=== PATIENT | female | born 1940 | race Caucasian/White ===

== ENCOUNTER → 2016-08-11 | Outpatient (CLI) | payer MEDICARE ==
--- NOTE | 2016-08-12 11:03 | ECHOF ---
Referral Reason:M34.1 Systemic Sclerosis, R06.9 Dyspnea MEASUREMENTS -------- HEIGHT: 167.6 cm WEIGHT: 71.2 kg BP: 146/71 RVIDd: 3.0 cm (< 3.3) IVSd: 1.2 cm (0.6 - 1.1) LVIDd: 2.9 cm (3.9 - 5.3) LVPWd: 1.1 cm (0.6 - 1.1) IVSs: 1.7 cm LVIDs: 2.1 cm LVPWs: 1.6 cm LA Diam: 3.4 cm (2.7 - 3.8) LAESV Index (A-L): 26.19 ml/m Ao Diam: 2.9 cm (2.0 - 3.7) AV Cusp: 2.0 cm (1.5 - 2.6) LA Diam: 3.2 cm (2.7 - 3.8) MV EXCURSION: 10.759 mm (> 18.000) MV EF SLOPE: 69 mm/s (70 - 150) EPSS: 0.4 cm MV E Maynor: 0.88 m/s MV DecT: 192 ms MV A Maynor: 0.91 m/s MV E/A Ratio: 0.96 AR PHT: 1031 ms RAP: 5.00 mmHg RVSP: 36.12 mmHg FINDINGS -------- Sinus rhythm. This was a technically good study. The left ventricular size is normal. There is borderline concentric left ventricular hypertrophy. Overall left ventricular systolic function is normal with, an EF between 55 - 60 %. The right ventricle is normal in size. Normal LA size by volume 22+/-6 ml/m2. The right atrium is normal in size. Aortic valve is trileaflet and is mildly thickened. Mild mitral annular calcification present. Moderate mitral regurgitation is present. Mild tricuspid regurgitation present. There is mild pulmonary hypertension. The right ventricular systolic pressure, as measured by Doppler, is 36.12mmHg. There is no pulmonic regurgitation present. The aortic root size is normal. Normal inferior vena cava with normal inspiratory collapse consistent with estimated right atrial pressure of 5 mmHg. There is no pericardial effusion. CONCLUSIONS -------- 1. Sinus rhythm. 2. There is mild pulmonary hypertension. 3. There is no pulmonic regurgitation present. 4. The aortic root size is normal. 5. Normal inferior vena cava with normal inspiratory collapse consistent with estimated right atrial pressure of 5 mmHg. 6. There is no pericardial effusion. 7. This was a technically good study. 8. There is borderline concentric left ventricular hypertrophy. 9. Overall left ventricular systolic function is normal with, an EF between 55 - 60 %. 10. Normal LA size by volume 22+/-6 ml/m2. 11. Aortic valve is trileaflet and is mildly thickened. 12. Mild mitral annular calcification present. 13. Moderate mitral regurgitation is present. 14. Mild tricuspid regurgitation present. CLEANER ASSISTANT: Antonette Graham RDCS
== END ==
LOC: RADECHMAIN 14:54
PROVIDERS: ATTEND Internal Medicine Rheumatology
DX: I27.2 Other secondary pulmonary hypertension (principal); I08.1 Rheumatic disorders of both mitral and tricuspid valves
CPT/HCPCS: 93306

== ENCOUNTER → 2017-08-24 | Outpatient (CLI) | payer MEDICARE ==
--- NOTE | 2017-08-26 09:04 | MM ---
Reason for exam: screening (asymptomatic). Last mammogram was performed 1 year and 5 months ago. History: Patient is postmenopausal. Family history of breast cancer in father at age 60. Benign right mammotome panel of the right breast, September 21, 2005. Excisional biopsy of the left breast. Physical Findings: A clinical breast exam by your physician is recommended on an annual basis and results should be correlated with mammographic findings. MG 3D Screening Mammo W/Cad Bilateral CC and MLO view(s) were taken. Prior study comparison: April 07, 2016, bilateral MG 3d screening mammo w/cad. August 25, 2011, bilateral digital screening mammo w/CAD. There are scattered fibroglandular densities. Finding: There are stable punctate, grouped/clustered calcifications in the 6 o'clock lower quadrant, middle position of the right breast. Previous mammotome biopsy in the right breast. No significant changes in finding since April 07, 2016 and August 25, 2011. ASSESSMENT: Benign, BI-RAD 2 RECOMMENDATION: Routine screening mammogram of both breasts in 1 year.
== END | disposition home or self-care (01) ==
LOC: RADMAMWWP 14:02
PROVIDERS: ATTEND Family Medicine
DX: Z12.31 Encounter for screening mammogram for malignant neoplasm of breast (principal)
CPT/HCPCS: 77063; 77067

== ENCOUNTER 2018-05-22 09:35 | Emergency (ER) | payer MEDICARE ==
[2018-05-22] MEDS ORDERED: SODIUM CHLORIDE 0.9% 1,000 ML IV STA (10:00)
[2018-05-22 10:11] LABS: Glucose,Whole Blood 110 mg/dL (75-99)
[2018-05-22 10:30] LABS: Basophils # (A) 0.1 k/uL (0-0.2); Basophils % (A) 1 %; Eosinophils # (A) 0.2 k/uL (0-0.7); Eosinophils % (A) 2 %; HCT 44.7 % (34.0-46.0); HGB 14.6 gm/dL (11.4-16.0); Lymphocytes # (A) 1.7 k/uL (1.0-4.8); Lymphocytes % (A) 16 %; MCH 28.6 pg (25.0-35.0); MCHC 32.7 g/dL (31.0-37.0); MCV 87.5 fL (80.0-100.0); Mean Platelet Volume 6.5; Monocytes # (A) 0.5 k/uL (0-1.0); Monocytes % (A) 4 %; Neutrophils # (A) 8.5 k/uL (1.3-7.7); Neutrophils % (A) 77 %; Platelet Count 314 k/uL (150-450); RDW 13.8 % (11.5-15.5)
--- NOTE | 2018-05-22 10:32 | XR ---
EXAMINATION TYPE: XR chest 2V DATE OF EXAM: 05/22/2018 COMPARISON: NONE HISTORY: Shortness of breath TECHNIQUE: Frontal and lateral views of the chest are obtained. FINDINGS: Scattered senescent parenchymal changes noted. Hyperinflation compatible with COPD. No evidence for infiltrate. No evidence for atelectasis. Heart size is stable. Mediastinal structures are stable and grossly unremarkable. No evidence for hilar prominence. Degenerative changes dorsal spine. IMPRESSION: 1. No evidence for acute pulmonary disease.
[2018-05-22 10:40] LABS: Albumin 4.3 g/dL (3.5-5.0); Calcium 9.7 mg/dL (8.4-10.2); Magnesium 1.8 mg/dL (1.6-2.3); Potassium 4.6 mmol/L (3.5-5.1); Total Bilirubin 0.6 mg/dL (0.2-1.3); Total Protein 7.4 g/dL (6.3-8.2)
[2018-05-22] MEDS ORDERED: LIDOCAINE 5% PATCH TOPICAL STA (10:45)
[2018-05-22 10:47] LABS: Prothrombin Time 10.5 sec (9.0-12.0)
[2018-05-22] MEDS ORDERED: ONDANSETRON 4 MG/2 ML VIAL IVP STA (10:47)
[2018-05-22] MEDS ORDERED: ACETAMINOPHEN IV (For NPO) 1,000 MG in EMPTY BAG 1 BAG IVPB ONE (10:47)
[2018-05-22 10:48] LABS: Creatine Kinase 71 U/L (30-135)
--- NOTE | 2018-05-22 10:48 | ED ---
General Adult HPI - General Chief complaint: Syncope Stated complaint: Syncope, Fall Source: patient Mode of arrival: wheelchair Limitations: no limitations - Related Data Home Medications Medication Instructions Recorded Confirmed Cholecalciferol [Vitamin D3] 5,000 unit PO DAILY 05/22/18 05/22/18 Omeprazole 40 mg PO DAILY 05/22/18 05/22/18 Triamterene-Hctz 37.5-25Mg 1 cap PO DAILY 05/22/18 05/22/18 [Dyazide 37.5-25 Capsule] Venlafaxine HCl [Effexor] 75 mg PO DAILY 05/22/18 05/22/18 Vits A,C,E/Lutein/Minerals 1 tab PO DAILY 05/22/18 05/22/18 [Ocuvite with Lutein Tablet] busPIRone HCL 15 mg PO DAILY 05/22/18 05/22/18 Allergies Allergy/AdvReac Type Severity Reaction Status Date / Time Sulfa (Sulfonamide Allergy Unknown Verified 05/22/18 10:04 Antibiotics) Childhood Review of Systems ROS Statement: Those systems with pertinent positive or pertinent negative responses have been documented in the HPI. ROS Other: All systems not noted in ROS Statement are negative. Past Medical History Past Medical History: Fibromyalgia, Pulmonary Embolus (PE), Rheumatoid Arthritis (RA) Additional Past Medical History / Comment(s): macular degeneration, lupus, Raynauds History of Any Multi-Drug Resistant Organisms: ESBL Date of last positivie culture/infection: 08/17/2014 MDRO Source:: Urine-E.Coli ESBL Past Surgical History: Bladder Surgery, Hysterectomy Past Psychological History: Depression Smoking Status: Never smoker Past Alcohol Use History: Occasional Past Drug Use History: None Reported General Exam Limitations: no limitations Course Vital Signs 05/22/18 05/22/18 09:48 14:00 Temperature 97.7 F Pulse Rate 69 84 Respiratory 16 18 Rate Blood Pressure 128/72 162/84 O2 Sat by Pulse 97 98 Oximetry Medical Decision Making - Medical Decision Making Dictation was produced using [employer] dictation software. please excuse any grammatical, word or spelling errors. Chief Complaint: 77-year-old female presents with episode of syncope. History of Present Illness: 77-year-old female she woke up from bed to go use the restroom. She states she started to feel lightheaded and felt like recurrence, no arise. She remembers she woke up on the ground. She crawled into bed told her . They brought her to the emergency department. Patient states that prior to standing up she was massaging the area around her left neck for some tightness in her trapezius. Patient denies any history of syncope. Patient does take antihypertensive medications. She states that she didn't start any new medications recently. Patient does not complain of any tongue biting. She was not observed to be confused after the incident. Fall was unwitnessed. Patient does complain of a mild headache. The ROS documented in this emergency department record has been reviewed and confirmed by me. Those systems with pertinent positive or negative responses have been documented in the HPI. All other systems are other negative and/or noncontributory. PHYSICAL EXAM: General Impression: Alert and oriented x3, not in acute distress HEENT: Normocephalic atraumatic, extra-ocular movements intact, pupils equal and reactive to light bilaterally, mucous membranes moist. Cardiovascular: Heart regular rate and rhythm, S1&S2 audible, no murmurs, rubs or gallops, no systolic ejection murmur Chest: Lungs clear to auscultation bilaterally, no rhonchi, no wheeze, no rales Abdomen: Bowel sounds present, abdomen soft, non-tender, non-distended, no organomegaly Musculoskeletal: Pulses present and equal in all extremities, no peripheral edema, mild tenderness to the area over the anterior talofibular ligament, mild tenderness to palpation over the right flank area Motor: Power 5/5 bilaterally, no focal deficits noted Neurological: CN II-XII grossly intact, no focal motor or sensory deficits noted Skin: Intact with no visualized rashes Psych: Normal affect and mood ED course: 77-year-old female presents to emergency department after episode of syncope. Signs upon arrival are within acceptable limits. Patient still feels slightly weak. EKG is unremarkable. Distress consistent with vasovagal syncope given the patient was massaging her neck. Return evaluation obtained. Mild leukocytosis of 11.0 likely secondary to stress. Coag panel unremarkable. Metabolic panel is negative. Kernig enzymes negative. Urinalysis negative. Chest x-ray, rib x-ray, head CT is unremarkable. Patient did have a mildly displaced fibular fracture. This appears to be however be. Given that there is possibility of instability ankles placed in a splint. Patient is monitored on monitoring analyst without any acute events. Patient be discharged. Still to follow-up with her primary care physician for outpatient workup of syncope. Patient also told to follow up with orthopedic surgery for outpatient management of ankle fracture. EKG Interpretation: A 12 lead EKG was obtained. It was interpreted by myself and attending physician. There is a P wave before every QRS complex. Rate is 69. Rhythm is normal sinus rhythm, AZ interval 150, care is 80, QTc 47. QT is not prolonged. No ST segment depression or elevation. Overall, this EKG is unremarkable - Lab Data Result diagrams: 05/22/18 10:10 05/22/18 10:10 Lab Results 05/22/18 05/22/18 05/22/18 Range/Units 10:10 10:10 10:10 WBC 11.0 H (3.8-10.6) k/uL RBC 5.10 (3.80-5.40) m/uL Hgb 14.6 (11.4-16.0) gm/dL Hct 44.7 (34.0-46.0) % MCV 87.5 (80.0-100.0) fL MCH 28.6 (25.0-35.0) pg MCHC 32.7 (31.0-37.0) g/dL RDW 13.8 (11.5-15.5) % Plt Count 314 (150-450) k/uL Neutrophils % 77 % Lymphocytes % 16 % Monocytes % 4 % Eosinophils % 2 % Basophils % 1 % Neutrophils # 8.5 H (1.3-7.7) k/uL Lymphocytes # 1.7 (1.0-4.8) k/uL Monocytes # 0.5 (0-1.0) k/uL Eosinophils # 0.2 (0-0.7) k/uL Basophils # 0.1 (0-0.2) k/uL PT (9.0-12.0) sec INR (<1.2) APTT (22.0-30.0) sec Sodium (137-145) mmol/L Potassium (3.5-5.1) mmol/L Chloride (98-107) mmol/L Carbon Dioxide (22-30) mmol/L Anion Gap mmol/L BUN (7-17) mg/dL Creatinine (0.52-1.04) mg/dL Est GFR (CKD-EPI)AfAm (>60 ml/min/1.73 sqM) Est GFR (CKD-EPI)NonAf (>60 ml/min/1.73 sqM) Glucose (74-99) mg/dL POC Glucose (mg/dL) 110 H (75-99) mg/dL POC Glu Radiagraph Operator ID Matthew Dunbar Calcium (8.4-10.2) mg/dL Magnesium (1.6-2.3) mg/dL Total Bilirubin (0.2-1.3) mg/dL AST (14-36) U/L ALT (9-52) U/L Alkaline Phosphatase (38-126) U/L Total Creatine Kinase 71 (30-135) U/L CK-MB (CK-2) 1.2 (0.0-2.4) ng/mL CK-MB (CK-2) Rel Index 1.7 Troponin I <0.012 (0.000-0.034) ng/mL Total Protein (6.3-8.2) g/dL Albumin (3.5-5.0) g/dL Urine Color Urine Appearance (Clear) Urine pH (5.0-8.0) Ur Specific [place] (1.001-1.035) Urine Protein (Negative) Urine Glucose (UA) (Negative) Urine Ketones (Negative) Urine Blood (Negative) Urine Nitrite (Negative) Urine Bilirubin (Negative) Urine Urobilinogen (<2.0) mg/dL Ur Leukocyte Esterase (Negative) 05/22/18 05/22/18 05/22/18 Range/Units 10:10 10:10 13:55 WBC (3.8-10.6) k/uL RBC (3.80-5.40) m/uL Hgb (11.4-16.0) gm/dL Hct (34.0-46.0) % MCV (80.0-100.0) fL MCH (25.0-35.0) pg MCHC (31.0-37.0) g/dL RDW (11.5-15.5) % Plt Count (150-450) k/uL Neutrophils % % Lymphocytes % % Monocytes % % Eosinophils % % Basophils % % Neutrophils # (1.3-7.7) k/uL Lymphocytes # (1.0-4.8) k/uL Monocytes # (0-1.0) k/uL Eosinophils # (0-0.7) k/uL Basophils # (0-0.2) k/uL PT 10.5 (9.0-12.0) sec INR 1.0 (<1.2) APTT 23.0 (22.0-30.0) sec Sodium 138 (137-145) mmol/L Potassium 4.6 (3.5-5.1) mmol/L Chloride 97 L (98-107) mmol/L Carbon Dioxide 30 (22-30) mmol/L Anion Gap 11 mmol/L BUN 23 H (7-17) mg/dL Creatinine 0.84 (0.52-1.04) mg/dL Est GFR (CKD-EPI)AfAm 79 (>60 ml/min/1.73 sqM) Est GFR (CKD-EPI)NonAf 68 (>60 ml/min/1.73 sqM) Glucose 110 H (74-99) mg/dL POC Glucose (mg/dL) (75-99) mg/dL POC Glu Radiagraph Operator ID Calcium 9.7 (8.4-10.2) mg/dL Magnesium 1.8 (1.6-2.3) mg/dL Total Bilirubin 0.6 (0.2-1.3) mg/dL AST 26 (14-36) U/L ALT 21 (9-52) U/L Alkaline Phosphatase 63 (38-126) U/L Total Creatine Kinase (30-135) U/L CK-MB (CK-2) (0.0-2.4) ng/mL CK-MB (CK-2) Rel Index Troponin I (0.000-0.034) ng/mL Total Protein 7.4 (6.3-8.2) g/dL Albumin 4.3 (3.5-5.0) g/dL Urine Color Light Yellow Urine Appearance Clear (Clear) Urine pH 5.0 (5.0-8.0) Ur Specific [place] 1.007 (1.001-1.035) Urine Protein Negative (Negative) Urine Glucose (UA) Negative (Negative) Urine Ketones Negative (Negative) Urine Blood Negative (Negative) Urine Nitrite Negative (Negative) Urine Bilirubin Negative (Negative) Urine Urobilinogen <2.0 (<2.0) mg/dL Ur Leukocyte Esterase Negative (Negative) Disposition Clinical Impression: Fracture, Syncope Disposition: HOME SELF-CARE Condition: Good Instructions: Syncope (ED), Ankle Fracture (ED) Is patient prescribed a controlled substance at d/c from ED?: No Referrals: Doron Peralta MD [Primary Care Provider] - 1-2 days Hudson Kelly MD [Medical Doctor] - 1-2 days Time of Disposition: 14:34
[2018-05-22 11:01] LABS: Creatine Kinase MB 1.2 ng/mL (0.0-2.4); Troponin I <0.012 ng/mL (0.000-0.034)
--- NOTE | 2018-05-22 12:28 | CT ---
EXAMINATION TYPE: CT brain wo con DATE OF EXAM: 05/22/2018 COMPARISON: None HISTORY: Syncope CT DLP: 1082.[address] of the brain was performed. The ventricles, basal cisterns and sulci overlying the cerebral convexities demonstrate mild enlargem ent. There is no evidence for intracranial hemorrhage or sulcal effacement. There is decreased attenuation about the periventricular white matter and deep white matter of both c erebral hemispheres, compatible with chronic small vessel ischemia. Differential diagnosis does inclu de demyelination. No mass effects are seen.No midline shift. Osseous calvarium is intact. If symptoms persist consider MRI. IMPRESSION: 1. Age related atrophic and chronic small vessel ischemic change without acute intracranial process s een at this time.
--- NOTE | 2018-05-22 12:36 | XR ---
EXAMINATION TYPE: XR ankle complete LT DATE OF EXAM: 05/22/2018 COMPARISON: NONE HISTORY: Pain TECHNIQUE: 3 views of the left ankle are submitted for evaluation. FINDINGS: There is mildly displaced the distal fibular fracture oblique orientation just cranial to t he level of the ankle mortise. Ankle mortise is intact. Soft tissues are within normal limits. IMPRESSION: 1. Mildly displaced distal fibular fracture.
--- NOTE | 2018-05-22 12:39 | XR ---
EXAMINATION TYPE: XR ribs RT DATE OF EXAM: 05/22/2018 CLINICAL HISTORY: Pain, Fall Four views of the ribs fail demonstrate evidence for displaced rib fracture or secondary sign of rib fracture. Visualized lungs are clear. No evidence for pneumothorax. IMPRESSION: 1. No displaced rib fractures seen. ICD 10 NO FRACTURE, INITIAL EVALUATION
[2018-05-22 14:13] LABS: Appearance,Urine Clear (Clear); Bilirubin,Urine Negative (Negative); Blood,Urine Negative (Negative); Color,Urine Light Yellow; Glucose,Urine (UA) Negative (Negative); Ketones,Urine Negative (Negative); Leukocyte Esterase,Urine Negative (Negative); Nitrite,Urine Negative (Negative); Protein,Urine Negative (Negative); Specific Gravity,Urine 1.007 (1.001-1.035); Urobilinogen,Urine <2.0 mg/dL (<2.0)
[2018-05-22 14:43] VITALS: BP 141/71; PULSE 75; RESP 16; TEMP 98.6
== END 2018-05-22 15:15 | disposition home or self-care (01) ==
LOC: EC 09:35
DX: S82.832A Other fracture of upper and lower end of left fibula, initial encounter for closed fracture (principal); R55 Syncope and collapse; D72.829 Elevated white blood cell count, unspecified; F32.9 Major depressive disorder, single episode, unspecified; Z79.899 Other long term (current) drug therapy; Z88.2 Allergy status to sulfonamides; W19.XXXA Unspecified fall, initial encounter; Y92.002 Bathroom of unspecified non-institutional (private) residence as the place of occurrence of the external cause
CPT/HCPCS: 36415; 93005; 80053; 82550; 82553; 83735; 84484; 85025; 85610; 85730; 81003; 71100; 73610; 71046; 70450; 99285; 29515; 96374; 96375; 96361; J2405; J0131

== ENCOUNTER → 2019-01-26 | Outpatient (CLI) | payer MEDICARE ==
--- NOTE | 2019-01-27 13:45 | MM ---
Reason for exam: screening (asymptomatic). Last mammogram was performed 1 year and 5 months ago. History: Patient is postmenopausal. Family history of breast cancer in father at age 60. Benign right mammotome panel of the right breast, September 21, 2005. Excisional biopsy of the left breast. Physical Findings: A clinical breast exam by your physician is recommended on an annual basis and results should be correlated with mammographic findings. MG 3D Screening Mammo W/Cad Bilateral CC and MLO view(s) were taken. XCCL view(s) were taken of the right breast. Prior study comparison: August 24, 2017, bilateral MG 3d screening mammo w/cad. April 07, 2016, bilateral MG 3d screening mammo w/cad. The breast tissue is heterogeneously dense. This may lower the sensitivity of mammography. No suspicious abnormality. Right biopsy marker noted. No significant changes when compared with prior studies. ASSESSMENT: Benign, BI-RAD 2 RECOMMENDATION: Routine screening mammogram of both breasts in 1 year.
== END ==
LOC: RADMAMWWP 11:09
PROVIDERS: ATTEND Family Medicine
DX: Z12.31 Encounter for screening mammogram for malignant neoplasm of breast (principal)
CPT/HCPCS: 77063; 77067

== ENCOUNTER 2021-04-12 19:20 | Observation (INO) | payer OTHER, MEDICARE ==
[2021-04-12] MEDS ORDERED: SODIUM CHLORIDE 0.9% 500 ML 500 ML IV STA (19:40)
[2021-04-12] MEDS ORDERED: KETOROLAC 30 MG/ML 1 ML VIAL IVP STA (19:41)
[2021-04-12] MEDS ORDERED: ORPHENADRINE 30 MG/ML 2 ML VIAL IVP STA (19:41)
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
--- NOTE | 2021-04-12 20:28 | XR ---
EXAMINATION TYPE: XR pelvis AP view DATE OF EXAM: 04/12/2021 COMPARISON: NONE HISTORY: Pain. Trauma. TECHNIQUE: Single view FINDINGS: Pelvic ring is intact. Proximal femurs and hip joints are intact. Sacroiliac joints appear normal. IMPRESSION: Normal exam. No fracture.
--- NOTE | 2021-04-12 20:30 | XR ---
EXAMINATION TYPE: XR chest 1V portable DATE OF EXAM: 04/12/2021 COMPARISON: 05/22/2018 HISTORY: Single view TECHNIQUE: FINDINGS: There is no heart failure nor confluent pneumonic infiltrate. Costophrenic angles are clear. Thoracic spine is intact. There is no pleural effusion. IMPRESSION: No active cardiopulmonary disease.
--- NOTE | 2021-04-12 21:22 | CT ---
EXAMINATION TYPE: CT brain eduardoine wo con DATE OF EXAM: 04/12/2021 COMPARISON: CT brain 05/22/2018 HISTORY: fall CT DLP: 1469.7 mGycm Automated exposure control for dose reduction was used. Exam performed without contrast. There is mild cerebral atrophy. There is no mass effect nor midline shift. There is no sign of intrac ranial hemorrhage. Calvarium is intact. Cervical vertebra have fairly normal alignment. There is some mild straightening at C3-4. Posterior e lements are intact. Facet joints are intact. There is no compression fracture. Prevertebral soft tiss ues are intact. IMPRESSION: Mild atrophy. No acute intracranial abnormality. No change compared to old exam. Mild cervical spondylotic changes. No fracture.
[2021-04-12 22:07] LABS: Appearance,Urine Cloudy (Clear); Bacteria,Urine Many /hpf; Bilirubin,Urine Negative (Negative); Blood,Urine Negative (Negative); Color,Urine Yellow; Glucose,Urine (UA) Negative (Negative); Ketones,Urine Negative (Negative); Leukocyte Esterase,Urine Large (Negative); Mucus,Urine Rare /hpf; Nitrite,Urine Negative (Negative); Protein,Urine Trace (Negative); RBC,Urine 5 /hpf (0-5); Specific Gravity,Urine 1.016 (1.001-1.035); Squamous Epithelial Cell,Urine 3 /hpf (0-4); Urobilinogen,Urine <2.0 mg/dL (<2.0); WBC,Urine 114 /hpf (0-5)
[2021-04-12 22:16] LABS: Basophils # (A) 0.1 k/uL (0-0.2); Basophils % (A) 1 %; Eosinophils # (A) 0.1 k/uL (0-0.7); Eosinophils % (A) 1 %; HCT 44.4 % (34.0-46.0); HGB 14.3 gm/dL (11.4-16.0); Lymphocytes # (A) 1.9 k/uL (1.0-4.8); Lymphocytes % (A) 12 %; MCH 28.6 pg (25.0-35.0); MCHC 32.2 g/dL (31.0-37.0); MCV 88.9 fL (80.0-100.0); Monocytes # (A) 0.6 k/uL (0-1.0); Monocytes % (A) 4 %; Neutrophils # (A) 13.2 k/uL (1.3-7.7); Neutrophils % (A) 82 %; Platelet Count 313 k/uL (150-450); RDW 13.3 % (11.5-15.5)
[2021-04-12] MEDS ORDERED: cefTRIAXone IN SWFI 1,000 MG/10 ML SYRINGE IVP STA (22:16)
[2021-04-12 22:20] LABS: Partial Thromboplastin Time 23.6 sec (22.0-30.0); Prothrombin Time 10.9 sec (9.0-12.0)
[2021-04-12 22:23] LABS: Albumin 4.3 g/dL (3.5-5.0); Calcium 9.7 mg/dL (8.4-10.2); Potassium 4.5 mmol/L (3.5-5.1); Total Bilirubin 0.5 mg/dL (0.2-1.3); Total Protein 7.3 g/dL (6.3-8.2)
--- NOTE | 2021-04-12 23:43 | CT ---
EXAMINATION TYPE: CT ChestAbdPelvis w con DATE OF EXAM: 04/12/2021 COMPARISON: None HISTORY: pain CT DLP: 858.6 mGycm Automated exposure control for dose reduction was used. CONTRAST: Performed with IV Contrast, patient injected with 80 mL of Isovue 300. Images obtained from the thoracic inlet to the floor the pelvis with IV contrast. There is some mild interstitial infiltrates in the mid and lower lung stone. There is subsegmental a telectasis at the lung bases. Heart size is normal. There is no mediastinal adenopathy. There are no hilar masses. There is coronary artery calcification. Thoracic aorta is intact. There is no aneurysm or dissection. Liver and spleen appear intact. The bile ducts are not dilated. Stomach is intact. There is no pancre atic mass. There are small calcifications along the wall of the gallbladder. There is no adrenal mass. Kidneys show satisfactory contrast opacification. There is no hydronephrosi s. Ureters are not dilated. There is large bilateral extrarenal pelvis. There is normal excretion on the delayed images. There is no retroperitoneal adenopathy. Bladder distends smoothly. There is no in guinal hernia. There are sigmoid diverticula. There is no diverticulitis. There is no mesenteric edema. There is no ascites or free air. There is no bowel obstruction. The thoracic and lumbar spine appear intact. There is no compression fracture. The bony pelvis is intact. The hip joints are intact. IMPRESSION: There is coarse interstitial density at the lung bases consistent with scarring and subsegmental atel ectasis. No evidence of traumatic injury in the abdomen and pelvis.
[2021-04-13] MEDS ORDERED: NALOXONE 0.4 MG/ML 1 ML VIAL IV PRN (00:01)
[2021-04-13] MEDS ORDERED: ACETAMINOPHEN TAB 325 MG TAB PO PRN (00:01)
[2021-04-13] MEDS ORDERED: FAMOTIDINE 20 MG TAB PO PRN (00:04)
[2021-04-13] MEDS ORDERED: SODIUM CHLORIDE 0.9% 1,000 ML IV SCH (00:15)
[2021-04-13] MEDS: traZODone HCL 100 MG TAB PO SCH (01:52)
[2021-04-13 06:32] VITALS: BP 124/68; PULSE 61
[2021-04-13] MEDS ORDERED: PANTOPRAZOLE 40 MG TABLET PO SCH (07:30)
[2021-04-13] MEDS ORDERED: TRIAMTERENE-HCTZ 37.5-25MG 1 EACH CAP PO SCH (09:00)
[2021-04-13] MEDS ORDERED: NIFEdipine 10 MG CAP PO SCH (09:00)
[2021-04-13] MEDS ORDERED: ASPIRIN 81 MG PO SCH (09:00)
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
[2021-04-13 11:25] VITALS: RESP 18; TEMP 98.4
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
[2021-04-13] MEDS ORDERED: OXYBUTYNIN 10 MG TAB.ER.24 PO SCH (21:00)
[2021-04-13] MEDS ORDERED: NON FORMULARY DRUG (Acetaminophen [Tylenol 8 Hour] 650 MG Tablet) PO SCH (21:00)
== END 2021-04-13 13:12 | disposition home or self-care (01) ==
LOC: EC 19:20 → 3SCARD 04-13 00:15
PROVIDERS: ADMIT Internal Medicine; ATTEND Internal Medicine
DX: S26.91XA Contusion of heart, unspecified with or without hemopericardium, initial encounter (principal); I10 Essential (primary) hypertension; M79.7 Fibromyalgia; M06.9 Rheumatoid arthritis, unspecified; J98.11 Atelectasis; S20.219A Contusion of unspecified front wall of thorax, initial encounter; R77.8 Other specified abnormalities of plasma proteins; V89.2XXA Person injured in unspecified motor-vehicle accident, traffic, initial encounter; Y92.410 Unspecified street and highway as the place of occurrence of the external cause; M34.1 CR(E)ST syndrome; H35.30 Unspecified macular degeneration; I73.00 Raynaud's syndrome without gangrene; F32.A Depression, unspecified; M47.812 Spondylosis without myelopathy or radiculopathy, cervical region; Z98.41 Cataract extraction status, right eye; Z20.822 Contact with and (suspected) exposure to COVID-19; Z86.711 Personal history of pulmonary embolism; Z87.440 Personal history of urinary (tract) infections; Z79.82 Long term (current) use of aspirin; Z79.899 Other long term (current) drug therapy; Z88.2 Allergy status to sulfonamides; Z90.710 Acquired absence of both cervix and uterus; Z16.24 Resistance to multiple antibiotics; Z82.49 Family history of ischemic heart disease and other diseases of the circulatory system
CPT/HCPCS: 96361 ×2; 96374; 96375; 99285; 36415; 93005; 86900; 86901; 80053; 84484 ×2; 85025; 85610; 85730; 86850; 81001; 87635; 72170; 71045; 72125; 70450; 71260; 74177; G0378; J2360; J0696; J1885; Q9967

== ENCOUNTER → 2021-08-01 | Outpatient (CLI) | payer MEDICARE ==
--- NOTE | 2021-08-01 13:50 | FL ---
EXAMINATION TYPE: FL barium swallow w video DATE OF EXAM: 08/01/2021 COMPARISON: NONE HISTORY: R 13.10. FINDINGS: Patient was evaluated in real-time fluoroscopy in the lateral projection while ingesting barium mixe d with liquids and solids. No aspiration or laryngeal penetration. See dictated report from speech pathology. 1.43 minutes fluoroscopy time, no images obtained
== END | disposition home or self-care (01) ==
LOC: RADFLMAIN 11:18
PROVIDERS: ATTEND Family Medicine
DX: R13.10 Dysphagia, unspecified (principal); I63.9 Cerebral infarction, unspecified
CPT/HCPCS: 74230

== ENCOUNTER 2021-08-07 08:44 | Inpatient (IN) | payer MEDICARE ==
--- NOTE | 2021-08-07 09:17 | ED ---
SOB HPI - General Chief Complaint: Shortness of Breath Stated Complaint: SOB Source: patient Mode of arrival: ambulatory Limitations: no limitations - History of Present Illness Initial Comments: 81-year old female with past history of pulmonary embolism on Xarelto presents to emergency room with reported shortness of breath. Patient has had recent hospitalization due to stroke. States that she was then discharged to rehab for 2 weeks and recently just came home last week. She has been more sedentary and has some swelling in her lower extremities which is new for her. Denies previous history of congestive heart failure. No history of pulmonary illness to include COPD or asthma. Patient awoke in the middle of the night and thought maybe it was her anxiety. She checked her pulse ox is morning and it was noted to be 80s. She does not oxygen at home. Denies any associated chest pain. Shortness of breath is worse when she lays flat. She has not missed any doses of her Xarelto. No calf pain. Denies any abdominal pain. Does not take any diuretics. No other alleviating, precipitating factors - Related Data Home Medications Medication Instructions Recorded Confirmed Omeprazole 40 mg PO DAILY 05/22/18 08/07/21 Aspirin [Adult Low Dose Aspirin EC] 81 mg PO DAILY 06/09/19 08/07/21 Oxybutynin ER [Ditropan Xl] 10 mg PO WESA 04/12/21 08/07/21 Vortioxetine Hydrobromide 10 mg PO DAILY 04/12/21 08/07/21 [Trintellix] traZODone HCL 100 mg PO HS 04/12/21 08/07/21 ALPRAZolam [Xanax] 0.5 mg PO BID 08/07/21 08/07/21 Atorvastatin [Lipitor] 40 mg PO HS 08/07/21 08/07/21 Rivaroxaban [Xarelto] 2.5 mg PO BID 08/07/21 08/07/21 amLODIPine [Norvasc] 5 mg PO BID 08/07/21 08/07/21 Allergies Allergy/AdvReac Type Severity Reaction Status Date / Time Sulfa (Sulfonamide Allergy Unknown Verified 08/07/21 09:56 Antibiotics) Childhood Review of Systems ROS Statement: Those systems with pertinent positive or pertinent negative responses have been documented in the HPI. ROS Other: All systems not noted in ROS Statement are negative. Past Medical History Past Medical History: CVA/TIA, Fibromyalgia, Hypertension, Pulmonary Embolus (PE), Rheumatoid Arthritis (RA) Additional Past Medical History / Comment(s): macular degeneration, lupus, Rayn auds History of Any Multi-Drug Resistant Organisms: ESBL Date of last positivie culture/infection: 08/17/2014 MDRO Source:: Urine-E.Coli ESBL Past Surgical History: Bladder Surgery, Hysterectomy Additional Past Surgical History / Comment(s): RIGHT CATARACT REMOVAL Past Anesthesia/Blood Transfusion Reactions: Postoperative Nausea & Vomiting (PONV) Past Psychological History: Depression Smoking Status: Never smoker Past Alcohol Use History: Occasional Past Drug Use History: Marijuana - Past Family History Sister(s) Additional Family Medical History / Comment(s): "HEART PROBLEMS" General Exam Limitations: no limitations Course Vital Signs 08/07/21 08/07/21 08/07/21 08:50 09:20 11:00 Temperature 98.5 F Pulse Rate 92 81 80 Respiratory 20 18 18 Rate Blood Pressure 141/72 166/83 O2 Sat by Pulse 91 L 100 95 Oximetry 08/07/21 08/07/21 12:25 13:39 Temperature Pulse Rate 76 77 Respiratory 18 18 Rate Blood Pressure 157/73 137/67 O2 Sat by Pulse 93 L 96 Oximetry Medical Decision Making - Medical Decision Making Upon arrival patient was placed into room 2. She is placed on 2 L of oxygen for saturations of 94%. IV is established laboratory studies are conducted. 12- lead EKG was performed. Lab studies are reviewed and d-dimer is elevated at 0.88. BNP 699. Because of the patient's history of PE she is sent over for a CT of her chest. This demonstrates small left greater than right pleural effusions with mild/moderate alveolar and interstitial edema. Patient is given 60 mg of Lasix. Recommended admission for echo and continue diuresis for which the patient did agree to. Spoke with Dr. Zhou who agreed to admit the patient. - Lab Data Result diagrams: 08/07/21 09:37 08/07/21 09:37 Lab Results 08/07/21 08/07/21 08/07/21 Range/Units 09:37 09:37 09:37 WBC 8.9 (3.8-10.6) k/uL RBC 4.45 (3.80-5.40) m/uL Hgb 12.5 (11.4-16.0) gm/dL Hct 38.5 (34.0-46.0) % MCV 86.7 (80.0-100.0) fL MCH 28.1 (25.0-35.0) pg MCHC 32.4 (31.0-37.0) g/dL RDW 14.7 (11.5-15.5) % Plt Count 352 (150-450) k/uL MPV 7.1 Neutrophils % 78 % Lymphocytes % 13 % Monocytes % 5 % Eosinophils % 2 % Basophils % 0 % Neutrophils # 6.9 (1.3-7.7) k/uL Lymphocytes # 1.2 (1.0-4.8) k/uL Monocytes # 0.4 (0-1.0) k/uL Eosinophils # 0.2 (0-0.7) k/uL Basophils # 0.0 (0-0.2) k/uL PT 11.4 (9.0-12.0) sec INR 1.1 (<1.2) APTT 26.1 (22.0-30.0) sec D-Dimer 0.88 H (<0.60) mg/L FEU Sodium 139 (137-145) mmol/L Potassium 3.7 (3.5-5.1) mmol/L Chloride 108 H (98-107) mmol/L Carbon Dioxide 23 (22-30) mmol/L Anion Gap 8 mmol/L BUN 12 (7-17) mg/dL Creatinine 0.74 (0.52-1.04) mg/dL Est GFR (CKD-EPI)AfAm 90 (>60 ml/min/1.73 sqM) Est GFR (CKD-EPI)NonAf 78 (>60 ml/min/1.73 sqM) Glucose 105 H (74-99) mg/dL Plasma Lactic Acid Sunil (0.7-2.0) mmol/L Calcium 8.8 (8.4-10.2) mg/dL Magnesium 1.2 L (1.6-2.3) mg/dL Total Bilirubin 1.6 H (0.2-1.3) mg/dL AST 25 (14-36) U/L ALT 11 (4-34) U/L Alkaline Phosphatase 68 (38-126) U/L Troponin I (0.000-0.034) ng/mL NT-Pro-B Natriuret Pep pg/mL Total Protein 7.2 (6.3-8.2) g/dL Albumin 3.9 (3.5-5.0) g/dL 08/07/21 08/07/21 08/07/21 Range/Units 09:37 09:37 09:37 WBC (3.8-10.6) k/uL RBC (3.80-5.40) m/uL Hgb (11.4-16.0) gm/dL Hct (34.0-46.0) % MCV (80.0-100.0) fL MCH (25.0-35.0) pg MCHC (31.0-37.0) g/dL RDW (11.5-15.5) % Plt Count (150-450) k/uL MPV Neutrophils % % Lymphocytes % % Monocytes % % Eosinophils % % Basophils % % Neutrophils # (1.3-7.7) k/uL Lymphocytes # (1.0-4.8) k/uL Monocytes # (0-1.0) k/uL Eosinophils # (0-0.7) k/uL Basophils # (0-0.2) k/uL PT (9.0-12.0) sec INR (<1.2) APTT (22.0-30.0) sec D-Dimer (<0.60) mg/L FEU Sodium (137-145) mmol/L Potassium (3.5-5.1) mmol/L Chloride (98-107) mmol/L Carbon Dioxide (22-30) mmol/L Anion Gap mmol/L BUN (7-17) mg/dL Creatinine (0.52-1.04) mg/dL Est GFR (CKD-EPI)AfAm (>60 ml/min/1.73 sqM) Est GFR (CKD-EPI)NonAf (>60 ml/min/1.73 sqM) Glucose (74-99) mg/dL Plasma Lactic Acid Sunil 1.5 (0.7-2.0) mmol/L Calcium (8.4-10.2) mg/dL Magnesium (1.6-2.3) mg/dL Total Bilirubin (0.2-1.3) mg/dL AST (14-36) U/L ALT (4-34) U/L Alkaline Phosphatase (38-126) U/L Troponin I 0.030 (0.000-0.034) ng/mL NT-Pro-B Natriuret Pep 699 pg/mL Total Protein (6.3-8.2) g/dL Albumin (3.5-5.0) g/dL - EKG Data EKG Comments: EKG completed at 9:10 AM demonstrates a sinus rhythm with a rate of 75. VT interval 174. QRS 81. QTC of 413. No acute ST segment elevations or depressions. Disposition Clinical Impression: Hypoxia, Pleural effusion, Hypomagnesemia Disposition: ADMITTED IP TO THIS [facility] Condition: Stable Is patient prescribed a controlled substance at d/c from ED?: No Decision to Admit Reason: Admit from EC Decision Date: 08/07/21 Decision Time: 11:48
[2021-08-07 09:51] LABS: Basophils % (A) 0 %; Eosinophils # (A) 0.2 k/uL (0-0.7); Eosinophils % (A) 2 %; HCT 38.5 % (34.0-46.0); HGB 12.5 gm/dL (11.4-16.0); Lymphocytes # (A) 1.2 k/uL (1.0-4.8); Lymphocytes % (A) 13 %; MCH 28.1 pg (25.0-35.0); MCHC 32.4 g/dL (31.0-37.0); MCV 86.7 fL (80.0-100.0); Mean Platelet Volume 7.1; Monocytes # (A) 0.4 k/uL (0-1.0); Monocytes % (A) 5 %; Neutrophils # (A) 6.9 k/uL (1.3-7.7); Neutrophils % (A) 78 %; Platelet Count 352 k/uL (150-450); RBC 4.45 m/uL (3.80-5.40); RDW 14.7 % (11.5-15.5); WBC 8.9 k/uL (3.8-10.6)
[2021-08-07 10:07] LABS: Albumin 3.9 g/dL (3.5-5.0); Calcium 8.8 mg/dL (8.4-10.2); Total Bilirubin 1.6 mg/dL (0.2-1.3); Total Protein 7.2 g/dL (6.3-8.2)
--- NOTE | 2021-08-07 10:07 | XR ---
EXAMINATION TYPE: XR chest 2V DATE OF EXAM: 08/07/2021 COMPARISON: 04/12/2021 HISTORY: Shortness of breath TECHNIQUE: Frontal and lateral views of the chest are obtained. FINDINGS: Scattered senescent parenchymal changes noted. Hyperinflation compatible with COPD. Cardiomegaly with pulmonary venous congestion scattered infiltrates may be on the basis of congestive failure. Infiltrates of other etiology difficult to exclude. Correlate clinically and progress studi es are advised. Mediastinal structures are stable and grossly unremarkable. No evidence for hilar prominence. Degenerative changes dorsal spine. IMPRESSION: 1. Cardiomegaly with pulmonary venous congestion scattered infiltrates may be on the basis of congest janet failure. Infiltrates of other etiology difficult to exclude. Correlate clinically and progress st udies are advised.
[2021-08-07 10:11] LABS: Magnesium 1.2 mg/dL (1.6-2.3); Potassium 3.7 mmol/L (3.5-5.1)
[2021-08-07 10:22] LABS: INR 1.1 (<1.2); Partial Thromboplastin Time 26.1 sec (22.0-30.0); Prothrombin Time 11.4 sec (9.0-12.0)
--- NOTE | 2021-08-07 11:20 | CT ---
EXAMINATION TYPE: CT chest angio for PE DATE OF EXAM: 08/07/2021 COMPARISON: Prior chest CT April 12, 2021 HISTORY: SOB, elevated D-dimer CT DLP: 220.9 mGycm. Automated Exposure Control for Dose Reduction was Utilized. CONTRAST: CTA scan of the thorax is performed with IV Contrast, patient injected with 57 mL of Isovue 370, pulm onary embolism protocol. MIP Images are created on CT scanner and reviewed. FINDINGS: LUNGS: Small-sized left greater than right pleural effusions on current study. Multifocal areas of gr oundglass opacities with areas of intralobular septal thickening bilaterally. No pneumothorax seen bi laterally. MEDIASTINUM: There is satisfactory enhancement of the pulmonary artery and its branches, there is no CT evidence for pulmonary embolism. Satisfactory enhancement of the aorta without dissection. Promine nt bilateral hilar lymph nodes on current study. Borderline enlarged subcarinal lymph node redemonstr ated axial image 60. Heart size mildly enlarged. Pericardial effusion is seen. There is poor vessel o rigin from the aortic arch which is normal variant. Greater than 1 cm lower pole left thyroid nodule redemonstrated and warrants follow-up if this is not known finding. OTHER: Multilevel spurring in the spine. Underlying scoliotic curvature in the lumbar spine seen on l ocalizer. IMPRESSION: 1. No CT evidence for acute pulmonary embolism. 2. Small left greater right pleural effusions with mild to moderate alveolar and interstitial edema. Correlate for fluid overload state and/or CHF exacerbation.
[2021-08-07] MEDS: MAGNESIUM SULFATE-D5W PMX 1 GM in DEXTROSE/WATER 1 100ML.BAG IVPB SCH ×4 (11:42→15:21)
[2021-08-07] MEDS ORDERED: NALOXONE 0.4 MG/ML 1 ML VIAL IV PRN ×2 (11:48→14:03)
[2021-08-07] MEDS ORDERED: FUROSEMIDE 10 MG/ML 10 ML VIAL IV STA (12:09)
--- NOTE | 2021-08-07 15:07 | P.HPIM ---
History of Present Illness H&P Date: 08/07/21 Chief Complaint: Shortness of breath Trisha is a 81-year-old female with a past medical history of pulmonary embolism on Xarelto, CVA with residual right upper extremity weakness, GERD, urinary incontinence, depression and anxiety, hypertension. She was recently discharged from rehab. She reports generalized weakness associated with progressive shortness of breath for 2 weeks. She reports that her dyspnea is worse when she lies flat. This is associated with bilateral lower extremity swelling which is new for her. She denies any significant cardiac history in the past including history of congestive heart failure. She denies fever, chills, chest pain, cough, palpitations. She denies headaches, blurry vision, abdominal pain. She reports that she woke up from sleep last night due to breathing difficulty. Denies missing any doses of Xarelto. In the ED, her workup revealed slightly elevated d-dimer and elevated BNP. Computed tomography scan of the chest with contrast was negative for PE but did show bilateral pleural effusions with interstitial edema. Chest x-ray showed pulmonary vascular congestion. Patient received 60 mg of IV Lasix while in the ED. Most recent set of vitals are stable and initially she was placed on 2 L also oxygen but at the time of my evaluation she was on room air and saturating at 95%. Labs significant for hypomagnesemia and elevated bilirubin. Troponin negative. Subsequently, patient will be admitted to inpatient telemetry for further evaluation and treatment of acute decompensated CHF. Review of Systems Constitutional: Patient reports no fever, no chills, no weight changes, no change in appetite Eyes: Patient reports no double vision, no visual changes ENT: Patient reports no rhinorrhea, no post nasal drip, no sore throat Cardiovascular: Positive for orthopnea and PND. Positive for lower reduction swelling. Patient reports no chest, no edema, no palpitations, no syncope, Respiratory: Dyspnea on exertion, orthopnea, paroxysmal nocturnal dyspnea. Gastrointestinal: Patient reports no nausea, no vomiting, no constipation, no diarrhea Genitourinary: Patient reports no dysuria, no urinary frequency, no hematuria. Musculoskeletal: Patient reports no unusual joint pain, no joint swelling or weakness. Patient reports no muscular pain. Psychiatric: Patient reports no changes in mood, no sleeping problems. Patient reports no changes in memory. Endocrine: Patient reports no thirst, no polyuria, no cold intolerance, no heat intolerance. Neurological: Patient reports no unusual paresthesias, no seizures, no paresis, no paralysis, no facila droop, no headache. Heme/Lymphatic: Patient reports no easy bruising, no bleeding tendency, no lymphadenopathy. Allergic/ Immunologic: Patient reports no recent allergic reactions or immunologic history. Skin: Patient reports no rashes or unusual lesions. Past Medical History Past Medical History: CVA/TIA, Fibromyalgia, Hypertension, Pulmonary Embolus (PE), Rheumatoid Arthritis (RA) Additional Past Medical History / Comment(s): macular degeneration, lupus, Raynauds History of Any Multi-Drug Resistant Organisms: ESBL Date of last positivie culture/infection: 08/17/2014 MDRO Source:: Urine-E.Coli ESBL Past Surgical History: Bladder Surgery, Hysterectomy Additional Past Surgical History / Comment(s): RIGHT CATARACT REMOVAL Past Anesthesia/Blood Transfusion Reactions: Postoperative Nausea & Vomiting (PONV) Past Psychological History: Depression Smoking Status: Never smoker Past Alcohol Use History: Occasional Past Drug Use History: Marijuana - Past Family History Sister(s) Additional Family Medical History / Comment(s): "HEART PROBLEMS" Medications and Allergies Home Medications Medication Instructions Recorded Confirmed Type Omeprazole 40 mg PO DAILY 05/22/18 08/07/21 History Aspirin [Adult Low Dose Aspirin EC] 81 mg PO DAILY 06/09/19 08/07/21 History Oxybutynin ER [Ditropan Xl] 10 mg PO WESA 04/12/21 08/07/21 History Vortioxetine Hydrobromide 10 mg PO DAILY 04/12/21 08/07/21 History [Trintellix] traZODone HCL 100 mg PO HS 04/12/21 08/07/21 History ALPRAZolam [Xanax] 0.5 mg PO BID 08/07/21 08/07/21 History Atorvastatin [Lipitor] 40 mg PO HS 08/07/21 08/07/21 History Rivaroxaban [Xarelto] 2.5 mg PO BID 08/07/21 08/07/21 History amLODIPine [Norvasc] 5 mg PO BID 08/07/21 08/07/21 History Allergies Allergy/AdvReac Type Severity Reaction Status Date / Time Sulfa (Sulfonamide Allergy Unknown Verified 08/07/21 09:56 Antibiotics) Childhood Physical Exam Vitals: Vital Signs Temp Pulse Resp BP Pulse Ox 08/07/21 13:39 77 18 137/67 96 08/07/21 12:25 76 18 157/73 93 L 08/07/21 11:00 80 18 166/83 95 08/07/21 09:20 81 18 100 08/07/21 08:50 98.5 F 92 20 141/72 91 L Intake and Output 08/06/21 08/07/21 08/07/21 22:59 06:59 14:59 Other: Weight 67.585 kg Constitutional: No acute distress, conversant, pleasant Eyes: Anicteric sclerae, moist conjunctiva, no lid-lag PERRLA ENMT: NC/AT Oropharynx clear, no erythema, exudates Neck: Supple, FROM, no masses, or JVD No carotid bruits No thyromegaly Lungs: Bibasilar diminished with occasional crackles Clear to percussion Normal respiratory effort, no accessory muscle use Cardiovascular: Heart regular in rate and rhythm, No murmurs, gallops, or rubs 2+ peripheral edema Abdominal: Soft Nontender, no guarding, rebound or rigidity Abdomen moving with respiration Normoactive bowel sounds No hepatomegaly, No splenomegaly No palpable mass No abdominal wall hernia noted Skin: Normal temperature, tone, texture, turgor No induration No subcutaneous nodules No rash, lesions No ulcers Extremities: No digital cyanosis No clubbing Pedal pulses intact and symmetrical Radial pulses intact and symmetrical Normal gait and station No calf tenderness Psychiatric: Alert and oriented to person, place and time Appropriate affect Intact judgement Neuro: Muscles Strength 5/5 in all 4 extremities Sensation to light touch grossly present throughout Cranial nerves II-XII grossly intact No focal sensory deficits Results CBC & Chem 7: 08/07/21 09:37 08/07/21 09:37 Labs: Abnormal Lab Results - Last 24 Hours (Table) 08/07/21 08/07/21 Range/Units 09:37 09:37 D-Dimer 0.88 H (<0.60) mg/L FEU Chloride 108 H (98-107) mmol/L Glucose 105 H (74-99) mg/dL Magnesium 1.2 L (1.6-2.3) mg/dL Total Bilirubin 1.6 H (0.2-1.3) mg/dL Thrombosis Risk Factor Assmnt - DVT/VTE Prophylaxis DVT/VTE Prophylaxis: Pharmacologic Prophylaxis ordered (Patient is on Xarelto for history of PE) Assessment and Plan Assessment: #1 acute hypoxic respiratory failure - Supplemental oxygen if needed - Likely secondary to acute decompensated CHF exacerbation #2 acute decompensated CHF exacerbation - Unknown ejection fraction - Lasix 40 mg IV twice a day - Strict intake output charting, daily weights - Monitor BMP - Cardiology consult - Echocardiogram - Further recommendations based on echocardiogram results and patients clinical status #3 bilateral pleural effusion - Likely secondary to decompensated CHF - IV diuresis as above - Repeat chest x-ray in the a.m. - Infectious etiologies less likely #4 hypomagnesemia - Replace with IV magnesium - Repeat magnesium level in the morning #5 fibromyalgia, depression and anxiety - Continue patient's home medications #6 history of CVA - Continue aspirin and atorvastatin VTE prophylaxis - patient is on home medication of xarelto CODE STATUS - full code Time with Patient: Greater than 30
[2021-08-07] MEDS ORDERED: ACETAMINOPHEN TAB 500 MG TAB PO PRN (15:28)
[2021-08-07] MEDS: traZODone HCL 100 MG TAB PO SCH (21:14)
[2021-08-07] MEDS: ALPRAZolam 0.5 MG TAB PO SCH (21:14)
[2021-08-07] MEDS: amLODIPine 5 MG TAB PO SCH (21:14)
[2021-08-07] MEDS: FUROSEMIDE 10 MG/ML 4 ML VIAL IV SCH (21:14)
[2021-08-07] MEDS: ATORVASTATIN 40 MG TAB PO SCH (21:14)
[2021-08-07] MEDS: RIVAROXABAN 2.5 MG TABLET PO SCH (21:59)
[2021-08-08] MEDS: PANTOPRAZOLE 40 MG TABLET PO SCH (06:34)
--- NOTE | 2021-08-08 07:00 | XR ---
EXAMINATION TYPE: XR chest 2V DATE OF EXAM: 08/08/2021 COMPARISON: Chest x-ray and CT chest from yesterday HISTORY: CHF TECHNIQUE: Frontal and lateral views of the chest are obtained. FINDINGS: Mild cardiomegaly with tiny bilateral pleural effusions and mild to moderate interstitial a nd alveolar prominence consistent with edema are all redemonstrated. No pneumothorax seen bilaterally . Multilevel spurring in the spine redemonstrated. IMPRESSION: Findings consistent with CHF exacerbation remain present as detailed above. No significa nt change from most recent x-ray.
[2021-08-08 08:31] LABS: Basophils # (A) 0.1 k/uL (0-0.2); Basophils % (A) 1 %; Eosinophils # (A) 0.4 k/uL (0-0.7); Eosinophils % (A) 5 %; HCT 36.3 % (34.0-46.0); HGB 11.8 gm/dL (11.4-16.0); Lymphocytes # (A) 1.9 k/uL (1.0-4.8); Lymphocytes % (A) 24 %; MCH 28.8 pg (25.0-35.0); MCHC 32.4 g/dL (31.0-37.0); MCV 89.1 fL (80.0-100.0); Mean Platelet Volume 7.2; Monocytes # (A) 0.5 k/uL (0-1.0); Monocytes % (A) 7 %; Neutrophils # (A) 4.9 k/uL (1.3-7.7); Neutrophils % (A) 62 %; Platelet Count 344 k/uL (150-450); RBC 4.08 m/uL (3.80-5.40); RDW 14.2 % (11.5-15.5); WBC 7.9 k/uL (3.8-10.6)
[2021-08-08 08:34] LABS: Calcium 8.7 mg/dL (8.4-10.2); Magnesium 1.7 mg/dL (1.6-2.3); Potassium 3.5 mmol/L (3.5-5.1)
--- NOTE | 2021-08-08 08:45 | ECHOF ---
Referral Reason:new onset heart failure MEASUREMENTS -------- HEIGHT: 165.1 cm WEIGHT: 67.6 kg BP: RVIDd: 3.0 cm (< 3.3) IVSd: 1.2 cm (0.6 - 1.1) LVIDd: 3.8 cm (3.9 - 5.3) LVPWd: 1.3 cm (0.6 - 1.1) IVSs: 1.3 cm LVIDs: 2.3 cm LVPWs: 1.4 cm LA Diam: 4.0 cm (2.7 - 3.8) Ao Diam: 3.0 cm (2.0 - 3.7) AV Cusp: 2.1 cm (1.5 - 2.6) LA Diam: 4.2 cm (2.7 - 3.8) MV E Maynor: 0.83 m/s MV DecT: 192 ms MV A Maynor: 0.79 m/s MV E/A Ratio: 1.05 RAP: 5.00 mmHg RVSP: 35.09 mmHg FINDINGS -------- Sinus rhythm. This was a technically adequate study. LV size, wall thickness and systolic function are normal, with an EF greater than 55%. The left bibiana tricular size is normal. The right ventricle is normal in size. The left atrium is mildly dilated. The right atrial size is normal. There is mild aortic valve sclerosis. There is no evidence of aortic regurgitation. Mild mitral regurgitation is present. Mild tricuspid regurgitation present. Right ventricular systolic pressure is normal at < 35 mmHg. There is no pulmonic regurgitation present. There is no pericardial effusion. CONCLUSIONS -------- 1. LV size, wall thickness and systolic function are normal, with an EF greater than 55%. 2. The left ventricular size is normal. 3. The right ventricle is normal in size. 4. The left atrium is mildly dilated. 5. The right atrial size is normal. 6. There is mild aortic valve sclerosis. 7. Mild mitral regurgitation is present. 8. Mild tricuspid regurgitation present. 9. There is no pericardial effusion. [employer]: Stacey Kat, [facility]
[2021-08-08] MEDS: ALPRAZolam 0.5 MG TAB PO SCH ×2 (09:28→20:38)
[2021-08-08] MEDS: RIVAROXABAN 2.5 MG TABLET PO SCH ×2 (09:28→20:37)
[2021-08-08] MEDS: ASPIRIN 81 MG PO SCH (09:28)
[2021-08-08] MEDS: amLODIPine 5 MG TAB PO SCH ×2 (09:28→20:37)
[2021-08-08] MEDS: FUROSEMIDE 10 MG/ML 4 ML VIAL IV SCH ×2 (09:28→20:38)
[2021-08-08] MEDS: VORTIOXETINE HYDROBROMIDE 10 MG TABLET PO SCH (09:29)
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
--- NOTE | 2021-08-08 10:20 | P.PN ---
Subjective 81-year-old female with past medical history of ischemic CVA, hypertension, pulmonary embolism, rheumatoid arthritis, fibromyalgia who presented with shortness of breath and lower extremity edema most likely secondary to CHF exacerbation. Patient seen and examined at bedside this morning. She reports symptomatic improvement this morning. She states that her lower extremity swelling has gone down. No fever or chills. No chest pain or palpitations. After initiation of IV diuresis, she has about 2 L of urine output in the last 24 hours. Ec hocardiogram report reveals preserved ejection fraction with normal LV size. Cardiology consultation has been taken with recommendations to continue IV diuresis for now. Objective - Vital Signs Vital signs: Vital Signs Temp 97.4 F L 08/08/21 08:00 Pulse 63 08/08/21 08:00 Resp 16 08/08/21 08:00 BP 120/63 08/08/21 08:00 Pulse Ox 94 L 08/08/21 08:00 Intake & Output 08/07/21 08/08/21 08/08/21 18:59 06:59 18:59 Intake Total 440 120 118 Output Total 1275 650 500 Balance -835 -530 -382 Weight 66.6 kg Intake: Intake, IV Titration 200 Amount Magnesium Sulfate-D5w Pmx 200 1 gm In Dextrose/Water 1 100ml.bag @ 100 mls/hr IVPB Q1H [facility] Rx#: [id number] Oral 240 120 118 Output: Urine 1275 650 500 Other: Voiding Method Bedside Commode # Voids 1 - Exam Constitutional: No acute distress, on room air HEENT: Pupils equally reactive to light, atraumatic, normocephalic. Lungs: Clear to auscultation bilaterally, no wheezing, no crackles Cardiovascular: RRR, S1-S2 normal, no murmur, no peripheral edema Abdominal: Soft, nontender, no guarding, rebound or rigidity Extremities: No cyanosis or clubbing Neuro: No focal neurological signs alert - Labs CBC & Chem 7: 08/08/21 07:32 08/08/21 07:32 Labs: Abnormal Lab Results - Last 24 Hours (Table) 08/07/21 08/08/21 Range/Units 09:37 07:32 D-Dimer 0.88 H (<0.60) mg/L FEU Glucose 100 H (74-99) mg/dL Assessment and Plan Assessment: #Acute decompensated diastolic CHF exacerbation -Echocardiogram shows preserved ejection fraction. Cardiology consultation taken. - Lasix 40 mg IV twice a day to be continued. Plan to switch to oral Lasix tomorrow - Strict intake output charting, daily weights - Monitor BMP. Creatinine and potassium levels reviewed from this morning labs. #Bilateral pleural effusion - Likely secondary to decompensated CHF - IV diuresis as above - Repeat chest x-ray in the a.m. - Infectious etiologies less likely #Hypomagnesemia - Replace with IV magnesium - Repeat magnesium level in the morning #fibromyalgia, depression and anxiety, rheumatoid arthritis - Continue patient's home medications #History of CVA - Continue aspirin and atorvastatin #Hypertension - Continue home medication of amlodipine #History of pulmonary embolism - On Xarelto VTE prophylaxis - patient is on home medication of xarelto CODE STATUS - full code Disposition - PTOT evaluation, possible discharge in next 24 hours Time with Patient: Greater than 30
--- NOTE | 2021-08-08 15:51 | CT ---
EXAMINATION TYPE: CT brain wo con DATE OF EXAM: 08/08/2021 COMPARISON: 04/12/2018 HISTORY: Ataxia. CT DLP: 1111.4 mGycm Automated exposure control for dose reduction was used. FINDINGS: Calcification in the basal ganglia is stable. Mild to moderate generalized degenerative change of the greater frontal lobe component. Low-attenuation the white matter are nonspecific but most typical re mote white matter ischemia. No acute hemorrhage, mass effect, or midline shift. Small hypodensity within the left basal ganglia c ompatible with remote infarct. Craniocervical junction maintained. Sella turcica has a normal appearance. Intracranial atherosclerot ic changes are noted. Orbits are symmetric. Calvarium intact. Sinuses are clear. IMPRESSION: DEGENERATIVE AND NONSPECIFIC WHITE MATTER CHANGES MOST TYPICAL REMOTE ISCHEMIA. IF THERE IS CONCERN F OR ACUTE ISCHEMIA CORRELATE WITH MRI CLINICALLY WARRANTED.
[2021-08-08] MEDS: ATORVASTATIN 40 MG TAB PO SCH (20:37)
[2021-08-08] MEDS: traZODone HCL 100 MG TAB PO SCH (20:38)
[2021-08-09] MEDS: PANTOPRAZOLE 40 MG TABLET PO SCH (06:07)
[2021-08-09 08:55] LABS: Calcium 8.9 mg/dL (8.4-10.2); Potassium 3.8 mmol/L (3.5-5.1)
[2021-08-09] MEDS: FUROSEMIDE 10 MG/ML 4 ML VIAL IV SCH ×2 (09:22→19:16)
[2021-08-09] MEDS: ASPIRIN 81 MG PO SCH (09:22)
[2021-08-09] MEDS: ALPRAZolam 0.5 MG TAB PO SCH ×2 (09:22→20:02)
[2021-08-09] MEDS: amLODIPine 5 MG TAB PO SCH ×2 (09:22→20:02)
[2021-08-09] MEDS: RIVAROXABAN 2.5 MG TABLET PO SCH ×2 (09:23→20:02)
[2021-08-09] MEDS: VORTIOXETINE HYDROBROMIDE 10 MG TABLET PO SCH (09:23)
[2021-08-09] MEDS: OXYBUTYNIN 10 MG TAB.ER.24 PO SCH (09:23)
[2021-08-09] MEDS: MAGNESIUM SULFATE-D5W PMX 1 GM in DEXTROSE/WATER 1 100ML.BAG IVPB SCH ×2 (11:02→12:07)
--- NOTE | 2021-08-09 12:10 | P.CNNES ---
History of Present Illness Consult date: 08/09/21 Requesting physician: Haseeb Nolan Reason for Consult: worsening ataxia, tremor History of Present Illness: This is a 81-year-old woman with medical history of stroke with reported residual right upper extremity weakness, pulmonary embolism on Xarelto, hypertension, rheumatoid arthritis, depression, anxiety who presented to the emergency department on 08/07/2021 for generalized weakness and progressive shortness of breath for the last 2 weeks. Neurology is consulted for worsening of ataxia and tremor. It is assumed that the patient's worsening tremor and ataxia started about 2 days ago and has been getting worse to the nurses examination. Patient is also on home dose of aspirin 81 mg, Lipitor 40 mg daily at bedtime, Xarelto 2.5 mg 1 tablet twice a day. Some of the workup in the hospital consisted of: Initial blood pressure is 141/72, heart rate of 92, respiratory 20, temperature of 98.5 Fahrenheit oral pulse ox of 91% room air. CBC with differential is unremarkable Chemistry panel is magnesium is 1.2 and then the repeat is 1.7 otherwise the rest of the chemistry panel is unremarkable. Calcium is 8.8. Hemoglobin A1c is 5.4 I ordered vitamin B12 and the level was 279 and the normal supposed to be be tween 200 944. Serum folate is 9.[address] of the head is reported as degenerative and nonspecific white matter changes most typical remote ischemia. If there is any concern for acute ischemia correlate with MRI as clinically warranted. I personally reviewed the CT of the head and there is no acute or subacute ischemia and there is no interpretable hemorrhage. The echo was reported as left ventricular size is normal. Left atrium is mildly dilated. Ejection fraction greater than 55%. Review of Systems Review of system: The 12 point system was reviewed and apparent positive and negative per HPI. Past Medical History Past Medical History: CVA/TIA, Fibromyalgia, Hypertension, Pulmonary Embolus (PE), Rheumatoid Arthritis (RA) Additional Past Medical History / Comment(s): macular degeneration, lupus, Raynauds History of Any Multi-Drug Resistant Organisms: ESBL Date of last positivie culture/infection: 08/17/2014 MDRO Source:: Urine-E.Coli ESBL Past Surgical History: Bladder Surgery, Hysterectomy Additional Past Surgical History / Comment(s): RIGHT CATARACT REMOVAL Past Anesthesia/Blood Transfusion Reactions: Postoperative Nausea & Vomiting (PONV) Past Psychological History: Depression Smoking Status: Never smoker Past Alcohol Use History: Occasional Past Drug Use History: Marijuana - Past Family History Sister(s) Additional Family Medical History / Comment(s): "HEART PROBLEMS" Medications and Allergies Home Medications Medication Instructions Recorded Confirmed Type Omeprazole 40 mg PO DAILY 05/22/18 08/07/21 History Aspirin [Adult Low Dose Aspirin EC] 81 mg PO DAILY 06/09/19 08/07/21 History Oxybutynin ER [Ditropan Xl] 10 mg PO WESA 04/12/21 08/07/21 History Vortioxetine Hydrobromide 10 mg PO DAILY 04/12/21 08/07/21 History [Trintellix] traZODone HCL 100 mg PO HS 04/12/21 08/07/21 History ALPRAZolam [Xanax] 0.5 mg PO BID 08/07/21 08/07/21 History Atorvastatin [Lipitor] 40 mg PO HS 08/07/21 08/07/21 History Rivaroxaban [Xarelto] 2.5 mg PO BID 08/07/21 08/07/21 History amLODIPine [Norvasc] 5 mg PO BID 08/07/21 08/07/21 History Allergies Allergy/AdvReac Type Severity Reaction Status Date / Time Sulfa (Sulfonamide Allergy Unknown Verified 08/07/21 09:56 Antibiotics) Childhood Physical Examination - Vital Signs Vital Signs: Vital Signs Temp Pulse Resp BP Pulse Ox 08/09/21 11:07 74 16 101/54 96 08/09/21 08:00 98.3 F 77 17 117/68 95 08/09/21 03:22 59 L 16 112/55 94 L 08/09/21 01:29 63 08/08/21 23:05 63 18 107/52 94 L 08/08/21 20:32 98.6 F 74 18 127/62 90 L 08/08/21 20:00 74 08/08/21 16:00 97.6 F 69 17 118/64 98 08/08/21 12:00 98 F 63 16 117/57 95 Intake and Output 08/08/21 08/09/21 08/09/21 22:59 06:59 14:59 Intake Total 240 Output Total 375 Balance 240 -375 Intake: Oral 240 Output: Urine 375 Other: Voiding Method Bedside Commode Bedside Commode # Voids 1 1 # Bowel Movements 0 Weight 64 kg GENERAL: The patient is lying in bed and is not in acute distress but is very anxious. CHEST: The heart rate is regular rate rhythm. No murmurs to auscultation. LUNG: Clear to auscultation bilaterally no wheezing noted throughout. Not labored breathing. ABDOMEN/GI: Bowel sounds present in all 4 quadrants. No tenderness to palpation throughout. NEUROLOGICAL: Higher mental function: The patient is awake, alert, oriented to self, place and time. Patient is following commands. No aphasia and no neglect. Cranial nerves: The pupils are round, equal and reactive to light and accommodation. Visual stone are full to confrontation throughout. Extraocular movement is intact no nystagmus is noted. Facial sensation is normal to touch throughout. The facial strength is normal throughout. Hearing is mildly decreased bilaterally to hand rub. Tongue is midline and moved [id number] without any difficulty. No dysarthria is noted. Shoulder shrug is normal bilaterally. Motor: Gait is patient is very unsteady walking and needed assistance. She is also having difficulty walking on walker. She is no swaying to right and left since unsteady. The strength is 5 over 5 throughout. Normal tone and bulk. When gets anxious she very tremoulous throughout. Cerebellum: Rarely to occasionally she past point with finger to nose and is unsteady. Otherwise most time normal finger to nose. Sensation: Sensation is normal to touch throughout. Reflexes (right/left): 3+ throughout.. Plantars are mute bilaterally. Results - Laboratory Findings CBC and BMP: 08/08/21 07:32 08/09/21 08:15 Abnormal Lab Findings: Abnormal Labs 08/07/21 08/07/21 08/08/21 09:37 09:37 07:32 D-Dimer 0.88 H Chloride 108 H Carbon Dioxide BUN Glucose 105 H 100 H Magnesium 1.2 L Total Bilirubin 1.6 H 08/09/21 08:15 D-Dimer Chloride Carbon Dioxide 34 H BUN 19 H Glucose 127 H Magnesium Total Bilirubin Assessment and Plan Assessment: Unsteady gait and tremolous: Unsure exact etiology. On examination she is hyper-reflexic throughout but no weakness. Rule out cervical lesion or intracranial process Very low normal B12 (279. Normal level is normal supposed to be between 200- 944). History of reported stroke and it's reported that she has residual right upper extremity weakness but on my examination she did not have any focal weakness Pulmonary embolism on Xarelto Rheumatoid arthritis Anxiety Depression Plan: Very low normal B12 (279. Normal level is normal supposed to be between 200- 944). I started the patient on the vitamin B12 1000 intramuscular for 3 days and after that by mouth daily. Ordered MRI of the brain and cervical spine and it's pending Patient is on her home medication of Xarelto 2.5 mg a tablet twice a day, aspirin 81 mg and Lipitor 40 mg daily at bedtime at. PT and OT are consulted Every 4 hours neuro checks Continue cardiac monitoring Cardiology is consulted Waist the patient fall precaution. We'll defer the rest of the medical management to the primary team The plan is discussed with the patient and her nurse as well as the primary team. Thank you for the consultation. Octavio Nixon M.D. Neuro-Hospitalist Time with Patient: Greater than 30
--- NOTE | 2021-08-09 13:59 | MR ---
EXAMINATION TYPE: MR brain/cspine wo DATE OF EXAM: 08/09/2021 COMPARISON: CT brain from yesterday. CT cervical spine April 12, 2021 HISTORY: Unsteady gait and hyperreflexia. TECHNIQUE: Multiplanar, multisequence imaging of the brain and brainstem and cervical spine are perfo rmed without IV contrast. FINDINGS: Diffusion weighted images demonstrate no evidence of a recent infarct or other diffusion abnormality. There is mild ventricular and sulcal prominence greatest over the bilateral frontal lobes. There are multifocal areas of T2 hyperintensity scattered throughout the white matter bilaterally greatest at t he periventricular levels with greater than 50 scattered lesions seen. Midline structures demonstrate normal morphology. The craniocervical junction appears within normal limits. Normal vascular flow voids are present. The visualized sinuses are clear and the globes are i ntact. IMPRESSION: Mild diffuse cerebral atrophy and moderate to advanced nonspecific white matter changes m ost likely on basis of product of chronic small vessel ischemic change in patient of this age. MRI CERVICAL SPINE: FINDINGS: Sagittal images of the cervical spine show the craniocervical junction to appear within nor mal limits. The cervical and upper thoracic spinal cord is normal in caliber and signal. Slight grad e 1 anterolisthesis C3 on C4 and grade 1 retrolisthesis C4 on C5 and C5 on C6 redemonstrated. Vertebr al body heights are maintained mild to moderate disc space narrowing C3-C4 and C4-C5 levels. Moderate multilevel anterior spurring in the mid to lower cervical spine. There is heterogeneous Modic type I I endplate change at C6-C7 level. Axial images show C2-C3 level to appear within normal limits. Axial images at C3-C4 level show left paracentral spur disc complex along with left-sided uncovertebr al facet arthropathy effacing the lateral thecal sac and causing moderate to severe left-sided neural foraminal narrowing. Axial images at C4-C5 level show left paracentral/foraminal spur disc complex effacing anterolateral thecal sac and causing moderate to severe left-sided neural foraminal narrowing. Axial images at C5-C6 level shows spondylolisthesis with broad based posterior disc protrusion effaci ng anterior thecal sac and causing moderate bilateral neural foraminal narrowing with marginal spurri ng. Axial images at C6-C7 level showed broad based posterior disc protrusion effacing anterior thecal sac with [id number] right-sided neural foraminal narrowing. Left-sided neural foramina is patent. Axial images at C7-T1 level appear within normal limits. There is greater than 1 cm left thyroid nodule axial image 4 identified. Follow-up nonemergent thyroi d ultrasound is advised if this is not known finding. IMPRESSION: Multilevel spondylolisthesis and degenerative changes in the cervical spine as detailed a nemo.
[2021-08-09] MEDS: CYANOCOBALAMIN 1,000 MCG/ML 1 ML VIAL IM SCH (14:01)
--- NOTE | 2021-08-09 17:47 | P.PN ---
Subjective Progress Note Date: 08/09/21 (delayed charting seen at 1045) Principal diagnosis: shortness of breath Patient is a 81-year-old female with history of prior pulmonary embolism on Xarelto, CVA in May 2021 with residual right upper extremity weakness, GERD, urinary incontinence, depression, and hypertension who presented to the hospital complaints of shortness of breath over the last 2 weeks. In the ER she underwent an extensive evaluation which demonstrated an elevated d-dimer elevat ed BNP. CT of the chest was negative for pulmonary embolism but demonstrated bilateral pleural effusions with interstitial edema. Chest x-ray was consistent with pulmonary vascular congestion. She was started on Lasix and admitted for further monitoring. Echocardiogram demonstrated an ejection fraction of 55% On 08/08 she was noted to have some difficulty with ambulation and seemed to have difficulty with balance. Neurology was consulted recommended MRI of the brain. Patient seen and examined at bedside with family present. She complains of continued right-sided weakness with difficulty ambulation. She denies any shortness of breath. She denies any chest pain. She is very anxious about needing a repeat MRI today. General: non toxic, no distress, appears at stated age Derm: warm, dry Head: atraumatic, normocephalic, symmetric Eyes: EOMI, no lid lag, anicteric sclera Mouth: no lip lesion, mucus membranes moist Cardiovascular: S1S2 reg, no murmur, positive posterior tibial pulse bilateral, Lungs: CTA bilateral, no rhonchi, no rales , no accessory muscle use Abdominal: soft, nontender to palpation, no guarding, no appreciable organomegaly Ext: no gross muscle atrophy, trace edema, no contractures Neuro: CN II-XI grossly intact, muscle strength 5 out of 5 on the left and 4 out of 5 on the right in the lower extremities, muscle strength 5 out of 5 in bilateral upper extremities, Psych: Alert, oriented, appropriate affect Assessment/plan: Acute decompensated diastolic congestive heart failure with ejection fraction 55% Bilateral pleural effusion secondary to above -Continue with Lasix -Cardiology respirations appreciated: Outpatient follow up with Dr. Oconnell on August 22 -Daily weights History of CVA now with recurrent right lower extremity weakness -Aspirin, atorvastatin -Follow up MRI Fibromyalgia -Continue with home medications. Hypertension -Continue with amlodipine History of pulmonary embolism -On Xarelto Thyroid nodule - outpatient thyrid US Resolved: Hypomagnesemia DVT prophylaxis: Xarelto Discussed with: Patient, family Anticipated discharge: in AM Anticipated discharge place: home with home health A total of 35 minutes was spent on the care of this complex patient more than 50% of the time was spent in counseling and care coordination. Objective - Vital Signs Vital signs: Vital Signs Temp 98.3 F 08/09/21 08:00 Pulse 77 08/09/21 15:04 Resp 17 08/09/21 15:04 BP 123/59 08/09/21 15:04 Pulse Ox 98 08/09/21 15:04 Intake & Output 08/08/21 08/09/21 08/09/21 18:59 06:59 18:59 Intake Total 838 Output Total 675 375 Balance 163 -375 Weight 64 kg Intake: Oral 838 Output: Urine 675 375 Other: Voiding Method Bedside Commode # Voids 1 1 # Bowel Movements 0 - Labs CBC & Chem 7: 08/08/21 07:32 08/09/21 08:15 Labs: Abnormal Lab Results - Last 24 Hours (Table) 08/09/21 Range/Units 08:15 Carbon Dioxide 34 H (22-30) mmol/L BUN 19 H (7-17) mg/dL Glucose 127 H (74-99) mg/dL
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
[2021-08-09] MEDS: ATORVASTATIN 40 MG TAB PO SCH (20:03)
[2021-08-09] MEDS: traZODone HCL 100 MG TAB PO SCH (20:03)
[2021-08-10 06:23] LABS: Potassium 3.5 mmol/L (3.5-5.1)
[2021-08-10] MEDS: PANTOPRAZOLE 40 MG TABLET PO SCH (06:27)
[2021-08-10] MEDS ORDERED: FUROSEMIDE 40 MG TAB PO SCH (09:00)
[2021-08-10] MEDS: amLODIPine 5 MG TAB PO SCH ×2 (09:40→21:30)
[2021-08-10] MEDS: ALPRAZolam 0.5 MG TAB PO SCH ×2 (09:41→21:30)
[2021-08-10] MEDS: FUROSEMIDE 10 MG/ML 4 ML VIAL IV SCH ×2 (09:41→21:31)
[2021-08-10] MEDS: ASPIRIN 81 MG PO SCH (09:41)
[2021-08-10] MEDS: RIVAROXABAN 2.5 MG TABLET PO SCH ×2 (09:41→21:30)
[2021-08-10] MEDS: VORTIOXETINE HYDROBROMIDE 10 MG TABLET PO SCH (09:41)
[2021-08-10] MEDS: CYANOCOBALAMIN 1,000 MCG/ML 1 ML VIAL IM SCH (09:42)
--- NOTE | 2021-08-10 12:20 | P.CNOR ---
History of Present Illness - [facility] Consult date: 08/10/21 Consult reason: other (Abnormal cervical spine MRI findings) History of present illness: Patient is a 81-year-old female who is admitted to [facility] currently, she is being worked up by multiple medical specialties with regards to shortness of breath, unstable gait, and other medical comorbidities. Patient was evaluated by neurology, after the exam and MRI findings were reviewed of his cervical spine orthopedic team was consulted. Patient was evaluated today at bedside, she is resting in her hospital chair, she has family present. Dr. Lu was also available to examine the patie nt today. She states that she's had generalized pain in her neck and low back for many years, nothing that is acute or severe. There was noted in the chart and patient also mentioned she had a stroke in early May of this year which has left her with some residual right sided weakness. Patient has been home for the last week or so, she was in rehab for her stroke and had been progressing fairly well. Patient denies any acute numbness or tingling involving the bilateral upper or lower extremities. She mentions that she has some vague numbness and tingling in the right upper extremity, she states that this is been there since her stroke. Patient denies changes to her bowel or bladder function. She states that she does feel pretty unsteady on her feet, and this is been going on since her stroke. She normally utilizes a walker for ambulation. She denies any previous surgery of the cervical, thoracic or lumbar spine. She has no other orthopedic complaints at this time. Review of Systems Constitutional: Reports as per HPI Past Medical History Past Medical History: CVA/TIA, Fibromyalgia, Hypertension, Pulmonary Embolus (PE), Rheumatoid Arthritis (RA) Additional Past Medical History / Comment(s): macular degeneration, lupus, Raynauds History of Any Multi-Drug Resistant Organisms: ESBL Year Discovered:: 08/17/2014 MDRO Source:: Urine-E.Coli ESBL Past Surgical History: Bladder Surgery, Hysterectomy Additional Past Surgical History / Comment(s): RIGHT CATARACT REMOVAL Past Anesthesia/Blood Transfusion Reactions: Postoperative Nausea & Vomiting (PONV) Past Psychological History: Depression Smoking Status: Never smoker Past Alcohol Use History: Occasional Past Drug Use History: Marijuana - Past Family History Sister(s) Additional Family Medical History / Comment(s): "HEART PROBLEMS" Medications and Allergies Home Medications Medication Instructions Recorded Confirmed Type Omeprazole 40 mg PO DAILY 05/22/18 08/07/21 History Aspirin [Adult Low Dose Aspirin EC] 81 mg PO DAILY 06/09/19 08/07/21 History Oxybutynin ER [Ditropan Xl] 10 mg PO WESA 04/12/21 08/07/21 History Vortioxetine Hydrobromide 10 mg PO DAILY 04/12/21 08/07/21 History [Trintellix] traZODone HCL 100 mg PO HS 04/12/21 08/07/21 History ALPRAZolam [Xanax] 0.5 mg PO BID 08/07/21 08/07/21 History Atorvastatin [Lipitor] 40 mg PO HS 08/07/21 08/07/21 History Rivaroxaban [Xarelto] 2.5 mg PO BID 08/07/21 08/07/21 History amLODIPine [Norvasc] 5 mg PO BID 08/07/21 08/07/21 History Allergies Allergy/AdvReac Type Severity Reaction Status Date / Time Sulfa (Sulfonamide Allergy Unknown Verified 08/07/21 09:56 Antibiotics) Childhood Physical Examination Gen: AOx3, NAD VSS stable at this time Palpation: No acute tenderness appreciated with palpation to the midline and paraspinal region of the cervical, thoracic or lumbar spine ROM: Range of motion in all major muscle groups the bilateral upper and lower extremities. She lacks full motion in the right upper extremity mainly with forward elevation and shoulder abduction Sensory Exam: Senory exam to light touch is intact C5-T1, patient notes vague numbness in the right hand and forearm Senosry exam to light touch is intact L2-S1 Motor: 45 strength is appreciated in the bilateral upper extremities with forward elevation, shoulder abduction, elbow extension, elbow flexion, wrist extension, wrist flexion. 45 drinks is appreciated in the bilateral lower extremity is with hip flexion, knee extension, knee flexion, plantar flexion, dorsiflexion, EHL, FHL Strength deficits are likely due to her current medical state and history of stroke and deconditioning Reflexes: Negative clonus bilaterally Negative Rachelle's bilaterally Results - Labs Labs: Abnormal Lab Results - Last 24 Hours (Table) 08/10/21 Range/Units 05:13 Carbon Dioxide 33 H (22-30) mmol/L BUN 20 H (7-17) mg/dL Glucose 100 H (74-99) mg/dL H & H 08/07/21 08/08/21 Range/Units 09:37 07:32 Hgb 12.5 11.8 (11.4-16.0) gm/dL Hct 38.5 36.3 (34.0-46.0) % Coagulation 08/07/21 Range/Units 09:37 INR 1.1 (<1.2) Result Diagrams: 08/08/21 07:32 08/10/21 05:13 - Diagnostic results Cervical MRI with contrast: report reviewed, image reviewed Assessment and Plan Assessment: Multilevel cervical spondylosis Multilevel cervical foraminal stenosis History of recent CVA Right-sided residual weakness Other medical comorbidities Plan: Dr. Lu was available today to discuss with the patient and family current medical issue with possible treatment options. No orthopedic surgical intervention is recommended at this time We feel that most of the patient's symptoms are residual from her recent stroke. Patient's findings on the MRI of the cervical spine are chronic in nature, she is not demonstrating any severe myelopathic signs at this time. We are recommending follow-up in the outpatient setting over the next few weeks to further discuss and monitor symptoms. Would consider use of an oral anti-inflammatory or possible low-dose steroid to help with symptoms Other medical issue recommendations Please contact our orthopedic group with any further questions regarding this patient Time with Patient: Less than 30
--- NOTE | 2021-08-10 15:09 | P.PN ---
Subjective Progress Note Date: 08/10/21 The patient seen at bedside and she stated that she's doing better today compared to yesterday. Objective - Vital Signs Vital signs: Vital Signs Temp 97.6 F 08/10/21 08:00 Pulse 65 08/10/21 08:00 Resp 18 08/10/21 08:00 BP 125/62 08/10/21 08:00 Pulse Ox 96 08/10/21 03:22 Intake & Output 08/09/21 08/10/21 08/10/21 18:59 06:59 18:59 Intake Total 240 180 Output Total 375 600 400 Balance -375 -360 -220 Weight 66 kg Intake: Oral 240 180 Output: Urine 375 600 400 Other: Voiding Method Bedside Commode Bedside Commode # Voids 2 - Exam GENERAL: The patient is lying in bed and is not in acute distress. NEUROLOGICAL: Higher mental function: The patient is awake, alert, oriented to self, place and time. Patient is following commands. No aphasia and no neglect. Cranial nerves: The pupils are round, equal and reactive to light and accommodation. Visual stone are full to confrontation throughout. Extraocular movement is intact no nystagmus is noted. Facial sensation is normal to touch throughout. The facial strength is normal throughout. Tongue is midline and moved [id number] without any difficulty. No dysarthria is noted. Shoulder shrug is normal bilaterally. Motor: Gait is deferred. The strength is right lower extremity is 4+. Otherwise 5 over 5 throughout. Normal tone and bulk. Cerebellum:Rare tremelous over the right finger to nose. Otherwise most time normal finger to nose. Sensation: Sensation is normal to touch throughout. Reflexes (right/left): 3+ throughout.. Plantars are mute bilaterally. WORK-UP: Calcium is 8.8. Hemoglobin A1c is 5.4 vitamin B12 and the level was 279 and the normal supposed to be between 200 944. Serum folate is 9.[address] of the head is reported as degenerative and nonspecific white matter changes most typical remote ischemia. If there is any concern for acute ischemia correlate with MRI as clinically warranted. I personally reviewed the CT of the head and there is no acute or subacute ischemia and there is no interpretable hemorrhage. MRI of the brain is reported as mild diffuse cerebral atrophy and moderate to advanced nonspecific white matter changes most likely on the basis product chronic small vessel ischemic changes and patient of this age. On MRI of the brain I felt the patient had multiple lesion and was not convincing for small vessel disease but seems to be a presentation of multiple sclerosis possibly MRI of the cervical spine is reported as moderate the level spondylolysis and degenerative changes in the cervical spine. I felt there is moderate in severity over C3 to C6. 2D echo was reported as left ventricular size is normal. Left atrium is mildly dilated. Ejection fraction greater than 55%. - Labs CBC & Chem 7: 08/08/21 07:32 08/10/21 05:13 Labs: Abnormal Lab Results - Last 24 Hours (Table) 08/10/21 Range/Units 05:13 Carbon Dioxide 33 H (22-30) mmol/L BUN 20 H (7-17) mg/dL Glucose 100 H (74-99) mg/dL Assessment and Plan Assessment: * Unsteady gait and tremulous---improving. On examination she is hyper- reflexic. On MRI of the brain I felt the patient had multiple lesion and was not convincing for small vessel disease but seems to be a presentation of multiple sclerosis possibly. She has moderate cervical spondylosis over C3-C6 on MRI. * Cervical spondylosis that is moderate in severity over C3-C6. * Very low normal B12 (279. Normal level is normal supposed to be between 200- 944). * History of reported stroke and it's reported that she has residual right upper extremity weakness but on my examination had lower extremity weakness * Pulmonary embolism on Xarelto * Rheumatoid arthritis * Anxiety * Depression Plan: I ordered MRI of the thoracic spine with and without On MRI of the brain I felt the patient had multiple lesion and was not convincing for small vessel disease but seems to be a presentation of multiple sclerosis possibly. Very low normal B12 (279. Normal level is normal supposed to be between 200- 944). Continue vitamin B12 1000 intramuscular for 3 days in total then after that by mouth daily. Patient is on her home medication of Xarelto 2.5 mg a tablet twice a day, aspirin 81 mg and Lipitor 40 mg daily at bedtime at. PT and OT are consulted Consulted Orthopedic team and they recommended steroid and no intervention as inpatient. Every 4 hours neuro checks Continue cardiac monitoring Cardiology is consulted Waist the patient fall precaution. We'll defer the rest of the medical management to the primary team. Recommend the patient follow up with a neurologist as an outpatient within 2 weeks. The plan is discussed with the patient and Orthopedic team. I attempted to contact the patient's daughter via phone but no response. Dr. Ribera will start neurology service tomorrow AM. Octavio Nixon M.D. Neuro-Hospitalist Time with Patient: Less than 30
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
--- NOTE | 2021-08-10 18:08 | P.PN ---
Subjective Progress Note Date: 08/10/21 (delayed charting seen at 0930) Principal diagnosis: shortness of breath Patient is a 81-year-old female with history of prior pulmonary embolism on Xarelto, CVA in May 2021 with residual right upper extremity weakness, GERD, urinary incontinence, depression, and hypertension who presented to the hospital complaints of shortness of breath over the last 2 weeks. In the ER she underwent an extensive evaluation which demonstrated an elevated d-dimer elevat ed BNP. CT of the chest was negative for pulmonary embolism but demonstrated bilateral pleural effusions with interstitial edema. Chest x-ray was consistent with pulmonary vascular congestion. She was started on Lasix and admitted for further monitoring. Echocardiogram demonstrated an ejection fraction of 55%. On 08/08 she was noted to have some difficulty with ambulation and seemed to have difficulty with balance. Neurology was consulted recommended MRI of the brain and cervical spine which did not demonstarte new stroke but did show degenerative changes in the cervical spine. She was seen by Dr. Lu who recommended conservative management. Patient seen and examined at bedside. No chest pain, still with SOB and unable to walk from the room door to the bathroom without significant dyspnea. No chest pain. Still with weakness. She has no other complaints at this time. Her d eliud is concerned about weakness. All questions answered. General: non toxic, no distress, appears at stated age Derm: warm, dry Head: atraumatic, normocephalic, symmetric Eyes: EOMI, no lid lag, anicteric sclera Mouth: no lip lesion, mucus membranes moist Cardiovascular: S1S2 reg, no murmur, positive posterior tibial pulse bilateral, Lungs: CTA bilateral, no rhonchi, no rales , no accessory muscle use Abdominal: soft, nontender to palpation, no guarding, no appreciable organomegaly Ext: no gross muscle atrophy, trace edema, no contractures Neuro: CN II-XI grossly intact, muscle strength grossly intact. Psych: Alert, oriented, appropriate affect Assessment/plan: Acute decompensated diastolic congestive heart failure with ejection fraction 5 5% Bilateral pleural effusion secondary to above -Continue with Lasix -Cardiology respirations appreciated: Stress test in AM, Outpatient follow up with Dr. Oconnell on August 22 -Daily weights History of CVA now with recurrent right lower extremity weakness Degenerative disc disease cervical spine -Aspirin, atorvastatin -Steroids - physical therapy as outpatient - outpatient follow-up with Dr. Lu Fibromyalgia -Continue with home medications. Hypertension -Continue with amlodipine History of pulmonary embolism -On Xarelto Thyroid nodule - outpatient thyroid US Resolved: Hypomagnesemia DVT prophylaxis: Xarelto Discussed with: Patient, family Anticipated discharge: in AM Anticipated discharge place: home with home health A total of 35 minutes was spent on the care of this complex patient more than 50% of the time was spent in counseling and care coordination. Active Medications Acetaminophen (Acetaminophen Tab 500 Mg Tab) 500 mg PO Q6HR PRN PRN Reason: Fever and/ or Pain Alprazolam (Alprazolam 0.5 Mg Tab) 0.5 mg PO BID [facility] Last Admin: 08/10/21 09:41 Dose: 0.5 mg Documented by: Aminophylline (Aminophylline 500 Mg/20 Ml Vial) 100 mg IV ONCE PRN PRN Reason: Patient Response Stop: 08/11/21 23:00 Amlodipine Besylate (Amlodipine 5 Mg Tab) 5 mg PO BID [facility] Last Admin: 08/10/21 09:40 Dose: 5 mg Documented by: Aspirin (Aspirin 81 Mg) 81 mg PO DAILY [facility] Last Admin: 08/10/21 09:41 Dose: 81 mg Documented by: Atorvastatin Calcium (Atorvastatin 40 Mg Tab) 40 mg PO HS [facility] Last Admin: 08/09/21 20:03 Dose: 40 mg Documented by: Caffeine Citrate (Caffeine Citrate 60 Mg/3 Ml Vial) 60 mg IV ONCE PRN PRN Reason: Patient Response Stop: 08/11/21 23:00 Cyanocobalamin (Cyanocobalamin 1,000 Mcg/Ml 1 Ml Vial) 1,000 mcg IM DAILY [facility] Stop: 08/12/21 22:00 Last Admin: 08/10/21 09:42 Dose: 1,000 mcg Documented by: Cyanocobalamin (Cyanocobalamin 500 Mcg Tab) 1,000 mcg PO DAILY [facility] Furosemide (Furosemide 10 Mg/Ml 4 Ml Vial) 40 mg IV Q12HR [facility] Last Admin: 08/10/21 09:41 Dose: 40 mg Documented by: Naloxone HCl (Naloxone 0.4 Mg/Ml 1 Ml Vial) 0.2 mg IV Q2M PRN PRN Reason: Opioid Reversal Naloxone HCl (Naloxone 0.4 Mg/Ml 1 Ml Vial) 0.2 mg IV Q2M PRN PRN Reason: Opioid Reversal Oxybutynin Chloride (Oxybutynin 10 Mg Tab.Er.24) 10 mg PO WESA [facility] Last Admin: 08/09/21 09:23 Dose: 10 mg Documented by: Pantoprazole Sodium (Pantoprazole 40 Mg Tablet) 40 mg PO DAILY@0730 [facility] Last Admin: 08/10/21 06:27 Dose: 40 mg Documented by: Regadenoson (Regadenoson 0.4 Mg/5 Ml Syringe) 0.4 mg IV ONCE PRN PRN Reason: Per Protocol Stop: 08/10/21 20:20 Rivaroxaban (Rivaroxaban 2.5 Mg Tablet) 2.5 mg PO BID [facility]; Protocol Last Admin: 08/10/21 09:41 Dose: 2.5 mg Documented by: Trazodone HCl (Trazodone Hcl 100 Mg Tab) 100 mg PO HS [facility] Last Admin: 08/09/21 20:03 Dose: 100 mg Documented by: Vortioxetine (Vortioxetine Hydrobromide 10 Mg Tablet) 10 mg PO DAILY [facility] Last Admin: 08/10/21 09:41 Dose: 10 mg Documented by: Objective - Vital Signs Vital signs: Vital Signs Temp 98.1 F 08/10/21 12:00 Pulse 66 08/10/21 16:00 Resp 17 08/10/21 16:00 BP 135/76 08/10/21 16:00 Pulse Ox 99 08/10/21 16:00 Intake & Output 08/09/21 08/10/21 08/10/21 18:59 06:59 18:59 Intake Total 240 180 Output Total 375 600 400 Balance -375 -360 -220 Weight 66 kg Intake: Oral 240 180 Output: Urine 375 600 400 Other: Voiding Method Bedside Commode Bedside Commode # Voids 2 - Labs CBC & Chem 7: 08/08/21 07:32 08/10/21 05:13 Labs: Abnormal Lab Results - Last 24 Hours (Table) 08/10/21 Range/Units 05:13 Carbon Dioxide 33 H (22-30) mmol/L BUN 20 H (7-17) mg/dL Glucose 100 H (74-99) mg/dL
[2021-08-10] MEDS: IPRATROPIUM-ALBUTEROL 3 ML NEB INHALATION SCH (20:42)
[2021-08-10] MEDS: methylPREDNISolone 4 MG TAB TAPER PO SCH (21:30)
[2021-08-10] MEDS: ATORVASTATIN 40 MG TAB PO SCH (21:30)
[2021-08-10] MEDS: traZODone HCL 100 MG TAB PO SCH (21:30)
[2021-08-11] MEDS ORDERED: AMINOPHYLLINE 500 MG/20 ML VIAL IV PRN (05:00)
[2021-08-11] MEDS ORDERED: CAFFEINE CITRATE 60 MG/3 ML VIAL IV PRN (05:00)
[2021-08-11] MEDS: PANTOPRAZOLE 40 MG TABLET PO SCH ×2 (06:30→06:34)
[2021-08-11] MEDS ORDERED: REGADENOSON 0.4 MG/5 ML SYRINGE IV PRN (07:00)
[2021-08-11] MEDS: IPRATROPIUM-ALBUTEROL 3 ML NEB INHALATION SCH ×4 (07:40→20:31)
[2021-08-11 07:52] LABS: HCT 38.7 % (34.0-46.0); HGB 12.6 gm/dL (11.4-16.0); MCH 28.7 pg (25.0-35.0); MCHC 32.5 g/dL (31.0-37.0); MCV 88.1 fL (80.0-100.0); Mean Platelet Volume 7.5; Platelet Count 399 k/uL (150-450); RBC 4.39 m/uL (3.80-5.40); RDW 13.9 % (11.5-15.5); WBC 4.7 k/uL (3.8-10.6)
[2021-08-11 08:02] LABS: Calcium 9.4 mg/dL (8.4-10.2); Potassium 4.3 mmol/L (3.5-5.1)
[2021-08-11] MEDS ORDERED: REGADENOSON 0.4 MG/5 ML SYRINGE IV ONE (10:35)
[2021-08-11] MEDS: ALPRAZolam 0.5 MG TAB PO SCH ×2 (12:20→21:36)
[2021-08-11] MEDS: CYANOCOBALAMIN 1,000 MCG/ML 1 ML VIAL IM SCH (12:21)
[2021-08-11] MEDS: amLODIPine 5 MG TAB PO SCH ×2 (12:21→21:36)
[2021-08-11] MEDS: ASPIRIN 81 MG PO SCH (12:21)
[2021-08-11] MEDS: methylPREDNISolone 4 MG TAB TAPER PO SCH (12:21)
--- NOTE | 2021-08-11 12:21 | NM ---
EXAMINATION TYPE: NM stress lexiscan cardiolite DATE OF EXAM: 08/11/2021 COMPARISON: NONE HISTORY: 81-year-old female shortness of breath, dyspnea on exertion TECHNIQUE: After the intravenous administration of 10.2 mCi Tc 99m Sestamibi - Cardiolite resting SP ECT images acquired 45 minutes post injection. The patient received 0.4mg Lexiscan, 25.0 mCi Tc 99m Sestamibi - Stress images obtained [address] injection FINDINGS: Review of stress and rest SPECT images demonstrates large area of reversibility along the apical to b zafar inferior and inferolateral wall with some extension to the inferoseptal wall towards the mid to basal heart. No distinct perfusion abnormality. Gated analysis shows normal wall motion with an kristy mated left ventricular ejection fraction of 89 %. This may be artifactually elevated due to excessive activity from the cardiac ash bleeding into the intraventricular space. TID is calculated at 0.71, within normal limits. IMPRESSION: Based on SPECT images and polar maps, unable to exclude a large area of inferior wall inducible ische benja. We suspect that gated analysis and estimated LVEF may not be entirely accurate (calculated as 89 % on this exam). Further evaluation recommended given the SPECT findings.
[2021-08-11] MEDS: RIVAROXABAN 2.5 MG TABLET PO SCH (12:22)
[2021-08-11] MEDS: VORTIOXETINE HYDROBROMIDE 10 MG TABLET PO SCH (12:22)
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
[2021-08-11] MEDS: FUROSEMIDE 10 MG/ML 4 ML VIAL IV SCH (12:48)
[2021-08-11] MEDS ORDERED: NITROGLYCERIN SL TABS 0.4 MG TAB SUBLINGUAL PRN (14:11)
[2021-08-11] MEDS ORDERED: ALPRAZolam 0.5 MG TAB PO PRN (14:11)
[2021-08-11] MEDS ORDERED: ALPRAZolam 0.25 MG TAB PO PRN (14:11)
--- NOTE | 2021-08-11 16:19 | P.PN ---
Subjective Progress Note Date: 08/11/21 (delayed charting seen at 1030) Principal diagnosis: shortness of breath Patient is a 81-year-old female with history of prior pulmonary embolism on Xarelto, CVA in May 2021 with residual right upper extremity weakness, GERD, urinary incontinence, depression, and hypertension who presented to the hospital complaints of shortness of breath over the last 2 weeks. In the ER she underwent an extensive evaluation which demonstrated an elevated d-dimer elevat ed BNP. CT of the chest was negative for pulmonary embolism but demonstrated bilateral pleural effusions with interstitial edema. Chest x-ray was consistent with pulmonary vascular congestion. She was started on Lasix and admitted for further monitoring. Echocardiogram demonstrated an ejection fraction of 55%. On 08/08 she was noted to have some difficulty with ambulation and seemed to have difficulty with balance. Neurology was consulted recommended MRI of the brain and cervical spine which did not demonstarte new stroke but did show degenerative changes in the cervical spine. She was seen by Dr. Lu who recommended conservative management. Patient seen and examined at bedside. She is anxious about the stress test and that she now needs to see a lung doctor. She has never been a smoker but does report second hand smoke exposure. No nausea or vomiting. No chest pain General: non toxic, no distress, appears at stated age Derm: warm, dry Head: atraumatic, normocephalic, symmetric Eyes: EOMI, no lid lag, anicteric sclera Mouth: no lip lesion, mucus membranes moist Cardiovascular: S1S2 reg, no murmur, positive posterior tibial pulse bilateral, Lungs: CTA bilateral, no rhonchi, no rales , no accessory muscle use Abdominal: soft, nontender to palpation, no guarding, no appreciable organomegaly Ext: no gross muscle atrophy, no edema, no contractures Neuro: CN II-XI grossly intact, muscle strength grossly intact. Psych: Alert, oriented, appropriate affect Assessment/plan: Acute decompensated diastolic congestive heart failure with ejection fraction 55% Bilateral pleural effusion secondary to above + stress test, possible anginal equivalent dyspnea -Continue with Lasix -Cardiology respirations appreciated: + lexiscan and plan is for cath with Dr. Oconnell in the AM -Daily weights History of CVA now with recurrent right lower extremity weakness Degenerative disc disease cervical spine -Aspirin, atorvastatin -Steroids - physical therapy as outpatient - outpatient follow-up with Dr. Lu - await thorasic spine MRI Fibromyalgia -Continue with home medications. Hypertension -Continue with amlodipine History of pulmonary embolism -On Xarelto Thyroid nodule - outpatient thyroid US Resolved: Hypomagnesemia DVT prophylaxis: Xarelto (on hold for cath Discussed with: Patient, family Anticipated discharge: in AM Anticipated discharge place: home with home health A total of 35 minutes was spent on the care of this complex patient more than 50% of the time was spent in counseling and care coordination. Active Medications Acetaminophen (Acetaminophen Tab 500 Mg Tab) 500 mg PO Q6HR PRN PRN Reason: Fever and/ or Pain Last Admin: 08/11/21 12:37 Dose: 500 mg Documented by: Albuterol/Ipratropium (Ipratropium-Albuterol 3 Ml Neb) 3 ml INHALATION RT-QID [facility] Last Admin: 08/11/21 15:40 Dose: 3 ml Documented by: Alprazolam (Alprazolam 0.5 Mg Tab) 0.5 mg PO BID [facility] Last Admin: 08/11/21 12:20 Dose: 0.5 mg Documented by: Alprazolam (Alprazolam 0.25 Mg Tab) 0.25 mg PO Q6HR PRN PRN Reason: Mild Anxiety Alprazolam (Alprazolam 0.5 Mg Tab) 0.5 mg PO Q6HR PRN PRN Reason: Moderate Anxiety Aminophylline (Aminophylline 500 Mg/20 Ml Vial) 100 mg IV ONCE PRN PRN Reason: Patient Response Stop: 08/11/21 23:00 Amlodipine Besylate (Amlodipine 5 Mg Tab) 5 mg PO BID [facility] Last Admin: 08/11/21 12:21 Dose: 5 mg Documented by: Aspirin (Aspirin 81 Mg) 81 mg PO DAILY [facility] Last Admin: 08/11/21 12:21 Dose: 81 mg Documented by: Aspirin (Aspirin 325 Mg Tab) 325 mg PO ONCE ONE Stop: 08/12/21 05:01 Atorvastatin Calcium (Atorvastatin 40 Mg Tab) 40 mg PO HS [facility] Last Admin: 08/10/21 21:30 Dose: 40 mg Documented by: Atorvastatin Calcium (Atorvastatin 80 Mg Tab) 80 mg PO ONCE ONE Stop: 08/12/21 05:01 Caffeine Citrate (Caffeine Citrate 60 Mg/3 Ml Vial) 60 mg IV ONCE PRN PRN Reason: Patient Response Stop: 08/11/21 23:00 Cyanocobalamin (Cyanocobalamin 1,000 Mcg/Ml 1 Ml Vial) 1,000 mcg IM DAILY [facility] Stop: 08/12/21 22:00 Last Admin: 08/11/21 12:21 Dose: 1,000 mcg Documented by: Cyanocobalamin (Cyanocobalamin 500 Mcg Tab) 1,000 mcg PO DAILY [facility] Furosemide (Furosemide 40 Mg Tab) 40 mg PO BID@0900,1600 [facility] Heparin Sodium (Porcine) 10, (000 unit/ Sodium Chloride) 1,001 mls @ 999 mls/hr IRRIGATION ONCE PRN PRN Reason: INTRA-OP Stop: 08/12/21 23:00 Heparin Sodium (Porcine) 2,500 (unit/ Sodium Chloride) 250.5 mls @ 250 mls/hr IRRIGATION ONCE PRN PRN Reason: INTRA-OP Stop: 08/12/21 23:00 Sodium Chloride 1,000 ml/ IV (Solution) 1,000 mls @ 60.3 mls/hr IV .[id number] [facility] Methylprednisolone (Methylprednisolone 4 Mg Tab Taper) 24 mg PO DAILY [facility]; Taper Stop: 08/16/21 19:59 Last Admin: 08/11/21 12:21 Dose: 24 mg Documented by: Naloxone HCl (Naloxone 0.4 Mg/Ml 1 Ml Vial) 0.2 mg IV Q2M PRN PRN Reason: Opioid Reversal Nitroglycerin (Nitroglycerin Sl Tabs 0.4 Mg Tab) 0.4 mg SUBLINGUAL Q5M PRN PRN Reason: Chest Pain Oxybutynin Chloride (Oxybutynin 10 Mg Tab.Er.24) 10 mg PO [facility] Last Admin: 08/09/21 09:23 Dose: 10 mg Documented by: Pantoprazole Sodium (Pantoprazole 40 Mg Tablet) 40 mg PO DAILY@0730 [facility] Last Admin: 08/11/21 06:34 Dose: Not Given Documented by: Regadenoson (Regadenoson 0.4 Mg/5 Ml Syringe) 0.4 mg IV ONCE PRN PRN Reason: Per Protocol Stop: 08/11/21 23:00 Trazodone HCl (Trazodone Hcl 100 Mg Tab) 100 mg PO [facility] Last Admin: 08/10/21 21:30 Dose: 100 mg Documented by: Vortioxetine (Vortioxetine Hydrobromide 10 Mg Tablet) 10 mg PO DAILY [facility] Last Admin: 08/11/21 12:22 Dose: 10 mg Documented by: Objective - Vital Signs Vital signs: Vital Signs Temp 97.7 F 08/11/21 08:00 Pulse 67 08/11/21 15:40 Resp 16 08/11/21 12:00 BP 127/60 08/11/21 12:00 Pulse Ox 97 08/11/21 12:00 Intake & Output 08/10/21 08/11/21 08/11/21 18:59 06:59 18:59 Intake Total 180 540 240 Output Total 400 950 Balance -220 -410 240 Weight 60.3 kg 60.3 kg Intake: Oral 180 540 240 Output: Urine 400 950 Other: Voiding Method Bedside Commode Bedside Commode # Voids 1 - Labs CBC & Chem 7: 08/11/21 06:43 08/11/21 06:43 Labs: Abnormal Lab Results - Last 24 Hours (Table) 08/11/21 Range/Units 06:43 Chloride 96 L (98-107) mmol/L Carbon Dioxide 32 H (22-30) mmol/L BUN 25 H (7-17) mg/dL Glucose 147 H (74-99) mg/dL
[2021-08-11] MEDS: FUROSEMIDE 40 MG TAB PO SCH (17:05)
--- NOTE | 2021-08-11 17:18 | P.STRESS ---
- Stress Test Note Stress Test Results/Findings: Exam Performed: NM stress lexiscan cardiolite Exam Date: 08/11/21 Reason for Exam: ACUTE HYPOXIC RESPITORY FAILURE Height: 5 ft 5 in Weight: 60.3 kg Protocol: LEXISCAN CARDIOLITE Stage: N/A Duration of Exercise: N/A Resting Heart Rate: 90 Resting Blood Pressure: 141/73 Maximum Achieved Heart Rate: 102 Maximum Achieved Blood Pressure: 143/66 85% PMHR: 120 100% PMHR: 141 METS: N/A Technologist Comment: Stress Test Results/Findings: Patient received Lexiscan infusion Baseline 12-lead EKG was normal Baseline heart rate 90 beats minute Baseline blood pressure 141/73 mmHg No change in ECG no evidence for ischemia Nuclear portion will be reported separately
--- NOTE | 2021-08-11 17:22 | P.STRESS ---
- Stress Test Note Stress Test Results/Findings: Exam Performed: NM stress lexiscan cardiolite Exam Date: 08/11/21 Reason for Exam: ACUTE HYPOXIC RESPITORY FAILURE Height: 5 ft 5 in Weight: 60.3 kg Protocol: LEXISCAN CARDIOLITE Stage: N/A Duration of Exercise: N/A Resting Heart Rate: 90 Resting Blood Pressure: 141/73 Maximum Achieved Heart Rate: 102 Maximum Achieved Blood Pressure: 143/66 85% PMHR: 120 100% PMHR: 141 METS: N/A Technologist Comment: Stress Test Results/Findings: Lexiscan Cardiolite stress test Baseline heart rate 65 beats a minute, Baseline blood pressure 137 78 mmHg Baseline EKG showed sinus rhythm with normal ST segments Patient received Lexiscan infusion per protocol No change in heart rate and blood pressure Nuclear portion will be reported separately
--- NOTE | 2021-08-11 17:26 | P.CNPUL ---
History of Present Illness Consult date: 08/11/21 Requesting physician: Charleen Devi Reason for consult: dyspnea Chief complaint: Shortness of breath History of present illness: This is a 81-year-old female with history of pulmonary embolism, maintained on Xarelto, history of CVA and right-sided weakness, depression, hypertension, patient was recently discharged from rehab facility because of her CVA. She was admitted to the hospital on 08/07 with 2 weeks history of weakness, shortness of breath when she lies flat, and she was also complaining of significant swelling in her lower extremities. Patient is known to have history of diastolic congestive heart failure, her BNP level was elevated on admission, d-dimer was also slightly elevated. CT angiogram of the chest showed no evidence of pulmonary embolism it did show evidence of pleural effusions and interstitial edema. Chest x-ray was also consistent with interstitial edema. Patient was admitted, treated with diuretics, and according to the patient she has made a significant improvement. Less shortness of breath, she has no chest pain, no fever, no chills, no hemoptysis, and she is actually on room air, saturating in the high 90s. Pulmonary consultation was initiated to further evaluate her shortness of breath on presentation although the patient is feeling much better now compared to how she felt on her initial admission. Last chest x-ray was 08/08, and it was consistent with CHF. Clinically however the patient is much better now compared to how she felt few days ago Review of Systems Constitutional: Generalized weakness Eyes: Negative ENT: Negative Cardiovascular: As noted in HPI, Respiratory: As noted in HPI Gastrointestinal: Negative Genitourinary: Negative. Musculoskeletal: Negative Psychiatric: Negative. Endocrine: Negative Neurological: Chronic residual right-sided weakness from previous CVA. Heme/Lymphatic: Negative Allergic/ Immunologic: Negative Skin: Negative Past Medical History Past Medical History: CVA/TIA, Fibromyalgia, Hypertension, Pulmonary Embolus (PE), Rheumatoid Arthritis (RA) Additional Past Medical History / Comment(s): macular degeneration, lupus, Raynauds History of Any Multi-Drug Resistant Organisms: ESBL Date of last positivie culture/infection: 08/17/2014 MDRO Source:: Urine-E.Coli ESBL Past Surgical History: Bladder Surgery, Hysterectomy Additional Past Surgical History / Comment(s): RIGHT CATARACT REMOVAL Past Anesthesia/Blood Transfusion Reactions: Postoperative Nausea & Vomiting (PONV) Past Psychological History: Depression Smoking Status: Never smoker Past Alcohol Use History: Occasional Past Drug Use History: Marijuana - Past Family History Sister(s) Additional Family Medical History / Comment(s): "HEART PROBLEMS" Medications and Allergies Home Medications Medication Instructions Recorded Confirmed Type Omeprazole 40 mg PO DAILY 05/22/18 08/07/21 History Aspirin [Adult Low Dose Aspirin EC] 81 mg PO DAILY 06/09/19 08/07/21 History Oxybutynin ER [Ditropan Xl] 10 mg PO WESA 04/12/21 08/07/21 History Vortioxetine Hydrobromide 10 mg PO DAILY 04/12/21 08/07/21 History [Trintellix] traZODone HCL 100 mg PO HS 04/12/21 08/07/21 History ALPRAZolam [Xanax] 0.5 mg PO BID 08/07/21 08/07/21 History Atorvastatin [Lipitor] 40 mg PO HS 08/07/21 08/07/21 History Rivaroxaban [Xarelto] 2.5 mg PO BID 08/07/21 08/07/21 History amLODIPine [Norvasc] 5 mg PO BID 08/07/21 08/07/21 History Allergies Allergy/AdvReac Type Severity Reaction Status Date / Time Sulfa (Sulfonamide Allergy Unknown Verified 08/07/21 09:56 Antibiotics) Childhood Physical Exam Vitals: Vital Signs Temp Pulse Pulse Resp BP Pulse Ox 08/11/21 15:40 67 08/11/21 12:00 78 16 127/60 97 08/11/21 11:53 69 08/11/21 08:00 97.7 F 78 16 117/57 100 08/11/21 07:50 66 08/11/21 07:42 68 100 08/11/21 03:30 97.9 F 60 18 104/58 97 08/10/21 23:29 98.0 F 69 20 116/65 99 08/10/21 20:54 68 08/10/21 20:42 64 08/10/21 20:25 97.6 F 64 18 123/66 98 Intake and Output 08/11/21 08/11/21 08/11/21 06:59 14:59 22:59 Intake Total 240 Output Total 600 200 Balance -600 40 Intake: Oral 240 Output: Urine 600 200 Other: Voiding Method Bedside Commode Weight 60.3 kg 60.3 kg Physical Exam: Revealed 81-year-old female in no distress on room air Head: Atraumatic normocephalic HEENT:[Neck is supple.] [No neck masses.] [No thyromegaly.] [No JVD.] Chest: [Clear throughout, no crackles, no rhonchi, no wheezes.] Cardiac Exam: [Normal S1 and S2, no S3 gallop, no murmur.] Abdomen: [Soft, nontender, no megaly, no rebound, no guarding, normal bowel sounds.] Extremities: [No clubbing, no edema, no cyanosis.] Neurological Exam: [No focal neurologic deficit.] Alert oriented 3 gait was not assessed, but according to the neurologist she has unsteady gait. And she has hyperreflexia Psychiatric: Normal mood affect and normal mental status examination. Skin: No rashes Musculoskeletal: No deformities and no limitation in range of motion Results - Laboratory Findings CBC and BMP: 08/11/21 06:43 08/11/21 06:43 PT/INR, D-dimer PT 11.4 sec (9.0-12.0) 08/07/21 09:37 INR 1.1 (<1.2) 08/07/21 09:37 D-Dimer 0.88 mg/L FEU (<0.60) H 08/07/21 09:37 Abnormal lab findings: Abnormal Labs 08/07/21 08/07/21 08/08/21 09:37 09:37 07:32 D-Dimer 0.88 H Chloride 108 H Carbon Dioxide BUN Glucose 105 H 100 H Magnesium 1.2 L Total Bilirubin 1.6 H 08/09/21 08/10/21 08/11/21 08:15 05:13 06:43 D-Dimer Chloride 96 L Carbon Dioxide 34 H 33 H 32 H BUN 19 H 20 H 25 H Glucose 127 H 100 H 147 H Magnesium Total Bilirubin - Diagnostic Findings Chest x-ray: image reviewed (As noted in HPI.) Assessment and Plan Assessment: Impression: Acute diastolic congestive heart failure Shortness of breath secondary to above improving clinically History of CVA with right-sided weakness History of fibromyalgia Benign essential hypertension History of pulmonary embolism maintained on Xarelto Possible MS, abnormal MRI, being addressed by neurology on the case. Recommendation: Continue present treatment plan as per cardiology Continue Xarelto, CT angiogram negative for recurrent pulmonary embolism Agree with discharge planning in the next 24 hours, cleared from my perspective. Will follow as needed. Time with Patient: Greater than 30
[2021-08-11] MEDS: traZODone HCL 100 MG TAB PO SCH (21:36)
[2021-08-11] MEDS: ATORVASTATIN 40 MG TAB PO SCH (21:36)
--- NOTE | 2021-08-11 22:05 | MR ---
EXAMINATION TYPE: MR thoracic spine wo/w con DATE OF EXAM: 08/11/2021 7:03 PM COMPARISON: CT chest 08/07/2021. CLINICAL INDICATION:Female, 81 years old with history of unsteady gait. Multiple sclerosis; TECHNIQUE: Multiplanar multisequence imaging of the thoracic spine. 6 cc of intravenous Gadavist was given. FINDINGS: The thoracic vertebral bodies have preserved heights and alignment. Thoracic spinal cord appears unre markable without evidence of postcontrast enhancement to suggest active multiple sclerosis. Mild hete rogenous bone marrow throughout the spine. Multilevel disc degeneration changes seen throughout the s pine with osteophyte formation. Facet joint arthropathy mildly narrows the posterior thecal sac at T5-T6. L1-L2 disc bulging without significant spinal canal narrowing. IMPRESSION: 1. Spinal cord signal is maintained, no findings to suggest active multiple sclerosis within the thor acic spine. 2. Heterogenous bone marrow signal which could represent red marrow reconversion. 3. No significant spinal canal stenosis.
[2021-08-11] MEDS: SODIUM CHLORIDE 0.9% 1,000 ML in EMPTY BAG 1 BAG IV SCH (23:07)
[2021-08-12] MEDS ORDERED: CALCIUM CARBONATE LIQUID 500 MG/5 ML CUP PO ONE (01:35)
[2021-08-12] MEDS ORDERED: ATORVASTATIN 80 MG TAB PO ONE (05:00)
[2021-08-12] MEDS ORDERED: ASPIRIN 325 MG TAB PO ONE (05:00)
[2021-08-12] MEDS: ASPIRIN 81 MG PO SCH (06:07)
[2021-08-12 06:08] LABS: Glucose,Whole Blood 97 mg/dL (75-99)
[2021-08-12] MEDS: PANTOPRAZOLE 40 MG TABLET PO SCH (06:08)
[2021-08-12] MEDS: ALPRAZolam 0.5 MG TAB PO SCH ×2 (06:08→20:37)
[2021-08-12] MEDS: methylPREDNISolone 4 MG TAB TAPER PO SCH (06:09)
[2021-08-12] MEDS: VORTIOXETINE HYDROBROMIDE 10 MG TABLET PO SCH (06:09)
[2021-08-12] MEDS: amLODIPine 5 MG TAB PO SCH ×2 (06:09→20:37)
[2021-08-12] MEDS: CYANOCOBALAMIN 1,000 MCG/ML 1 ML VIAL IM SCH (06:09)
[2021-08-12] MEDS ORDERED: HEPARIN SODIUM,PORCINE 2,500 UNIT in SODIUM CHLORIDE 0.9% 250 ML IRRIGATION PRN (07:00)
[2021-08-12] MEDS ORDERED: HEPARIN SODIUM,PORCINE 10,000 UNIT in SODIUM CHLORIDE 0.9% 1,000 ML IRRIGATION PRN (07:00)
--- NOTE | 2021-08-12 09:03 | P.PN ---
Subjective Progress Note Date: 08/11/21 Patient initially seen by Dr. Octavio Nixon. Please refer to his note for details. Patient is a 81-year-old female. Patient has tremulousness and hyperreflexia. Telemetry monitoring showing sinus rhythm in the 90s. No other arrhythmia. Objective - Vital Signs Vital signs: Vital Signs Temp 97.7 F 08/11/21 08:00 Pulse 67 08/11/21 15:40 Resp 16 08/11/21 12:00 BP 127/60 08/11/21 12:00 Pulse Ox 97 08/11/21 12:00 Intake & Output 08/10/21 08/11/21 08/11/21 18:59 06:59 18:59 Intake Total 180 540 240 Output Total 400 950 200 Balance -220 -410 40 Weight 60.3 kg 60.3 kg Intake: Oral 180 540 240 Output: Urine 400 950 200 Other: Voiding Method Bedside Commode Bedside Commode # Voids 1 - Exam Patient is an elderly female, in no acute distress. Patient is alert awake oriented to time place and person. Speech and language functions are normal. Attention, concentration and fund of knowledge is adequate. On cranial examination, pupils are round and reacting to light, visual stone are full on confrontation, extraocular muscles are intact with no nystagmus. Face is symmetric, tongue protrudes to the midline. Palatal elevation and sensation normal, hearing and shoulder shrug normal, facial sensation normal. Shoulder shrug normal. On muscle strength testing, there is no pronator drift. 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 Deep tendon reflexes are symmetric, 1+ to 2 at the biceps, 2+ at the brachioradialis, 3+ in the knees, 1+ ankles and plantars are downgoing. No clonus. Sensory to touch is equal with no neglect. Cerebellar function showed no ataxia for [id number] testing. Tone and bulk of muscles normal. Gait not checked. On general examination, Abdomen is soft nontender. Chest is clear. Peripheral pulses are present. No edema. - Labs CBC & Chem 7: 08/11/21 06:43 08/11/21 06:43 Labs: Abnormal Lab Results - Last 24 Hours (Table) 08/11/21 Range/Units 06:43 Chloride 96 L (98-107) mmol/L Carbon Dioxide 32 H (22-30) mmol/L BUN 25 H (7-17) mg/dL Glucose 147 H (74-99) mg/dL Assessment and Plan Assessment: * Unsteady gait and tremulous--- probably due to reasons below, improving. * Cervical spondylosis that is moderate in severity over C3-C6. No significant spinal stenosis. * Vitamin B12 deficiency with B12 level of 279. Normal level is normal supposed to be between 200-944). * History of reported stroke and it's reported that she has residual right upper extremity weakness but on my examination had lower extremity weakness * Pulmonary embolism on Xarelto * Rheumatoid arthritis * Anxiety * Depression Plan: Await MRI of the thoracic spine with and without MRI of the brain is reported as mild diffuse cerebral atrophy and moderate to advanced nonspecific white matter changes most likely on the basis product chronic small vessel ischemic changes and patient of this age. I personally reviewed MRI agree with the findings. MRI of the cervical spine is reported as moderate cervical spondylolysis and degenerative changes in the cervical spine. No significant spinal stenosis noted on my review. There is multilevel neural foraminal narrowing due to bulging disks. 2D echo was reported as left ventricular size is normal. Left atrium is mildly dilated. Ejection fraction greater than 55%. Very borderline B12 level (279). Normal level is normal supposed to be between 200-944). Continue vitamin B12 1000 intramuscular for 3 days in total then after that by mouth daily. Folate is 9.10. We will also start folate acid 1 mg daily. Patient is on her home medication of Xarelto 2.5 mg a tablet twice a day, aspirin 81 mg and Lipitor 40 mg daily at bedtime at. PT and OT to assess gait and balance. Orthopedic team recommended steroid and no intervention as inpatient. We'll defer the rest of the medical management to the primary team. Recommend the patient follow up with a neurologist as an outpatient within 2-3 weeks. Addendum: MRI of the thoracic spine revealed normal cord signal with no evidence of multiple sclerosis. Heterogeneous bone marrow signal which could represent red marrow conversion. No significant spinal canal stenosis. I personally reviewed MRI of the thoracic spine and agree with the findings. Neurologically clear for discharge.
[2021-08-12] MEDS: IPRATROPIUM-ALBUTEROL 3 ML NEB INHALATION SCH ×4 (09:14→19:25)
[2021-08-12 09:20] LABS: Partial Thromboplastin Time 24.9 sec (22.0-30.0); Prothrombin Time 10.9 sec (9.0-12.0)
[2021-08-12 09:22] LABS: Calcium 9.3 mg/dL (8.4-10.2)
[2021-08-12 09:27] LABS: Potassium 3.7 mmol/L (3.5-5.1)
[2021-08-12] MEDS: FOLIC ACID 1 MG TAB PO SCH (09:56)
[2021-08-12] MEDS: FUROSEMIDE 40 MG TAB PO SCH ×2 (09:56→18:08)
[2021-08-12 10:21] LABS: Basophils % (A) 0 %; Eosinophils % (A) 0 %; HCT 36.9 % (34.0-46.0); HGB 12.2 gm/dL (11.4-16.0); Lymphocytes # (A) 1.2 k/uL (1.0-4.8); Lymphocytes % (A) 16 %; MCH 28.2 pg (25.0-35.0); MCHC 32.9 g/dL (31.0-37.0); MCV 85.8 fL (80.0-100.0); Mean Platelet Volume 8.1; Monocytes # (A) 0.4 k/uL (0-1.0); Monocytes % (A) 5 %; Neutrophils # (A) 5.7 k/uL (1.3-7.7); Neutrophils % (A) 78 %; Platelet Count 367 k/uL (150-450); RBC 4.31 m/uL (3.80-5.40); RDW 13.9 % (11.5-15.5); WBC 7.4 k/uL (3.8-10.6)
[2021-08-12] MEDS ORDERED: LIDOCAINE 1% INJ 10MG/ML (20 ML MDV) ONE (13:46)
[2021-08-12] MEDS ORDERED: IV FLUID CONTINUATION 1,000 ML IV ONE (13:51)
[2021-08-12] MEDS ORDERED: MIDAZOLAM 2 MG/2 ML VIAL IV ONE (13:51)
[2021-08-12] MEDS ORDERED: LIDOCAINE 1% INJ 10MG/ML (20 ML MDV) SQ ONE (13:52)
[2021-08-12] MEDS ORDERED: HEPARIN SODIUM 1,000 UN/ML (10ML VL) ONE (13:59)
[2021-08-12] MEDS ORDERED: IOPAMIDOL-370 125ML BTL INJ ONE (14:06)
[2021-08-12] MEDS ORDERED: RX INFO: IV CONTRAST WAS GIVEN 1 EACH MISC MISCELLANE PRN (14:10)
[2021-08-12] MEDS ORDERED: SODIUM CHLORIDE 0.9% 1,000 ML IV SCH (14:15)
--- NOTE | 2021-08-12 16:01 | P.PN ---
Subjective Progress Note Date: 08/12/21 Patient is a 81-year-old female with history of prior pulmonary embolism on Xarelto, CVA in May 2021 with residual right upper extremity weakness, GERD, urinary incontinence, depression, and hypertension who presented to the hospital complaints of shortness of breath over the last 2 weeks. In the ER she underwent an extensive evaluation which demonstrated an elevated d-dimer eleva malorie BNP. CT of the chest was negative for pulmonary embolism but demonstrated bilateral pleural effusions with interstitial edema. Chest x-ray was consistent with pulmonary vascular congestion. She was started on Lasix and admitted for further monitoring. Echocardiogram demonstrated an ejection fraction of 55%. On 08/08 she was noted to have some difficulty with ambulation and seemed to have difficulty with balance. Neurology was consulted recommended MRI of the brain and cervical spine which did not demonstarte new stroke but did show degenerative changes in the cervical spine. She was seen by Dr. Lu who recommended conservative management. This morning patient states that her shortness of breath has improved about 95% since admission. Patient says that she is scheduled for heart catheter. She is overall looking forward to going home and is feeling much better. Objective - Vital Signs Vital signs: Vital Signs Temp 98.2 F 08/12/21 12:00 Pulse 70 08/12/21 12:35 Resp 20 08/12/21 12:00 BP 106/55 08/12/21 12:00 Pulse Ox 97 08/12/21 12:00 Intake & Output 08/11/21 08/12/21 08/12/21 18:59 06:59 18:59 Intake Total 240 510 110 Output Total 200 600 Balance 40 -90 110 Weight 60.3 kg 61.9 kg Intake: IV 110 Invasive Line 2 10 Intake, IV Titration 360 Amount Sodium Chloride 0.9% 1, 360 000 ml In Empty Bag 1 bag @ 1 ML/KG/HR 60.3 mls/hr IV .[id number] [facility] Rx#: [id number] Oral 240 150 Output: Urine 200 600 Other: Voiding Method Bedside Commode Bedside Commode Bedside Commode - Exam General examination - Alert and Oriented 3 in NAD, appears chronically debilitated Heart - + S1S2 no murmurs Lungs - Clear to auscultation Abdomen soft NT ND +ve BS Extremities - No edema 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 Oconnell today -Daily weights -Improving. This morning patient on 2 L nasal cannula and satting well. History of CVA now with recurrent right lower extremity weakness Degenerative disc disease cervical spine -Aspirin, atorvastatin -Steroids - physical therapy as outpatient - outpatient follow-up with Dr. Lu - Thoracic spine MRI stable -Neurology signed off Fibromyalgia -Continue with home medications. Hypertension -Continue with amlodipine History of pulmonary embolism -On Xarelto Thyroid nodule - outpatient thyroid US Resolved: Hypomagnesemia DVT prophylaxis: Xarelto (on hold for cath Discussed with: Patient, family Anticipated discharge: in AM Anticipated discharge place: home with home health
[2021-08-12] MEDS: SODIUM CHLORIDE 0.9% 1,000 ML in EMPTY BAG 1 BAG IV SCH (18:03)
--- NOTE | 2021-08-12 20:34 | P.PCN ---
Date of Procedure: 08/12/21 Operative Findings: Cardiac catheterization Performing physician: Andrew Oconnell MD. Procedure performed: 1. Selective right and left coronary angiogram 2. Left heart catheterization 3. Selective right common femoral angiogram Indication This is a 81-year-old female patient who presented to the hospital with shortness of breath. She underwent myocardial perfusion imaging and that showed reversibility. In the light of that a heart catheterization was advised Approach: Right common femoral artery Complication: None Level of sedation: Moderate with sedation time of 20 minutes Procedure description: After obtaining an informed consent the patient was brought to the cardiac clinical lab scientist The right common femoral artery was cannulated using micropuncture technique and a micropuncture wire passed easily then I placed a 6 Czech sheath. The Selective right and left coronary angiogram performed using JR4 and JL4 catheters. Left heart catheterization was performed using pigtail catheter. By the end selective right common femoral angiogram was performed with injection through the sheath. The procedure was completed without complication Selective coronary angiograms: 1. The RCA is a large caliber vessel and a dominant vessel. It is calcified with mild disease in the midportion. Distally bifurcates into PDA and PLV branches. 2. The left main is angiographically normal. Bifurcates into LCx and LAD 3. The LCx is a large caliber vessel. Proximally is angiographically normal and gives rises into a large OM1 which has severe lesion in the ostium. Distally gives rises into second OM which has mild disease only and the circumflex continue after hector in the AV groove with no high-grade 3. The LAD is a large caliber vessel and calcified vessel with only mild to moderate disease in Midportion. Proximally gives rises into a large diagonal branch which appeared to be angiographically normal Hemodynamic: The LVEDP was 12 mmHg without significant gradient across the aortic valve Conclusion: 1. Calcified right and left coronary systems 2. Severe disease involving the ostial OM1. Intermediate disease involving OM2 3. Intermediate disease involving the mid LAD 4. Normal left-sided filling pressure Plan: 1. Consider anti-ischemic medication and medical treatment at this point, in the light of the above anatomy of the lesion in the LCX 2. Consider PCI of the LCx if the patient continues to be symptomatic in spite of medical treatment
[2021-08-12] MEDS: traZODone HCL 100 MG TAB PO SCH (20:37)
[2021-08-12] MEDS: ATORVASTATIN 40 MG TAB PO SCH (20:37)
[2021-08-13] MEDS: PANTOPRAZOLE 40 MG TABLET PO SCH (06:28)
[2021-08-13] MEDS: IPRATROPIUM-ALBUTEROL 3 ML NEB INHALATION SCH ×3 (07:47→15:55)
[2021-08-13 08:26] LABS: Basophils % (A) 0 %; Eosinophils % (A) 0 %; HCT 35.5 % (34.0-46.0); HGB 11.2 gm/dL (11.4-16.0); Lymphocytes # (A) 2.8 k/uL (1.0-4.8); Lymphocytes % (A) 39 %; MCH 28.6 pg (25.0-35.0); MCHC 31.7 g/dL (31.0-37.0); MCV 90.2 fL (80.0-100.0); Mean Platelet Volume 7.3; Monocytes # (A) 0.5 k/uL (0-1.0); Monocytes % (A) 7 %; Neutrophils # (A) 3.9 k/uL (1.3-7.7); Neutrophils % (A) 53 %; Platelet Count 331 k/uL (150-450); RBC 3.93 m/uL (3.80-5.40); RDW 13.8 % (11.5-15.5); WBC 7.3 k/uL (3.8-10.6)
[2021-08-13] MEDS ORDERED: CYANOCOBALAMIN 500 MCG TAB PO SCH (09:00)
[2021-08-13 09:13] LABS: Calcium 8.8 mg/dL (8.4-10.2); Potassium 3.1 mmol/L (3.5-5.1)
[2021-08-13] MEDS: SODIUM CHLORIDE 0.9% 1,000 ML in EMPTY BAG 1 BAG IV SCH (09:33)
[2021-08-13] MEDS: FOLIC ACID 1 MG TAB PO SCH (09:35)
[2021-08-13] MEDS: ASPIRIN 81 MG PO SCH (09:35)
[2021-08-13] MEDS: POTASSIUM CHLORIDE ER 20 MEQ TAB.ER PO SCH ×2 (09:35→11:02)
[2021-08-13] MEDS: ALPRAZolam 0.5 MG TAB PO SCH (09:35)
[2021-08-13] MEDS: VORTIOXETINE HYDROBROMIDE 10 MG TABLET PO SCH (09:36)
[2021-08-13] MEDS: FUROSEMIDE 40 MG TAB PO SCH (09:36)
[2021-08-13] MEDS: amLODIPine 5 MG TAB PO SCH (09:36)
[2021-08-13] MEDS: OXYBUTYNIN 10 MG TAB.ER.24 PO SCH (09:36)
[2021-08-13] MEDS: methylPREDNISolone 4 MG TAB TAPER PO SCH (09:36)
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
--- NOTE | 2021-08-13 12:51 | P.DS ---
Providers Date of admission: 08/07/21 12:08 Expected date of discharge: 08/13/21 Attending physician: Charleen Devi DO Consults: 08/07/21 12:07 Consult Physician Urgent Consulting Provider: Riya Foy Consult Reason/Comments: new onset heart failure Do you want consulting provider notified?: Yes 08/08/21 16:23 Consult Physician Urgent Consulting Provider: Octavio Nixon Consult Reason/Comments: worsening ataxia, tremors Do you want consulting provider notified?: Already Contacted 08/09/21 15:50 Consult Physician Urgent Consulting Provider: Gwyn Lu Consult Reason/Comments: cervical spondylosis/myelopathy On exam hyperref and unsteady gait Do you want consulting provider notified?: Yes 08/11/21 11:34 Consult Physician Routine Consulting Provider: Alexandru Toscano Consult Reason/Comments: SOB Do you want consulting provider notified?: Yes Primary care physician: Doron Peralta MD Hospital Course: Discharge Diagnosis: Acute decompensated diastolic and just of heart failure with ejection fraction 55% Coronary artery disease History of CVA Degenerative disc disease cervical spine Hospital Course: Patient is a 81-year-old female with history of prior pulmonary embolism on Xarelto, CVA in May 2021 with residual right upper extremity weakness, GERD, urinary incontinence, depression, and hypertension who presented to the hospital complaints of shortness of breath over the last 2 weeks. In the ER she underwent an extensive evaluation which demonstrated an elevated d-dimer elevated BNP. CT of the chest was negative for pulmonary embolism but demonstrated bilateral pleural effusions with interstitial edema. Chest x-ray was consistent with pulmonary vascular congestion. She was started on Lasix and admitted for further monitoring. Echocardiogram demonstrated an ejection fraction of 55%. Patient also had a Lexiscan stress test that was abnormal. She then had a left and right heart catheterization done that showed significant coronary disease in the left circumflex coronary artery. Cardiology recommended medical management for now. Patient's shortness of breath improved significantly with diuresing. At the time of discharge cardiology especially to oral diuretics. She is cleared for discharge by cardiology. Patient instructed to follow cardiology outpatient. She'll be discharged on Lasix 40 mg daily with 10 mEq potassium supplement. Patient also had some difficulty with ambulation and balance. Neurology was consult in. Patient had thoracic spine MRI that shows stable findings. Patient was started on steroids. She was instructed to follow-up with orthopedic surgery for her degenerative disc disease. Patient will be discharged on a Medrol Dosepak. Patient deemed stable for discharge. She will be discharge with home with home health. Patient seen and examined at bedside.[] Vital signs reviewed and stable. General: [non toxic], [no distress], [appears at stated age] appears chronically debilitated Derm: [warm], [dry] Head: [atraumatic], [normocephalic], [symmetric] Eyes: [EOMI], [no lid lag], [anicteric sclera] Mouth: [no lip lesion], [mucus membranes moist] Cardiovascular: [S1S2 reg], [no murmur], [positive posterior tibial pulse bilateral], Lungs: [CTA bilateral], [no rhonchi, no rales] , [no accessory muscle use] Abdominal: [soft], [ nontender to palpation], [no guarding], [no appreciable organomegaly] Ext: [no gross muscle atrophy], [trace bilateral pitting edema], [no contractures] Neuro: [ CN II-XI grossly intact], [no focal neuro deficits] Psych: [Alert], [oriented], [appropriate affect] A total of [33] minutes of time were spent preparing this complex discharge summary . Patient Condition at Discharge: Stable Plan - Discharge Summary Discharge Rx Participant: Yes New Discharge Prescriptions: New Folic Acid 1 mg PO DAILY #30 tab methylPREDNISolone [Medrol] 4 mg PO DAILY #6 tablet Furosemide [Lasix] 40 mg PO DAILY #30 tab Cyanocobalamin [Vitamin B-12] 1,000 mcg PO DAILY #30 tab Potassium Chloride ER [K-Dur 10] 10 meq PO DAILY #30 tab Continue Omeprazole 40 mg PO DAILY Aspirin [Adult Low Dose Aspirin EC] 81 mg PO DAILY Oxybutynin ER [Ditropan Xl] 10 mg PO WESA traZODone HCL 100 mg PO HS Vortioxetine Hydrobromide [Trintellix] 10 mg PO DAILY Atorvastatin [Lipitor] 40 mg PO HS ALPRAZolam [Xanax] 0.5 mg PO BID Rivaroxaban [Xarelto] 2.5 mg PO BID amLODIPine [Norvasc] 5 mg PO BID Discharge Medication List Omeprazole 40 mg PO DAILY 12/30/18 [History] Aspirin [Adult Low Dose Aspirin EC] 81 mg PO DAILY 06/09/19 [History] Oxybutynin ER [Ditropan Xl] 10 mg PO WESA 04/12/21 [History] Vortioxetine Hydrobromide [Trintellix] 10 mg PO DAILY 04/12/21 [History] traZODone HCL 100 mg PO HS 04/12/21 [History] ALPRAZolam [Xanax] 0.5 mg PO BID 08/07/21 [History] Atorvastatin [Lipitor] 40 mg PO HS 08/07/21 [History] Rivaroxaban [Xarelto] 2.5 mg PO BID 08/07/21 [History] amLODIPine [Norvasc] 5 mg PO BID 08/07/21 [History] Cyanocobalamin [Vitamin B-12] 1,000 mcg PO DAILY #30 tab 08/13/21 [Rx] Folic Acid 1 mg PO DAILY #30 tab 08/13/21 [Rx] Furosemide [Lasix] 40 mg PO DAILY #30 tab 08/13/21 [Rx] Potassium Chloride ER [K-Dur 10] 10 meq PO DAILY #30 tab 08/13/21 [Rx] methylPREDNISolone [Medrol] 4 mg PO DAILY #6 tablet 08/13/21 [Rx] Follow up Appointment(s)/Referral(s): Andrew Oconnell MD [STAFF PHYSICIAN] - 08/22/21 [facility], [NON-STAFF] - Doron Peralta MD [Primary Care Provider] - 1-2 days Gwyn Lu DO [Doctor of Osteopathic Medicine] - 3 Weeks Discharge Disposition: HOME WITH HOME HEALTH SERVICES
[2021-08-13 15:02] VITALS: BP 104/52; RESP 18; TEMP 97.2
[2021-08-13 16:06] VITALS: PULSE 79
[2021-08-14] MEDS ORDERED: FUROSEMIDE 40 MG TAB PO SCH (09:00)
== END 2021-08-13 17:52 | disposition home health service (06) | DRG 286 ==
LOC: EC 08:44 → 3SCARD 12:08
PROVIDERS: ADMIT Internal Medicine; ATTEND Internal Medicine
PROC: B2111ZZ Fluoroscopy of Multiple Coronary Arteries using Low Osmolar Contrast (ICD-10-PCS; 2021-08-12)
PROC: B41F1ZZ Fluoroscopy of Right Lower Extremity Arteries using Low Osmolar Contrast (ICD-10-PCS; 2021-08-12)
PROC: 4A023N7 Measurement of Cardiac Sampling and Pressure, Left Heart, Percutaneous Approach (ICD-10-PCS; principal; 2021-08-12 13:30)
DX: I11.0 Hypertensive heart disease with heart failure (principal); I50.33 Acute on chronic diastolic (congestive) heart failure; J96.01 Acute respiratory failure with hypoxia; I69.351 Hemiplegia and hemiparesis following cerebral infarction affecting right dominant side; M47.12 Other spondylosis with myelopathy, cervical region; E04.1 Nontoxic single thyroid nodule; E53.8 Deficiency of other specified B group vitamins; E83.42 Hypomagnesemia; F41.9 Anxiety disorder, unspecified; I25.10 Atherosclerotic heart disease of native coronary artery without angina pectoris; I73.00 Raynaud's syndrome without gangrene; K21.9 Gastro-esophageal reflux disease without esophagitis; M06.9 Rheumatoid arthritis, unspecified; M35.00 Sjogren syndrome, unspecified; M48.02 Spinal stenosis, cervical region; M50.30 Other cervical disc degeneration, unspecified cervical region; M79.7 Fibromyalgia; Z77.22 Contact with and (suspected) exposure to environmental tobacco smoke (acute) (chronic); Z79.01 Long term (current) use of anticoagulants; Z79.82 Long term (current) use of aspirin; Z79.899 Other long term (current) drug therapy; Z86.711 Personal history of pulmonary embolism; Z90.710 Acquired absence of both cervix and uterus; Z98.41 Cataract extraction status, right eye; F32.A Depression, unspecified
CPT/HCPCS: 36415; 70450; 70551; 71046; 71275; 72141; 72157; 78452; 80048; 80053; 82607; 82746; 83036; 83605; 83735; 83880; 84443; 84484; 85025; 85027; 85379; 85610; 85730; 93005; 93017; 93306; 93458; 94640; 94760; 96365; 96366; 96375; 99285

== ENCOUNTER 2021-09-26 07:30 | Day surgery (SDC) | payer MEDICARE ==
[2021-09-25 11:14] VITALS: BMI 22.4
[~2021-09-26 07:30] MED LIST: ALPRAZolam 0.25 MG TAB PO PRN; ALPRAZolam 0.5 MG TAB PO PRN; ASPIRIN 325 MG TAB PO STA; ATORVASTATIN 80 MG TAB PO STA; HEPARIN SODIUM,PORCINE 10,000 UNIT in SODIUM CHLORIDE 0.9% 1,000 ML IRRIGATION PRN; HEPARIN SODIUM,PORCINE 2,500 UNIT in SODIUM CHLORIDE 0.9% 250 ML IRRIGATION PRN; NITROGLYCERIN SL TABS 0.4 MG TAB SUBLINGUAL PRN
[2021-09-26] MEDS: SODIUM CHLORIDE 0.9% 1,000 ML in EMPTY BAG 1 BAG IV SCH (07:50)
[2021-09-26 08:04] LABS: Basophils # (A) 0.1 k/uL (0-0.2); Basophils % (A) 1 %; Eosinophils # (A) 0.3 k/uL (0-0.7); Eosinophils % (A) 4 %; HCT 39.7 % (34.0-46.0); HGB 12.7 gm/dL (11.4-16.0); Lymphocytes # (A) 2.2 k/uL (1.0-4.8); Lymphocytes % (A) 32 %; MCH 27.7 pg (25.0-35.0); MCV 86.5 fL (80.0-100.0); Mean Platelet Volume 6.9; Monocytes # (A) 0.5 k/uL (0-1.0); Monocytes % (A) 7 %; Neutrophils # (A) 3.8 k/uL (1.3-7.7); Neutrophils % (A) 55 %; Platelet Count 286 k/uL (150-450); RBC 4.59 m/uL (3.80-5.40); RDW 13.8 % (11.5-15.5)
[2021-09-26 08:22] LABS: Calcium 8.9 mg/dL (8.4-10.2); Potassium 3.3 mmol/L (3.5-5.1)
[2021-09-26] MEDS ORDERED: VERAPAMIL 2.5 MG/ML 2 ML AMP ONE (08:51)
[2021-09-26] MEDS ORDERED: fentaNYL (PF) 50 MCG/ML 2 ML AMP ONE (09:04)
[2021-09-26] MEDS ORDERED: HEPARIN SODIUM 1,000 UN/ML (10ML VL) ONE (09:07)
[2021-09-26] MEDS ORDERED: LIDOCAINE 1% PF 10 MG/ML (5 ML AMP) SQ ONE (09:24)
[2021-09-26] MEDS ORDERED: MIDAZOLAM 2 MG/2 ML VIAL IV ONE (09:27)
[2021-09-26] MEDS ORDERED: fentaNYL (PF) 50 MCG/ML 2 ML AMP IV ONE (09:27)
[2021-09-26] MEDS ORDERED: HEPARIN SODIUM 1,000 UN/ML (10ML VL) IV ONE (09:28)
[2021-09-26] MEDS ORDERED: CLOPIDOGREL 75 MG TAB PO ONE (09:48)
[2021-09-26] MEDS ORDERED: IOPAMIDOL-370 125ML BTL INJ ONE (09:48)
[2021-09-26] MEDS ORDERED: CLOPIDOGREL 75 MG TAB ONE (09:50)
[2021-09-26] MEDS ORDERED: NITROGLYCERIN SL TABS 0.4 MG TAB SUBLINGUAL PRN (09:57)
[2021-09-26] MEDS ORDERED: RX INFO: IV CONTRAST WAS GIVEN 1 EACH MISC MISCELLANE PRN (09:57)
[2021-09-26] MEDS ORDERED: MAG HYDROX/AL HYDROX/SIMETH 30 ML CUP PO PRN (09:57)
[2021-09-26] MEDS ORDERED: ZOLPIDEM 5 MG TAB PO PRN (09:57)
[2021-09-26] MEDS ORDERED: ATROPINE SULFATE 0.1 MG/ML 10ML SYRINGE IV PRN (09:57)
[2021-09-26] MEDS ORDERED: SODIUM CHLORIDE 0.9% 1,000 ML in EMPTY BAG 1 BAG IV SCH (10:00)
--- NOTE | 2021-09-26 10:04 | P.PCN ---
Date of Procedure: 09/26/21 Operative Findings: PERCUTANEOUS CORONARY INTERVENTION Performing physician Andrew Oconnell M.D. Procedure Performed: 1. Successful stenting of the ostial OM1 of the LCx using 2.75 x 12 mm Xience drug-eluting stent with an excellent angiographic results with adjunctive use of balloon angioplasty in the left circumflex in a kissing technique Indication: Symptomatic coronary artery disease in spite of maximize medical treatment. The patient is known to have critical disease involving OM1 of the left circumflex. Approach: Right common femoral artery Complications: None Level of Sedation: Moderate with a sedation length of 25 minutes Procedure Discussion: After obtaining informed consent the patient was brought to the cardiac lab coordinator. The right common femoral artery was cannulated using micropuncture technique, the micropuncture wire passed easily then I placed a 7-Australian sheath at the right common femoral artery. Using an EBU 7-Australian guiding catheter I did engage the left main and the guide was subselective in the left circumflex with a good pressure waveform. Subsequently I did wire the OM1 using a whisper wire and I wire the left circumflex using a run-through wire. Subsequently I did balloon angioplasty of OM1 using 2.5 x 12 mm balloon which was inflated under 14 lynne for 20 seconds. After that I advanced to OM1 2.75 x 12 mm stent and I advanced the left circumflex 3.0 x 12 mm balloon I did deploy the stent with a kissing technique with the balloon. The following angiogram showed excellent angiographic results and the procedure was completed without any complications Postprocedure Management: 1. Dual antiplatelet therapy for at least 6 month and preferably a year 2. Risk factors modification 3. Follow-up with the patient
[2021-09-26] MEDS: amLODIPine 5 MG TAB PO SCH (20:15)
[2021-09-26] MEDS: ALPRAZolam 0.5 MG TAB PO SCH (20:15)
[2021-09-26] MEDS ORDERED: ATORVASTATIN 40 MG TAB PO SCH (21:00)
[2021-09-26] MEDS ORDERED: traZODone HCL 100 MG TAB PO SCH (21:00)
[2021-09-27] MEDS: SODIUM CHLORIDE 0.9% 1,000 ML in EMPTY BAG 1 BAG IV SCH (01:14)
[2021-09-27] MEDS ORDERED: PANTOPRAZOLE 40 MG TABLET PO SCH (07:30)
--- NOTE | 2021-09-27 08:18 | P.DS ---
Providers Attending physician: Andrew Oconnell Consults: 09/26/21 09:57 Consult Physician Routine Consulting Provider: [facility] Consult Reason/Comments: Post Interventional patient Do you want consulting provider notified?: Already Contacted Primary care physician: Doron Peralta MD Hospital Course: The patient is a pleasant 81-year-old female patient who underwent [place] the successful stenting of OM with a great angiographic results and without any complication. The patient was seen this morning. She is asymptomatic and as a matter of fact she is feeling better. From a cardiovascular standpoint of view, the patient can be discharged home on dual antiplatelet therapy and I'll follow-up with the patient in a week in the office Plan - Discharge Summary Discharge Rx Participant: No New Discharge Prescriptions: New Clopidogrel [Plavix] 75 mg PO DAILY #90 tab Continue Omeprazole 40 mg PO DAILY Aspirin [Adult Low Dose Aspirin EC] 81 mg PO DAILY Oxybutynin ER [Ditropan Xl] 10 mg PO WESA traZODone HCL 100 mg PO HS Vortioxetine Hydrobromide [Trintellix] 10 mg PO DAILY Atorvastatin [Lipitor] 40 mg PO HS Folic Acid 1 mg PO DAILY #30 tab ALPRAZolam [Xanax] 0.5 mg PO BID Rivaroxaban [Xarelto] 2.5 mg PO BID amLODIPine [Norvasc] 5 mg PO BID Furosemide [Lasix] 40 mg PO DAILY #30 tab Cyanocobalamin [Vitamin B-12] 1,000 mcg PO DAILY #30 tab Potassium Chloride ER [K-Dur 10] 10 meq PO DAILY #30 tab Metoprolol Succinate (ER) [Toprol XL] 25 mg PO DAILY Isosorbide Mononitrate ER [Imdur] 30 mg PO DAILY Discharge Medication List Omeprazole 40 mg PO DAILY 05/22/18 [History] Aspirin [Adult Low Dose Aspirin EC] 81 mg PO DAILY 06/09/19 [History] Oxybutynin ER [Ditropan Xl] 10 mg PO WESA 04/12/21 [History] Vortioxetine Hydrobromide [Trintellix] 10 mg PO DAILY 04/12/21 [History] traZODone HCL 100 mg PO HS 04/12/21 [History] ALPRAZolam [Xanax] 0.5 mg PO BID 08/07/21 [History] Atorvastatin [Lipitor] 40 mg PO HS 08/07/21 [History] Rivaroxaban [Xarelto] 2.5 mg PO BID 08/07/21 [History] amLODIPine [Norvasc] 5 mg PO BID 08/07/21 [History] Cyanocobalamin [Vitamin B-12] 1,000 mcg PO DAILY #30 tab 08/13/21 [Rx] Folic Acid 1 mg PO DAILY #30 tab 08/13/21 [Rx] Furosemide [Lasix] 40 mg PO DAILY #30 tab 08/13/21 [Rx] Potassium Chloride ER [K-Dur 10] 10 meq PO DAILY #30 tab 08/13/21 [Rx] Isosorbide Mononitrate ER [Imdur] 30 mg PO DAILY 09/26/21 [History] Metoprolol Succinate (ER) [Toprol XL] 25 mg PO DAILY 09/26/21 [History] Clopidogrel [Plavix] 75 mg PO DAILY #90 tab 09/27/21 [Rx] Follow up Appointment(s)/Referral(s): Anderw Oconnell MD [STAFF PHYSICIAN] - 10/03/21 1:30 pm
[2021-09-27] MEDS ORDERED: FUROSEMIDE 40 MG TAB PO SCH (09:00)
[2021-09-27] MEDS ORDERED: POTASSIUM CHLORIDE ER 10 MEQ TAB.ER.PRT PO SCH (09:00)
[2021-09-27] MEDS ORDERED: ISOSORBIDE MONONITRATE ER 30 MG TAB.ER.24H PO SCH (09:00)
[2021-09-27] MEDS ORDERED: OXYBUTYNIN 10 MG TAB.ER.24 PO SCH (09:00)
[2021-09-27] MEDS ORDERED: ASPIRIN 81 MG PO SCH (09:00)
[2021-09-27] MEDS ORDERED: FOLIC ACID 1 MG TAB PO SCH (09:00)
[2021-09-27] MEDS ORDERED: CYANOCOBALAMIN 500 MCG TAB PO SCH (09:00)
[2021-09-27] MEDS ORDERED: VORTIOXETINE HYDROBROMIDE 10 MG TABLET PO SCH (09:00)
[2021-09-27] MEDS ORDERED: CLOPIDOGREL 75 MG TAB PO SCH (09:00)
[2021-09-27] MEDS ORDERED: METOPROLOL SUCCINATE (ER) 25 MG TAB.ER.24H PO SCH (09:00)
[2021-09-27 09:06] VITALS: BP 107/52; PULSE 59; RESP 18; TEMP 98.4
[2021-09-27] MEDS: amLODIPine 5 MG TAB PO SCH (09:07)
[2021-09-27] MEDS: ALPRAZolam 0.5 MG TAB PO SCH (09:08)
== END 2021-09-27 11:07 | disposition home or self-care (01) ==
LOC: CATHCVL 07:30 → 3SCARD 09:48 → CATHCVL 09-27 11:07
PROVIDERS: ATTEND Internal Medicine Interventional Cardiology
DX: I25.10 Atherosclerotic heart disease of native coronary artery without angina pectoris (principal); I70.8 Atherosclerosis of other arteries; Z79.01 Long term (current) use of anticoagulants; Z79.02 Long term (current) use of antithrombotics/antiplatelets; Z79.82 Long term (current) use of aspirin; Z79.899 Other long term (current) drug therapy; Z95.5 Presence of coronary angioplasty implant and graft; Z20.822 Contact with and (suspected) exposure to COVID-19
CPT/HCPCS: 37226; 94760; 80048; 85025; 87635; C9600; C1769 ×4; C1887; C1725 ×2; C1894; C1874; J2250; J2001; J3010; J1644; Q9967

== ENCOUNTER → 2021-12-11 | Outpatient (CLI) | payer MEDICARE ==
--- NOTE | 2021-12-11 20:11 | CT ---
EXAMINATION TYPE: CT angio head neck CT DLP: 1325.2 mGycm, Automated exposure control for dose reduction was used. DATE OF EXAM: 12/11/2021 4:39 PM COMPARISON: CT brain 08/08/2021. CLINICAL INDICATION:Female, 81 years old with history of I63.9 cerebral infarction, I65.23 occlusion/ stenos, hx of stroke x few months ago and difficulty walking since stroke. Left subclavian included p er order TECHNIQUE: Axially acquired helical CT angiogram of the head and neck was obtained with contrast. Axi al images are supplemented with 3D reconstructions which [facility] NASCET criteria used. Contrast used:65 mL of Isovue 370 with IV Contrast, Oral contrast used: None. FINDINGS: CTA HEAD: No evidence of acute intracranial hemorrhage, mass effect, or midline shift. The ventricles, sulci, a nd cisterns are unremarkable. The visualized portions of the internal carotid arteries, middle cerebral arteries, anterior cerebral arteries, and posterior cerebral arteries are patent. origin of the left posterior cerebral ar jennyfer. The basilar artery is patent patent. The right lens is absent. The left vertebral artery V4 segment a ppears diminutive and may possibly occluded on series 18 image 7 extending towards the confluence wit h the right vertebral artery. This extends approximately 2.1 cm. CTA NECK: Right Carotid System: The common carotid artery and external carotid artery are patent. The carotid bifurcation demonstrate s no evidence of hemodynamically significant stenosis. The remaining portions of the internal carotid artery demonstrate normal size without significant narrowing. Left Carotid System: The common carotid artery and external carotid artery are patent. The carotid bifurcation demonstrate s no evidence of hemodynamically significant stenosis. The remaining portions of the internal carotid artery demonstrate normal size without significant narrowing. The right vertebral artery is patent, there is some streak artifact within the neck and the left vert ebral artery is not definitively visualized in the V2 portion extending to the V3 portion where it ma y be diminutive or occluded. The origins of the great vessels are patent. No evidence of hemodynamically significant stenosis. The left subclavian artery is patent. Multilevel disc degeneration changes are seen throughout the spine. There is heterogenous appearing t hyroid with left thyroid nodule measuring up to 2.0 cm. IMPRESSION: 1. There is a diminutive appearance and/or occlusion of the distal left vertebral artery just before the origin of the basilar artery extending approximately 2.1 cm. Additionally there is some artifact within the neck with a diminutive appearance and possible occlusion of the left vertebral artery ext ending from the V2 to V3 segments. 2. Left thyroid nodule, initially further evaluated with dedicated thyroid ultrasound. 3. The left subclavian artery is patent.
== END | disposition home or self-care (01) ==
LOC: RADCTMAIN 13:10
PROVIDERS: ATTEND Psychiatry & Neurology Neurology
DX: E04.1 Nontoxic single thyroid nodule (principal)
CPT/HCPCS: 82565; 84520; 70496; 70498; 36415; Q9967

== ENCOUNTER → 2022-01-20 | Outpatient (CLI) | payer MEDICARE ==
--- NOTE | 2022-01-21 07:17 | US ---
EXAMINATION TYPE: US thyroid st tissue head/neck DATE OF EXAM: 01/20/2022 COMPARISON: NONE CLINICAL HISTORY: E04.1 SINGLE THYROID NODULE. Thyroid nodule, Dysphagia GLAND SIZE: Right Lobe: 3.8 x 1.4 x 1.1 cm Overall Parenchyma: homogenous Left Lobe: 4.5 x 2.0 x 1.9 cm Overall Parenchyma: heterogeneous Isthmus Thickness: 0.2 cm NODULES RIGHT: # of nodules measured on right: 1 1. 0.3 X 0.3 x 0.4 cm, mid , , anechoic nodule, which is wider than tall, with smooth margins, with out echogenic foci. LEFT: # of nodules measured on left: 1 1. 3.1 X 2.1 x 2.1 cm, lower mid, mixed cystic and solid, nodule, which is wider than tall, with il l-defined margins, without echogenic foci. ISTHMUS: # of nodules measured in the isthmus: 0 Bilateral neck scanned, no evidence of lymphadenopathy. IMPRESSION: TR 2 lesion lower pole left thyroid lobe is considered not suspicious. Continued follow-up advised.
== END | disposition home or self-care (01) ==
LOC: RADUSWWP 16:06
PROVIDERS: ATTEND Family Medicine
DX: E04.2 Nontoxic multinodular goiter (principal)
CPT/HCPCS: 76536

== ENCOUNTER 2022-05-20 10:06 | Day surgery (SDC) | payer MEDICARE ==
[~2022-05-20 10:06] MED LIST changes: +SODIUM CHLORIDE 0.9% 1,000 ML in EMPTY BAG 1 BAG IV ONE
[2022-05-20 10:40] VITALS: TEMP 98.1
[2022-05-20] MEDS ORDERED: HEPARIN SODIUM 1,000 UN/ML (10ML VL) ONE (12:08)
[2022-05-20] MEDS ORDERED: MIDAZOLAM 2 MG/2 ML VIAL IV ONE ×2 (12:17)
[2022-05-20] MEDS ORDERED: LIDOCAINE 1% INJ 10MG/ML (30 ML VIAL-PF) SQ ONE ×2 (12:17)
[2022-05-20] MEDS ORDERED: HEPARIN SODIUM 1,000 UN/ML (10ML VL) IV ONE (12:34)
[2022-05-20] MEDS ORDERED: IOPAMIDOL-370 125ML BTL INJ ONE ×2 (12:45)
[2022-05-20] MEDS ORDERED: RX INFO: IV CONTRAST WAS GIVEN 1 EACH MISC MISCELLANE PRN (12:50)
--- NOTE | 2022-05-20 12:57 | P.PCN ---
Date of Procedure: 05/20/22 Operative Findings: CARDIAC CATHETERIZATION AND PERCUTANEOUS CORONARY INTERVENTION PERFORMING PHYSICIAN: Andrew Oconnell MD, VI PROCEDURE PERFORMED: 1. Selective right and left coronary angiogram 2. Left heart catheterization 3. iFR of the second obtuse marginal branch 4. Selective right common femoral artery injury INDICATION: This is a 81-year-old female patient was coronary artery disease and prior stenting was seen in the office for chest discomfort and shortness of breath with exertion concerning for angina. COMPLICATION: None APPROACH: Right common femoral artery LEVEL OF SEDATION: Moderate with the sedation time off 35 minutes PROCEDURE DESCRIPTION: After obtaining an informed consent the patient was brought to the cardiac rn labor delivery. The right common femoral artery was cannulated using micropuncture technique, the micropuncture wire passed easily then I placed a 6-Iranian sheath. After that I did selective right and left coronary angiogram. Selective right coronary angiogram was performed using JR4 catheter and selective left coronary angiogram was performed using JL4 catheters. Left heart catheterization was performed using 6-Iranian pigtail catheter. After that I did an FFR of the LCx. The procedure was completed without any complication SELECTIVE CORONARY ANGIOGRAM: The right coronary artery: Large caliber vessel and a dominant vessel. The RCA proximally is calcified was mild disease only. The mid RCA also has mild disease only. The RCA distally has mild disease only and bifurcates into PDA and PLV branches both appear to have mild disease only. Left main: Large caliber vessel. Its angiographically normal. Bifurcates into the LCx and LAD The left circumflex: Large caliber vessel nondominant vessel. The LCx proximally is angiographically normal. It starts into an appointment branch which appeared to be stented and the stent is patent. Distal to the stent there is a lesion appeared to be in the range of 50%. The left circumflex gives rises into 1.2 which has intermediate lesion. FFR was performed and came in to be nonischemic. The circumflex continue after that in the AV groove The left anterior descending artery: The LAD is a large caliber vessel. The proximal LAD has mild disease only. The mid LAD has moderate lesion appears to be unchanged compared to before. The LAD distally appears to be angiographically normal. LAD gives rises into a diagonal branch which appeared to have mild disease only. HEMODYNAMICS: The LVEDP was about 10 mmHg was no significant gradient across aortic valve FFR OF THE LCx: Anticoagulation was initiated using heparin with continuous ACT monitoring. Subsequently and after zeroing the Doppler wire and equalizing between the Doppler wire and the guiding catheter which was JL4 guiding catheter was short. I did an iFR of OM 2. That came in to be nonischemic. The procedure was completed without any complication CONCLUSION: Patent stent in OM1. Intermediate lesion involving OM1 distal to the stented segment. Intermediate disease involving OM 2. iFR was performed and came in to be nonischemic Normal left-sided filling pressure POSTPROCEDURE MANAGEMENT: #1 dual antiplatelet therapy #2 aggressive cholesterol control #3 follow-up with the patient
[2022-05-20] MEDS ORDERED: SODIUM CHLORIDE 0.9% 1,000 ML IV SCH (13:00)
[2022-05-20 15:58] VITALS: RESP 16
[2022-05-20 16:01] VITALS: PULSE 56
[2022-05-20 16:09] VITALS: BP 117/55
== END 2022-05-20 17:25 | disposition home or self-care (01) ==
LOC: CATHCVL 10:06
PROVIDERS: ATTEND Internal Medicine Interventional Cardiology
DX: I25.10 Atherosclerotic heart disease of native coronary artery without angina pectoris (principal); Z95.5 Presence of coronary angioplasty implant and graft; I11.0 Hypertensive heart disease with heart failure; I50.32 Chronic diastolic (congestive) heart failure; E78.5 Hyperlipidemia, unspecified; Z86.73 Personal history of transient ischemic attack (TIA), and cerebral infarction without residual deficits; I73.9 Peripheral vascular disease, unspecified; I08.3 Combined rheumatic disorders of mitral, aortic and tricuspid valves; Z88.5 Allergy status to narcotic agent; Z79.01 Long term (current) use of anticoagulants; Z79.02 Long term (current) use of antithrombotics/antiplatelets; Z79.82 Long term (current) use of aspirin; Z79.83 Long term (current) use of bisphosphonates; Z79.899 Other long term (current) drug therapy
CPT/HCPCS: 93458; 93571; C1760; C1887; C1894; C1769 ×3; J2250; J2001; J1644; Q9967

== ENCOUNTER 2022-11-27 13:56 | Inpatient (IN) | payer MEDICARE ==
[2022-11-27] MEDS ORDERED: ASPIRIN 81 MG PO STA (14:07)
[2022-11-27] MEDS ORDERED: NITROGLYCERIN SL TABS 0.4 MG TAB SUBLINGUAL STA (14:07)
[2022-11-27 14:36] LABS: Basophils % (A) 0 %; Eosinophils # (A) 0.2 k/uL (0-0.7); Eosinophils % (A) 2 %; HGB 11.4 gm/dL (11.4-16.0); Lymphocytes # (A) 1.6 k/uL (1.0-4.8); Lymphocytes % (A) 20 %; MCH 27.9 pg (25.0-35.0); MCHC 32.5 g/dL (31.0-37.0); MCV 85.9 fL (80.0-100.0); Mean Platelet Volume 7.1; Monocytes # (A) 0.5 k/uL (0-1.0); Monocytes % (A) 7 %; Neutrophils # (A) 5.5 k/uL (1.3-7.7); Neutrophils % (A) 69 %; Platelet Count 306 k/uL (150-450); RBC 4.07 m/uL (3.80-5.40); RDW 14.5 % (11.5-15.5); WBC 7.9 k/uL (3.8-10.6)
[2022-11-27 14:46] LABS: INR 1.1 (<1.2); Partial Thromboplastin Time 26.7 sec (22.0-30.0); Prothrombin Time 11.7 sec (9.0-12.0)
[2022-11-27 14:48] LABS: ALT 15 U/L (4-34); AST 23 U/L (14-36); African American GFR (CKD) 83 (>60 ml/min/1.73 sqM); Albumin 3.8 g/dL (3.5-5.0); Alkaline Phosphatase 71 U/L (38-126); Anion Gap 9 mmol/L; Blood Urea Nitrogen 18 mg/dL (7-17); Carbon Dioxide 28 mmol/L (22-30); Chloride 103 mmol/L (98-107); Glucose 110 mg/dL (74-99); Lipase 55 U/L (23-300); Magnesium 1.4 mg/dL (1.6-2.3); Non-African American GFR(CKD) 72 (>60 ml/min/1.73 sqM); Potassium 3.8 mmol/L (3.5-5.1); Sodium 140 mmol/L (137-145); Total Bilirubin 1.1 mg/dL (0.2-1.3); Total Protein 6.6 g/dL (6.3-8.2)
--- NOTE | 2022-11-27 14:51 | ED ---
Chest Pain HPI - General Chief Complaint: Chest Pain Stated Complaint: chest pain, sob Time Seen by Provider: 11/27/22 14:07 Source: patient, family Mode of arrival: ambulatory Limitations: no limitations - History of Present Illness Initial Comments: There is a pleasant 82-year-old female presents the ER today for evaluation of chest pain. Patient reports she's been having shortness of breath since about a week ago she states that shortness of breath started after drinking cold water but she didn't have any palpitations or chest pain at that time. Today she had some chest pain and shortness of breath. Her granddaughter states that they had a home pulse ox which noted oxygen saturations in the 50s upon decision to come to the hospital. She denies recent fevers, chills, cough. She states chest pain beginning this morning but seems to be improving now. 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 - Related Data Home Medications Medication Instructions Recorded Confirmed Omeprazole 40 mg PO DAILY 05/22/18 05/20/22 Aspirin [Adult Low Dose Aspirin EC] 81 mg PO DAILY 06/09/19 05/20/22 Oxybutynin ER [Ditropan XL] 10 mg PO WESA 04/12/21 05/20/22 traZODone HCL 100 mg PO HS 04/12/21 05/20/22 ALPRAZolam [Xanax] 0.25 mg PO DAILY 08/07/21 05/20/22 Atorvastatin [Lipitor] 40 mg PO HS 08/07/21 05/20/22 Rivaroxaban [Xarelto] 2.5 mg PO BID 08/07/21 05/19/22 amLODIPine [Norvasc] 5 mg PO BID 08/07/21 05/20/22 Isosorbide Mononitrate ER [Imdur] 30 mg PO DAILY 09/26/21 05/20/22 Metoprolol Succinate (ER) [Toprol 25 mg PO DAILY 09/26/21 05/20/22 XL] Citalopram Hydrobromide [CeleXA] 10 mg PO DAILY 05/19/22 05/20/22 Previous Rx's Medication Instructions Recorded Folic Acid 1 mg PO DAILY #30 tab 08/13/21 Furosemide [Lasix] 40 mg PO DAILY #30 tab 08/13/21 Clopidogrel [Plavix] 75 mg PO DAILY #90 tab 09/27/21 Allergies Allergy/AdvReac Type Severity Reaction Status Date / Time Sulfa (Sulfonamide Allergy Unknown Verified 05/19/22 09:08 Antibiotics) Childhood Review of Systems ROS Statement: Those systems with pertinent positive or pertinent negative responses have been documented in the HPI. ROS Other: All systems not noted in ROS Statement are negative. EKG Findings - EKG Comments: EKG Findings:: EKG was obtained due to complaint of chest pain and shortness breath EKG was obtained at 1420 and interpreted by me as a rate of 57 rhythm is sinus bradycardia, IN 146 QRS 77 QTC is 464 there are no acute ST elevations or depressions there is some T-wave inversions laterally, lead 2 is flattened and there is no acute ST elevations this EKG is normal with concern for ischemia without acute infarction. Past Medical History Past Medical History: Coronary Artery Disease (CAD), Heart Failure, CVA/TIA, Eye Disorder, Fibromyalgia, Hyperlipidemia, Hypertension, Myocardial Infarction ([place]), Osteoarthritis (OA), Pulmonary Embolus (PE), Rheumatoid Arthritis (RA) Additional Past Medical History / Comment(s): macular degeneration, lupus, Raynauds, had stroke in May 2021-still has some dysphagia, SOB w/exertion, left shoulder pain History of Any Multi-Drug Resistant Organisms: ESBL Date of last positivie culture/infection: 08/17/2014 MDRO Source:: Urine-E.Coli ESBL Past Surgical History: Bladder Surgery, Heart Catheterization, Heart Catheterization With Stent, Hysterectomy Additional Past Surgical History / Comment(s): RIGHT CATARACT REMOVAL Past Anesthesia/Blood Transfusion Reactions: Postoperative Nausea & Vomiting (PONV) Date of Last Stent Placement:: September 2021 Past Psychological History: Depression Smoking Status: Never smoker - Past Family History Sister(s) Additional Family Medical History / Comment(s): "HEART PROBLEMS" General Exam - General Exam Comments Initial Comments: Physical Exam GENERAL: Ill appearing, moderate respiratory distress HENT: Normocephalic, Atraumatic. EYES: PERRL, EOMI PULMONARY: Unlabored respirations. No audible rales rhonchi or wheezing was noted. CARDIOVASCULAR: Bradycardia NO LE edema ABDOMEN: Soft and nontender with normal bowel sounds. SKIN: Skin is pale : Deferred NEUROLOGIC: Patient is alert and oriented x3. Moving all extremities spontaneously MUSCULOSKELETAL: Normal extremities with adequate strength and full range of motion. No lower extremity swelling or edema. No calf tenderness. PSYCHIATRIC: Normal psychiatric evaluation. Limitations: no limitations Course Vital Signs 11/27/22 11/27/22 14:02 15:35 Temperature 98.2 F Pulse Rate 78 59 L Respiratory 16 20 Rate Blood Pressure 129/59 132/67 O2 Sat by Pulse 87 L 95 Oximetry Chest Pain MDM - [facility] The patient was seen and evaluated, history is obtained from the patient and daughter at bedside. This is an elderly female with shortness of breath hypoxia and chest pain. Labs EKG chest x-ray and CT with were obtained. Labs and CT are consistent with CHF exacerbation. Patient will be admitted for acute CHF with consult to cardiology. Patient was agreeable to this. Was pt. sent in by a medical professional or institution (, PA, TARGETING ACQUISITION OFFICER, urgent care, hospital, or penitentiary...) When possible be specific @ -No Did you speak to anyone other than the patient for history (EMS, parent, family, police, friend...)? What history was obtained from this source @ -Family Did you review nursing and triage notes (agree or disagree)? Why? @ -I reviewed and agree with nursing and triage notes Were old charts reviewed (outside hosp., previous admission, EMS record, old EKG, old radiological studies, urgent care reports/EKG's, penitentiary records)? Report findings @ -Previous labs reveal Differential Diagnosis (chest pain, altered mental status, abdominal pain women, abdominal pain men, vaginal bleeding, weakness, fever, dyspnea, syncope, headache, dizziness, GI bleed, back pain, seizure, CVA, palpatations, mental health, musculoskeletal)? @ -Differential Chest Pain: Stable Angina, Unstable Angina, STEMI, NSTEMI Aortic Dissection, Pneumothorax, Musculoskeletal, Esophageal Spasm GERD, Cholecystitis, Pancreatitis, Zoster, this is not meant to be an all-inclusive list. Differential Dyspnea: Coronary syndrome, arrhythmia, tamponade, asthma, COPD, pulmonary embolism, pneumonia, pneumothorax, pulmonary effusion, anaphylaxis, diabetic ketoacidosis, flailed chest, pulmonary contusion, diaphragmatic rupture, anemia, neuromuscular, this is not meant to be an all-inclusive list. EKG interpreted by me (3pts min.). @ -As above X-rays interpreted by me (1pt min.). @ -No pneumothorax or focal consolidation CT interpreted by me (1pt min.). @ -No saddle pulmonary embolus him on my evaluation of the CT U/S interpreted by me (1pt. min.). @ -None done What testing was considered but not performed or refused? (CT, X-rays, U/S, labs)? Why? @ -Echocardiogram can be performed during admission What meds were considered but not given or refused? Why? @ -Narcotics for chest pain however patient denied pain on arrival Did you discuss the management of the patient with other professionals (professionals i.e. , PA, TARGETING ACQUISITION OFFICER, lab, RT, psych nurse, marriage and family social worker, academic coordinator, teacher, strategic debriefing officer, director of casework services)? Give summary @ -No Was smoking cessation discussed for >3mins.? @ -No Was critical care preformed (if so, how long)? @ -No Were there social determinants of health that impacted care today? How? (Homelessness, low income, unemployed, alcoholism, drug addiction, transportation, low edu. Level, literacy, decrease access to med. care, [place] [facility], rehab)? @ -No Was there de-escalation of care discussed even if they declined (Discuss DNR or withdrawal of care, Hospice)? DNR status @ -No What co-morbidities impacted this encounter? (DM, HTN, Smoking, COPD, CAD, Cancer, CVA, ARF, Chemo, Hep., AIDS, mental health diagnosis, sleep apnea, morbid obesity)? @ -CAD Was patient admitted / discharged? Hospital course, mention meds given and route, prescriptions, significant lab abnormalities, going to OR and other pertinent info. @ -Admit Undiagnosed new problem with uncertain prognosis? @ -No Drug Therapy requiring intensive monitoring for toxicity (Heparin, Nitro, I nsulin, Cardizem)? @ -No Were any procedures done? @ -No Diagnosis/symptom? @ -Congestive heart failure Acute, or Chronic, or Acute on Chronic? @ -Acute on chronic Uncomplicated (without systemic symptoms) or Complicated (systemic symptoms)? @ -Complicated Side effects of treatment? @ -No Exacerbation, Progression, or Severe Exacerbation? @ -Exacerbation Poses a threat to life or bodily function? How? (Chest pain, [place], [place], pneumonia, PE, COPD, DKA, ARF, appy, cholecystitis, CVA, Diverticulitis, Homicidal, Suicidal, threat to staff... and all critical care pts) @ -Yes - Wells Criteria Clinical Symptoms of DVT: (0) No No Alternative Diagnosis: (0) No Immobilization of Surgery in Previous 4 Weeks: (0) No Previous DVT/PE: (1.5) Yes Hemoptysis: (0) No Malignancy: (0) No Disposition Clinical Impression: CHF (congestive heart failure), Hypoxia, Hypomagnesemia Disposition: ADMITTED IP TO THIS [facility] Condition: Serious Is patient prescribed a controlled substance at d/c from ED?: No Referrals: Nonstaff,Physician [REFERRING] - 1-2 days
--- NOTE | 2022-11-27 15:35 | XR ---
EXAMINATION TYPE: XR chest 1V portable DATE OF EXAM: 11/27/2022 COMPARISON: 1821 INDICATION: Chest pain short of breath TECHNIQUE: Frontal and lateral views of the chest are obtained. FINDINGS: The heart size is enlarged. The pulmonary vasculature is prominent. Minimal infiltrate is present may be related to volume overload. IMPRESSION: 1. Focal correlation for mild bimalleolar overload. Congestive heart failure can be considered.
--- NOTE | 2022-11-27 15:59 | CT ---
EXAMINATION TYPE: CT chest angio for PE DATE OF EXAM: 11/27/2022 COMPARISON: 08/07/2021 HISTORY: SOB, chest pain CT DLP: 265.8 mGycm, Automated exposure control for dose reduction was used. CONTRAST: Performed injected with 100 mL of Isovue 370. TECHNIQUE: Axial images were obtained at 5 mm thick sections. Reconstructed images are reviewed on [employer] computer in the coronal plane. FINDINGS: The thyroid appears enlarged and somewhat lobular on the left lobe thyroid. Findings are si milar to comparison. No acute pulmonary embolism is evident. Minimal reflux in the proximal inferior vena cava is present. Some increased lung markings in the posterior lateral right lung base appears stable. Scattered blebs and bulla are within the lung bases. There is a stable 0.7 cm nodule anterior lateral right lung bas e. Series 401 image 85. No enlarged mediastinal or hilar adenopathy is evident. Mild right infrahilar lymphadenopathy is like ly present. Some mild left infrahilar adenopathy may be present. The ascending aorta diameter at the level of the main pulmonary artery is 3.3 cm. The main pulmonary artery diameter at the bifurcation is 2.[address] sections are obtained through the upper abdomen. 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 IMPRESSIONS: 1. No acute pulmonary embolism. 2. There may be some mild infrahilar adenopathy. 3. Groundglass opacities in the lung. Finding is nonspecific. Consider pulmonary edema.
[2022-11-27] MEDS: FUROSEMIDE 10 MG/ML 4 ML VIAL IV SCH (16:53)
[2022-11-27] MEDS: MAGNESIUM SULFATE-D5W PMX 1 GM in DEXTROSE/WATER 1 100ML.BAG IVPB SCH ×2 (16:54→18:06)
[2022-11-27] MEDS ORDERED: ALPRAZolam 0.25 MG TAB PO PRN (17:50)
--- NOTE | 2022-11-27 18:02 | P.HPIM ---
History of Present Illness H&P Date: 11/27/22 82-year-old female with PMH of DVT/PE recently stopped Xarelto, CAD, CVA, hypertension, anxiety and depression presents ED for shortness of breath. Patient reports progressively worsening shortness of breath over the past 2 weeks. Her breathing is worse with ambulation. Sleeps with 2 pillows at night. She denies any lower extremity edema. She also reports pressure-like chest pain that also worsens with exertion. She noted her O2 saturation was in the 50s today which prompted her to come to the ED. In the ED, she was noted to be 87% on room air. CBC was unremarkable. Coagulation panel within normal limits. CMP showed BUN of 18, glucose of 110, magnesium of 1.4. Troponin was 0.013. BNP was 3590. CT chest showed no PE, mild infrahilar adenopathy, groundglass opacities concerning for pulmonary edema. EKG showed sinus bradycardia with ventricular rate of 57. Chest x-ray showed pulmonary vascular congestion. Patient is admitted for CHF exacerbation and chest pain rule out acute coronary syndrome. Pertinent positives and negatives as discussed in HPI, a complete review of s ystems was performed and all other systems are negative. General: non toxic, no distress, appears at stated age Derm: warm, dry Head: atraumatic, normocephalic, symmetric Eyes: EOMI, no lid lag, anicteric sclera Mouth: no lip lesion, mucus membranes moist Cardiovascular: Bradycardic, no murmur, positive posterior tibial pulse bilateral, Lungs: Decreased breath sounds bilateral, rales at the bases, no accessory muscle use Abdominal: soft, nontender to palpation, no guarding, no appreciable org anomegaly Ext: no gross muscle atrophy, no edema, no contractures Neuro: CN II-XI grossly intact, no focal neuro deficits Psych: Alert, oriented, appropriate affect Acute hypoxic respiratory failure CHF exacerbation Chest pain, rule out acute coronary syndrome Hypomagnesemia Chronic conditions: DVT/PE recently stopped Xarelto, CAD, CVA, hypertension, anxiety and depression Based on my assessment of this patient, this patient meets a high complexity level of care. Patient has an acute diagnosis of acute hypoxic respiratory failure secondary to CHF exacerbation that poses a threat to life or bodily function. She also has chest pain with history of CVA and CAD with stenting. Trend troponin/EKG to rule out ACS. Telemetry monitoring. Obtain echocardiogram. Cardiology consultation. Start aspirin 81 mg by mouth daily, Lipitor 40 mg by mouth at bedtime and metoprolol 25 mg by mouth daily. Start Lasix 40 g IV every 8 hours. Strict intake and outtake along with daily weights. Replace magnesium. Trend troponin/EKG to rule out acute coronary syndrome. Restart home medication. Patient would like to be no code. Patient names her daughter decision maker if she can't make decisions for herself. I have reviewed the following technical healthcare consultant notes: I have reviewed the results of the following tests: CBC, CMP, coagulation panel, magnesium, troponin, BNP, CT chest. I have ordered the following tests: Echocardiogram. Troponin. BMP. I have discussed the care of this patient with the following independent historian: I have independently interpreted the following test below: Chest x-ray and EKG as above. I have discussed the management of this patient with the following physician: Case was discussed extensively with the ED physician. This patient has a high risk of morbidity due to the following reasons: Patient is on IV Lasix which is nephrotoxic and requires daily monitoring of kidney function. Past Medical History Past Medical History: Coronary Artery Disease (CAD), Heart Failure, CVA/TIA, Eye Disorder, Fibromyalgia, Hyperlipidemia, Hypertension, Myocardial Infarction ([place]), Osteoarthritis (OA), Pulmonary Embolus (PE), Rheumatoid Arthritis (RA) Additional Past Medical History / Comment(s): macular degeneration, lupus, Raynauds, had stroke in May 2021-still has some dysphagia, SOB w/exertion, l eft shoulder pain History of Any Multi-Drug Resistant Organisms: ESBL Date of last positivie culture/infection: 08/17/2014 MDRO Source:: Urine-E.Coli ESBL Past Surgical History: Bladder Surgery, Heart Catheterization, Heart Catheterization With Stent, Hysterectomy Additional Past Surgical History / Comment(s): RIGHT CATARACT REMOVAL Past Anesthesia/Blood Transfusion Reactions: Postoperative Nausea & Vomiting (PONV) Date of Last Stent Placement:: September 2021 Past Psychological History: Depression Smoking Status: Never smoker - Past Family History Sister(s) Additional Family Medical History / Comment(s): "HEART PROBLEMS" Medications and Allergies Home Medications Medication Instructions Recorded Confirmed Type Omeprazole 40 mg PO DAILY 05/22/18 11/27/22 History Aspirin [Adult Low Dose Aspirin EC] 81 mg PO DAILY 06/09/19 11/27/22 History Oxybutynin ER [Ditropan XL] 10 mg PO DAILY 04/12/21 11/27/22 History traZODone HCL 100 mg PO HS 04/12/21 11/27/22 History ALPRAZolam [Xanax] 0.25 mg PO DAILY PRN 08/07/21 11/27/22 History Atorvastatin [Lipitor] 40 mg PO HS 08/07/21 11/27/22 History Rivaroxaban [Xarelto] 2.5 mg PO BID 08/07/21 11/27/22 History amLODIPine [Norvasc] 5 mg PO DAILY 08/07/21 11/27/22 History Folic Acid 1 mg PO DAILY #30 tab 08/13/21 11/27/22 Rx Furosemide [Lasix] 40 mg PO DAILY #30 tab 08/13/21 11/27/22 Rx Isosorbide Mononitrate ER [Imdur] 30 mg PO DAILY 09/26/21 11/27/22 History Metoprolol Succinate (ER) [Toprol 25 mg PO DAILY 09/26/21 11/27/22 History XL] Cholecalciferol [Vitamin D3 (25 25 mcg PO DAILY 11/27/22 11/27/22 History Mcg = 1000 Iu)] Citalopram Hydrobromide [CeleXA] 20 mg PO DAILY 11/27/22 11/27/22 History Fluticasone/Umeclidin/Vilanter 1 puff INHALATION RT-DAILY 11/27/22 11/27/22 Hist ory [Trelegy Ellipta 100-62.5-25] Allergies Allergy/AdvReac Type Severity Reaction Status Date / Time Sulfa (Sulfonamide Allergy Unknown Verified 11/27/22 17:22 Antibiotics) Childhood Physical Exam Vitals: Vital Signs Temp Pulse Resp BP Pulse Ox 11/27/22 15:35 59 L 20 132/67 95 11/27/22 14:02 98.2 F 78 16 129/59 87 L Intake and Output 11/27/22 11/27/22 11/27/22 06:59 14:59 22:59 Other: Weight 63.503 kg Results CBC & Chem 7: 11/27/22 14:10 11/27/22 14:10 Labs: Abnormal Lab Results - Last 24 Hours (Table) 11/27/22 Range/Units 14:10 BUN 18 H (7-17) mg/dL Glucose 110 H (74-99) mg/dL Magnesium 1.4 L (1.6-2.3) mg/dL
[2022-11-27] MEDS: RIVAROXABAN 2.5 MG TABLET PO SCH (20:55)
[2022-11-27] MEDS: traZODone HCL 100 MG TAB PO SCH (20:56)
[2022-11-27] MEDS: ATORVASTATIN 40 MG TAB PO SCH (20:56)
[2022-11-28] MEDS: FUROSEMIDE 10 MG/ML 4 ML VIAL IV SCH ×4 (00:53→23:41)
[2022-11-28 08:28] LABS: African American GFR (CKD) 89 (>60 ml/min/1.73 sqM); Anion Gap 9 mmol/L; Blood Urea Nitrogen 14 mg/dL (7-17); Calcium 8.6 mg/dL (8.4-10.2); Carbon Dioxide 31 mmol/L (22-30); Chloride 101 mmol/L (98-107); Glucose 99 mg/dL (74-99); Non-African American GFR(CKD) 77 (>60 ml/min/1.73 sqM); Potassium 3.5 mmol/L (3.5-5.1); Sodium 141 mmol/L (137-145)
[2022-11-28] MEDS: OXYBUTYNIN 10 MG TAB.ER.24 PO SCH (08:36)
[2022-11-28] MEDS: amLODIPine 5 MG TAB PO SCH (08:36)
[2022-11-28] MEDS: ASPIRIN 81 MG PO SCH (08:36)
[2022-11-28] MEDS: PANTOPRAZOLE 40 MG TABLET PO SCH (08:36)
[2022-11-28] MEDS: ISOSORBIDE MONONITRATE ER 30 MG TAB.ER.24H PO SCH (08:36)
[2022-11-28] MEDS: METOPROLOL SUCCINATE (ER) 25 MG TAB.ER.24H PO SCH (08:36)
[2022-11-28] MEDS: RIVAROXABAN 2.5 MG TABLET PO SCH ×2 (08:37→20:36)
[2022-11-28] MEDS: CITALOPRAM HYDROBROMIDE 20 MG TAB PO SCH (08:41)
--- NOTE | 2022-11-28 09:29 | P.CRDCN ---
History of Present Illness Consult date: 11/28/22 Chief complaint: Shortness of breath History of present illness: The patient is a very pleasant 10-year-old female patient who is known to our ser vice from before with a past medical history significant for coronary artery disease with a prior stenting of the first obtuse marginal branch of the left circumflex as well as hypertension and dyslipidemia and heart failure with preserved ejection fraction as well as mitral regurgitation. She presented to the hospital with a one-week progressive shortness of breath. She was in her usual state of altered about a week ago when she noticed that she has been more short of breath with exertion with no associated discomfort in the chest. No lower extremity edema. No dizziness or lightheadedness and no feeling of heart racing or fluttering and no presyncope or syncope. She stated that she has been compliant with her medications. She is known to have heart failure with a preserved ejection fraction. She has been compliant also was low sodium diet. She underwent a workup in the hospital including a chest x-ray showed evidence of heart failure and also anti-proBNP which came in to be elevated. Troponin came in to be unremarkable. She underwent for some reason computed tomography scan of the chest which did not show any acute abnormalities internal or pulmonary embolism. The patient was started on Lasix IV. Please note that she was hypoxic when she presented to the hospital. On examination today she does have regular rhythm with a systolic murmur at the apical area and diminished breathing sounds bilaterally and mainly in the bases but no lower extremity edema noted. Assessment Heart failure exacerbation likely related to heart failure with preserved ejection fraction. Echo still pending. Previous echo showed normal EF Coronary artery disease as described above with prior stenting of the OM Hypertension Dyslipidemia Mitral regurgitation Plan Follow up on the echocardiogram which was performed earlier Continue the current dose of Lasix IV Continue monitor the kidney function and electrolytes Follow-up with the patient Past Medical History Past Medical History: Coronary Artery Disease (CAD), Heart Failure, CVA/TIA, Eye Disorder, Fibromyalgia, Hyperlipidemia, Hypertension, Myocardial Infarction ([place]), Osteoarthritis (OA), Pulmonary Embolus (PE), Rheumatoid Arthritis (RA) Additional Past Medical History / Comment(s): macular degeneration, lupus, Raynauds, had stroke in May 2021-still has some dysphagia, SOB w/exertion, left shoulder pain History of Any Multi-Drug Resistant Organisms: ESBL Date of last positivie culture/infection: 08/17/2014 MDRO Source:: Urine-E.Coli ESBL Past Surgical History: Bladder Surgery, Heart Catheterization, Heart Catheterization With Stent, Hysterectomy Additional Past Surgical History / Comment(s): RIGHT CATARACT REMOVAL Past Anesthesia/Blood Transfusion Reactions: Postoperative Nausea & Vomiting (PONV) Date of Last Stent Placement:: September 2021 Past Psychological History: Depression Smoking Status: Never smoker - Past Family History Sister(s) Additional Family Medical History / Comment(s): "HEART PROBLEMS" Medications and Allergies Home Medications Medication Instructions Recorded Confirmed Type Omeprazole 40 mg PO DAILY 05/22/18 11/27/22 History Aspirin [Adult Low Dose Aspirin EC] 81 mg PO DAILY 06/09/19 11/27/22 History Oxybutynin ER [Ditropan XL] 10 mg PO DAILY 04/12/21 11/27/22 History traZODone HCL 100 mg PO HS 04/12/21 11/27/22 History ALPRAZolam [Xanax] 0.25 mg PO DAILY PRN 08/07/21 11/27/22 History Atorvastatin [Lipitor] 40 mg PO HS 08/07/21 11/27/22 History Rivaroxaban [Xarelto] 2.5 mg PO BID 08/07/21 11/27/22 History amLODIPine [Norvasc] 5 mg PO DAILY 08/07/21 11/27/22 History Folic Acid 1 mg PO DAILY #30 tab 08/13/21 11/27/22 Rx Furosemide [Lasix] 40 mg PO DAILY #30 tab 08/13/21 11/27/22 Rx Isosorbide Mononitrate ER [Imdur] 30 mg PO DAILY 09/26/21 11/27/22 History Metoprolol Succinate (ER) [Toprol 25 mg PO DAILY 09/26/21 11/27/22 History XL] Cholecalciferol [Vitamin D3 (25 25 mcg PO DAILY 11/27/22 11/27/22 History Mcg = 1000 Iu)] Citalopram Hydrobromide [CeleXA] 20 mg PO DAILY 11/27/22 11/27/22 History Fluticasone/Umeclidin/Vilanter 1 puff INHALATION RT-DAILY 11/27/22 11/27/22 History [Treleheather Ellipta 100-62.5-25] Allergies Allergy/AdvReac Type Severity Reaction Status Date / Time Sulfa (Sulfonamide Allergy Unknown Verified 11/27/22 17:22 Antibiotics) Childhood Physical Exam Vitals: Vital Signs Temp Pulse Pulse Resp BP Pulse Ox 11/28/22 08:54 61 18 124/59 96 11/28/22 08:51 56 L 18 11/28/22 08:00 56 L 18 122/59 94 L 11/28/22 06:00 54 L 16 106/55 93 L 11/28/22 00:00 64 18 133/80 94 L 11/27/22 23:17 58 L 16 130/60 93 L 11/27/22 22:40 54 L 12 139/72 94 L 11/27/22 20:57 51 L 14 128/60 11/27/22 19:46 55 L 18 123/71 96 11/27/22 18:21 55 L 18 117/67 98 11/27/22 15:35 59 L 20 132/67 95 11/27/22 14:02 98.2 F 78 16 129/59 87 L Results 11/27/22 14:10 11/28/22 07:45 Cardiac Enzymes 11/27/22 11/27/22 11/27/22 Range/Units 14:10 14:10 17:02 AST 23 (14-36) U/L Troponin I 0.013 0.016 (0.000-0.034) ng/mL 11/27/22 Range/Units 19:23 AST (14-36) U/L Troponin I <0.012 (0.000-0.034) ng/mL Coagulation 11/27/22 Range/Units 14:10 PT 11.7 (9.0-12.0) sec APTT 26.7 (22.0-30.0) sec CBC 11/27/22 Range/Units 14:10 WBC 7.9 (3.8-10.6) k/uL RBC 4.07 (3.80-5.40) m/uL Hgb 11.4 (11.4-16.0) gm/dL Hct 35.0 (34.0-46.0) % Plt Count 306 (150-450) k/uL Comprehensive Metabolic Panel 11/27/22 11/28/22 Range/Units 14:10 07:45 Sodium 140 141 (137-145) mmol/L Potassium 3.8 3.5 (3.5-5.1) mmol/L Chloride 103 101 (98-107) mmol/L Carbon Dioxide 28 31 H (22-30) mmol/L BUN 18 H 14 (7-17) mg/dL Creatinine 0.78 0.74 (0.52-1.04) mg/dL Glucose 110 H 99 (74-99) mg/dL Calcium 9.0 8.6 (8.4-10.2) mg/dL AST 23 (14-36) U/L ALT 15 (4-34) U/L Alkaline Phosphatase 71 (38-126) U/L Total Protein 6.6 (6.3-8.2) g/dL Albumin 3.8 (3.5-5.0) g/dL Current Medications Generic Name Dose Route Start Last Admin Trade Name Freq PRN Reason Stop Dose Admin Alprazolam 0.25 mg 11/27/22 17:50 Alprazolam 0.25 Mg Tab PO DAILY PRN Anxiety Amlodipine Besylate 5 mg 11/28/22 09:00 11/28/22 08:36 Amlodipine 5 Mg Tab PO 5 mg DAILY FELICIA Administration Aspirin 81 mg 11/28/22 09:00 11/28/22 08:36 Aspirin 81 Mg PO 81 mg DAILY FELICIA Administration Atorvastatin Calcium 40 mg 11/27/22 21:00 11/27/22 20:56 Atorvastatin 40 Mg Tab PO 40 mg HS FELICIA Administration Citalopram Hydrobromide 20 mg 11/28/22 09:00 11/28/22 08:41 Citalopram Hydrobromide 20 Mg Tab PO 20 mg DAILY FELICIA Administration Furosemide 40 mg 11/27/22 17:15 11/28/22 08:37 Furosemide 10 Mg/Ml 4 Ml Vial IV 40 mg Q8HR FELICIA Administration Isosorbide Mononitrate 30 mg 11/28/22 09:00 11/28/22 08:36 Isosorbide Mononitrate Er 30 Mg Tab.Er.24h PO 30 mg DAILY FELICIA Administration Metoprolol Succinate 25 mg 11/28/22 09:00 11/28/22 08:36 Metoprolol Succinate (Er) 25 Mg Tab.Er.24h PO 25 mg DAILY FELICIA Administration Oxybutynin Chloride 10 mg 11/28/22 09:00 11/28/22 08:36 Oxybutynin 10 Mg Tab.Er.24 PO 10 mg DAILY FELICIA Administration Pantoprazole Sodium 40 mg 11/28/22 07:30 11/28/22 08:36 Pantoprazole 40 Mg Tablet PO 40 mg [id number] FELICIA Administration Rivaroxaban 2.5 mg 11/27/22 21:00 11/28/22 08:37 Rivaroxaban 2.5 Mg Tablet PO 2.5 mg BID FELICIA Administration Protocol Trazodone HCl 100 mg 11/27/22 21:00 11/27/22 20:56 Trazodone Hcl 100 Mg Tab PO 100 mg HS FELICIA Administration 11/27/22 14:10 11/28/22 07:45
--- NOTE | 2022-11-28 10:44 | CA ---
Transthoracic Echo Report Name: Trisha Connolly Age: 82 Gender: F : 1940 Exam Date: 11/28/2022 08:05 Exam Location: [facility] [facility] Ht (in): 64 Wt (lb): 140 Ordering Physician: Peg Silva DO Attending/Referring Phys: [id number] Service Assistant Serenity Carroll [facility] Procedure CPT: Indications: Heart failure Cardiac Hx: Technical Quality: Fair Contrast 1: Total Dose (mL): Contrast 2: Total Dose (mL): MEASUREMENTS (Male / Female) Normal Values 2D ECHO LV Diastolic Diameter PLAX 3.9 cm 4.2 - 5.9 / 3.9 - 5.3 cm LV Systolic Diameter PLAX 2.6 cm IVS Diastolic Thickness 0.9 cm 0.6 - 1.0 / 0.6 - 0.9 cm LVPW Diastolic Thickness 0.8 cm 0.6 - 1.0 / 0.6 - 0.9 cm LV Relative Wall Thickness 0.4 LVOT Diameter 2.0 cm Ascending Aorta Diameter 3.3 cm M-MODE Aortic Root Diameter MM 2.8 cm LA Systolic Diameter MM 3.1 cm LA Ao Ratio MM 1.1 AV Cusp Separation MM 2.2 cm DOPPLER AV Peak Velocity 135.7 cm/s AV Peak Gradient 7.4 mmHg AV Mean Velocity 89.4 cm/s AV Mean Gradient 3.6 mmHg AV Velocity Time Integral 29.7 cm LVOT Peak Velocity 90.8 cm/s LVOT Peak Gradient 3.3 mmHg LVOT Velocity Time Integral 20.4 cm LVOT Stroke Volume 65.0 cm??? LVOT Stroke Volume Index 38.7 ml/m??? LVOT Cardiac Index 2290.5 cm???/min???m??? AV Area Cont Eq vti 2.2 cm??? AV Area Cont Eq pk 2.1 cm??? Mitral E Point Velocity 80.4 cm/s Mitral A Point Velocity 70.7 cm/s Mitral E to A Ratio 1.1 MV Deceleration Time 218.6 ms LV E' Lateral Velocity 12.6 cm/s Mitral E to LV E' Lateral Ratio 6.4 LV E' Septal Velocity 4.9 cm/s Mitral E to LV E' Septal Ratio 16.3 TR Peak Velocity 293.8 cm/s TR Peak Gradient 34.5 mmHg Right Atrial Pressure 3.0 mmHg Pulmonary Artery Systolic Pressu 37.5 mmHg Right Ventricular Systolic Press 39.5 mmHg FINDINGS Left Ventricle Normal Left ventricular size, wall thickness, systolic function with no obvious regional wall motion abnormalities. Left ventricular ejection fraction is estimated at 55-60%. Right Ventricle Severe right ventricular dilatation. Borderline right ventricular global systolic function. Mild pulmonary hypertension. Right Atrium Moderate right atrial dilatation. Left Atrium Mild left atrial dilatation. Mitral Valve Mitral valve thickened. Mild to moderate mitral regurgitation. Aortic Valve Aortic valve sclerosis. No aortic regurgitation. Tricuspid Valve Structurally normal tricuspid valve. Mild tricuspid regurgitation. Pulmonic Valve Structurally normal pulmonic valve. Trace pulmonic regurgitation. Pericardium No pericardial effusion. Aorta Normal size aortic root and proximal ascending aorta. CONCLUSIONS Normal LV systolic function [id number] mitral regurgitation Previewed by: Dr. Andrew Oconnell MD (Electronically Signed) Final Date: 28 November 2022 10:43
--- NOTE | 2022-11-28 13:11 | P.PN ---
Subjective Progress Note Date: 11/28/22 82-year-old female with PMH of DVT/PE recently stopped Xarelto, CAD, CVA, hypertension, anxiety and depression presents ED for shortness of breath. Patient reports progressively worsening shortness of breath over the past 2 weeks. Her breathing is worse with ambulation. Sleeps with 2 pillows at night. She denies any lower extremity edema. She also reports pressure-like chest pain that also worsens with exertion. She noted her O2 saturation was in the 50s today which prompted her to come to the ED. In the ED, she was noted to be 87% on room air. CBC was unremarkable. Coagulation panel within normal limits. CMP showed BUN of 18, glucose of 110, magnesium of 1.4. Troponin was 0.013. BNP was 3590. CT chest showed no PE, mild infrahilar adenopathy, groundglass opacities concerning for pulmonary edema. EKG showed sinus bradycardia with ventricular rate of 57. Chest x-ray showed pulmonary vascular congestion. Patient is admitted for CHF exacerbation and chest pain rule out acute coronary syndrome. 11/28 Patient was seen and examined. No acute events overnight. Patient reports no changes in her breathing. Currently on 3L NC. BMP shows bicarb of 31. Troponin is 0.013, 0.016, < 0.012. Echocardiogram shows EF 55-60% with severe RV dilation, mild-mod MR. General: non toxic, no distress, appears at stated age Derm: warm, dry Head: atraumatic, normocephalic, symmetric Eyes: EOMI, no lid lag, anicteric sclera Mouth: no lip lesion, mucus membranes moist Cardiovascular: Bradycardic, no murmur Lungs: Decreased breath sounds bilateral, rales at the bases, no accessory muscle use Ext: no gross muscle atrophy, no edema, no contractures Neuro: no focal neuro deficits Psych: Alert, oriented, appropriate affect Acute hypoxic respiratory failure CHF exacerbation Chest pain, rule out acute coronary syndrome Hypomagnesemia Chronic conditions: DVT/PE recently stopped Xarelto, CAD, CVA, hypertension, anxiety and depression Based on my assessment of this patient, this patient meets a high complexity level of care. Patient has an acute diagnosis of acute hypoxic respiratory failure secondary to CHF exacerbation that poses a threat to life or bodily function. She also has chest pain with history of CVA and CAD with stenting. Troponins trended, ACS ruled out. Telemetry monitoring. Echocardiogram as above. Cardiology on board. Continue aspirin 81 mg by mouth daily, Lipitor 40 mg by mouth at bedtime and metoprolol 25 mg by mouth daily. Continue Lasix 40 g IV every 8 hours. Strict intake and outtake along with daily weights. Restart home medication. Patient would like to be no code. Patient names her daughter decision maker if she can't make decisions for herself. I have reviewed the following document management consultant notes: I have reviewed the results of the following tests: BMP, Troponin, Echo. I have ordered the following tests: BMP ordered for tomorrow morning. I have discussed the care of this patient with the following independent historian: I have independently interpreted the following test below: I have discussed the management of this patient with the following physician: This patient has a high risk of morbidity due to the following reasons: Patient is on IV Lasix which is nephrotoxic and requires daily monitoring of kidney function. Objective - Vital Signs Vital signs: Vital Signs Temp 98.2 F 11/27/22 14:02 Pulse 58 L 11/28/22 12:53 Resp 18 11/28/22 12:53 BP 114/59 11/28/22 12:53 Pulse Ox 97 11/28/22 10:29 FiO2 Intake & Output 11/27/22 11/28/22 11/28/22 18:59 06:59 18:59 Weight 63.503 kg - Labs CBC & Chem 7: 11/27/22 14:10 11/28/22 07:45 Labs: Abnormal Lab Results - Last 24 Hours (Table) 11/27/22 11/28/22 Range/Units 14:10 07:45 Carbon Dioxide 31 H (22-30) mmol/L BUN 18 H (7-17) mg/dL Glucose 110 H (74-99) mg/dL Magnesium 1.4 L (1.6-2.3) mg/dL
[2022-11-28] MEDS: ATORVASTATIN 40 MG TAB PO SCH (20:36)
[2022-11-28] MEDS: traZODone HCL 100 MG TAB PO SCH (20:36)
[2022-11-29] MEDS: PANTOPRAZOLE 40 MG TABLET PO SCH (06:51)
--- NOTE | 2022-11-29 08:31 | P.PN ---
Subjective Progress Note Date: 11/29/22 Principal diagnosis: CHF The patient is a very pleasant 10-year-old female patient who is known to our service from before with a past medical history significant for coronary artery disease with a prior stenting of the first obtuse marginal branch of the left circumflex as well as hypertension and dyslipidemia and heart failure with preserved ejection fraction as well as mitral regurgitation. She presented to the hospital with a one-week progressive shortness of breath. She was in her usual state of altered about a week ago when she noticed that she has been more short of breath with exertion with no associated discomfort in the chest. No lower extremity edema. No dizziness or lightheadedness and no feeling of heart racing or fluttering and no presyncope or syncope. She stated that she has been compliant with her medications. She is known to have heart failure with a preserved ejection fraction. She has been compliant also was low sodium diet. She underwent a workup in the hospital including a chest x-ray showed evidence of heart failure and also anti-proBNP which came in to be elevated. Troponin came in to be unremarkable. She underwent for some reason computed tomography scan of the chest which did not show any acute abnormalities internal or pulm onary embolism. The patient was started on Lasix IV. Please note that she was hypoxic when she presented to the hospital. The patient was seen and evaluated this morning. She continues to be hypoxic on oxygen. She still short of breath as well. No lower extremity edema. No pain in the chest and no dizziness or lightheadedness no presyncope or syncope. I would advise continuing the patient on the current dose of Lasix IV unless we have significant increase in her creatinine. The blood work still not up as of this morning. On examination today she does have regular rhythm with a systolic murmur at the apical area and diminished breathing sounds bilaterally and mainly in the bases but no lower extremity edema noted. Assessment Heart failure exacerbation likely related to heart failure with preserved ejection fraction. Echo still pending. Previous echo showed normal EF Coronary artery disease as described above with prior stenting of the OM Hypertension Dyslipidemia Mitral regurgitation Plan Follow up on the echocardiogram which was performed earlier Continue the current dose of Lasix IV Continue monitor the kidney function and electrolytes Follow-up with the patient Objective - Vital Signs Vital signs: Vital Signs Temp 98.8 F 11/29/22 01:57 Pulse 54 L 07/09/23 01:57 Resp 18 11/28/22 20:00 BP 114/65 11/29/22 01:57 Pulse Ox 99 11/29/22 01:57 FiO2 Intake & Output 11/28/22 11/29/22 11/29/22 18:59 06:59 18:59 Weight 63.503 kg 58.5 kg - Labs CBC & Chem 7: 11/27/22 14:10 11/28/22 07:45
[2022-11-29] MEDS: CITALOPRAM HYDROBROMIDE 20 MG TAB PO SCH (08:35)
[2022-11-29] MEDS: ISOSORBIDE MONONITRATE ER 30 MG TAB.ER.24H PO SCH (08:35)
[2022-11-29] MEDS: amLODIPine 5 MG TAB PO SCH (08:35)
[2022-11-29] MEDS: ASPIRIN 81 MG PO SCH (08:35)
[2022-11-29] MEDS: METOPROLOL SUCCINATE (ER) 25 MG TAB.ER.24H PO SCH (08:35)
[2022-11-29] MEDS: OXYBUTYNIN 10 MG TAB.ER.24 PO SCH (08:35)
[2022-11-29] MEDS: RIVAROXABAN 2.5 MG TABLET PO SCH ×2 (08:35→20:42)
[2022-11-29] MEDS: FUROSEMIDE 10 MG/ML 4 ML VIAL IV SCH (08:40)
[2022-11-29] MEDS ORDERED: IPRATROPIUM-ALBUTEROL 3 ML NEB INHALATION PRN (11:04)
[2022-11-29 11:41] LABS: African American GFR (CKD) 75 (>60 ml/min/1.73 sqM); Anion Gap 10 mmol/L; Blood Urea Nitrogen 23 mg/dL (7-17); Calcium 8.6 mg/dL (8.4-10.2); Carbon Dioxide 27 mmol/L (22-30); Chloride 99 mmol/L (98-107); Glucose 95 mg/dL (74-99); Magnesium 1.8 mg/dL (1.6-2.3); Non-African American GFR(CKD) 65 (>60 ml/min/1.73 sqM); Sodium 136 mmol/L (137-145)
[2022-11-29] MEDS: predniSONE 20 MG TAB PO SCH (11:44)
--- NOTE | 2022-11-29 12:29 | P.PN ---
Subjective Progress Note Date: 11/29/22 82-year-old female with PMH of DVT/PE recently stopped Xarelto, CAD, CVA, hypertension, anxiety and depression presents ED for shortness of breath. Patient reports progressively worsening shortness of breath over the past 2 weeks. Her breathing is worse with ambulation. Sleeps with 2 pillows at night. She denies any lower extremity edema. She also reports pressure-like chest pain that also worsens with exertion. She noted her O2 saturation was in the 50s today which prompted her to come to the ED. In the ED, she was noted to be 87% on room air. CBC was unremarkable. Coagulation panel within normal limits. CMP showed BUN of 18, glucose of 110, magnesium of 1.4. Troponin was 0.013. BNP was 3590. CT chest showed no PE, mild infrahilar adenopathy, groundglass opacities concerning for pulmonary edema. EKG showed sinus bradycardia with ventricular rate of 57. Chest x-ray showed pulmonary vascular congestion. Patient is admitted for CHF exacerbation and chest pain rule out acute coronary syndrome. 11/28 Patient was seen and examined. No acute events overnight. Patient reports no changes in her breathing. Currently on 3L NC. BMP shows bicarb of 31. Troponin is 0.013, 0.016, < 0.012. Echocardiogram shows EF 55-60% with severe RV dilation, mild-mod MR. 11/29 Patient was seen and examined. She reports improvement in her breathing. She is anxiously waiting to go home. We took her oxygen off and her O2 saturation dropped to 85% on RA while in bed. She denies any history of smoking but was exposed to second hand smoke as a child. She was also told she had scarring in her lungs from her diagnosis of pulmonary embolus. She also reports having COVID 19 in December of last year. BMP shows Na 136, BUN 23. Mg 1.8. General: non toxic, no distress, appears at stated age Derm: warm, dry Head: atraumatic, normocephalic, symmetric Eyes: EOMI, no lid lag, anicteric sclera Mouth: no lip lesion, mucus membranes moist Cardiovascular: Bradycardic, no murmur Lungs: Decreased breath sounds bilateral, rales at the bases, no accessory muscle use Ext: no gross muscle atrophy, no edema, no contractures Neuro: no focal neuro deficits Psych: Alert, oriented, appropriate affect Acute hypoxic respiratory failure Chest pain, rule out acute coronary syndrome Hypomagnesemia Chronic conditions: DVT/PE recently stopped Xarelto, CAD, CVA, hypertension, anxiety and depression Based on my assessment of this patient, this patient meets a high complexity level of care. Patient has an acute diagnosis of acute hypoxic respiratory failure that poses a threat to life or bodily function. She also has chest pain with history of CVA and CAD with stenting. Troponins trended, ACS ruled out. Telemetry monitoring. Echocardiogram as above. Cardiology on board. Continue aspirin 81 mg by mouth daily, Lipitor 40 mg by mouth at bedtime and metoprolol 25 mg by mouth daily. Patient does not appear in overt heart failure. Echocardiogram shows preserved EF. Likely pulmonary component. Discontinue Lasix 40 mg IV every 8 hours. Start Prednisone 40 mg PO QD, Symbicort 2 puff BID and DuoNeb as needed for SOB/wheezing. Pulmonology will be consulted. Patient will likely need home O2 on discharge. Continue home medication. Patient would like to be no code. Patient names her daughter decision maker if she can't make decisions for herself. I have reviewed the following mainframe consultant notes: I have reviewed the results of the following tests: BMP, Mg. I have ordered the following tests: I have discussed the care of this patient with the following independent historian: I have independently interpreted the following test below: I have discussed the management of this patient with the following physician: Objective - Vital Signs Vital signs: Vital Signs Temp 98.2 F 11/29/22 06:57 Pulse 55 L 11/29/22 06:57 Resp 18 11/29/22 06:57 BP 120/71 11/29/22 06:57 Pulse Ox 98 11/29/22 06:57 FiO2 Intake & Output 11/28/22 11/29/22 11/29/22 18:59 06:59 18:59 Weight 63.503 kg 58.5 kg - Labs CBC & Chem 7: 11/27/22 14:10 11/29/22 10:16 Labs: Abnormal Lab Results - Last 24 Hours (Table) 11/29/22 Range/Units 10:16 Sodium 136 L (137-145) mmol/L BUN 23 H (7-17) mg/dL
[2022-11-29 19:38] VITALS: RESP 18
[2022-11-29] MEDS: SYMBICORT 160-4.5 MCG INHALER INHALATION SCH (20:00)
[2022-11-29] MEDS: ATORVASTATIN 40 MG TAB PO SCH (20:42)
[2022-11-29] MEDS: traZODone HCL 100 MG TAB PO SCH (20:42)
[2022-11-29] MEDS ORDERED: ACETAMINOPHEN TAB 325 MG TAB PO PRN (20:58)
--- NOTE | 2022-11-30 02:57 | P.CNPUL ---
History of Present Illness Consult date: 11/30/22 Requesting physician: Patrica Doe Reason for consult: hypoxemia Chief complaint: Shortness of breath for the last week History of present illness: I am seeing this patient in new consultation today 11/30/2022 on the general medical floor for a suspected CHF exacerbation. She is an 82-year-old female with past medical history significant for diastolic congestive heart failure, coronary artery disease with prior stenting, CVA, hypertension, hyperlipidemia, pulmonary embolism anticoagulated on Xarelto, and anxiety. Patient does take Trelegy outpatient basis, however, denies any history of COPD or asthma. Denies any smoking or second hand smoking history. 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 Her primary care provider is Dr. Umaña. Patient presented to the emergency room on November 27 for increasing shortness of breath that started approximately 1 week ago. She states that she's had chronic exertional shortness of breath since her last heart attack a little over one year ago. She denies any chest pain, heart palpitations, PND, lower extremity swelling. She does state that she sleeps in bed with 2 pillows because of her shortness of breath. She denies any fever, chills, cough, hemoptysis. Patient is currently sitting up in bed, on 2 L/m nasal cannula, in no acute distress. Chest x-ray on arrival was consistent with mild exacerbation of congestive heart failure. Follow-up chest CTA showed no evidence of pulmonary embolism, some mild infrahilar adenopathy, and groundglass opacities correlating for pulmonary edema. NT proBNP was 3590. Lasix was ordered but not given. Echocardiogram done this admission showed a preserved ejection fraction of 55-60% with mild to moderate mitral regurgitation. CBC on arrival was unremarkable. Most recent BMP shows sodium 136, potassium 4, chloride 99, serum bicarb 27, BUN 23, creatinine 0.85, glucose 95. Troponins were 0.013, 0.016, and less than 0.012 respectively. Patient was started on a combination of bronchodilators, Symbicort inhaler, and oral prednisone taper. Patient is not wheezy or bronchospastic on my clinical examination. There are bibasilar rales. She is hemodynamically stable. Patient will be monitored on the general medical floor. Review of Systems REVIEW OF SYSTEMS: CONSTITUTIONAL: Denies any recent significant weight loss or weight gain. EYES: Denies change in vision. EARS, NOSE, MOUTH, THROAT: Denies headaches, denies sore throat. CARDIOVASCULAR: Denies chest pain, palpitations or syncopal episodes. Admits orthopnea and exertional shortness of breath RESPIRATORY: Denies cough, congestion or hemoptysis. GASTROINTESTINAL: Denies change in appetite, abdominal pain, nausea and vomiting, or diarrhea GENITOURINARY: Denies hematuria, denies infections. MUSKULOSKELETAL: Denies pain, denies swelling. INTEGUMENTARY: Denies rash, denies eczema. NEUROLOGICAL: Denies recent memory loss, no recent seizure activity. PSYCHIATRIC: Denies anxiety, denies depression. HEMATOLOGIC/LYMPHATIC: Denies anemia, denies enlarged lymph node Past Medical History Past Medical History: Coronary Artery Disease (CAD), Heart Failure, CVA/TIA, Eye Disorder, Fibromyalgia, Hyperlipidemia, Hypertension, Myocardial Infarction (LA), Osteoarthritis (OA), Pulmonary Embolus (PE), Rheumatoid Arthritis (RA) Additional Past Medical History / Comment(s): macular degeneration, lupus, Raynauds, had stroke in May 2021-still has some dysphagia, SOB w/exertion, left shoulder pain Last Myocardial Infarction Date:: 08/07/2021 History of Any Multi-Drug Resistant Organisms: ESBL Date of last positivie culture/infection: 08/17/2014 MDRO Source:: Urine-E.Coli ESBL Past Surgical History: Bladder Surgery, Heart Catheterization, Heart Catheterization With Stent, Hysterectomy Additional Past Surgical History / Comment(s): RIGHT CATARACT REMOVAL Past Anesthesia/Blood Transfusion Reactions: Postoperative Nausea & Vomiting (PONV) Date of Last Stent Placement:: September 2021 Past Psychological History: Depression Smoking Status: Never smoker - Past Family History Sister(s) Additional Family Medical History / Comment(s): "HEART PROBLEMS" Medications and Allergies Home Medications Medication Instructions Recorded Confirmed Type Omeprazole 40 mg PO DAILY 05/22/18 11/27/22 History Aspirin [Adult Low Dose Aspirin EC] 81 mg PO DAILY 06/09/19 11/27/22 History Oxybutynin ER [Ditropan XL] 10 mg PO DAILY 04/12/21 11/27/22 History traZODone HCL 100 mg PO HS 04/12/21 11/27/22 History ALPRAZolam [Xanax] 0.25 mg PO DAILY PRN 08/07/21 11/27/22 History Atorvastatin [Lipitor] 40 mg PO HS 08/07/21 11/27/22 History Rivaroxaban [Xarelto] 2.5 mg PO BID 08/07/21 11/27/22 History amLODIPine [Norvasc] 5 mg PO DAILY 08/07/21 11/27/22 History Folic Acid 1 mg PO DAILY #30 tab 08/13/21 11/27/22 Rx Furosemide [Lasix] 40 mg PO DAILY #30 tab 08/13/21 11/27/22 Rx Isosorbide Mononitrate ER [Imdur] 30 mg PO DAILY 09/26/21 11/27/22 History Metoprolol Succinate (ER) [Toprol 25 mg PO DAILY 09/26/21 11/27/22 History XL] Cholecalciferol [Vitamin D3 (25 25 mcg PO DAILY 11/27/22 11/27/22 History Mcg = 1000 Iu)] Citalopram Hydrobromide [CeleXA] 20 mg PO DAILY 11/27/22 11/27/22 History Fluticasone/Umeclidin/Vilanter 1 puff INHALATION RT-DAILY 11/27/22 11/27/22 History [Trelegy Ellipta 100-62.5-25] Allergies Allergy/AdvReac Type Severity Reaction Status Date / Time Sulfa (Sulfonamide Allergy Unknown Verified 11/27/22 17:22 Antibiotics) Childhood Physical Exam Vitals: Vital Signs Temp Pulse Resp BP Pulse Ox 11/30/22 01:02 97.9 F 61 144/71 90 L 11/29/22 19:37 98.9 F 57 L 18 114/67 93 L 11/29/22 13:27 98.2 F 55 L 17 105/62 96 11/29/22 08:55 96 11/29/22 06:57 98.2 F 55 L 18 120/71 98 GENERAL EXAM: Alert, 82-year-old white female appearing stated age , comfortable in no apparent distress. HEAD: Normocephalic and atraumatic EYES: Normal reaction of pupils, equal size. NOSE: Clear with pink turbinates. THROAT: No erythema or exudates. NECK: No masses, no JVD. CHEST: No chest wall deformity. LUNGS: Equal air entry with bibasilar posterior crackles. No wheeze, rhonchi or dullness. On 2 L/m nasal cannula. No conversational dyspnea or accessory muscle use.. CVS: S1 and S2 normal with no audible murmur, regular rhythm. No extra heart sounds ABDOMEN: No hepatosplenomegaly, active bowel sounds, no guarding or rigidity. SPINE: No scoliosis or deformity SKIN: No rashes CENTRAL NERVOUS SYSTEM: No focal deficits, tone is normal in all 4 extremities. EXTREMITIES: There is no peripheral edema, clubbing, or cyanosis. Peripheral pulses are intact. Results - Laboratory Findings CBC and BMP: 11/27/22 14:10 11/29/22 10:16 PT/INR, D-dimer PT 11.7 sec (9.0-12.0) 11/27/22 14:10 INR 1.1 (<1.2) 11/27/22 14:10 Abnormal lab findings: Abnormal Labs 11/27/22 11/28/22 11/29/22 14:10 07:45 10:16 Sodium 136 L Carbon Dioxide 31 H BUN 18 H 23 H Glucose 110 H Magnesium 1.4 L - Diagnostic Findings Chest x-ray: image reviewed CT scan - chest: image reviewed Assessment and Plan Assessment: Acute hypoxemic respiratory failure, secondary to exacerbation of heart failure with preserved ejection fraction. Currently on 2 L/m nasal cannula. Chest x-ray on arrival was consistent with CHF exacerbation. NT proBNP was elevated at 3590. Chronic ongoing dyspnea History of heart failure with preserved ejection fraction. Echocardiogram done this admission showed a preserved ejection fraction of 55-60% with mild to moderate mitral regurgitation Mitral regurgitation Coronary artery disease with prior PCI and stenting History of CVA Hyperlipidemia Benign essential hypertension History of pulmonary embolism, maintained on Xarelto on outpatient basis Anxiety Never smoker Plan: Patient's medications, labs, chest x-ray reviewed Continue supplemental oxygen to maintain oxygen saturation of 92% or greater Restart patient on Lasix 40 mg twice a day Continue Xarelto Patient was started on a combination of bronchodilators, Symbicort inhaler, and oral prednisone taper; no obvious COPD exacerbation on my clinical examination May benefit from full PFT in the office, once ready for discharge We will continue to follow I have personally seen and examined the patient, performed the documentation and the assessment and plan as written. Number of minutes spent on the visit:20 Joint evaluation that was done along with the nurse practitioner, the patient presented with shortness of breath. Her echocardiogram shows a preserved LV function with moderate mitral regurgitation. CT angiogram of the chest was done that showed some groundglass interstitial infiltrates consistent with CHF and there is a mosaic attenuation in the lungs bilaterally. There is some limited bilateral emphysematous changes also. No evidence of any pneumonia. There may be some pleural reaction the lung bases bilaterally. The patient is admitted on showed degenerative done outpatient basis. The patient is currently on diuretics and she is taking Lasix and she has felt better since yesterday. The blood work from today is showing a sodium level of 136, potassium is at 4, CBC is pending, troponins were all negative and the proBNP level was 3590. The patient is currently on oxygen at 2 L. She is on aspirin. She is on anticoagulation on Xarelto. Home medications have been resumed. Time with Patient: Greater than 30
[2022-11-30 07:12] VITALS: BP 114/67; PULSE 54; TEMP 98.9
[2022-11-30] MEDS: SYMBICORT 160-4.5 MCG INHALER INHALATION SCH (08:48)
[2022-11-30] MEDS ORDERED: FUROSEMIDE 10 MG/ML 4 ML VIAL IV SCH (09:00)
[2022-11-30] MEDS: RIVAROXABAN 2.5 MG TABLET PO SCH (09:39)
[2022-11-30] MEDS: predniSONE 20 MG TAB PO SCH (09:39)
[2022-11-30] MEDS: amLODIPine 5 MG TAB PO SCH (09:40)
[2022-11-30] MEDS: ISOSORBIDE MONONITRATE ER 30 MG TAB.ER.24H PO SCH (09:40)
[2022-11-30] MEDS: PANTOPRAZOLE 40 MG TABLET PO SCH (09:40)
[2022-11-30] MEDS: CITALOPRAM HYDROBROMIDE 20 MG TAB PO SCH (09:40)
[2022-11-30] MEDS: OXYBUTYNIN 10 MG TAB.ER.24 PO SCH (09:40)
[2022-11-30] MEDS: ASPIRIN 81 MG PO SCH (09:40)
[2022-11-30] MEDS: METOPROLOL SUCCINATE (ER) 25 MG TAB.ER.24H PO SCH (09:40)
[2022-11-30 13:08] VITALS: BMI 22.1
--- NOTE | 2022-11-30 14:06 | P.DS ---
Providers Date of admission: 11/27/22 16:48 Expected date of discharge: 11/30/22 Attending physician: Jarek Edmond MD Consults: 11/27/22 16:43 Consult Physician Routine Consulting Provider: Andrew Oconnell Consult Reason/Comments: CHF, chest pain Do you want consulting provider notified?: Yes, Notify in am 11/29/22 11:03 Consult Physician Routine Consulting Provider: Alexandru Toscano Consult Reason/Comments: hypoxia Do you want consulting provider notified?: Yes, Notify in am Primary care physician: Bj Wong [facility] Course: 82-year-old female with PMH of DVT/PE recently stopped Xarelto, CAD, CVA, hypertension, anxiety and depression presents ED for shortness of breath. Patient reports progressively worsening shortness of breath over the past 2 weeks. Her breathing is worse with ambulation. Sleeps with 2 pillows at night. She denies any lower extremity edema. She also reports pressure-like chest pain that also worsens with exertion. She noted her O2 saturation was in the 50s today which prompted her to come to the ED. In the ED, she was noted to be 87% on room air. CBC was unremarkable. Coagulation panel within normal limits. CMP showed BUN of 18, glucose of 110, magnesium of 1.4. Troponin was 0.013. BNP was 3590. CT chest showed no PE, mild infrahilar adenopathy, groundglass opacities concerning for pulmonary edema. EKG showed sinus bradycardia with ventricular rate of 57. Chest x-ray showed pulmonary vascular congestion. Patient is admitted for CHF exacerbation and chest pain rule out acute coronary syndrome. 11/28 Patient was seen and examined. No acute events overnight. Patient reports no changes in her breathing. Currently on 3L NC. BMP shows bicarb of 31. Troponin is 0.013, 0.016, < 0.012. Echocardiogram shows EF 55-60% with severe RV dilation, mild-mod MR. 11/29 Patient was seen and examined. She reports improvement in her breathing. She is anxiously waiting to go home. We took her oxygen off and her O2 saturation dropped to 85% on RA while in bed. She denies any history of smoking but was exposed to second hand smoke as a child. She was also told she had scarring in her lungs from her diagnosis of pulmonary embolus. She also reports having COVID 19 in December of last year. BMP shows Na 136, BUN 23. Mg 1.8. 11/30 Patient was seen and examined. She reports improvement in her breathing. Still gets winded when ambulating. She qualifies for home O2. Pulmonology has seen the patient and will follow her in the outpatient setting. She will be discharged home with a nebulizer and DuoNeb PRN for SOB/wheezing as well as a slow Prednisone taper. She is to continue her Trelegy inhaler. Follow up with Pulmonology within 1 week of discharge. Pertinent studies as above. General: non toxic, no distress, appears at stated age Derm: warm, dry Head: atraumatic, normocephalic, symmetric Eyes: EOMI, no lid lag, anicteric sclera Mouth: no lip lesion, mucus membranes moist Cardiovascular: Bradycardic, no murmur Lungs: Decreased breath sounds bilateral, rales at the bases, no accessory muscle use Ext: no gross muscle atrophy, no edema, no contractures Neuro: no focal neuro deficits Psych: Alert, oriented, appropriate affect Discharge Diagnosis: Acute hypoxic respiratory failure Chest pain, rule out acute coronary syndrome Hypomagnesemia Chronic conditions: DVT/PE recently stopped Xarelto, CAD, CVA, hypertension, anxiety and depression This complex discharge took 35 minutes to complete. Patient Condition at Discharge: Stable Plan - Discharge Summary Discharge Rx Participant: No New Discharge Prescriptions: New Furosemide [Lasix] 40 mg PO BID@0900,1600 #60 tab predniSONE See Taper PO DIRECTED #30 tab Albuterol Inhaler [Ventolin Hfa Inhaler] 1 puff INHALATION QID PRN #8 gm PRN Reason: Shortness Of Breath Ipratropium-Albuterol Nebulize [Duoneb 0.5 mg-3 mg/3 ml Soln] 3 ml INHALATION RT-QID PRN #120 each PRN Reason: Shortness Of Breath Or Wheezing Continue Omeprazole 40 mg PO DAILY Aspirin [Adult Low Dose Aspirin EC] 81 mg PO DAILY Oxybutynin ER [Ditropan XL] 10 mg PO DAILY traZODone HCL 100 mg PO HS Atorvastatin [Lipitor] 40 mg PO HS Folic Acid 1 mg PO DAILY #30 tab Citalopram Hydrobromide [CeleXA] 20 mg PO DAILY Fluticasone/Umeclidin/Vilanter [Trelegy Ellipta 100-62.5-25] 1 puff INHALATION RT-DAILY ALPRAZolam [Xanax] 0.25 mg PO DAILY PRN PRN Reason: Anxiety Rivaroxaban [Xarelto] 2.5 mg PO BID amLODIPine [Norvasc] 5 mg PO DAILY Metoprolol Succinate (ER) [Toprol XL] 25 mg PO DAILY Isosorbide Mononitrate ER [Imdur] 30 mg PO DAILY Cholecalciferol [Vitamin D3 (25 Mcg = 1000 Iu)] 25 mcg PO DAILY Discontinued Furosemide [Lasix] 40 mg PO DAILY #30 tab Discharge Medication List Omeprazole 40 mg PO DAILY 05/22/18 [History] Aspirin [Adult Low Dose Aspirin EC] 81 mg PO DAILY 06/09/19 [History] Oxybutynin ER [Ditropan XL] 10 mg PO DAILY 04/12/21 [History] traZODone HCL 100 mg PO HS 04/12/21 [History] ALPRAZolam [Xanax] 0.25 mg PO DAILY PRN 08/07/21 [History] Atorvastatin [Lipitor] 40 mg PO HS 08/07/21 [History] Rivaroxaban [Xarelto] 2.5 mg PO BID 08/07/21 [History] amLODIPine [Norvasc] 5 mg PO DAILY 08/07/21 [History] Folic Acid 1 mg PO DAILY #30 tab 08/13/21 [Rx] Isosorbide Mononitrate ER [Imdur] 30 mg PO DAILY 09/26/21 [History] Metoprolol Succinate (ER) [Toprol XL] 25 mg PO DAILY 09/26/21 [History] Cholecalciferol [Vitamin D3 (25 Mcg = 1000 Iu)] 25 mcg PO DAILY 11/27/22 [History] Citalopram Hydrobromide [CeleXA] 20 mg PO DAILY 11/27/22 [History] Fluticasone/Umeclidin/Vilanter [Trelegy Ellipta 100-62.5-25] 1 puff INHALATION RT-DAILY 11/27/22 [History] Albuterol Inhaler [Ventolin Hfa Inhaler] 1 puff INHALATION QID PRN #8 gm 11/30/22 [Rx] Furosemide [Lasix] 40 mg PO BID@0900,1600 #60 tab 11/30/22 [Rx] Ipratropium-Albuterol Nebulize [Duoneb 0.5 mg-3 mg/3 ml Soln] 3 ml INHALATION RT-QID PRN #120 each 11/30/22 [Rx] predniSONE See Taper PO DIRECTED #30 tab 11/30/22 [Rx] Follow up Appointment(s)/Referral(s): Andrew Oconnell MD [STAFF PHYSICIAN] - 12/09/22 3:00 pm [facility],Equipment [NON-STAFF] - As Needed (Call [facility] once home to arrange delivery of the oxygen concentrator. ) Nonstaff,Physician [REFERRING] - 1-2 days Alexandru oTscano MD [STAFF PHYSICIAN] - 01/01/23 1:45 pm Patient Instructions/Handouts: Hypoxia (GEN) Discharge Disposition: HOME SELF-CARE
[2022-11-30] MEDS ORDERED: FUROSEMIDE 40 MG TAB PO SCH (16:00)
--- NOTE | 2022-11-30 21:57 | PN ---
PROGRESS NOTE SUBJECTIVE: Trisha is an 82-year-old lady who is admitted to hospital with shortness of breath that primarily seems to be related to COPD, but also has a component of CHF exacerbation. She has known CAD and had prior angioplasty of circumflex coronary artery. She is feeling better today, OBJECTIVE: VITAL SIGNS: On exam, heart rate is 54 beats per minute, blood pressure is 114/67, respiratory rate is 18. CHEST: Reveals diffuse wheezing and decreased air entry. HEART: Reveals first and second heart sounds. No gallop. ABDOMEN: Soft. MUSCULOSKELETAL: Exam of extremities did not reveal any edema. Peripheral pulses are felt. LABORATORY DATA: Labs show a potassium of 4, creatinine is 0.8, hemoglobin is 7.4. ASSESSMENT: Shortness of breath secondary to chronic obstructive pulmonary disease and congestive heart failure exacerbations. PLAN: I will switch the Lasix to p.o. and continue rest of her medications. MMODL / IJN: [id number] /
== END 2022-11-30 15:24 | disposition home or self-care (01) | DRG 291 ==
LOC: EC 13:56 → 4SSUR 16:48
PROVIDERS: ADMIT Student in an Organized Health Care Education/Training Program; ATTEND Student in an Organized Health Care Education/Training Program
DX: I11.0 Hypertensive heart disease with heart failure (principal); I50.33 Acute on chronic diastolic (congestive) heart failure; J96.01 Acute respiratory failure with hypoxia; I25.110 Atherosclerotic heart disease of native coronary artery with unstable angina pectoris; I25.2 Old myocardial infarction; F41.9 Anxiety disorder, unspecified; M32.9 Systemic lupus erythematosus, unspecified; F32.A Depression, unspecified; E78.5 Hyperlipidemia, unspecified; E83.42 Hypomagnesemia; Z86.16 Personal history of COVID-19; R13.10 Dysphagia, unspecified; I73.00 Raynaud's syndrome without gangrene; M79.7 Fibromyalgia; Z71.3 Dietary counseling and surveillance; I34.0 Nonrheumatic mitral (valve) insufficiency; J44.9 Chronic obstructive pulmonary disease, unspecified; Z77.22 Contact with and (suspected) exposure to environmental tobacco smoke (acute) (chronic); H35.30 Unspecified macular degeneration; Z66 Do not resuscitate; M06.9 Rheumatoid arthritis, unspecified; Z79.01 Long term (current) use of anticoagulants; Z79.02 Long term (current) use of antithrombotics/antiplatelets; Z79.51 Long term (current) use of inhaled steroids; Z79.82 Long term (current) use of aspirin; Z79.899 Other long term (current) drug therapy; Z86.711 Personal history of pulmonary embolism; Z86.718 Personal history of other venous thrombosis and embolism; Z86.73 Personal history of transient ischemic attack (TIA), and cerebral infarction without residual deficits; Z95.5 Presence of coronary angioplasty implant and graft
CPT/HCPCS: 36415; 71045; 71275; 80048; 80053; 83690; 83735; 83880; 84484; 85025; 85610; 85730; 93005; 93306; 94640; 94760; 96365; 96366; 96375; 96376; 99285

== ENCOUNTER 2022-12-18 11:07 | Observation (INO) | payer MEDICARE ==
[2022-12-18 11:47] LABS: Basophils % (A) 0 %; Eosinophils # (A) 0.2 k/uL (0-0.7); Eosinophils % (A) 3 %; HCT 36.5 % (34.0-46.0); HGB 12.1 gm/dL (11.4-16.0); Lymphocytes # (A) 1.1 k/uL (1.0-4.8); Lymphocytes % (A) 16 %; MCH 28.2 pg (25.0-35.0); MCHC 33.1 g/dL (31.0-37.0); MCV 85.2 fL (80.0-100.0); Mean Platelet Volume 7.3; Monocytes # (A) 0.4 k/uL (0-1.0); Monocytes % (A) 6 %; Neutrophils # (A) 5.3 k/uL (1.3-7.7); Neutrophils % (A) 74 %; Platelet Count 210 k/uL (150-450); RBC 4.29 m/uL (3.80-5.40); RDW 14.5 % (11.5-15.5); WBC 7.2 k/uL (3.8-10.6)
[2022-12-18 11:59] LABS: INR 1.2 (<1.2); Partial Thromboplastin Time 25.5 sec (22.0-30.0); Prothrombin Time 12.6 sec (9.0-12.0)
[2022-12-18 12:06] LABS: ALT 18 U/L (4-34); AST 28 U/L (14-36); African American GFR (CKD) 80 (>60 ml/min/1.73 sqM); Albumin 3.6 g/dL (3.5-5.0); Alkaline Phosphatase 80 U/L (38-126); Anion Gap 9 mmol/L; Blood Urea Nitrogen 17 mg/dL (7-17); Calcium 8.4 mg/dL (8.4-10.2); Carbon Dioxide 30 mmol/L (22-30); Chloride 98 mmol/L (98-107); Glucose 115 mg/dL (74-99); Magnesium 1.1 mg/dL (1.6-2.3); Non-African American GFR(CKD) 69 (>60 ml/min/1.73 sqM); Potassium 3.5 mmol/L (3.5-5.1); Sodium 137 mmol/L (137-145); Total Bilirubin 1.3 mg/dL (0.2-1.3); Total Protein 6.7 g/dL (6.3-8.2)
[2022-12-18 12:14] LABS: NT-Pro-B-Type Natriuretic Pept 920 pg/mL
--- NOTE | 2022-12-18 12:41 | XR ---
EXAMINATION TYPE: XR chest 2V DATE OF EXAM: 12/18/2022 COMPARISON: 11/27/2022 HISTORY: Shortness of breath TECHNIQUE: Frontal and lateral views of the chest are obtained. FINDINGS: Scattered senescent parenchymal changes noted. Hyperinflation compatible with COPD. Persistent interstitial prominence seen bilaterally somewhat improved from prior study. Correlate for residual interstitial pneumonitis or interstitial edema. Heart size is stable. Mediastinal structures are stable and grossly unremarkable. No evidence for hilar prominence. Degenerative changes dorsal spine. IMPRESSION: 1. Persistent interstitial prominence seen bilaterally somewhat improved from prior study. Correlate for residual interstitial pneumonitis or interstitial edema.
[2022-12-18] MEDS ORDERED: FUROSEMIDE 10 MG/ML 4 ML VIAL IV STA (13:07)
--- NOTE | 2022-12-18 13:07 | ED ---
SOB HPI - General Chief Complaint: Shortness of Breath Stated Complaint: Chest Tightness Time Seen by Provider: 12/18/22 11:24 Source: patient, RN notes reviewed Mode of arrival: ambulatory Limitations: no limitations - Related Data Home Medications Medication Instructions Recorded Confirmed Omeprazole 40 mg PO DAILY 05/22/18 11/27/22 Aspirin [Adult Low Dose Aspirin EC] 81 mg PO DAILY 06/09/19 11/27/22 Oxybutynin ER [Ditropan XL] 10 mg PO DAILY 04/12/21 11/27/22 traZODone HCL 100 mg PO HS 04/12/21 11/27/22 ALPRAZolam [Xanax] 0.25 mg PO DAILY PRN 08/07/21 11/27/22 Atorvastatin [Lipitor] 40 mg PO HS 08/07/21 11/27/22 Rivaroxaban [Xarelto] 2.5 mg PO BID 08/07/21 11/27/22 amLODIPine [Norvasc] 5 mg PO DAILY 08/07/21 11/27/22 Isosorbide Mononitrate ER [Imdur] 30 mg PO DAILY 09/26/21 11/27/22 Metoprolol Succinate (ER) [Toprol 25 mg PO DAILY 09/26/21 11/27/22 XL] Cholecalciferol [Vitamin D3 (25 25 mcg PO DAILY 11/27/22 11/27/22 Mcg = 1000 Iu)] Citalopram Hydrobromide [CeleXA] 20 mg PO DAILY 11/27/22 11/27/22 Fluticasone/Umeclidin/Vilanter 1 puff INHALATION RT-DAILY 11/27/22 11/27/22 [Fan Negron 100-62.5-25] Previous Rx's Medication Instructions Recorded Folic Acid 1 mg PO DAILY #30 tab 08/13/21 Albuterol Inhaler [Ventolin Hfa 1 puff INHALATION QID PRN #8 gm 11/30/22 Inhaler] Furosemide [Lasix] 40 mg PO BID@0900,1600 #60 tab 11/30/22 Ipratropium-Albuterol Nebulize 3 ml INHALATION RT-QID PRN #120 11/30/22 [Duoneb 0.5 mg-3 mg/3 ml Soln] each Allergies Allergy/AdvReac Type Severity Reaction Status Date / Time Sulfa (Sulfonamide Allergy Unknown Verified 12/18/22 13:59 Antibiotics) Childhood Review of Systems ROS Statement: Those systems with pertinent positive or pertinent negative responses have been documented in the HPI. ROS Other: All systems not noted in ROS Statement are negative. Past Medical History Past Medical History: Coronary Artery Disease (CAD), Heart Failure, CVA/TIA, Eye Disorder, Fibromyalgia, Hyperlipidemia, Hypertension, Myocardial Infarction ([place]), Osteoarthritis (OA), Pulmonary Embolus (PE), Rheumatoid Arthritis (RA) Additional Past Medical History / Comment(s): macular degeneration, lupus, Raynauds, had stroke in May 2021-still has some dysphagia, SOB w/exertion, left shoulder pain Last Myocardial Infarction Date:: 08/07/2021 History of Any Multi-Drug Resistant Organisms: ESBL Date of last positivie culture/infection: 08/17/2014 MDRO Source:: Urine-E.Coli ESBL Past Surgical History: Bladder Surgery, Heart Catheterization, Heart Catheterization With Stent, Hysterectomy Additional Past Surgical History / Comment(s): RIGHT CATARACT REMOVAL Past Anesthesia/Blood Transfusion Reactions: Postoperative Nausea & Vomiting (PONV) Date of Last Stent Placement:: September 2021 Past Psychological History: Depression Smoking Status: Never smoker Past Alcohol Use History: None Reported Past Drug Use History: None Reported - Past Family History Sister(s) Additional Family Medical History / Comment(s): "HEART PROBLEMS" General Exam Limitations: no limitations Course Vital Signs 12/18/22 12/18/22 12/18/22 11:13 11:52 12:24 Temperature 98 F 98.3 F Pulse Rate 82 72 71 Respiratory 18 18 17 Rate Blood Pressure 126/70 127/67 114/64 O2 Sat by Pulse 97 97 97 Oximetry 12/18/22 13:32 Temperature Pulse Rate 69 Respiratory 6 L Rate Blood Pressure 118/63 O2 Sat by Pulse 95 Oximetry Medical Decision Making - Lab Data Result diagrams: 12/18/22 11:37 12/18/22 11:37 Lab Results 12/18/22 12/18/22 12/18/22 Range/Units 11:37 11:37 11:37 WBC 7.2 (3.8-10.6) k/uL RBC 4.29 (3.80-5.40) m/uL Hgb 12.1 (11.4-16.0) gm/dL Hct 36.5 (34.0-46.0) % MCV 85.2 (80.0-100.0) fL MCH 28.2 (25.0-35.0) pg MCHC 33.1 (31.0-37.0) g/dL RDW 14.5 (11.5-15.5) % Plt Count 210 (150-450) k/uL MPV 7.3 Neutrophils % 74 % Lymphocytes % 16 % Monocytes % 6 % Eosinophils % 3 % Basophils % 0 % Neutrophils # 5.3 (1.3-7.7) k/uL Lymphocytes # 1.1 (1.0-4.8) k/uL Monocytes # 0.4 (0-1.0) k/uL Eosinophils # 0.2 (0-0.7) k/uL Basophils # 0.0 (0-0.2) k/uL PT 12.6 H (9.0-12.0) sec INR 1.2 H (<1.2) APTT 25.5 (22.0-30.0) sec D-Dimer 0.47 (<0.60) mg/L FEU Sodium 137 (137-145) mmol/L Potassium 3.5 (3.5-5.1) mmol/L Chloride 98 (98-107) mmol/L Carbon Dioxide 30 (22-30) mmol/L Anion Gap 9 mmol/L BUN 17 (7-17) mg/dL Creatinine 0.81 (0.52-1.04) mg/dL Est GFR (CKD-EPI)AfAm 80 (>60 ml/min/1.73 sqM) Est GFR (CKD-EPI)NonAf 69 (>60 ml/min/1.73 sqM) Glucose 115 H (74-99) mg/dL Plasma Lactic Acid Sunil (0.7-2.0) mmol/L Calcium 8.4 (8.4-10.2) mg/dL Magnesium 1.1 L (1.6-2.3) mg/dL Total Bilirubin 1.3 (0.2-1.3) mg/dL AST 28 (14-36) U/L ALT 18 (4-34) U/L Alkaline Phosphatase 80 (38-126) U/L Troponin I (0.000-0.034) ng/mL NT-Pro-B Natriuret Pep 920 pg/mL Total Protein 6.7 (6.3-8.2) g/dL Albumin 3.6 (3.5-5.0) g/dL Influenza Type A (PCR) (Not Detectd) Influenza Type B (PCR) (Not Detectd) RSV (PCR) (Not Detectd) SARS-CoV-2 (PCR) (Not Detectd) 12/18/22 12/18/22 12/18/22 Range/Units 11:37 11:37 11:52 WBC (3.8-10.6) k/uL RBC (3.80-5.40) m/uL Hgb (11.4-16.0) gm/dL Hct (34.0-46.0) % MCV (80.0-100.0) fL MCH (25.0-35.0) pg MCHC (31.0-37.0) g/dL RDW (11.5-15.5) % Plt Count (150-450) k/uL MPV Neutrophils % % Lymphocytes % % Monocytes % % Eosinophils % % Basophils % % Neutrophils # (1.3-7.7) k/uL Lymphocytes # (1.0-4.8) k/uL Monocytes # (0-1.0) k/uL Eosinophils # (0-0.7) k/uL Basophils # (0-0.2) k/uL PT (9.0-12.0) sec INR (<1.2) APTT (22.0-30.0) sec D-Dimer (<0.60) mg/L FEU Sodium (137-145) mmol/L Potassium (3.5-5.1) mmol/L Chloride (98-107) mmol/L Carbon Dioxide (22-30) mmol/L Anion Gap mmol/L BUN (7-17) mg/dL Creatinine (0.52-1.04) mg/dL Est GFR (CKD-EPI)AfAm (>60 ml/min/1.73 sqM) Est GFR (CKD-EPI)NonAf (>60 ml/min/1.73 sqM) Glucose (74-99) mg/dL Plasma Lactic Acid Sunil 2.9 H* (0.7-2.0) mmol/L Calcium (8.4-10.2) mg/dL Magnesium (1.6-2.3) mg/dL Total Bilirubin (0.2-1.3) mg/dL AST (14-36) U/L ALT (4-34) U/L Alkaline Phosphatase (38-126) U/L Troponin I <0.012 (0.000-0.034) ng/mL NT-Pro-B Natriuret Pep pg/mL Total Protein (6.3-8.2) g/dL Albumin (3.5-5.0) g/dL Influenza Type A (PCR) Not Detected (Not Detectd) Influenza Type B (PCR) Not Detected (Not Detectd) RSV (PCR) Not Detected (Not Detectd) SARS-CoV-2 (PCR) Not Detected (Not Detectd) Disposition Clinical Impression: Hypomagnesemia, CHF (congestive heart failure) Disposition: ADMITTED IP TO THIS [facility] Condition: Stable Referrals: Bj Umaña DO [Primary Care Provider] - 1-2 days Time of Disposition: 13:42
[2022-12-18] MEDS ORDERED: NALOXONE 0.4 MG/ML 1 ML VIAL IV PRN (13:34)
[2022-12-18] MEDS: MAGNESIUM SULFATE-D5W PMX 1 GM in DEXTROSE/WATER 1 100ML.BAG IVPB SCH ×2 (13:39→15:12)
[2022-12-18] MEDS ORDERED: ALPRAZolam 0.25 MG TAB PO PRN (14:09)
[2022-12-18] MEDS ORDERED: ALBUTEROL NEBULIZED 2.5 MG/3 ML INHALATION PRN (14:09)
[2022-12-18] MEDS: FUROSEMIDE 40 MG TAB PO SCH (15:38)
[2022-12-18] MEDS ORDERED: IPRATROPIUM 0.5 MG/2.5 ML NEBU INHALATION SCH (16:00)
[2022-12-18] MEDS ORDERED: IPRATROPIUM-ALBUTEROL 3 ML NEB INHALATION PRN (16:24)
[2022-12-18] MEDS ORDERED: methylPREDNISolone SOD SUCCI 125 MG/2 ML VIAL IV STA (16:24)
--- NOTE | 2022-12-18 16:24 | P.HPIM ---
History of Present Illness H&P Date: 12/18/22 History of Presenting Illness: Patient is a very pleasant 82-year-old female with a past medical history of chronic hypoxic respiratory failure home oxygen dependent on 2 L at all times, coronary artery disease, chronic diastolic heart failure with previously known EF of 55-60%, CVA, hypertension, hyperlipidemia, fibromyalgia, lupus, Raynaud's, rheumatoid arthritis, and previous pulmonary emboli. 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 Patient states that since discharge she has had progressively worsening shortness of breath. Patient reports she desaturates very quickly at home just simply walking to the restroom. Patient reports her oxygen saturations have been decreased as low as 76% with minimal exertion just by taking a few steps. Patient states it is taking her longer and longer to recover and this has resulted in significant fatigue so she returned to the ER because she is concerned about her breathing. She denies having any associated factors including headache, lightheadedness, dizziness, fevers, chills, diaphoresis, palpitations or chest pain, increase or changes in cough or congestion and denies any increased swelling in her lower extremities or weight gain. She reports she has been taking her Lasix as ordered. She underwent full evaluation in the emergency department. Vital signs upon arrival blood pressure 127/67, heart rate 72, respiratory rate 18, and SpO2 of 97% on 3 L O2 via nasal cannula. EKG completed showing normal sinus rhythm at 75 bpm with T-wave inversion in inferior leads III and aVF. Chest x-ray completed in radiology report reviewed showing persistent interstitial prominence bilaterally which is reported to have been improved from prior study likely residual interstitial pneumonitis or interstitial edema. Labs completed and reviewed. CBC unremarkable. Coagulation profile showing no significant abnormalities. D- dimer normal findings is 0.47. BMP was unremarkable. Magnesium was low at 1.1 liver profile normal findings. Troponin negative at less than 0.012 and proBNP 920 which has significantly improved from BNP on previous admission resulting at 3590. Influenza a, influenza B, RSV, and Covid PCR were negative. Patient given Lasix 40 mg IVP 1 dose in the ER. Discussed patient complains, physical exam findings, laboratory analysis, and imaging results in detail with the ED physician. Patient admitted under our services with consultation to pulmonology and cardiology. Review of systems: Pertinent positives and negatives as discussed in HPI, a complete review of systems was performed and all other systems are negative. Physical exam: Vital signs reviewed and stable. General: Nontoxic, no distress and appears stated age. Derm: Skin warm and dry, normal coloration for ethnicity. Head: Atraumatic, normocephalic and symmetric. Eyes: EOMs intact, no lid lag, and anicteric sclera Mouth: no lip lesions, mucus membranes moist Cardiovascular: regular rate and rhythm with normal S1S2 systolic murmur, positive posterior tibial pulses bilaterally, and cap refill < 2 seconds. Lungs: Respirations even, regular, and unlabored on 2 L O2. Lungs diminished with bibasilar crackles, no wheezes. No accessory muscle usage. Abdominal: soft, nontender to palpation, no guarding, no appreciable organomegaly Ext: ROM intact. No gross muscle atrophy, scant bilateral lower extremity edema, no contractures Neuro: Speech clear, face symmetrical and CN II-XII grossly intact with no noted focal neuro deficits Psych: Alert and oriented to person, place, time, and situation. Appropriate and pleasant affect. Assessment and Plan of Care: Exertional shortness of breath Acute on chronic respiratory failure with hypoxia, home oxygen dependent. Likely multi-factorial secondary to physical deconditioning, chronic diastolic heart failure, and emphysema Chronic diastolic heart failure with previously known EF of 55-60% Concerns of emphysematous changes on previous CTA Hypertension Hyperlipidemia Fibromyalgia Lupus Gladys is Rheumatoid arthritis History of pulmonary emboli -Vital signs upon arrival blood pressure 127/67, heart rate 72, respiratory rate 18, and SpO2 of 97% on 3 L O2 via nasal cannula. -EKG completed showing normal sinus rhythm at 75 bpm with T-wave inversion in inferior leads III and aVF upon personal review and interpretation -Chest x-ray completed in radiology report reviewed showing persistent interstitial prominence bilaterally which is reported to have been improved from prior study likely residual interstitial pneumonitis or interstitial edema. -Labs completed and reviewed. CBC unremarkable. Coagulation profile showing no significant abnormalities. D-dimer normal findings is 0.47. BMP was unremarkable. Magnesium was low at 1.1 liver profile normal findings. Troponin negative at less than 0.012 and proBNP 920 which has significantly improved from BNP on previous admission resulting at 3590. -Influenza a, influenza B, RSV, and Covid PCR were negative. -Discussed patient complains, physical exam findings, laboratory analysis, and imaging results in detail with the ED physician. -Patient admitted under our services to observation unit with telemetry with consultation to pulmonology and cardiology. -Patient reporting worsening hypoxia with minimal exertion despite home oxygen use. Patient reports oxygen saturations decreasing down to 76% with minimal exertion and taking longer periods of time to improve. -Consult placed to to Pulmonology -Oxygenation to be administered and titrated as needed to maintain SPO2 equal to or greater than 92% -Consult also placed to cardiology -Telemetry monitoring. -Monitor Pulse-oximetry -Duonebs scheduled for times daily and as needed for SOB and/or wheezing -Patient received IV Lasix 40 mg IVP 1 dose and to resume oral Lasix 40 mg twice daily starting tomorrow morning. -Steroids: Patient given Solu-Medrol 125 mg IVP 1 dose and will start on prednisone tomorrow morning. The patient is admitted with an anticipated less than 2 midnight stay for eval uation of exertional shortness of breath CODE STATUS: DO NOT RESUSCITATE/DO NOT INTUBATE DVT prophylaxis: Hank Discussed with: Patient, ED physician, and RN Anticipated discharge date: 24-[address]: Home Patient was seen independently by Nurse Practitioner. This document was prepared using [employer] dictation software. Please allow for errors in auditing specialist while rare they do occur. Anthony Maki NP rendered care for this patient independently, reviewed the findings and plan as documented in the note above. I did not physically speak with or examine the patient on this date. Past Medical History Past Medical History: Coronary Artery Disease (CAD), Heart Failure, CVA/TIA, Eye Disorder, Fibromyalgia, Hyperlipidemia, Hypertension, Myocardial Infarction (CT), Osteoarthritis (OA), Pulmonary Embolus (PE), Rheumatoid Arthritis (RA) Additional Past Medical History / Comment(s): macular degeneration, lupus, Raynauds, had stroke in May 2021-still has some dysphagia, SOB w/exertion, left shoulder pain Last Myocardial Infarction Date:: 08/07/2021 History of Any Multi-Drug Resistant Organisms: ESBL Date of last positivie culture/infection: 08/17/2014 MDRO Source:: Urine-E.Coli ESBL Past Surgical History: Bladder Surgery, Heart Catheterization, Heart Catheterization With Stent, Hysterectomy Additional Past Surgical History / Comment(s): RIGHT CATARACT REMOVAL Past Anesthesia/Blood Transfusion Reactions: Postoperative Nausea & Vomiting (PONV) Date of Last Stent Placement:: September 2021 Past Psychological History: Depression Smoking Status: Never smoker Past Alcohol Use History: None Reported Past Drug Use History: None Reported - Past Family History Sister(s) Additional Family Medical History / Comment(s): "HEART PROBLEMS" Medications and Allergies Home Medications Medication Instructions Recorded Confirmed Type Omeprazole 40 mg PO DAILY 05/22/18 12/18/22 History Aspirin [Adult Low Dose Aspirin EC] 81 mg PO DAILY 06/09/19 12/18/22 History Oxybutynin ER [Ditropan XL] 10 mg PO DAILY 04/12/21 12/18/22 History traZODone HCL 100 mg PO HS 04/12/21 12/18/22 History ALPRAZolam [Xanax] 0.25 mg PO DAILY PRN 08/07/21 12/18/22 History Atorvastatin [Lipitor] 40 mg PO HS 08/07/21 12/18/22 History Rivaroxaban [Xarelto] 2.5 mg PO BID 08/07/21 12/18/22 History Folic Acid 1 mg PO DAILY #30 tab 08/13/21 12/18/22 Rx Isosorbide Mononitrate ER [Imdur] 30 mg PO DAILY 09/26/21 12/18/22 History Metoprolol Succinate (ER) [Toprol 25 mg PO DAILY 09/26/21 12/18/22 History XL] Cholecalciferol [Vitamin D3 (25 25 mcg PO DAILY 11/27/22 12/18/22 History Mcg = 1000 Iu)] Citalopram Hydrobromide [CeleXA] 20 mg PO DAILY 11/27/22 12/18/22 History Fluticasone/Umeclidin/Vilanter 1 puff INHALATION RT-DAILY 11/27/22 12/18/22 Hi story [Trelegy Ellipta 100-62.5-25] Albuterol Inhaler [Ventolin Hfa 1 puff INHALATION QID PRN #8 gm 11/30/22 12/18/22 Rx Inhaler] Furosemide [Lasix] 40 mg PO BID@0900,1600 #60 tab 11/30/22 12/18/22 Rx Ipratropium-Albuterol Nebulize 3 ml INHALATION RT-QID PRN #120 11/30/22 12/18/22 Rx [Duoneb 0.5 mg-3 mg/3 ml Soln] each Spironolactone [Aldactone] 25 mg PO DAILY 30 Days #30 tab 12/20/22 Rx lisinopriL [Zestril] 2.5 mg PO DAILY 30 Days #30 tab 12/20/22 Rx predniSONE [Deltasone] 40 mg PO DAILY 3 Days #6 tab 12/20/22 Rx Allergies Allergy/AdvReac Type Severity Reaction Status Date / Time Sulfa (Sulfonamide Allergy Unknown Verified 12/18/22 13:59 Antibiotics) Childhood Physical Exam Vitals: Vital Signs Temp Pulse Resp BP Pulse Ox 12/18/22 13:32 69 16 118/63 95 12/18/22 12:24 98.3 F 71 17 114/64 97 12/18/22 11:52 72 18 127/67 97 12/18/22 11:13 98 F 82 18 126/70 97 Intake and Output 12/17/22 12/18/22 12/18/22 22:59 06:59 14:59 Other: Weight 60.328 kg Results CBC & Chem 7: 12/20/22 06:19 12/20/22 06:19 Labs: Abnormal Lab Results - Last 24 Hours (Table) 12/18/22 12/18/22 12/18/22 Range/Units 11:37 11:37 11:37 PT 12.6 H (9.0-12.0) sec INR 1.2 H (<1.2) Glucose 115 H (74-99) mg/dL Plasma Lactic Acid Sunil 2.9 H* (0.7-2.0) mmol/L Magnesium 1.1 L (1.6-2.3) mg/dL
[2022-12-18] MEDS: ATORVASTATIN 40 MG TAB PO SCH (21:13)
[2022-12-18] MEDS: traZODone HCL 100 MG TAB PO SCH (21:14)
[2022-12-18] MEDS: SYMBICORT 80-4.5 MCG INHALER INHALATION SCH (21:15)
[2022-12-18] MEDS: IPRATROPIUM-ALBUTEROL 3 ML NEB INHALATION SCH (21:15)
[2022-12-18] MEDS: RIVAROXABAN 2.5 MG TABLET PO SCH (21:20)
[2022-12-19] MEDS: PANTOPRAZOLE 40 MG TABLET PO SCH (06:38)
[2022-12-19] MEDS: IPRATROPIUM-ALBUTEROL 3 ML NEB INHALATION SCH ×4 (07:13→19:53)
[2022-12-19] MEDS: SYMBICORT 80-4.5 MCG INHALER INHALATION SCH ×2 (07:13→19:53)
[2022-12-19] MEDS: CITALOPRAM HYDROBROMIDE 20 MG TAB PO SCH (08:39)
[2022-12-19] MEDS: METOPROLOL SUCCINATE (ER) 25 MG TAB.ER.24H PO SCH (08:39)
[2022-12-19] MEDS: OXYBUTYNIN 10 MG TAB.ER.24 PO SCH (08:39)
[2022-12-19] MEDS: ASPIRIN 81 MG PO SCH (08:39)
[2022-12-19] MEDS: ISOSORBIDE MONONITRATE ER 30 MG TAB.ER.24H PO SCH (08:39)
[2022-12-19] MEDS: CHOLECALCIFEROL 25 MCG (1000 IU) TABLET PO SCH (08:39)
[2022-12-19] MEDS: FOLIC ACID 1 MG TAB PO SCH (08:39)
[2022-12-19] MEDS: RIVAROXABAN 2.5 MG TABLET PO SCH ×2 (08:39→19:59)
[2022-12-19] MEDS: FUROSEMIDE 40 MG TAB PO SCH ×2 (08:39→15:58)
[2022-12-19] MEDS: predniSONE 20 MG TAB PO SCH (08:39)
[2022-12-19] MEDS ORDERED: amLODIPine 5 MG TAB PO SCH (09:00)
[2022-12-19 10:00] LABS: HCT 36.2 % (37.2-46.3); HGB 11.2 d/dL (12.0-15.0); MCH 26.8 pg (27.0-32.0); MCHC 30.9 d/dL (32.0-37.0); MCV 86.6 FL (80.0-97.0); NRBC Per 100 WBC 0 X 10*3/uL (0.00-0.01); Platelet Count 244 X 10*3/uL (140-440); RBC 4.18 X 10*6/uL (4.10-5.20); RDW 14.6 % (11.5-14.5); WBC 4.03 X 10*3/uL (4.50-10.00)
[2022-12-19 10:19] LABS: ALT 13 U/L (8-44); AST 22 U/L (13-35); Albumin 3.7 d/dL (3.8-4.9); Albumin/Globulin Ratio 1.61 Ratio (1.60-3.17); Alkaline Phosphatase 67 U/L (41-126); BUN/Creat Ratio 19.67 Ratio (12.00-20.00); Blood Urea Nitrogen 17.7 mg/dL (9.0-27.0); Calcium 8.8 mg/dL (8.7-10.3); Carbon Dioxide 28.1 mmol/L (21.6-31.8); Chloride 97 mmol/L (96-109); Globulin 2.3 d/dL (1.6-3.3); Glucose 165 mg/dL (70-110); Potassium 3.3 mmol/L (3.5-5.5); Sodium 140 mmol/L (135-145); Total Bilirubin 0.6 mg/dL (0.3-1.2)
--- NOTE | 2022-12-19 11:31 | P.CNPUL ---
History of Present Illness Consult date: 12/19/22 Requesting physician: Jarek Edmond Reason for consult: dyspnea, hypoxemia, abnormal CXR/CT Chief complaint: Shortness of breath History of present illness: This is a very pleasant 82-year-old female with a past medical history significant for diastolic congestive heart failure, coronary artery disease with prior stenting, CVA, hypertension, hyperlipidemia, pulmonary embolism anticoagulated on Xarelto, and anxiety. Patient does take Trelegy outpatient basis, however, denies any history of COPD or asthma. Denies any smoking or second hand smoking history. She was just discharged from here on 11/30/2022. At that time she was having chest pain and episodes of shortness of breath. Wo rkup revealed no evidence of pulmonary embolism. There is some groundglass opacities concerning for pulmonary edema. Echocardiogram revealed preserved left ventricular systolic function with ejection fraction 55-60%. There was severe RV dilatation. She was treated for diastolic congestive heart failure with improvement. She was due to be seen in our office in the next week or two and would benefit from pulmonary function testing. In the interim she was initiated on Trelegy, albuterol and home oxygen. She came back to the emergency room yesterday with worsening shortness of breath, cough and congestion. Chest x-ray reveals persistent interstitial prominence seen bilaterally. White count 4.0. Hemoglobin 11.2. Platelets 244. Sodium 140. Potassium 3.3. Bicarb 28. BUN 18. Creatinine 0.9. Glucose 165. Troponin negative 1. Pro BNP 920. Influenza screen negative. RSV screen negative. COVID-19 screen negative. Pro-calcitonin pending. She's been initiated and DuoNeb inhalations, Symbicort, oral diuretics. Anticoagulated with Xarelto. She is seen today in the regular medical floor. She is currently sitting up in a chair at the bedside. Awake and alert in no acute distress. Maintaining O2 saturations in the mid 90s on 3 L/m per nasal cannula. Afebrile. Hemodynamically stable. She is breathing a bit easier today compared to yesterday. Review of Systems REVIEW OF SYSTEMS: CONSTITUTIONAL: Denies any recent significant weight loss or weight gain. EYES: Denies change in vision. EARS, NOSE, MOUTH, THROAT: Denies headaches, denies sore throat. CARDIOVASCULAR: Denies chest pain, palpitations or syncopal episodes. RESPIRATORY: Positive for shortness of breath, no cough, congestion or hemoptysis. GASTROINTESTINAL: Denies change in appetite, denies abdominal pain GENITOURINARY: Denies hematuria, denies infections. MUSKULOSKELETAL: Denies pain, denies swelling. INTEGUMENTARY: Denies rash, denies eczema. NEUROLOGICAL: Denies recent memory loss, no recent seizure activity. PSYCHIATRIC: Denies anxiety, denies depression. HEMATOLOGIC/LYMPHATIC: Denies anemia, denies enlarged lymph nodes. Past Medical History Past Medical History: Coronary Artery Disease (CAD), Heart Failure, CVA/TIA, Eye Disorder, Fibromyalgia, Hyperlipidemia, Hypertension, Myocardial Infarction ([place]), Osteoarthritis (OA), Pulmonary Embolus (PE), Rheumatoid Arthritis (RA) Additional Past Medical History / Comment(s): macular degeneration, lupus, Raynauds, had stroke in May 2021-still has some dysphagia, SOB w/exertion, left shoulder pain Last Myocardial Infarction Date:: 08/07/2021 History of Any Multi-Drug Resistant Organisms: ESBL Date of last positivie culture/infection: 08/17/2014 MDRO Source:: Urine-E.Coli ESBL Past Surgical History: Bladder Surgery, Heart Catheterization, Heart Catheterization With Stent, Hysterectomy Additional Past Surgical History / Comment(s): RIGHT CATARACT REMOVAL Past Anesthesia/Blood Transfusion Reactions: Postoperative Nausea & Vomiting (PONV) Date of Last Stent Placement:: September 2021 Past Psychological History: Depression Smoking Status: Never smoker Past Alcohol Use History: None Reported Past Drug Use History: None Reported - Past Family History Sister(s) Additional Family Medical History / Comment(s): "HEART PROBLEMS" Medications and Allergies Home Medications Medication Instructions Recorded Confirmed Type Omeprazole 40 mg PO DAILY 05/22/18 12/18/22 History Aspirin [Adult Low Dose Aspirin EC] 81 mg PO DAILY 06/09/19 12/18/22 History Oxybutynin ER [Ditropan XL] 10 mg PO DAILY 04/12/21 12/18/22 History traZODone HCL 100 mg PO HS 04/12/21 12/18/22 History ALPRAZolam [Xanax] 0.25 mg PO DAILY PRN 08/07/21 12/18/22 History Atorvastatin [Lipitor] 40 mg PO HS 08/07/21 12/18/22 History Rivaroxaban [Xarelto] 2.5 mg PO BID 08/07/21 12/18/22 History amLODIPine [Norvasc] 5 mg PO DAILY 08/07/21 12/18/22 History Folic Acid 1 mg PO DAILY #30 tab 08/13/21 12/18/22 Rx Isosorbide Mononitrate ER [Imdur] 30 mg PO DAILY 09/26/21 12/18/22 History Metoprolol Succinate (ER) [Toprol 25 mg PO DAILY 09/26/21 12/18/22 History XL] Cholecalciferol [Vitamin D3 (25 25 mcg PO DAILY 11/27/22 12/18/22 History Mcg = 1000 Iu)] Citalopram Hydrobromide [CeleXA] 20 mg PO DAILY 11/27/22 12/18/22 History Fluticasone/Umeclidin/Vilanter 1 puff INHALATION RT-DAILY 11/27/22 12/18/22 History [Trelegy Ellipta 100-62.5-25] Albuterol Inhaler [Ventolin Hfa 1 puff INHALATION QID PRN #8 gm 11/30/22 12/18/22 Rx Inhaler] Furosemide [Lasix] 40 mg PO BID@0900,1600 #60 tab 11/30/22 12/18/22 Rx Ipratropium-Albuterol Nebulize 3 ml INHALATION RT-QID PRN #120 11/30/22 12/18/22 Rx [Duoneb 0.5 mg-3 mg/3 ml Soln] each Allergies Allergy/AdvReac Type Severity Reaction Status Date / Time Sulfa (Sulfonamide Allergy Unknown Verified 12/18/22 13:59 Antibiotics) Childhood Physical Exam Vitals: Vital Signs Temp Pulse Pulse Resp BP BP Pulse Ox 12/19/22 11:11 68 12/19/22 11:00 66 12/19/22 07:28 74 12/19/22 07:13 72 96 12/19/22 07:00 97.7 F 67 16 122/68 98 12/19/22 02:35 98 F 64 12 113/71 96 12/18/22 21:26 83 12/18/22 21:16 80 12/18/22 19:10 97.9 F 73 13 101/62 94 L 07/28/23 16:13 74 12/18/22 16:03 97 12/18/22 16:02 76 12/18/22 15:23 77 18 12/18/22 14:54 97.8 F 77 18 117/54 93 L 12/18/22 14:13 98.0 F 80 19 120/62 95 12/18/22 13:32 69 16 118/63 95 12/18/22 12:24 98.3 F 71 17 114/64 97 12/18/22 11:52 72 18 127/67 97 Intake and Output 12/18/22 12/19/22 12/19/22 22:59 06:59 14:59 Intake Total 120 Balance 120 Intake: Oral 120 Other: Voiding Method Toilet # Voids 1 1 1 GENERAL EXAM: Alert, pleasant 82-year-old female, on 3 L nasal cannula, up in a chair, comfortable in no apparent distress. HEAD: Normocephalic. EYES: Normal reaction of pupils, equal size. NOSE: Clear with pink turbinates. THROAT: No erythema or exudates. NECK: No masses, no JVD. CHEST: No chest wall deformity. LUNGS: Equal air entry with few scattered crackles bilaterally. CVS: S1 and S2 normal with no audible murmur, regular rhythm. ABDOMEN: No hepatosplenomegaly, normal bowel sounds, no guarding or rigidity. SPINE: No scoliosis or deformity SKIN: No rashes CENTRAL NERVOUS SYSTEM: No focal deficits, tone is normal in all 4 extremities. EXTREMITIES: There is no peripheral edema. No clubbing, no cyanosis. Peripheral pulses are intact. Results - Laboratory Findings CBC and BMP: 12/19/22 04:59 12/19/22 04:59 PT/INR, D-dimer PT 12.6 sec (9.0-12.0) H 12/18/22 11:37 INR 1.2 (<1.2) H 12/18/22 11:37 D-Dimer 0.47 mg/L FEU (<0.60) 12/18/22 11:37 Abnormal lab findings: Abnormal Labs 12/18/22 12/18/22 12/18/22 11:37 11:37 11:37 WBC Hgb Hct MCH MCHC RDW PT 12.6 H INR 1.2 H Potassium Anion Gap Glucose 115 H Plasma Lactic Acid Sunil 2.9 H* Magnesium 1.1 L Total Protein Albumin 12/19/22 12/19/22 04:59 04:59 WBC 4.03 L Hgb 11.2 L Hct 36.2 L MCH 26.8 L MCHC 30.9 L RDW 14.6 H PT INR Potassium 3.3 L Anion Gap 14.90 H Glucose 165 H Plasma Lactic Acid Sunil Magnesium Total Protein 6.0 L Albumin 3.7 L - Diagnostic Findings Chest x-ray: image reviewed Assessment and Plan Assessment: Acute on chronic hypoxemic respiratory failure, secondary to an acute exacerbation of diastolic congestive heart failure. Currently on 3 L/m nasal cannula. Chest x-ray on arrival was consistent with interstitial edema. Chronic ongoing dyspnea on home oxygen since recent discharge on 11/30/2022 Recent admission for diastolic heart failure with preserved ejection fraction. Echocardiogram done this admission showed a preserved ejection fraction of 55- 60% with mild to moderate mitral regurgitation Mitral regurgitation Coronary artery disease with prior PCI and stenting History of CVA Hyperlipidemia Benign essential hypertension History of pulmonary embolism, maintained on Xarelto Anxiety Lifelong non-smoker Plan: The patient was seen and evaluated Chest x-ray, labs and medications reviewed Check a pro-calcitonin Continue DuoNeb inhalations, Symbicort Continue oral diuretics Anticoagulated with Xarelto We will continue to follow and make further recommendations based on her clinical I have personally seen and examined the patient, performed the documentation and the assessment and plan as written. Number of minutes spent on the visit: 20.
--- NOTE | 2022-12-19 16:10 | P.CRDCN ---
History of Present Illness Consult date: 12/19/22 History of present illness: The patient is a very pleasant 82-year-old female patient who is known to our service from before with a past medical history significant for coronary artery disease with a prior stenting of the first obtuse marginal branch of the left circumflex as well as hypertension and dyslipidemia and heart failure with preserved ejection fraction as well as mitral regurgitation. Patient present to the hospital with worsening shortness of breath. She got short of breath after walking She presented to the hospital with a one-week progressive shortness of breath with minimal exertion. She gets short of breath after walking 3-4 blocks NYHA class II. This is not associated with chest pain or palpitations. She denies having any orthopnea or paroxysmal nocturnal dyspnea. No lower extremity edema. No dizziness or lightheadedness and no feeling of heart racing or fluttering and no presyncope or syncope. She stated that she has been compliant with her medications. Presented to the hospital 3 weeks ago with very similar presentation when she was discharged on Lasix 40 mg twice daily. She has been compliant with this and reports good urine output. Lab shows creatinine 0.9. Her NT proBNP was elevated at 920. 3 weeks ago her NT proBNP was 3500 On examination today BP 95/55. Heart rate 72 beats a minute Regular rate and rhythm, S1 and S2 audible, systolic murmur audible likely mitral regurgitation No JVD, no lower extremity swelling Good air entry bilateral lung stone, Echo from 12/13 shows normal LVEF, moderate mitral regurgitation Assessment Heart failure exacerbation likely related to heart failure with preserved ejection fraction. Recent echo from 12/13 showed normal EF and mod MR Coronary artery disease as described above with prior stenting of the OM Hypertension Dyslipidemia Mitral regurgitation Plan We will optimize guideline directed therapy for diastolic dysfunction. We will add Aldactone 25 mg, lisinopril 2.5 mg. Continue Lasix 40 mg twice a day Discontinue amlodipine. Next step discontinue Imdur and uptitrate lisinopril Second next step will be to add Farxiga Continue monitor the kidney function and electrolytes No need to repeat echo as patient had a recent echo Past Medical History Past Medical History: Coronary Artery Disease (CAD), Heart Failure, CVA/TIA, Eye Disorder, Fibromyalgia, Hyperlipidemia, Hypertension, Myocardial Infarction ([place]), Osteoarthritis (OA), Pulmonary Embolus (PE), Rheumatoid Arthritis (RA) Additional Past Medical History / Comment(s): macular degeneration, lupus, Raynauds, had stroke in May 2021-still has some dysphagia, SOB w/exertion, left shoulder pain Last Myocardial Infarction Date:: 08/07/2021 History of Any Multi-Drug Resistant Organisms: ESBL Date of last positivie culture/infection: 08/17/2014 MDRO Source:: Urine-E.Coli ESBL Past Surgical History: Bladder Surgery, Heart Catheterization, Heart Catheterization With Stent, Hysterectomy Additional Past Surgical History / Comment(s): RIGHT CATARACT REMOVAL Past Anesthesia/Blood Transfusion Reactions: Postoperative Nausea & Vomiting (PONV) Date of Last Stent Placement:: September 2021 Past Psychological History: Depression Smoking Status: Never smoker Past Alcohol Use History: None Reported Past Drug Use History: None Reported - Past Family History Sister(s) Additional Family Medical History / Comment(s): "HEART PROBLEMS" Medications and Allergies Home Medications Medication Instructions Recorded Confirmed Type Omeprazole 40 mg PO DAILY 05/22/18 12/18/22 History Aspirin [Adult Low Dose Aspirin EC] 81 mg PO DAILY 06/09/19 12/18/22 History Oxybutynin ER [Ditropan XL] 10 mg PO DAILY 04/12/21 12/18/22 History traZODone HCL 100 mg PO HS 04/12/21 12/18/22 History ALPRAZolam [Xanax] 0.25 mg PO DAILY PRN 08/07/21 12/18/22 History Atorvastatin [Lipitor] 40 mg PO HS 08/07/21 12/18/22 History Rivaroxaban [Xarelto] 2.5 mg PO BID 08/07/21 12/18/22 History amLODIPine [Norvasc] 5 mg PO DAILY 08/07/21 12/18/22 History Folic Acid 1 mg PO DAILY #30 tab 08/13/21 12/18/22 Rx Isosorbide Mononitrate ER [Imdur] 30 mg PO DAILY 09/26/21 12/18/22 History Metoprolol Succinate (ER) [Toprol 25 mg PO DAILY 09/26/21 12/18/22 History XL] Cholecalciferol [Vitamin D3 (25 25 mcg PO DAILY 11/27/22 12/18/22 History Mcg = 1000 Iu)] Citalopram Hydrobromide [CeleXA] 20 mg PO DAILY 11/27/22 12/18/22 History Fluticasone/Umeclidin/Vilanter 1 puff INHALATION RT-DAILY 11/27/22 12/18/22 History [Trelegy Ellipta 100-62.5-25] Albuterol Inhaler [Ventolin Hfa 1 puff INHALATION QID PRN #8 gm 11/30/22 12/18/22 Rx Inhaler] Furosemide [Lasix] 40 mg PO BID@0900,1600 #60 tab 11/30/22 12/18/22 Rx Ipratropium-Albuterol Nebulize 3 ml INHALATION RT-QID PRN #120 11/30/22 12/18/22 Rx [Duoneb 0.5 mg-3 mg/3 ml Soln] each Allergies Allergy/AdvReac Type Severity Reaction Status Date / Time Sulfa (Sulfonamide Allergy Unknown Verified 12/18/22 13:59 Antibiotics) Childhood Physical Exam Vitals: Vital Signs Temp Pulse Pulse Resp BP Pulse Ox 12/19/22 15:22 72 12/19/22 15:08 69 12/19/22 14:30 97.9 F 81 18 95/55 98 12/19/22 11:11 68 12/19/22 11:00 66 12/19/22 07:28 74 12/19/22 07:13 72 96 12/19/22 07:00 97.7 F 67 16 122/68 98 12/19/22 02:35 98 F 64 12 113/71 96 12/18/22 21:26 83 12/18/22 21:16 80 12/18/22 19:10 97.9 F 73 13 101/62 94 L 12/18/22 16:13 74 Intake and Output 12/19/22 12/19/22 12/19/22 06:59 14:59 22:59 Intake Total 240 Balance 240 Intake: Oral 240 Other: # Voids 1 1 Results 12/19/22 04:59 12/19/22 04:59 Cardiac Enzymes 12/19/22 Range/Units 04:59 AST 22 (13-35) U/L CBC 12/19/22 Range/Units 04:59 WBC 4.03 L (4.50-10.00) X 10*3/uL RBC 4.18 (4.10-5.20) X 10*6/uL Hgb 11.2 L (12.0-15.0) d/dL Hct 36.2 L (37.2-46.3) % Plt Count 244 (140-440) X 10*3/uL Comprehensive Metabolic Panel 12/19/22 Range/Units 04:59 Sodium 140 (135-145) mmol/L Potassium 3.3 L (3.5-5.5) mmol/L Chloride 97 (96-109) mmol/L Carbon Dioxide 28.1 (21.6-31.8) mmol/L BUN 17.7 (9.0-27.0) mg/dL Creatinine 0.9 (0.6-1.5) mg/dL Glucose 165 H (70-110) mg/dL Calcium 8.8 (8.7-10.3) mg/dL AST 22 (13-35) U/L ALT 13 (8-44) U/L Alkaline Phosphatase 67 (41-126) U/L Total Protein 6.0 L (6.2-8.2) d/dL Albumin 3.7 L (3.8-4.9) d/dL Current Medications Generic Name Dose Route Start Last Admin Trade Name Freq PRN Reason Stop Dose Admin Albuterol Sulfate 2.5 mg 12/18/22 14:09 Albuterol Nebulized 2.5 Mg/3 Ml INHALATION QID PRN Shortness Of Breath Albuterol/Ipratropium 3 ml 12/18/22 20:00 12/19/22 15:08 Ipratropium-Albuterol 3 Ml Neb INHALATION 3 ml RT-QID FELICIA Administration Albuterol/Ipratropium 3 ml 12/18/22 16:24 Ipratropium-Albuterol 3 Ml Neb INHALATION RT-Q2H PRN Shortness Of Breath Or Wheezing Alprazolam 0.25 mg 12/18/22 14:09 Alprazolam 0.25 Mg Tab PO DAILY PRN Anxiety Aspirin 81 mg 12/19/22 09:00 12/19/22 08:39 Aspirin 81 Mg PO 81 mg DAILY FELICIA Administration Atorvastatin Calcium 40 mg 12/18/22 21:00 12/18/22 21:13 Atorvastatin 40 Mg Tab PO 40 mg HS FELICIA Administration Budesonide/Formoterol Fumarate 2 puff 12/18/22 20:00 12/19/22 07:13 Symbicort 80-4.5 Mcg Inhaler INHALATION 2 puff RT-BID FELICIA Administration Cholecalciferol 25 mcg 12/19/22 09:00 12/19/22 08:39 Cholecalciferol 25 Mcg (1000 Iu) Tablet PO 25 mcg DAILY FELICIA Administration Citalopram Hydrobromide 20 mg 12/19/22 09:00 12/19/22 08:39 Citalopram Hydrobromide 20 Mg Tab PO 20 mg DAILY FELICIA Administration Folic Acid 1 mg 12/19/22 09:00 12/19/22 08:39 Folic Acid 1 Mg Tab PO 1 mg DAILY FELICIA Administration Furosemide 40 mg 12/18/22 16:00 12/19/22 15:58 Furosemide 40 Mg Tab PO 40 mg BID@0900,1600 FLEICIA Administration Isosorbide Mononitrate 30 mg 12/19/22 09:00 12/19/22 08:39 Isosorbide Mononitrate Er 30 Mg Tab.Er.24h PO 30 mg DAILY FELICIA Administration Lisinopril 2.5 mg 12/19/22 14:30 12/19/22 15:57 Lisinopril 2.5 Mg Tab PO 2.5 mg DAILY FELICIA Administration Metoprolol Succinate 25 mg 12/19/22 09:00 12/19/22 08:39 Metoprolol Succinate (Er) 25 Mg Tab.Er.24h PO 25 mg DAILY FELICIA Administration Naloxone HCl 0.2 mg 12/18/22 13:34 Naloxone 0.4 Mg/Ml 1 Ml Vial IV Q2M PRN Opioid Reversal Oxybutynin Chloride 10 mg 12/19/22 09:00 12/19/22 08:39 Oxybutynin 10 Mg Tab.Er.24 PO 10 mg DAILY FELICIA Administration Pantoprazole Sodium 40 mg 12/19/22 07:30 12/19/22 06:38 Pantoprazole 40 Mg Tablet PO 40 mg [id number] FELICIA Administration Prednisone 40 mg 12/19/22 09:00 12/19/22 08:39 Prednisone 20 Mg Tab PO 12/24/22 09:01 40 mg DAILY FELICIA Administration Rivaroxaban 2.5 mg 12/18/22 21:00 12/19/22 08:39 Rivaroxaban 2.5 Mg Tablet PO 2.5 mg BID FELICIA Administration Protocol Spironolactone 25 mg 12/19/22 14:30 Spironolactone 25 Mg Tab PO DAILY FELICIA Trazodone HCl 100 mg 12/18/22 21:00 12/18/22 21:14 Trazodone Hcl 100 Mg Tab PO 100 mg HS FELICIA Administration Intake and Output 12/19/22 12/19/22 12/19/22 06:59 14:59 22:59 Intake Total 240 Balance 240 Intake: Oral 240 Other: # Voids 1 1 12/19/22 04:59 12/19/22 04:59
[2022-12-19] MEDS: SPIRONOLACTONE 25 MG TAB PO SCH (17:00)
[2022-12-19] MEDS ORDERED: POTASSIUM CHLORIDE ER 20 MEQ TAB.ER PO STA (17:17)
--- NOTE | 2022-12-19 17:30 | P.PN ---
Subjective Progress Note Date: 12/19/22 History of Presenting Illness: Patient is a very pleasant 82-year-old female with a past medical history of chronic hypoxic respiratory failure home oxygen dependent on 2 L at all times, coronary artery disease, chronic diastolic heart failure with previously known EF of 55-60%, CVA, hypertension, hyperlipidemia, fibromyalgia, lupus, Raynaud's, rheumatoid arthritis, and previous pulmonary emboli. She was recently admitted to the hospital from 11/27/22 through 11/30/22 for acute hypoxic respiratory failure believed to be multifactorial resulting from CHF exacerbation with pulmonary edema along with emphysematous changes and was treated with diuretics and discharged home on continuous oxygen and has appointment to follow-up with railroad carman and change room attendant next week. Patient states that since discharge she has had progressively worsening shortness of breath. Patient reports she desaturates very quickly at home just simply walking to the restroom. Patient reports her oxygen saturations have been decreased as low as 76% with minimal exertion just by taking a few steps. Patient states it is taking her longer and longer to recover and this has resulted in significant fatigue so she returned to the ER because she is concerned about her breathing. She denies having any associated factors including headache, lightheadedness, dizziness, fevers, chills, diaphoresis, palpitations or chest pain, increase or changes in cough or congestion and denies any increased swelling in her lower extremities or weight gain. She reports she has been taking her Lasix as ordered. She underwent full evaluation in the emergency department. Vital signs upon arrival blood pressure 127/67, heart rate 72, respiratory rate 18, and SpO2 of 97% on 3 L O2 via nasal cannula. EKG completed showing normal sinus rhythm at 75 bpm with T-wave inversion in inferior leads III and aVF. Chest x-ray completed in radiology report reviewed showing persistent interstitial prominence bilaterally which is reported to have been improved from prior study likely residual interstitial pneumonitis or interstitial edema. Labs completed and reviewed. CBC unremarkable. Coagulation profile showing no significant abnormalities. D- dimer normal findings is 0.47. BMP was unremarkable. Magnesium was low at 1.1 liver profile normal findings. Troponin negative at less than 0.012 and proBNP 920 which has significantly improved from BNP on previous admission resulting at 3590. Influenza a, influenza B, RSV, and Covid PCR were negative. Patient given Lasix 40 mg IVP 1 dose in the ER. Discussed patient complains, physical exam findings, laboratory analysis, and imaging results in detail with the ED physician. Patient admitted under our services with consultation to pulmonology and cardiology. Patient was monitored overnight. Physical exam: Patient was seen and fully evaluated at bedside this morning. She remains at baseline 2-3 L of oxygen and maintaining SpO2 mid to high 90s at rest. Patient and RN report patient continues to desaturate with ambulation/exertion.patient denies having any shortness of breath at rest at this current time and denies having any headache, lightheadedness, dizziness, chest pain, palpitations, or any other complaints. Vital signs reviewed and stable. General: Nontoxic, no distress and appears stated age. Derm: Skin warm and dry, normal coloration for ethnicity. Head: Atraumatic, normocephalic and symmetric. Eyes: EOMs intact, no lid lag, and anicteric sclera Mouth: no lip lesions, mucus membranes moist Cardiovascular: regular rate and rhythm with normal S1S2 systolic murmur, positive posterior tibial pulses bilaterally, and cap refill < 2 seconds. Lungs: Respirations even, regular, and unlabored on 3 L O2. Lungs with bibasilar crackles otherwise clear with no wheezes or rhonchi. No accessory muscle usage. Abdominal: soft, nontender to palpation, no guarding, no appreciable organomegaly Ext: ROM intact. No gross muscle atrophy, scant bilateral lower extremity edema, no contractures Neuro: Speech clear, face symmetrical and CN II-XII grossly intact with no noted focal neuro deficits Psych: Alert and oriented to person, place, time, and situation. Appropriate and pleasant affect. Assessment and Plan of Care: Exertional shortness of breath Acute on chronic respiratory failure with hypoxia, home oxygen dependent. Likely multi-factorial secondary to physical deconditioning, chronic diastolic heart failure, and concerns of suspected undiagnosed pulmonary fibrosis or emphysema Chronic diastolic heart failure with previously known EF of 55-60% Hypertension Hyperlipidemia Fibromyalgia Lupus Raynaud's disease Rheumatoid arthritis History of pulmonary emboli on anticoagulation with Xarelto Hhistory of CAD with stent. -Pulmonology following and discussed plan of care with change room attendant as well as pulmonary MARINE DIESEL MECHANIC, patient will require PFTs upon discharge. -Oxygenation to be administered and titrated as needed to maintain SPO2 equal to or greater than 92% -Cardiology following and review documentation in chart, he is adding on aldactone in addition to Lasix 40 mg twice a day. -Continue Telemetry monitoring. -Monitor Pulse-oximetry -Continue Duonebs scheduled for times daily and as needed for SOB and/or wheezing. patient to also continue Symbicort 80/4.5 g inhaler 2 puffs twice daily. -Continue oral Lasix 40 mg twice daily along with aspirin 81 mg daily, tila rvastatin 40 mg nightly, isosorbide mononitrate 30 mg daily, lisinopril 2.5 mg daily, metoprolol 25 mg daily, Aldactone 25 mg daily, and Xarelto 2.5 mg BID. -Steroids: Patient given Solu-Medrol 125 mg IVP 1 dose and started on prednisone 40 mg daily x 5 days (day 05/28) CODE STATUS: DO NOT RESUSCITATE/DO NOT INTUBATE DVT prophylaxis: Xarelto Discussed with: Patient, Motor Vehicle Examiner, Pulmonary MARINE DIESEL MECHANIC and RN Anticipated discharge date: 24-[address]: Home Patient was seen independently by Nurse Practitioner. This document was prepared using [employer] dictation software. Please allow for errors in civil design technician while rare they do occur. I reviewed the documentation as provided by the TAHIRA above, who is the original author of this note. I agree with the documented assessment and plan, with the following changes: none Objective - Vital Signs Vital signs: Vital Signs Temp 97.7 F 12/19/22 07:00 Pulse 74 12/19/22 07:28 Resp 16 12/19/22 07:00 BP 122/68 12/19/22 07:00 Pulse Ox 96 12/19/22 07:13 FiO2 Intake & Output 12/18/22 12/19/22 12/19/22 18:59 06:59 18:59 Weight 60.328 kg Other: Voiding Method Toilet # Voids 1 - Labs CBC & Chem 7: 12/19/22 04:59 12/19/22 04:59 Labs: Abnormal Lab Results - Last 24 Hours (Table) 12/18/22 12/18/22 12/18/22 Range/Units 11:37 11:37 11:37 PT 12.6 H (9.0-12.0) sec INR 1.2 H (<1.2) Glucose 115 H (74-99) mg/dL Plasma Lactic Acid Sunil 2.9 H* (0.7-2.0) mmol/L Magnesium 1.1 L (1.6-2.3) mg/dL
[2022-12-19] MEDS: traZODone HCL 100 MG TAB PO SCH (19:59)
[2022-12-19] MEDS: ATORVASTATIN 40 MG TAB PO SCH (19:59)
[2022-12-20] MEDS: PANTOPRAZOLE 40 MG TABLET PO SCH (05:48)
[2022-12-20] MEDS: IPRATROPIUM-ALBUTEROL 3 ML NEB INHALATION SCH ×2 (07:18→11:09)
[2022-12-20] MEDS: SYMBICORT 80-4.5 MCG INHALER INHALATION SCH (07:18)
[2022-12-20 07:54] VITALS: RESP 18
[2022-12-20] MEDS: RIVAROXABAN 2.5 MG TABLET PO SCH (08:48)
[2022-12-20] MEDS: ISOSORBIDE MONONITRATE ER 30 MG TAB.ER.24H PO SCH (08:48)
[2022-12-20] MEDS: FOLIC ACID 1 MG TAB PO SCH (08:49)
[2022-12-20] MEDS: FUROSEMIDE 40 MG TAB PO SCH (08:49)
[2022-12-20] MEDS: CITALOPRAM HYDROBROMIDE 20 MG TAB PO SCH (08:49)
[2022-12-20] MEDS: CHOLECALCIFEROL 25 MCG (1000 IU) TABLET PO SCH (08:49)
[2022-12-20] MEDS: SPIRONOLACTONE 25 MG TAB PO SCH (08:49)
[2022-12-20] MEDS: ASPIRIN 81 MG PO SCH (08:49)
[2022-12-20] MEDS: OXYBUTYNIN 10 MG TAB.ER.24 PO SCH (08:49)
[2022-12-20] MEDS: METOPROLOL SUCCINATE (ER) 25 MG TAB.ER.24H PO SCH (08:49)
[2022-12-20] MEDS: predniSONE 20 MG TAB PO SCH (08:49)
[2022-12-20 09:40] LABS: Magnesium 1.9 mg/dL (1.5-2.4)
[2022-12-20 09:41] LABS: ALT 13 U/L (8-44); AST 22 U/L (13-35); Albumin 3.6 d/dL (3.8-4.9); Albumin/Globulin Ratio 1.57 Ratio (1.60-3.17); Alkaline Phosphatase 64 U/L (41-126); BUN/Creat Ratio 26.11 Ratio (12.00-20.00); Blood Urea Nitrogen 23.5 mg/dL (9.0-27.0); Carbon Dioxide 29.7 mmol/L (21.6-31.8); Chloride 101 mmol/L (96-109); Globulin 2.3 d/dL (1.6-3.3); Glucose 106 mg/dL (70-110); Potassium 4.4 mmol/L (3.5-5.5); Sodium 143 mmol/L (135-145); Total Bilirubin 0.4 mg/dL (0.3-1.2); Total Protein 5.9 d/dL (6.2-8.2)
[2022-12-20 10:04] LABS: HCT 34.2 % (37.2-46.3); HGB 10.8 d/dL (12.0-15.0); MCHC 31.6 d/dL (32.0-37.0); MCV 85.5 FL (80.0-97.0); Mean Platelet Volume 9.7 FL (9.5-12.2); NRBC Per 100 WBC 0 X 10*3/uL (0.00-0.01); Platelet Count 268 X 10*3/uL (140-440); RDW 14.8 % (11.5-14.5); WBC 11.56 X 10*3/uL (4.50-10.00)
--- NOTE | 2022-12-20 10:59 | P.PN ---
Subjective Progress Note Date: 12/20/22 This is a very pleasant 82-year-old female with a past medical history significant for diastolic congestive heart failure, coronary artery disease with prior stenting, CVA, hypertension, hyperlipidemia, pulmonary embolism anticoagulated on Xarelto, and anxiety. Patient does take Trelegy outpatient basis, however, denies any history of COPD or asthma. Denies any smoking or second hand smoking history. She was just discharged from here on 11/30/2022. At that time she was having chest pain and episodes of shortness of breath. Workup revealed no evidence of pulmonary embolism. There is some groundglass opacities concerning for pulmonary edema. Echocardiogram revealed preserved left ventricular systolic function with ejection fraction 55-60%. There was severe RV dilatation. She was treated for diastolic congestive heart failure with improvement. She was due to be seen in our office in the next week or two and would benefit from pulmonary function testing. In the interim she was initiated on Trelegy, albuterol and home oxygen. She came back to the emergency room yesterday with worsening shortness of breath, cough and congestion. Chest x-ray reveals persistent interstitial prominence seen bilaterally. White count 4.0. Hemoglobin 11.2. Platelets 244. Sodium 140. Potassium 3.3. Bicarb 28. BUN 18. Creatinine 0.9. Glucose 165. Troponin negative 1. Pro BNP 920. Influenza screen negative. RSV screen negative. COVID-19 screen negative. Pro-calcitonin pending. She's been initiated and DuoNeb inhalations, Symbicort, oral diuretics. Anticoagulated with Xarelto. She is seen today in the regular medical floor. She is currently sitting up in a chair at the bedside. Awake and alert in no acute distress. Maintaining O2 saturations in the mid 90s on 3 L/m per nasal cannula. Afebrile. Hemodynamically stable. She is breathing a bit easier today compared to yesterday. The patient is seen today 12/20/2022 in follow-up on the regular medical floor. She is resting comfortably in bed. Awake and alert in no acute distress. Maintaining O2 saturations in the 90s on 2 L/m per nasal cannula. He denies any worsening shortness of breath, cough or congestion. No chest pain. White count 11.5. Hemoglobin 10.8. Platelets 260. Sodium 143. Potassium 4.4. Bicarb 30. BUN 23. Creatinine 0.9. Glucose 106. She is continued on DuoNeb inhalations, Symbicort, prednisone taper. Remains on oral diuretics. Anticoagulated with Xarelto. Objective - Vital Signs Vital signs: Vital Signs Temp 97.6 F 12/20/22 07:00 Pulse 68 12/20/22 07:30 Resp 18 12/20/22 07:00 BP 120/71 12/20/22 07:00 Pulse Ox 97 12/20/22 07:19 FiO2 Intake & Output 12/19/22 12/20/22 12/20/22 18:59 06:59 18:59 Intake Total 358 Output Total 2 Balance 358 -2 Weight 60.7 kg Intake: Oral 358 Output: Urine 2 Other: Voiding Method Toilet # Voids 1 1 - Exam GENERAL EXAM: Alert, 82-year-old female, on 3 L nasal cannula, comfortable in no apparent distress. HEAD: Normocephalic. EYES: Normal reaction of pupils, equal size. NOSE: Clear with pink turbinates. THROAT: No erythema or exudates. NECK: No masses, no JVD. CHEST: No chest wall deformity. LUNGS: Equal air entry with few scattered crackles bilaterally. CVS: S1 and S2 normal with no audible murmur, regular rhythm. ABDOMEN: No hepatosplenomegaly, normal bowel sounds, no guarding or rigidity. SPINE: No scoliosis or deformity SKIN: No rashes CENTRAL NERVOUS SYSTEM: No focal deficits, tone is normal in all 4 extremities. EXTREMITIES: There is no peripheral edema. No clubbing, no cyanosis. Peripheral pulses are intact. - Labs CBC & Chem 7: 12/20/22 06:19 12/20/22 06:19 Labs: Abnormal Lab Results - Last 24 Hours (Table) 12/20/22 12/20/22 Range/Units 06:19 06:19 WBC 11.56 H (4.50-10.00) X 10*3/uL RBC 4.00 L (4.10-5.20) X 10*6/uL Hgb 10.8 L (12.0-15.0) d/dL Hct 34.2 L (37.2-46.3) % MCHC 31.6 L (32.0-37.0) d/dL RDW 14.8 H (11.5-14.5) % Anion Gap 12.30 H (4.00-12.00) mmol/L BUN/Creatinine Ratio 26.11 H (12.00-20.00) Ratio Total Protein 5.9 L (6.2-8.2) d/dL Albumin 3.6 L (3.8-4.9) d/dL Albumin/Globulin Ratio 1.57 L (1.60-3.17) Ratio Microbiology - Last 24 Hours (Table) 12/18/22 14:38 Blood Culture - Preliminary Blood Assessment and Plan Assessment: Acute on chronic hypoxemic respiratory failure, secondary to an acute exacerbation of diastolic congestive heart failure. Currently on 3 L/m nasal cannula. Chest x-ray on arrival was consistent with interstitial edema. Pro- calcitonin 0.03 Chronic ongoing dyspnea on home oxygen since recent discharge on 11/30/2022 Recent admission for diastolic heart failure with preserved ejection fraction. Echocardiogram showed a preserved ejection fraction of 55-60% with mild to moderate mitral regurgitation Mitral regurgitation Coronary artery disease with prior PCI and stenting History of CVA Hyperlipidemia Benign essential hypertension History of pulmonary embolism, maintained on Xarelto Anxiety Lifelong non-smoker Plan: The patient was seen and evaluated Labs and medications reviewed Pro-calcitonin negative Cleared for discharge from the pulmonary standpoint Keep her appointment in our office as scheduled next week I have personally seen and examined the patient, performed the documentation and the assessment and plan as written. Number of minutes spent on the visit: 10.
--- NOTE | 2022-12-20 12:23 | P.PN ---
Subjective Progress Note Date: 12/20/22 Subjective: Patient was seen and examined at bedside the same. Patient has shown mild symptomatically improvement. She is status and well with by mouth Lasix. She is tolerating addition of Aldactone and lisinopril. Her creatinine is 0.9 and has been stable with addition of these medications. On examination today BP 100/60. Heart rate 70 beats a minute Regular rate and rhythm, S1 and S2 audible, systolic murmur audible likely mitral regurgitation No JVD, no lower extremity swelling Good air entry bilateral lung stone, Echo from 12/13 shows normal LVEF, moderate mitral regurgitation Assessment Heart failure exacerbation likely related to heart failure with preserved ejection fraction. Recent echo from 12/13 showed normal EF and mod MR Coronary artery disease as described above with prior stenting of the OM Hypertension Dyslipidemia Mitral regurgitation Plan We will optimize guideline directed therapy for diastolic dysfunction. Continue Aldactone 25 mg, lisinopril 2.5 mg. Continue Lasix 40 mg twice a day Discontinue amlodipine. Next step discontinue Imdur and uptitrate lisinopril as her blood pressure tolerates. Second next step will be to add Farxiga Continue monitor the kidney function and electrolytes No need to repeat echo as patient had a recent echo Objective - Vital Signs Vital signs: Vital Signs Temp 97.6 F 12/20/22 07:00 Pulse 70 12/20/22 11:19 Resp 18 12/20/22 07:00 BP 120/71 12/20/22 07:00 Pulse Ox 97 12/20/22 07:19 FiO2 Intake & Output 12/19/22 12/20/22 12/20/22 18:59 06:59 18:59 Intake Total 358 Output Total 2 Balance 358 -2 Weight 60.7 kg Intake: Oral 358 Output: Urine 2 Other: Voiding Method Toilet # Voids 1 1 - Labs CBC & Chem 7: 12/20/22 06:19 12/20/22 06:19 Labs: Abnormal Lab Results - Last 24 Hours (Table) 12/20/22 12/20/22 Range/Units 06:19 06:19 WBC 11.56 H (4.50-10.00) X 10*3/uL RBC 4.00 L (4.10-5.20) X 10*6/uL Hgb 10.8 L (12.0-15.0) d/dL Hct 34.2 L (37.2-46.3) % MCHC 31.6 L (32.0-37.0) d/dL RDW 14.8 H (11.5-14.5) % Anion Gap 12.30 H (4.00-12.00) mmol/L BUN/Creatinine Ratio 26.11 H (12.00-20.00) Ratio Total Protein 5.9 L (6.2-8.2) d/dL Albumin 3.6 L (3.8-4.9) d/dL Albumin/Globulin Ratio 1.57 L (1.60-3.17) Ratio Microbiology - Last 24 Hours (Table) 12/18/22 14:38 Blood Culture - Preliminary Blood
--- NOTE | 2022-12-20 13:58 | P.DS ---
Providers Date of admission: 12/18/22 13:45 Expected date of discharge: 12/20/22 Attending physician: Jarek Edmond MD Consults: 12/18/22 16:25 Consult Physician Routine Consulting Provider: Negra Hudson Consult Reason/Comments: CHF, respratory failure multifactorial d/t CHF and emphysema home O2 depend Do you want consulting provider notified?: Yes 12/18/22 16:26 Consult Physician Routine Consulting Provider: Bereket Nixon Consult Reason/Comments: Resp failure multifactorial d/t CHF, decondiioning & emphysema home O2 dep Do you want consulting provider notified?: Yes Primary care physician: Bj Umaña Hospital Course: Discharge Diagnosis: Acute on chronic respiratory failure with hypoxia, home oxygen dependent. Believed to be multi-factorial secondary to physical deconditioning, chronic diastolic heart failure, and concerns of suspected undiagnosed pulmonary fibrosis or emphysema Chronic diastolic heart failure with previously known EF of 55-60% Hypertension Hyperlipidemia Fibromyalgia Lupus Raynaud's disease Rheumatoid arthritis History of pulmonary emboli on anticoagulation with Xarelto Hhistory of CAD with stent. Hospital Course: Patient is a very pleasant 82-year-old female with a past medical history of chronic hypoxic respiratory failure home oxygen dependent on 2 L at all times, coronary artery disease, chronic diastolic heart failure with previously known EF of 55-60%, CVA, hypertension, hyperlipidemia, fibromyalgia, lupus, Raynaud's, rheumatoid arthritis, and previous pulmonary emboli. She was recently admitted to the hospital from 11/27/22 through 11/30/22 for acute hypoxic respiratory failure believed to be multifactorial resulting from CHF exacerbation with pulmonary edema along with emphysematous changes and was treated with diuretics and discharged home on continuous oxygen and has appointment to follow-up with carrot grader inspector and metal finisher next week. Patient states that since discharge she has had progressively worsening shortness of breath. Patient reports she desaturates very quickly at home just simply walking to the restroom. Patient reports her oxygen saturations have been decreased as low as 76% with minimal ex ertion just by taking a few steps. Patient states it is taking her longer and longer to recover and this has resulted in significant fatigue so she returned to the ER because she is concerned about her breathing. She denies having any associated factors including headache, lightheadedness, dizziness, fevers, chills, diaphoresis, palpitations or chest pain, increase or changes in cough or congestion and denies any increased swelling in her lower extremities or weight gain. She reports she has been taking her Lasix as ordered. She underwent full evaluation in the emergency department. Vital signs upon arrival blood pressure 127/67, heart rate 72, respiratory rate 18, and SpO2 of 97% on 3 L O2 via nasal cannula. EKG completed showing normal sinus rhythm at 75 bpm with T-wave inversion in inferior leads III and aVF. Chest x-ray completed in radiology report reviewed showing persistent interstitial prominence bilaterally which is reported to have been improved from prior study likely residual interstitial pneumonitis or interstitial edema. Labs completed and reviewed. CBC unremarkable. Coagulation profile showing no significant abnormalities. D- dimer normal findings is 0.47. BMP was unremarkable. Magnesium was low at 1.1 liver profile normal findings. Troponin negative at less than 0.012 and proBNP 920 which has significantly improved from BNP on previous admission resulting at 3590. Influenza a, influenza B, RSV, and Covid PCR were negative. Patient given Lasix 40 mg IVP 1 dose in the ER. Discussed patient complains, physical exam findings, laboratory analysis, and imaging results in detail with the ED physician. Patient admitted under our services with consultation to pulmonology and cardiology. She was given a single dose of IV Lasix and IV steroids. Patient then started on 40 mg of prednisone daily and to continue for a duration of 5 days. Patient evaluated by cardiology and pulmonology. Pulmonary recommending patient follow-up outpatient with their office as she will need to undergo pulmonary function testing. Cardiology evaluated and discontinued amlodipine and started patient on lisinopril 2.5 mg daily along with Aldactone 25 mg daily. Patient cleared from cardiology for discharge as well and recommending outpatient follow-up with their office in one week. Patient reports she feels her breathing is better and overall states that she feels ready to go home. Medically, patient is stable at this time, will set up for home care/palliative care. Patient follow-up with PCP, cardiology, and pulmonary. Physical exam: Vital signs reviewed and stable. General: Nontoxic, no distress and appears stated age. Derm: Skin warm and dry, normal coloration for ethnicity. Head: Atraumatic, normocephalic and symmetric. Eyes: EOMs intact, no lid lag, and anicteric sclera Mouth: no lip lesions, mucus membranes moist Cardiovascular: regular rate and rhythm with normal S1S2 systolic murmur, positive posterior tibial pulses bilaterally, and cap refill < 2 seconds. Lungs: Respirations even, regular, and unlabored on 3 L O2. Lungs with bibasilar crackles otherwise clear with no wheezes or rhonchi. No accessory muscle usage. Abdominal: soft, nontender to palpation, no guarding, no appreciable organomegaly Ext: ROM intact. No gross muscle atrophy, scant bilateral lower extremity edema, no contractures Neuro: Speech clear, face symmetrical and CN II-XII grossly intact with no noted focal neuro deficits Psych: Alert and oriented to person, place, time, and situation. Appropriate and pleasant affect. A total of 34 minutes of time were spent preparing this complex discharge summary. Pt was discharged on 12/20/22 at 1:25 PM. Patient was seen independently by Nurse Practitioner. This document was prepared using [employer] dictation software. Please allow for errors in credit cashier while rare they do occur. Anthony Maki NP rendered care for this patient independently, reviewed the findings and plan as documented in the note above. I did not physically speak with or examine the patient on this date. Patient Condition at Discharge: Stable Plan - Discharge Summary Discharge Rx Participant: No New Discharge Prescriptions: New Spironolactone [Aldactone] 25 mg PO DAILY 30 Days #30 tab predniSONE [Deltasone] 40 mg PO DAILY 3 Days #6 tab lisinopriL [Zestril] 2.5 mg PO DAILY 30 Days #30 tab Continue Omeprazole 40 mg PO DAILY Aspirin [Adult Low Dose Aspirin EC] 81 mg PO DAILY Oxybutynin ER [Ditropan XL] 10 mg PO DAILY traZODone HCL 100 mg PO HS Atorvastatin [Lipitor] 40 mg PO HS Folic Acid 1 mg PO DAILY #30 tab Citalopram Hydrobromide [CeleXA] 20 mg PO DAILY Fluticasone/Umeclidin/Vilanter [Trelegy Ellipta 100-62.5-25] 1 puff INHALATION RT-DAILY Furosemide [Lasix] 40 mg PO BID@0900,1600 #60 tab ALPRAZolam [Xanax] 0.25 mg PO DAILY PRN PRN Reason: Anxiety Rivaroxaban [Xarelto] 2.5 mg PO BID Metoprolol Succinate (ER) [Toprol XL] 25 mg PO DAILY Isosorbide Mononitrate ER [Imdur] 30 mg PO DAILY Cholecalciferol [Vitamin D3 (25 Mcg = 1000 Iu)] 25 mcg PO DAILY Albuterol Inhaler [Ventolin Hfa Inhaler] 1 puff INHALATION QID PRN #8 gm PRN Reason: Shortness Of Breath Ipratropium-Albuterol Nebulize [Duoneb 0.5 mg-3 mg/3 ml Soln] 3 ml INHALATION RT-QID PRN #120 each PRN Reason: Shortness Of Breath Or Wheezing Discontinued amLODIPine [Norvasc] 5 mg PO DAILY Discharge Medication List Omeprazole 40 mg PO DAILY 05/22/18 [History] Aspirin [Adult Low Dose Aspirin EC] 81 mg PO DAILY 06/09/19 [History] Oxybutynin ER [Ditropan XL] 10 mg PO DAILY 04/12/21 [History] traZODone HCL 100 mg PO HS 04/12/21 [History] ALPRAZolam [Xanax] 0.25 mg PO DAILY PRN 08/07/21 [History] Atorvastatin [Lipitor] 40 mg PO HS 08/07/21 [History] Rivaroxaban [Xarelto] 2.5 mg PO BID 08/07/21 [History] Folic Acid 1 mg PO DAILY #30 tab 08/13/21 [Rx] Isosorbide Mononitrate ER [Imdur] 30 mg PO DAILY 09/26/21 [History] Metoprolol Succinate (ER) [Toprol XL] 25 mg PO DAILY 09/26/21 [History] Cholecalciferol [Vitamin D3 (25 Mcg = 1000 Iu)] 25 mcg PO DAILY 11/27/22 [History] Citalopram Hydrobromide [CeleXA] 20 mg PO DAILY 11/27/22 [History] Fluticasone/Umeclidin/Vilanter [Trelegy Ellipta 100-62.5-25] 1 puff INHALATION RT-DAILY 11/27/22 [History] Albuterol Inhaler [Ventolin Hfa Inhaler] 1 puff INHALATION QID PRN #8 gm 3 [Rx] Furosemide [Lasix] 40 mg PO BID@0900,1600 #60 tab 11/30/22 [Rx] Ipratropium-Albuterol Nebulize [Duoneb 0.5 mg-3 mg/3 ml Soln] 3 ml INHALATION RT-QID PRN #120 each 11/30/22 [Rx] Spironolactone [Aldactone] 25 mg PO DAILY 30 Days #30 tab 12/20/22 [Rx] lisinopriL [Zestril] 2.5 mg PO DAILY 30 Days #30 tab 12/20/22 [Rx] predniSONE [Deltasone] 40 mg PO DAILY 3 Days #6 tab 12/20/22 [Rx] Follow up Appointment(s)/Referral(s): Jaime Anderson MD [Medical Doctor] - 1 Week [facility], [NON-STAFF] - 1 Week Bj Umaña DO [Primary Care Provider] - 1-2 days Alexandru Toscano MD [STAFF PHYSICIAN] - 1 Week (Follow-up on January 01 as scheduled) Activity/Diet/Wound Care/Special Instructions: Activity: As tolerated. Take breaks as needed. Diet: Heart healthy and carb consistent diet. Avoid salts, or foods with hidden salts such as canned or boxed foods and frozen dinners. Extra salt makes your heart work harder and traps the fluid in your body for longer. Special Instructions: Take all of your medications as directed and remember to keep all of your doctor's appointments and follow-up as needed. Thank you for allowing us to participate in your care, it was truly a pleasure having you for our patient!!! Discharge Disposition: HOME WITH HOME HEALTH SERVICES
[2022-12-20 14:37] VITALS: BP 104/65; PULSE 74; TEMP 98
== END 2022-12-20 15:00 | disposition home health service (06) ==
LOC: EC 11:07 → 6NMEDSUR 13:45
PROVIDERS: ADMIT Student in an Organized Health Care Education/Training Program; ATTEND Student in an Organized Health Care Education/Training Program
DX: J96.01 Acute respiratory failure with hypoxia (principal); Z99.81 Dependence on supplemental oxygen; I11.0 Hypertensive heart disease with heart failure; I50.32 Chronic diastolic (congestive) heart failure; E78.5 Hyperlipidemia, unspecified; M79.7 Fibromyalgia; J43.9 Emphysema, unspecified; Z20.822 Contact with and (suspected) exposure to COVID-19; M32.9 Systemic lupus erythematosus, unspecified; I73.00 Raynaud's syndrome without gangrene; M06.9 Rheumatoid arthritis, unspecified; Z86.711 Personal history of pulmonary embolism; Z95.5 Presence of coronary angioplasty implant and graft; I25.2 Old myocardial infarction; M19.90 Unspecified osteoarthritis, unspecified site; H35.30 Unspecified macular degeneration; I69.391 Dysphagia following cerebral infarction; I69.398 Other sequelae of cerebral infarction; R13.10 Dysphagia, unspecified; Z86.19 Personal history of other infectious and parasitic diseases; Z90.710 Acquired absence of both cervix and uterus; Z98.41 Cataract extraction status, right eye; F32.A Depression, unspecified; Z79.01 Long term (current) use of anticoagulants; Z79.82 Long term (current) use of aspirin; Z79.51 Long term (current) use of inhaled steroids; Z79.899 Other long term (current) drug therapy; Z88.2 Allergy status to sulfonamides
CPT/HCPCS: 96366; 96375; 96365; 99285; 36415; 94640 ×6; 94760 ×3; 93005; 85379; 83880; 80053 ×3; 83605; 83735 ×3; 84484; 85025; 85027 ×2; 85610; 85730; 87040; 84145; 87636; 71046; G0378 ×3; J1940; J2930; J3475; J7512 ×2

== ENCOUNTER 2023-06-23 15:40 | Emergency (ER) | payer MEDICARE ==
--- NOTE | 2023-06-23 16:03 | ED ---
General Adult HPI - General Chief complaint: Syncope Stated complaint: Syncope, Fall-On Thinners/Hit Head Time Seen by Provider: 06/23/23 15:45 Source: patient, family, EMS, RN notes reviewed Mode of arrival: EMS Limitations: no limitations - History of Present Illness Initial comments: Patient is an 82-year-old female presented to ER via EMS with chief complaint of syncope. Patient states she was at the [facility] checkout when she passed out. Patient reports that she did hit her head on the shopping cart. and is on blood thinners. Unknown downtime. Patient also was endorsing right shoulder pain. She does state that she has been having diarrhea the past couple of days. Patient is normally on 3L O2 at home. Patient denies any dizziness, lighthead edness, chest pain, shortness of breath, fevers, chills, night sweats, nausea, vomiting. - Related Data Home Medications Medication Instructions Recorded Confirmed Omeprazole 40 mg PO DAILY 05/22/18 06/23/23 Aspirin [Adult Low Dose Aspirin EC] 81 mg PO DAILY 06/09/19 06/23/23 Oxybutynin ER [Ditropan XL] 10 mg PO DAILY 04/12/21 06/23/23 traZODone HCL 100 mg PO HS 04/12/21 06/23/23 Atorvastatin [Lipitor] 40 mg PO HS 08/07/21 06/23/23 Rivaroxaban [Xarelto] 2.5 mg PO BID 08/07/21 06/23/23 Isosorbide Mononitrate ER [Imdur] 30 mg PO DAILY 09/26/21 06/23/23 Citalopram Hydrobromide [CeleXA] 20 mg PO DAILY 11/27/22 06/23/23 ALPRAZolam [Xanax] 0.25 mg PO AC-BID 06/23/23 06/23/23 Albuterol Inhaler [Ventolin Hfa 1 puff INHALATION RT-QID PRN 06/23/23 06/23/23 Inhaler] Hydrocortisone Cream 1 applic TOPICAL BID 06/23/23 06/23/23 [Hydrocortisone 2.5% Cream] Ketoconazole 2% Cream [Nizoral 2%] 1 applic TOPICAL BID 06/23/23 06/23/23 lisinopriL [Zestril] 20 mg PO DIRECTED 06/23/23 06/23/23 Previous Rx's Medication Instructions Recorded Folic Acid 1 mg PO DAILY #30 tab 08/13/21 Furosemide [Lasix] 40 mg PO BID@0900,1600 #60 tab 11/30/22 Ipratropium-Albuterol Nebulize 3 ml INHALATION RT-QID PRN #120 11/30/22 [Duoneb 0.5 mg-3 mg/3 ml Soln] each Spironolactone [Aldactone] 25 mg PO DAILY 30 Days #30 tab 12/20/22 Allergies Allergy/AdvReac Type Severity Reaction Status Date / Time Sulfa (Sulfonamide Allergy Unknown Verified 06/23/23 20:20 Antibiotics) Childhood Review of Systems ROS Statement: Those systems with pertinent positive or pertinent negative responses have been documented in the HPI. ROS Other: All systems not noted in ROS Statement are negative. Past Medical History Past Medical History: Coronary Artery Disease (CAD), Heart Failure, CVA/TIA, Eye Disorder, Fibromyalgia, Hyperlipidemia, Hypertension, Myocardial Infarction (IA), Osteoarthritis (OA), Pulmonary Embolus (PE), Rheumatoid Arthritis (RA) Additional Past Medical History / Comment(s): macular degeneration, lupus, Raynauds, had stroke in May 2021-still has some dysphagia, SOB w/exertion, left shoulder pain Last Myocardial Infarction Date:: 08/07/2021 History of Any Multi-Drug Resistant Organisms: ESBL Date of last positivie culture/infection: 08/17/2014 MDRO Source:: Urine-E.Coli ESBL Past Surgical History: Bladder Surgery, Heart Catheterization, Heart Catheterization With Stent, Hysterectomy Additional Past Surgical History / Comment(s): RIGHT CATARACT REMOVAL Past Anesthesia/Blood Transfusion Reactions: Postoperative Nausea & Vomiting (PONV) Date of Last Stent Placement:: September 2021 Past Psychological History: Depression Smoking Status: Never smoker Past Alcohol Use History: None Reported Past Drug Use History: None Reported - Past Family History Sister(s) Additional Family Medical History / Comment(s): "HEART PROBLEMS" General Exam Limitations: no limitations General appearance: alert, in no apparent distress Head exam: Present: atraumatic, normocephalic, normal inspection Eye exam: Present: normal appearance, PERRL, EOMI. Absent: scleral icterus, conjunctival injection, periorbital swelling Pupils: Present: normal accommodation ENT exam: Present: normal exam, normal oropharynx, mucous membranes moist Neck exam: Present: normal inspection. Absent: tenderness, meningismus, lymphadenopathy Respiratory exam: Present: normal lung sounds bilaterally. Absent: respiratory distress, wheezes, rales, rhonchi, stridor Cardiovascular Exam: Present: regular rate, normal rhythm, normal heart sounds. Absent: systolic murmur, diastolic murmur, rubs, gallop, clicks GI/Abdominal exam: Present: soft, tenderness (epigastric mild), normal bowel sounds. Absent: distended, guarding, rebound, rigid Neurological exam: Present: alert, oriented X3, CN II-XII intact Psychiatric exam: Present: normal affect, normal mood Skin exam: Present: warm, dry, intact, normal color. Absent: rash Course Vital Signs 06/23/23 06/23/23 06/23/23 15:49 17:43 20:18 Temperature 97.9 F Pulse Rate 62 71 84 Respiratory 18 18 18 Rate Blood Pressure 110/53 116/68 121/66 O2 Sat by Pulse 92 L 97 98 Oximetry Medical Decision Making - Medical Decision Making Was pt. sent in by a medical professional or institution (, PA, COAL SAMPLE TESTER, urgent care, hospital, or shelter...) When possible be specific @ -No Did you speak to anyone other than the patient for history (EMS, parent, family, police, friend...)? What history was obtained from this source @ -No Did you review nursing and triage notes (agree or disagree)? Why? @ -I reviewed and agree with nursing and triage notes Were old charts reviewed (outside hosp., previous admission, EMS record, old EKG, old radiological studies, urgent care reports/EKG's, shelter records)? Report findings @ -No old charts were reviewed Differential Diagnosis (chest pain, altered mental status, abdominal pain women, abdominal pain men, vaginal bleeding, weakness, fever, dyspnea, syncope, headache, dizziness, GI bleed, back pain, seizure, CVA, palpatations, mental h ealth, musculoskeletal)? @ -Differential Syncope: Valvular disease, hypertrophic cardiomyopathy, pulmonary embolism, tamponade, tachycardia, bradycardia, IA, hypovolemia, hemorrhage, dissection, anemia, intracranial hemorrhage, seizure, hypoglycemia, carbon monoxide poisoning, this is not meant to be an all-inclusive list. EKG interpreted by me (3pts min.). @ -As above X-rays interpreted by me (1pt min.). @ -None done CT interpreted by me (1pt min.). @ -None done U/S interpreted by me (1pt. min.). @ -None done What testing was considered but not performed or refused? (CT, X-rays, U/S, la bs)? Why? @ -None What meds were considered but not given or refused? Why? @ -None Did you discuss the management of the patient with other professionals (professionals i.e. DrBen, PA, COAL SAMPLE TESTER, lab, RT, psych nurse, social welfare clerk, optometry teacher, teacher, loan review officer, family preservation caseworker)? Give summary @ -No Was smoking cessation discussed for >3mins.? @ -No Was critical care preformed (if so, how long)? @ -No Were there social determinants of health that impacted care today? How? (Homelessness, low income, unemployed, alcoholism, drug addiction, transportation, low edu. Level, literacy, decrease access to med. care, intermediate, rehab)? @ -No Was there de-escalation of care discussed even if they declined (Discuss DNR or withdrawal of care, Hospice)? DNR status @ -No What co-morbidities impacted this encounter? (DM, HTN, Smoking, COPD, CAD, Cancer, CVA, ARF, Chemo, Hep., AIDS, mental health diagnosis, sleep apnea, morbid obesity)? @ -None Was patient admitted / discharged? Hospital course, mention meds given and route, prescriptions, significant lab abnormalities, going to OR and other pertinent info. @ -Discharge. Patient is an 82-year-old female presented to ER with chief complaint of syncope. Vitals stable. History and physical exam were completed. Patient in no signs of acute distress. No acute neurological findings. Labs obtained in the ER significant for hemoglobin 11.2. BUN 43, creatinine 1.54. Magnesium 1.0. Urinalysis without signs of infection. COVID, RSV, influenza negative. Due to patient hitting her head and being on blood thinners, CT brain/C-spine was performed and was negative for acute process. Right shoulder x-ray interpreted by me showed no acute process. EKG obtained in the ER without signs of acute ischemia or infarct. Patient received IV fluids and Toradol, after CT, for symptom control in the ER. Discussed lab and imaging results with patient. Admission was recommended due to age and unknown syncopal cause. Patient refused admission and stated "I would like to go home". Strict return parameters were discussed. Patient was discharged stable condition with follow- up to PCP. Patient expressed understanding and agreement with care plan. Undiagnosed new problem with uncertain prognosis? @ -No Drug Therapy requiring intensive monitoring for toxicity (Heparin, Nitro, Insulin, Cardizem)? @ -No Were any procedures done? @ -No Diagnosis/symptom? @ -Head injury/syncope Acute, or Chronic, or Acute on Chronic? @ -Acute Uncomplicated (without systemic symptoms) or Complicated (systemic symptoms)? @ -Uncomplicated Side effects of treatment? @ -No Exacerbation, Progression, or Severe Exacerbation? @ -No Poses a threat to life or bodily function? How? (Chest pain, USA, IA, pneumonia, PE, COPD, DKA, ARF, appy, cholecystitis, CVA, Diverticulitis, Homicidal, Suicidal, threat to staff... and all critical care pts) @ -No - Lab Data Result diagrams: 06/23/23 16:24 06/23/23 16:24 Lab Results 06/23/23 06/23/23 06/23/23 Range/Units 16:24 16:24 16:24 WBC 9.1 (3.8-10.6) k/uL RBC 3.73 L (3.80-5.40) m/uL Hgb 11.2 L (11.4-16.0) gm/dL Hct 32.7 L (34.0-46.0) % MCV 87.8 (80.0-100.0) fL MCH 30.1 (25.0-35.0) pg MCHC 34.3 (31.0-37.0) g/dL RDW 13.9 (11.5-15.5) % Plt Count 249 (150-450) k/uL MPV 7.3 PT 12.4 (10.0-12.5) sec INR 1.2 H (<1.2) APTT 23.4 (22.0-30.0) sec Sodium 140 (137-145) mmol/L Potassium 4.4 (3.5-5.1) mmol/L Chloride 110 H (98-107) mmol/L Carbon Dioxide 20 L (22-30) mmol/L Anion Gap 10 mmol/L BUN 43 H (7-17) mg/dL Creatinine 1.54 H (0.52-1.04) mg/dL Est GFR (CKD-EPI)AfAm 36 (>60 ml/min/1.73 sqM) Est GFR (CKD-EPI)NonAf 32 (>60 ml/min/1.73 sqM) Glucose 123 H (74-99) mg/dL Calcium 8.9 (8.4-10.2) mg/dL Phosphorus 4.0 (2.5-4.5) mg/dL Magnesium 1.0 L (1.6-2.3) mg/dL Total Bilirubin 0.6 (0.2-1.3) mg/dL AST 28 (14-36) U/L ALT 18 (4-34) U/L Alkaline Phosphatase 63 (38-126) U/L Troponin I (0.000-0.034) ng/mL Total Protein 6.6 (6.3-8.2) g/dL Albumin 3.9 (3.5-5.0) g/dL Urine Color Urine Appearance (Clear) Urine pH (5.0-8.0) Ur Specific [place] (1.001-1.035) Urine Protein (Negative) Urine Glucose (UA) (Negative) Urine Ketones (Negative) Urine Blood (Negative) Urine Nitrite (Negative) Urine Bilirubin (Negative) Urine Urobilinogen (<2.0) mg/dL Ur Leukocyte Esterase (Negative) Urine WBC (0-5) /hpf Ur Squamous Epith Cells (0-4) /hpf Hyaline Casts (0-2) /lpf Urine Mucus (None) /hpf Influenza Type A (PCR) (Not Detectd) Influenza Type B (PCR) (Not Detectd) RSV (PCR) (Not Detectd) SARS-CoV-2 (PCR) (Not Detectd) 06/23/23 06/23/23 06/23/23 Range/Units 16:24 16:24 18:46 WBC (3.8-10.6) k/uL RBC (3.80-5.40) m/uL Hgb (11.4-16.0) gm/dL Hct (34.0-46.0) % MCV (80.0-100.0) fL MCH (25.0-35.0) pg MCHC (31.0-37.0) g/dL RDW (11.5-15.5) % Plt Count (150-450) k/uL MPV PT (10.0-12.5) sec INR (<1.2) APTT (22.0-30.0) sec Sodium (137-145) mmol/L Potassium (3.5-5.1) mmol/L Chloride (98-107) mmol/L Carbon Dioxide (22-30) mmol/L Anion Gap mmol/L BUN (7-17) mg/dL Creatinine (0.52-1.04) mg/dL Est GFR (CKD-EPI)AfAm (>60 ml/min/1.73 sqM) Est GFR (CKD-EPI)NonAf (>60 ml/min/1.73 sqM) Glucose (74-99) mg/dL Calcium (8.4-10.2) mg/dL Phosphorus (2.5-4.5) mg/dL Magnesium (1.6-2.3) mg/dL Total Bilirubin (0.2-1.3) mg/dL AST (14-36) U/L ALT (4-34) U/L Alkaline Phosphatase (38-126) U/L Troponin I <0.012 (0.000-0.034) ng/mL Total Protein (6.3-8.2) g/dL Albumin (3.5-5.0) g/dL Urine Color Colorless Urine Appearance Clear (Clear) Urine pH 5.0 (5.0-8.0) Ur Specific [place] 1.010 (1.001-1.035) Urine Protein Negative (Negative) Urine Glucose (UA) Negative (Negative) Urine Ketones Negative (Negative) Urine Blood Negative (Negative) Urine Nitrite Negative (Negative) Urine Bilirubin Negative (Negative) Urine Urobilinogen <2.0 (<2.0) mg/dL Ur Leukocyte Esterase Small H (Negative) Urine WBC 5 (0-5) /hpf Ur Squamous Epith Cells 1 (0-4) /hpf Hyaline Casts 23 H (0-2) /lpf Urine Mucus Rare H (None) /hpf Influenza Type A (PCR) Not Detected (Not Detectd) Influenza Type B (PCR) Not Detected (Not Detectd) RSV (PCR) Not Detected (Not Detectd) SARS-CoV-2 (PCR) Not Detected (Not Detectd) - EKG Data -: EKG Interpreted by Me EKG Comments: EKG taken at 17: 02 shows normal sinus rhythm with an occasional PAC. No acute ST segment or T wave abnormalities. Ventricular rate 73, NC interval 170, QRS duration 79, QT/QTc 395/420. - Radiology Data Radiology results: report reviewed, image reviewed Disposition Clinical Impression: Syncope, Head injury Disposition: HOME SELF-CARE Condition: Stable Instructions (If sedation given, give patient instructions): Syncope (DC) Additional Instructions: Please follow-up with PCP in the next 1 to 2 days. Return to ER for any new or worsening symptoms. Is patient prescribed a controlled substance at d/c from ED?: No Referrals: Bj Umaña DO [Primary Care Provider] - 1-2 days Time of Disposition: 19:55
[2023-06-23 16:15] VITALS: RESP 18; TEMP 97.9
--- NOTE | 2023-06-23 16:31 | CT ---
EXAMINATION TYPE: CT brain lon wo con DATE OF EXAM: 06/23/2023 COMPARISON: 08/08/2021 HISTORY: fall CT DLP: 1261.1 mGycm, Automated exposure control for dose reduction was used. CONTRAST: None CT of the brain is performed utilizing 3 mm thick sections through the posterior fossa and 3 mm thick sections through the remaining calvarium. Study is performed within 24 hours of arrival to the hospital. No abnormal hyperdensity is present to suggest an acute intracranial hemorrhage. No mass lesion is evident. No acute infarcts are evident. Minimal periventricular white matter hypodensity may be present adjac ent to the anterior horn right lateral ventricle. Density within the brain otherwise appears normal. Ventricles and sulci are appropriate for the patient age. Paranasal sinuses and mastoid air cells within the [id number] are clear. IMPRESSIONS: 1. Suggestion of minimal periventricular white matter hyperintensity present previously may be chroni c white matter ischemic change. CT cervical spine. COMPARISON: None CT of the cervical spine is performed in the axial plane at 2 mm thick sections. Reconstructed image s in the coronal, and sagittal plane are reviewed on the computer. No acute fractures are evident. There is a mild grade 1 spondylolisthesis of C3 anteriorly on C4. Disc height loss is evident C3-4 C4-5 C5-6 and C6-7. Vertebral body heights are preserved. No spinal canal stenosis is evident. Left foraminal stenosis from uncovertebral hypertrophy and facet hypertrophy is present C3-4. Left fo raminal narrowing is present at C4-5. Bilateral foraminal stenosis present C5-6 IMPRESSION: 1. Degenerative disc changes discussed above 2. No acute osseous abnormality cervical spine
[2023-06-23 16:42] LABS: HCT 32.7 % (34.0-46.0); HGB 11.2 gm/dL (11.4-16.0); MCH 30.1 pg (25.0-35.0); MCHC 34.3 g/dL (31.0-37.0); MCV 87.8 fL (80.0-100.0); Mean Platelet Volume 7.3; Platelet Count 249 k/uL (150-450); RBC 3.73 m/uL (3.80-5.40); RDW 13.9 % (11.5-15.5); WBC 9.1 k/uL (3.8-10.6)
[2023-06-23 16:51] LABS: ALT 18 U/L (4-34); AST 28 U/L (14-36); African American GFR (CKD) 36 (>60 ml/min/1.73 sqM); Albumin 3.9 g/dL (3.5-5.0); Alkaline Phosphatase 63 U/L (38-126); Anion Gap 10 mmol/L; Blood Urea Nitrogen 43 mg/dL (7-17); Calcium 8.9 mg/dL (8.4-10.2); Carbon Dioxide 20 mmol/L (22-30); Chloride 110 mmol/L (98-107); Glucose 123 mg/dL (74-99); Non-African American GFR(CKD) 32 (>60 ml/min/1.73 sqM); Potassium 4.4 mmol/L (3.5-5.1); Sodium 140 mmol/L (137-145); Total Bilirubin 0.6 mg/dL (0.2-1.3); Total Protein 6.6 g/dL (6.3-8.2)
[2023-06-23] MEDS: KETOROLAC 15 MG/ML 1 ML VIAL IVP STA (16:52)
[2023-06-23 16:59] LABS: INR 1.2 (<1.2); Partial Thromboplastin Time 23.4 sec (22.0-30.0); Prothrombin Time 12.4 sec (10.0-12.5)
[2023-06-23] MEDS: SODIUM CHLORIDE 0.9% 1,000 ML IV STA (17:44)
--- NOTE | 2023-06-23 17:54 | XR ---
EXAMINATION TYPE: XR shoulder complete RT DATE OF EXAM: 06/23/2023 5:17 PM CLINICAL INDICATION:Female, 82 years old with history of fall; COMPARISON: None TECHNIQUE: XR shoulder complete RT; examined in AP, internally rotated and scapular Y projections. FINDINGS: No evidence of acute osseous pathology, joint dislocation, or soft tissue swelling. The remaining po rtions of the visualized chest are unremarkable. Mild degeneration changes of the left acromion and distal clavicle. IMPRESSION: No acute osseous pathology.
[2023-06-23 19:52] LABS: Appearance,Urine Clear (Clear); Bilirubin,Urine Negative (Negative); Blood,Urine Negative (Negative); Color,Urine Colorless; Glucose,Urine (UA) Negative (Negative); Hyaline Casts,Urine 23 /lpf (0-2); Ketones,Urine Negative (Negative); Leukocyte Esterase,Urine Small (Negative); Mucus,Urine Rare /hpf; Nitrite,Urine Negative (Negative); Protein,Urine Negative (Negative); Squamous Epithelial Cell,Urine 1 /hpf (0-4); Urobilinogen,Urine <2.0 mg/dL (<2.0); WBC,Urine 5 /hpf (0-5)
[2023-06-23 20:27] VITALS: BP 121/66; PULSE 84
== END 2023-06-23 20:53 | disposition home or self-care (01) ==
LOC: EC 15:40
DX: S09.90XA Unspecified injury of head, initial encounter (principal); I25.10 Atherosclerotic heart disease of native coronary artery without angina pectoris; I11.0 Hypertensive heart disease with heart failure; I50.9 Heart failure, unspecified; I25.2 Old myocardial infarction; E78.5 Hyperlipidemia, unspecified; F32.A Depression, unspecified; Z86.73 Personal history of transient ischemic attack (TIA), and cerebral infarction without residual deficits; Z79.82 Long term (current) use of aspirin; Z79.01 Long term (current) use of anticoagulants; Z79.899 Other long term (current) drug therapy; Z88.2 Allergy status to sulfonamides; Z20.822 Contact with and (suspected) exposure to COVID-19; Z88.1 Allergy status to other antibiotic agents; W22.8XXA Striking against or struck by other objects, initial encounter
CPT/HCPCS: 36415; 93005; 80053; 83735; 84100; 84484; 85027; 85610; 85730; 81001; 87636; 73030; 72125; 70450; 99285; 96374; 96361; J1885

== ENCOUNTER 2023-06-29 10:40 | Emergency (ER) | payer MEDICARE ==
--- NOTE | 2023-06-29 11:15 | ED ---
SOB HPI - General Chief Complaint: Shortness of Breath Stated Complaint: SOB Time Seen by Provider: 06/29/23 11:00 Source: patient, RN notes reviewed Mode of arrival: wheelchair Limitations: no limitations - History of Present Illness Initial Comments: This is an 82-year-old female who presents to the emergency department for coughing and shortness of breath. States that this started about 3 days ago. She wears 3L of oxygen at home. States that she has not had to increase how much oxygen she uses and is still maintaining adequate oxygen saturation at home. The cough is not productive. Denies any fevers or chills. She was unable to lay flat last night, as it made the cough worse. Denies any chest pain. Feels like she may have bronchitis. She does use nebulizer treatments as well, which she used this morning. However, states that she is only using the Duoneb breathing treatments once daily. Currently lives with her granddaughter. MD Complaint: shortness of breath, cough - Related Data Home Medications Medication Instructions Recorded Confirmed Omeprazole 40 mg PO DAILY 05/22/18 06/29/23 Aspirin [Adult Low Dose Aspirin EC] 81 mg PO DAILY 06/09/19 06/29/23 Oxybutynin ER [Ditropan XL] 10 mg PO DAILY 04/12/21 06/29/23 traZODone HCL 100 mg PO HS 04/12/21 06/29/23 Atorvastatin [Lipitor] 40 mg PO HS 08/07/21 06/29/23 Rivaroxaban [Xarelto] 2.5 mg PO BID 08/07/21 06/29/23 Isosorbide Mononitrate ER [Imdur] 30 mg PO DAILY 09/26/21 06/29/23 Citalopram Hydrobromide [CeleXA] 20 mg PO DAILY 11/27/22 06/29/23 ALPRAZolam [Xanax] 0.25 mg PO AC-BID 06/23/23 06/29/23 Albuterol Inhaler [Ventolin Hfa 1 puff INHALATION RT-QID PRN 06/23/23 06/29/23 Inhaler] Hydrocortisone Cream 1 applic TOPICAL BID 06/23/23 06/29/23 [Hydrocortisone 2.5% Cream] Ketoconazole 2% Cream [Nizoral 2%] 1 applic TOPICAL BID 06/23/23 06/29/23 lisinopriL [Zestril] 20 mg PO DAILY 06/23/23 06/29/23 Furosemide [Lasix] 40 mg PO DAILY 06/29/23 06/29/23 Nitrofurantoin Monohyd/M-Cryst 100 mg PO Q12HR 06/29/23 06/29/23 [Macrobid] Previous Rx's Medication Instructions Recorded Folic Acid 1 mg PO DAILY #30 tab 08/13/21 Ipratropium-Albuterol Nebulize 3 ml INHALATION RT-QID PRN #120 11/30/22 [Duoneb 0.5 mg-3 mg/3 ml Soln] each Spironolactone [Aldactone] 25 mg PO DAILY 30 Days #30 tab 12/20/22 Azithromycin [Zithromax] 250 mg PO DIRECTED 5 Days #6 tab 06/29/23 Benzonatate [Tessalon Perle] 200 mg PO TID PRN #30 capsule 06/29/23 Codeine Phosphate/Guaifenesin 5 ml PO Q6H PRN #118 ml 06/29/23 [Virtussin AC 10-100 mg/5 ml Lq] predniSONE 50 mg PO DAILY 5 Days #5 tab 06/29/23 Allergies Allergy/AdvReac Type Severity Reaction Status Date / Time Sulfa (Sulfonamide Allergy Unknown Verified 06/29/23 14:06 Antibiotics) Childhood Review of Systems ROS Statement: Those systems with pertinent positive or pertinent negative responses have been documented in the HPI. ROS Other: All systems not noted in ROS Statement are negative. Past Medical History Past Medical History: Coronary Artery Disease (CAD), Heart Failure, CVA/TIA, Eye Disorder, Fibromyalgia, Hyperlipidemia, Hypertension, Myocardial Infarction ([place]), Osteoarthritis (OA), Pulmonary Embolus (PE), Rheumatoid Arthritis (RA) Additional Past Medical History / Comment(s): macular degeneration, lupus, Raynauds, had stroke in May 2021-still has some dysphagia, SOB w/exertion, left shoulder pain Last Myocardial Infarction Date:: 08/07/2021 History of Any Multi-Drug Resistant Organisms: ESBL Date of last positivie culture/infection: 08/17/2014 MDRO Source:: Urine-E.Coli ESBL Past Surgical History: Bladder Surgery, Heart Catheterization, Heart Catheterization With Stent, Hysterectomy Additional Past Surgical History / Comment(s): RIGHT CATARACT REMOVAL Past Anesthesia/Blood Transfusion Reactions: Postoperative Nausea & Vomiting (PONV) Date of Last Stent Placement:: September 2021 Past Psychological History: Depression Smoking Status: Never smoker Past Alcohol Use History: None Reported Past Drug Use History: None Reported - Past Family History Sister(s) Additional Family Medical History / Comment(s): "HEART PROBLEMS" General Exam Limitations: no limitations General appearance: alert, in no apparent distress Head exam: Present: atraumatic, normocephalic, normal inspection Respiratory exam: Present: decreased breath sounds, prolonged expiratory, other (crackles in all lung bases) Cardiovascular Exam: Present: regular rate, normal rhythm, normal heart sounds. Absent: systolic murmur, diastolic murmur, rubs, gallop, clicks Neurological exam: Present: alert, oriented X3, CN II-XII intact Psychiatric exam: Present: normal affect, normal mood Skin exam: Present: warm, dry, intact, normal color. Absent: rash Course Vital Signs 06/29/23 06/29/23 06/29/23 10:52 11:00 11:41 Temperature 98 F Pulse Rate 89 90 Respiratory 16 26 H Rate Blood Pressure 102/60 O2 Sat by Pulse 99 Oximetry 06/29/23 06/29/23 06/29/23 11:49 12:00 13:09 Temperature Pulse Rate 88 64 92 Respiratory 24 18 Rate Blood Pressure 103/57 110/60 O2 Sat by Pulse 98 Oximetry 06/29/23 06/29/23 06/29/23 14:00 15:00 15:20 Temperature Pulse Rate 90 85 84 Respiratory 17 21 Rate Blood Pressure 110/60 119/64 O2 Sat by Pulse 97 97 Oximetry 06/29/23 06/29/23 15:28 16:00 Temperature 98.1 F Pulse Rate 81 80 Respiratory 20 Rate Blood Pressure 109/59 O2 Sat by Pulse 96 Oximetry Medical Decision Making - Medical Decision Making This is an 82-year-old female who presents to the emergency department for coughing and shortness of breath. Was pt. sent in by a medical professional or institution? @ -No Did you speak to anyone other than the patient for history? @ -No Did you review nursing and triage notes? @ -Yes, and I agree, it is accurate with regards to the patient's symptoms. Were old charts reviewed? @ -No Differential Diagnosis? @ -Differential Dyspnea: Coronary syndrome, arrhythmia, tamponade, asthma, COPD, pulmonary embolism, pneumonia, pneumothorax, pulmonary effusion, anaphylaxis, diabetic ketoacidosis, flailed chest, pulmonary contusion, diaphragmatic rupture, anemia, neuromuscular, this is not meant to be an all-inclusive list. EKG interpreted by me (3pts min.)? @ -EKG interpreted by me demonstrating the following: Sinus rhythm. Ventricular rate 81 beats per minute, MA interval 160 ms, QRS duration 84 ms, QTC 460 ms. X-rays interpreted by me (1pt min.)? @ -Chest x-ray obtained, my interpretation identifies no localized consolidations or infiltrates. CT interpreted by me (1pt min.)? @ -Not obtained U/S interpreted by me (1pt. min.)? @ -Not obtained What testing was considered but not performed? (CT, X-rays, U/S, labs)? Why? @ -None What meds were considered but not given? Why? @ -None Did you discuss the management of the patient with other professionals? @ -No Did you reconcile home meds? @ -No Was smoking cessation discussed for >3mins.? @ -No Was critical care preformed (if so, how long)? @ -No Were there social determinants of health that impacted care today? How? (Homelessness, low income, unemployed, alcoholism, drug addiction, transportation, low edu. Level, literacy, decrease access to med. care, care home, rehab)? @ -No Was there de-escalation of care discussed even if they declined? (Discuss DNR or withdrawal of care, Hospice)? @ -No What co-morbidities impacted this encounter? (DM, HTN, Smoking, COPD, CAD, Cancer, CVA, Hep., AIDS, mental health diagnosis, sleep apnea, morbid obesity)? @ -CAD, CHF, pulmonary fibrosis Was patient admitted / discharged? @ -Discharged. Lab work obtained revealing leukocytosis and no other actionable findings. Troponin and BNP negative. Renal function is improved when compared with prior. Covid, influenza, and RSV testing were negative. Chest x-ray reveals no acute process. Patient is on 3 L of oxygen at baseline and maintained adequate oxygen saturation on 3 L in the emergency department. Patient also reports adequate oxygen saturation at home. She was given a total of 2 DuoNeb breathing treatments in the emergency department with improvement each time. Given her fairly unremarkable workup with stable vital signs, patient was comfortable trying to manage symptoms at home and was also very happy with the idea of going home. Will treat the patient as an acute exacerbation and possible bronchitis. Prescription for azithromycin, prednisone, and antitussives provided with dosing instructions reviewed. She was also educated on using her breathing treatments every 4-6 hours during these flares, as opposed to just once a day. She was however given very strict return parameters and patient expresses understanding and was discharged home in stable condition with her granddaughter. Undiagnosed new problem with uncertain prognosis? @ -None Drug Therapy requiring intensive monitoring for toxicity (Heparin, Nitro, Insulin, Cardizem)? @ -None Were any procedures done? @ -None Diagnosis/symptom? @ -Pulmonary fibrosis Acute, or Chronic, or Acute on Chronic? @ -Chronic Uncomplicated (without systemic symptoms) or Complicated (systemic symptoms)? @ -Uncomplicated Side effects of treatment? @ -None Exacerbation, Progression, or Severe Exacerbation] @ -Exacerbation Poses a threat to life or bodily function? @ -Not at this time, however it is a progressive illness. Return precautions reviewed in depth, the patient is instructed to return to the emergency department with any new, worsening, or concerning symptoms. Patient verbalized understanding. This case was discussed in detail with the attending ED physician, Dr. Reyes. Presentation, findings, and treatment plan discussed in detail as well. - Lab Data Result diagrams: 06/29/23 11:28 06/29/23 11:28 Lab Results 06/29/23 06/29/23 06/29/23 Range/Units 11:28 11:28 11:28 WBC 12.8 H (3.8-10.6) k/uL RBC 4.14 (3.80-5.40) m/uL Hgb 12.0 (11.4-16.0) gm/dL Hct 36.4 (34.0-46.0) % MCV 88.0 (80.0-100.0) fL MCH 29.1 (25.0-35.0) pg MCHC 33.0 (31.0-37.0) g/dL RDW 14.1 (11.5-15.5) % Plt Count 264 (150-450) k/uL MPV 8.0 Neutrophils % 82 % Lymphocytes % 11 % Monocytes % 5 % Eosinophils % 0 % Basophils % 0 % Neutrophils # 10.5 H (1.3-7.7) k/uL Lymphocytes # 1.4 (1.0-4.8) k/uL Monocytes # 0.6 (0-1.0) k/uL Eosinophils # 0.0 (0-0.7) k/uL Basophils # 0.0 (0-0.2) k/uL PT 11.3 (10.0-12.5) sec INR 1.0 (<1.2) APTT 26.1 (22.0-30.0) sec Sodium 140 (137-145) mmol/L Potassium 4.0 (3.5-5.1) mmol/L Chloride 107 (98-107) mmol/L Carbon Dioxide 26 (22-30) mmol/L Anion Gap 7 mmol/L BUN 29 H (7-17) mg/dL Creatinine 1.18 H (0.52-1.04) mg/dL Est GFR (CKD-EPI)AfAm 51 (>60 ml/min/1.73 sqM) Est GFR (CKD-EPI)NonAf 44 (>60 ml/min/1.73 sqM) Glucose 125 H (74-99) mg/dL Plasma Lactic Acid Sunil (0.7-2.0) mmol/L Calcium 8.9 (8.4-10.2) mg/dL Total Bilirubin 0.7 (0.2-1.3) mg/dL AST 21 (14-36) U/L ALT 15 (4-34) U/L Alkaline Phosphatase 69 (38-126) U/L Troponin I (0.000-0.034) ng/mL NT-Pro-B Natriuret Pep 473 pg/mL Total Protein 7.1 (6.3-8.2) g/dL Albumin 4.0 (3.5-5.0) g/dL Influenza Type A (PCR) (Not Detectd) Influenza Type B (PCR) (Not Detectd) RSV (PCR) (Not Detectd) SARS-CoV-2 (PCR) (Not Detectd) 06/29/23 06/29/23 06/29/23 Range/Units 11:28 11:28 11:28 WBC (3.8-10.6) k/uL RBC (3.80-5.40) m/uL Hgb (11.4-16.0) gm/dL Hct (34.0-46.0) % MCV (80.0-100.0) fL MCH (25.0-35.0) pg MCHC (31.0-37.0) g/dL RDW (11.5-15.5) % Plt Count (150-450) k/uL MPV Neutrophils % % Lymphocytes % % Monocytes % % Eosinophils % % Basophils % % Neutrophils # (1.3-7.7) k/uL Lymphocytes # (1.0-4.8) k/uL Monocytes # (0-1.0) k/uL Eosinophils # (0-0.7) k/uL Basophils # (0-0.2) k/uL PT (10.0-12.5) sec INR (<1.2) APTT (22.0-30.0) sec Sodium (137-145) mmol/L Potassium (3.5-5.1) mmol/L Chloride (98-107) mmol/L Carbon Dioxide (22-30) mmol/L Anion Gap mmol/L BUN (7-17) mg/dL Creatinine (0.52-1.04) mg/dL Est GFR (CKD-EPI)AfAm (>60 ml/min/1.73 sqM) Est GFR (CKD-EPI)NonAf (>60 ml/min/1.73 sqM) Glucose (74-99) mg/dL Plasma Lactic Acid Sunil 1.3 (0.7-2.0) mmol/L Calcium (8.4-10.2) mg/dL Total Bilirubin (0.2-1.3) mg/dL AST (14-36) U/L ALT (4-34) U/L Alkaline Phosphatase (38-126) U/L Troponin I <0.012 (0.000-0.034) ng/mL NT-Pro-B Natriuret Pep pg/mL Total Protein (6.3-8.2) g/dL Albumin (3.5-5.0) g/dL Influenza Type A (PCR) Not Detected (Not Detectd) Influenza Type B (PCR) Not Detected (Not Detectd) RSV (PCR) Not Detected (Not Detectd) SARS-CoV-2 (PCR) Not Detected (Not Detectd) - Radiology Data Radiology results: report reviewed, image reviewed Disposition Clinical Impression: Pulmonary fibrosis, Bronchitis Disposition: HOME SELF-CARE Instructions (If sedation given, give patient instructions): Pulmonary Fibrosis (ED), Acute Bronchitis (ED) Additional Instructions: Return to the emergency department with any new, worsening, or concerning symptoms. Take the antibiotic as prescribed for 5 days. Take the prednisone daily for 5 days. The tessalon perles can be taken every 8 hours as needed for coughing. The codeine/guaifenesin cough syrup can be taken every 6-8 hours, however be aware that this one may make you drowsy. Use your DuoNeb breathing treatments every 4-6 hours as needed. Follow up with your primary care provider in 1-2 days. Prescriptions: predniSONE 50 mg PO DAILY 5 Days #5 tab Benzonatate [Tessalon Perle] 200 mg PO TID PRN #30 capsule PRN Reason: Cough Codeine Phosphate/Guaifenesin [Virtussin AC 10-100 mg/5 ml Lq] 5 ml PO Q6H PRN #118 ml PRN Reason: Cough Azithromycin [Zithromax] 250 mg PO DIRECTED 5 Days #6 tab Is patient prescribed a controlled substance at d/c from ED?: Yes When asked, does pt state using other controlled substances?: Yes If prescribed controlled substance>3 days was MAPS reviewed?: Prescribed <3 Days Referrals: Bj Umaña DO [Primary Care Provider] - 1-2 days Time of Disposition: 14:17
[2023-06-29 11:33] LABS: Basophils % (A) 0 %; Eosinophils % (A) 0 %; HCT 36.4 % (34.0-46.0); Lymphocytes # (A) 1.4 k/uL (1.0-4.8); Lymphocytes % (A) 11 %; MCH 29.1 pg (25.0-35.0); Monocytes # (A) 0.6 k/uL (0-1.0); Monocytes % (A) 5 %; Neutrophils # (A) 10.5 k/uL (1.3-7.7); Neutrophils % (A) 82 %; Platelet Count 264 k/uL (150-450); RBC 4.14 m/uL (3.80-5.40); RDW 14.1 % (11.5-15.5); WBC 12.8 k/uL (3.8-10.6)
[2023-06-29] MEDS: IPRATROPIUM-ALBUTEROL 3 ML NEB INHALATION STA ×2 (11:40→15:19)
[2023-06-29 11:51] LABS: Partial Thromboplastin Time 26.1 sec (22.0-30.0); Prothrombin Time 11.3 sec (10.0-12.5)
--- NOTE | 2023-06-29 12:03 | XR ---
EXAMINATION TYPE: XR chest 2V DATE OF EXAM: 06/29/2023 COMPARISON: 12/18/2022 HISTORY: Shortness of breath TECHNIQUE: Frontal and lateral views of the chest are obtained. FINDINGS: Scattered senescent parenchymal changes noted. Hyperinflation compatible with COPD. No evidence for infiltrate. No evidence for atelectasis. Heart size is stable. Mediastinal structures are stable and grossly unremarkable. No evidence for hilar prominence. Degenerative changes dorsal spine. IMPRESSION: 1. No evidence for acute pulmonary disease.
[2023-06-29 12:04] LABS: ALT 15 U/L (4-34); AST 21 U/L (14-36); African American GFR (CKD) 51 (>60 ml/min/1.73 sqM); Alkaline Phosphatase 69 U/L (38-126); Anion Gap 7 mmol/L; Blood Urea Nitrogen 29 mg/dL (7-17); Calcium 8.9 mg/dL (8.4-10.2); Carbon Dioxide 26 mmol/L (22-30); Chloride 107 mmol/L (98-107); Glucose 125 mg/dL (74-99); Non-African American GFR(CKD) 44 (>60 ml/min/1.73 sqM); Sodium 140 mmol/L (137-145); Total Bilirubin 0.7 mg/dL (0.2-1.3); Total Protein 7.1 g/dL (6.3-8.2)
[2023-06-29 12:14] LABS: NT-Pro-B-Type Natriuretic Pept 473 pg/mL
[2023-06-29] MEDS: methylPREDNISolone SOD SUCCI 125 MG/2 ML VIAL IV STA (13:11)
[2023-06-29] MEDS: CEFUROXIME 750 MG in SODIUM CHLORIDE 0.9% 50 ML IVPB STA (13:39)
[2023-06-29 16:55] VITALS: BP 109/59; PULSE 80; RESP 20; TEMP 98.1
== END 2023-06-29 16:47 | disposition home or self-care (01) ==
LOC: EC 10:40
DX: J84.10 Pulmonary fibrosis, unspecified (principal); J40 Bronchitis, not specified as acute or chronic; I25.2 Old myocardial infarction; I25.10 Atherosclerotic heart disease of native coronary artery without angina pectoris; I11.0 Hypertensive heart disease with heart failure; I50.9 Heart failure, unspecified; E78.5 Hyperlipidemia, unspecified; F32.A Depression, unspecified; Z79.899 Other long term (current) drug therapy; Z79.82 Long term (current) use of aspirin; Z88.2 Allergy status to sulfonamides; Z20.822 Contact with and (suspected) exposure to COVID-19; Z86.73 Personal history of transient ischemic attack (TIA), and cerebral infarction without residual deficits; Z79.01 Long term (current) use of anticoagulants
CPT/HCPCS: 99285; 36415; 94640 ×2; 93005; 83880; 80053; 83605; 84484; 85025; 85610; 85730; 87636; 71046; 96374; J2930

== ENCOUNTER 2023-10-29 18:35 | Inpatient (IN) | payer MEDICARE ==
--- NOTE | 2023-10-29 18:56 | ED ---
Recheck HPI - General Source: patient, family, RN notes reviewed Mode of arrival: wheelchair Limitations: no limitations <Aga Garcia - Last Filed: 10/29/23 18:57> <Bereket Cardoso - Last Filed: 10/29/23 20:18> - General Chief Complaint: Recheck/Abnormal Lab/Rx Stated Complaint: Abd labs-sent by PCP Time Seen by Provider: 10/29/23 18:50 - History of Present Illness Initial Comments: Quick Note-this is an 83-year-old female with a history of pulmonary fibrosis who presents to the emergency department with a chief complaint of hypomagnesemia. Patient states that she was informed by her primary care prov ider this morning to report to the emergency department due to a "dangerously low" level of magnesium, level. Currently patient states that she has been feeling weak with some paresthesias to bilateral fingertips. She denies chest pain, chest pressure, dizziness, lightheadedness. (Aga Garcia) - Related Data Home Medications Medication Instructions Recorded Confirmed Omeprazole 40 mg PO DAILY 05/22/18 06/29/23 Aspirin [Adult Low Dose Aspirin EC] 81 mg PO DAILY 06/09/19 06/29/23 Oxybutynin ER [Ditropan XL] 10 mg PO DAILY 04/12/21 06/29/23 traZODone HCL 100 mg PO HS 04/12/21 06/29/23 Atorvastatin [Lipitor] 40 mg PO HS 08/07/21 06/29/23 Rivaroxaban [Xarelto] 2.5 mg PO BID 08/07/21 06/29/23 Isosorbide Mononitrate ER [Imdur] 30 mg PO DAILY 09/26/21 06/29/23 Citalopram Hydrobromide [CeleXA] 20 mg PO DAILY 11/27/22 06/29/23 ALPRAZolam [Xanax] 0.25 mg PO AC-BID 06/23/23 06/29/23 Albuterol Inhaler [Ventolin Hfa 1 puff INHALATION RT-QID PRN 06/23/23 06/29/23 Inhaler] Hydrocortisone Cream 1 applic TOPICAL BID 06/23/23 06/29/23 [Hydrocortisone 2.5% Cream] Ketoconazole 2% Cream [Nizoral 2%] 1 applic TOPICAL BID 06/23/23 06/29/23 lisinopriL [Zestril] 20 mg PO DAILY 06/23/23 06/29/23 Furosemide [Lasix] 40 mg PO DAILY 06/29/23 06/29/23 Nitrofurantoin Monohyd/M-Cryst 100 mg PO Q12HR 06/29/23 06/29/23 [Macrobid] Previous Rx's Medication Instructions Recorded Folic Acid 1 mg PO DAILY #30 tab 08/13/21 Ipratropium-Albuterol Nebulize 3 ml INHALATION RT-QID PRN #120 11/30/22 [Duoneb 0.5 mg-3 mg/3 ml Soln] each Spironolactone [Aldactone] 25 mg PO DAILY 30 Days #30 tab 12/20/22 Azithromycin [Zithromax] 250 mg PO DIRECTED 5 Days #6 tab 06/29/23 Benzonatate [Tessalon Perle] 200 mg PO TID PRN #30 capsule 06/29/23 Codeine Phosphate/Guaifenesin 5 ml PO Q6H PRN #118 ml 06/29/23 [Virtussin AC 10-100 mg/5 ml Lq] predniSONE 50 mg PO DAILY 5 Days #5 tab 06/29/23 Allergies Allergy/AdvReac Type Severity Reaction Status Date / Time Sulfa (Sulfonamide Allergy Unknown Verified 10/29/23 18:54 Antibiotics) Childhood Review of Systems ROS Other: All systems not noted in ROS Statement are negative. <Aga Garcia - Last Filed: 10/29/23 18:57> ROS Other: All systems not noted in ROS Statement are negative. <Bereket Cardoso - Last Filed: 10/29/23 20:18> ROS Statement: Those systems with pertinent positive or pertinent negative responses have been documented in the HPI. Past Medical History Past Medical History: Coronary Artery Disease (CAD), Heart Failure, CVA/TIA, Eye Disorder, Fibromyalgia, Hyperlipidemia, Hypertension, Myocardial Infarction (CO), Osteoarthritis (OA), Pulmonary Embolus (PE), Rheumatoid Arthritis (RA) Additional Past Medical History / Comment(s): macular degeneration, lupus, Raynauds, had stroke in May 2021-still has some dysphagia, SOB w/exertion, left shoulder pain Last Myocardial Infarction Date:: 08/07/2021 History of Any Multi-Drug Resistant Organisms: ESBL Date of last positivie culture/infection: 08/17/2014 MDRO Source:: Urine-E.Coli ESBL Past Surgical History: Bladder Surgery, Heart Catheterization, Heart Catheterization With Stent, Hysterectomy Additional Past Surgical History / Comment(s): RIGHT CATARACT REMOVAL Past Anesthesia/Blood Transfusion Reactions: Postoperative Nausea & Vomiting ( PONV) Date of Last Stent Placement:: September 2021 Past Psychological History: Depression Smoking Status: Never smoker Past Alcohol Use History: None Reported Past Drug Use History: None Reported - Past Family History Sister(s) Additional Family Medical History / Comment(s): "HEART PROBLEMS" <Aga Garcia - Last Filed: 10/29/23 18:57> General Exam Limitations: no limitations <Aga Garcia - Last Filed: 10/29/23 18:57> General appearance: alert, in no apparent distress Head exam: Present: atraumatic, normocephalic Eye exam: Present: normal appearance, PERRL ENT exam: Present: normal exam Neck exam: Present: normal inspection Respiratory exam: Present: decreased breath sounds. Absent: respiratory distress Cardiovascular Exam: Present: regular rate, normal rhythm GI/Abdominal exam: Present: soft. Absent: distended, tenderness Extremities exam: Present: normal inspection, normal capillary refill. Absent: pedal edema, calf tenderness Neurological exam: Present: alert, oriented X3, CN II-XII intact. Absent: motor sensory deficit Skin exam: Present: warm, dry, intact. Absent: cyanosis, diaphoretic <Bereket Cardoso - Last Filed: 10/29/23 20:18> - General Exam Comments Initial Comments: Visual Physical Exam Vital signs reviewed General: Well-appearing, nontoxic, no acute distress. Head: Normocephalic, atraumatic Eyes: PERRLA, EOMI ENT: Airway patent Chest: Nonlabored breathing Skin: No visual rash, normal skin tone Neuro: Alert and oriented 3 Musculoskeletal: No gross abnormalities (LatriciaeleAga valenzuela) Course Vital Signs 10/29/23 10/29/23 18:52 19:31 Temperature 98.8 F Pulse Rate 86 77 Respiratory 24 17 Rate Blood Pressure 124/57 125/69 O2 Sat by Pulse 100 99 Oximetry Medical Decision Making <Aga Garcia - Last Filed: 10/29/23 18:57> - Lab Data Result diagrams: 10/29/23 19:31 10/29/23 19:31 <Bereket Cardoso Jose - Last Filed: 10/29/23 20:18> - Medical Decision Making I completed the quick note portion of this chart signed Aga Garcia PA-C (Aga Garcia) Was pt. sent in by a medical professional or institution ([facility], EVENT MANAGER, urgent care, hospital, or halfway...) When possible be specific @ -No Did you speak to anyone other than the patient for history (EMS, parent, family, police, friend...)? What history was obtained from this source @ -No Did you review nursing and triage notes (agree or disagree)? Why? @ -I reviewed and agree with nursing and triage notes Were old charts reviewed (outside hosp., previous admission, EMS record, old EKG, old radiological studies, urgent care reports/EKG's, halfway records)? Report findings @ -No old charts were reviewed Differential Weakness: Hypoglycemia, shock, sepsis, hypomagnesemia hyponatremia, anemia, infection, CO, ETOH, adverse medicine reaction, overdose, stroke, this is not meant to be an all-inclusive list. EKG interpreted by me (3pts min.). @ -As above X-rays interpreted by me (1pt min.). @ -Sinus rhythm rate of 82, WV interval 166, QRS duration 74, QTc [address] segment elevation CT interpreted by me (1pt min.). @ -None done U/S interpreted by me (1pt. min.). @ -None done What testing was considered but not performed or refused? (CT, X-rays, U/S, labs)? Why? @ -None What meds were considered but not given or refused? Why? @ -None Did you discuss the management of the patient with other professionals (professionals i.e. [facility], EVENT MANAGER, lab, RT, psych nurse, social media marketer, complex human resources manager, teacher, parole hearing officer, case worker)? Give summary @ -EMH Was smoking cessation discussed for >3mins.? @ -No Was critical care preformed (if so, how long)? @ -No Were there social determinants of health that impacted care today? How? (Homelessness, low income, unemployed, alcoholism, drug addiction, transportation, low edu. Level, literacy, decrease access to med. care, prison, rehab)? @ -No Was there de-escalation of care discussed even if they declined (Discuss DNR or withdrawal of care, Hospice)? DNR status @ -No What co-morbidities impacted this encounter? (DM, HTN, Smoking, COPD, CAD, Cancer, CVA, ARF, Chemo, Hep., AIDS, mental health diagnosis, sleep apnea, morbid obesity)? @ -Congestive heart failure on Lasix. Was patient admitted / discharged? Hospital course, mention meds given and route, prescriptions, significant lab abnormalities, going to OR and other pertinent info. @ -Patient's magnesium does come back at 0.5 this is critically low. 4 g of magnesium has been ordered as well as oral supplementation. Patient will be monitored on telemetry with repeat magnesium ordered. Undiagnosed new problem with uncertain prognosis? @ -No Drug Therapy requiring intensive monitoring for toxicity (Heparin, Nitro, Insulin, Cardizem)? @ -No Were any procedures done? @ -No Diagnosis/symptom? @weakness secondary to hypomagnesemia Acute, or Chronic, or Acute on Chronic? @ -acute Uncomplicated (without systemic symptoms) or Complicated (systemic symptoms)? @ -Default Side effects of treatment? @ -No Exacerbation, Progression, or Severe Exacerbation? @ -No Poses a threat to life or bodily function? How? (Chest pain, USA, CO, pneumonia, PE, COPD, DKA, ARF, appy, cholecystitis, CVA, Diverticulitis, Homicidal, Suicidal, threat to staff... and all critical care pts) @ -yes, electrolyte abnormality, arrhythmia (Bereket Cardoso) - Lab Data Lab Results 10/29/23 10/29/23 Range/Units 19:31 19:31 WBC 7.9 (3.8-10.6) k/uL RBC 3.99 (3.80-5.40) m/uL Hgb 11.4 (11.4-16.0) gm/dL Hct 35.7 (34.0-46.0) % MCV 89.5 (80.0-100.0) fL MCH 28.6 (25.0-35.0) pg MCHC 31.9 (31.0-37.0) g/dL RDW 13.5 (11.5-15.5) % Plt Count 243 (150-450) k/uL MPV 7.8 Neutrophils % 56 % Lymphocytes % 30 % Monocytes % 7 % Eosinophils % 4 % Basophils % 1 % Neutrophils # 4.5 (1.3-7.7) k/uL Lymphocytes # 2.4 (1.0-4.8) k/uL Monocytes # 0.5 (0-1.0) k/uL Eosinophils # 0.3 (0-0.7) k/uL Basophils # 0.1 (0-0.2) k/uL Sodium 140 (137-145) mmol/L Potassium 4.9 (3.5-5.1) mmol/L Chloride 109 H (98-107) mmol/L Carbon Dioxide 20 L (22-30) mmol/L Anion Gap 11 mmol/L BUN 78 H (7-17) mg/dL Creatinine 2.04 H (0.52-1.04) mg/dL Est GFR (CKD-EPI)AfAm 26 (>60 ml/min/1.73 sqM) Est GFR (CKD-EPI)NonAf 22 (>60 ml/min/1.73 sqM) Glucose 99 (74-99) mg/dL Calcium 8.3 L (8.4-10.2) mg/dL Phosphorus 5.1 H (2.5-4.5) mg/dL Magnesium 0.5 L* (1.6-2.3) mg/dL Total Bilirubin 0.6 (0.2-1.3) mg/dL AST 24 (14-36) U/L ALT 14 (4-34) U/L Alkaline Phosphatase 67 (38-126) U/L Total Protein 6.7 (6.3-8.2) g/dL Albumin 4.4 (3.5-5.0) g/dL Disposition <Aga Garcia - Last Filed: 10/29/23 18:57> Is patient prescribed a controlled substance at d/c from ED?: No Time of Disposition: 20:18 <Bereket Cardoso - Last Filed: 10/29/23 20:18> Clinical Impression: Hypomagnesemia Disposition: ADMITTED IP TO THIS HOSP Condition: Stable Referrals: Gianni,Rosalio, MD [Primary Care Provider] - 1-2 days
[2023-10-29 19:37] LABS: Basophils # (A) 0.1 k/uL (0-0.2); Basophils % (A) 1 %; Eosinophils # (A) 0.3 k/uL (0-0.7); Eosinophils % (A) 4 %; HCT 35.7 % (34.0-46.0); HGB 11.4 gm/dL (11.4-16.0); Lymphocytes # (A) 2.4 k/uL (1.0-4.8); Lymphocytes % (A) 30 %; MCH 28.6 pg (25.0-35.0); MCHC 31.9 g/dL (31.0-37.0); MCV 89.5 fL (80.0-100.0); Mean Platelet Volume 7.8; Monocytes # (A) 0.5 k/uL (0-1.0); Monocytes % (A) 7 %; Neutrophils # (A) 4.5 k/uL (1.3-7.7); Neutrophils % (A) 56 %; Platelet Count 243 k/uL (150-450); RBC 3.99 m/uL (3.80-5.40); RDW 13.5 % (11.5-15.5); WBC 7.9 k/uL (3.8-10.6)
[2023-10-29 19:59] LABS: ALT 14 U/L (4-34); AST 24 U/L (14-36); African American GFR (CKD) 26 (>60 ml/min/1.73 sqM); Albumin 4.4 g/dL (3.5-5.0); Alkaline Phosphatase 67 U/L (38-126); Anion Gap 11 mmol/L; Blood Urea Nitrogen 78 mg/dL (7-17); Calcium 8.3 mg/dL (8.4-10.2); Carbon Dioxide 20 mmol/L (22-30); Chloride 109 mmol/L (98-107); Glucose 99 mg/dL (74-99); Non-African American GFR(CKD) 22 (>60 ml/min/1.73 sqM); Phosphorus 5.1 mg/dL (2.5-4.5); Potassium 4.9 mmol/L (3.5-5.1); Sodium 140 mmol/L (137-145); Total Bilirubin 0.6 mg/dL (0.2-1.3); Total Protein 6.7 g/dL (6.3-8.2)
[2023-10-29 20:10] LABS: Magnesium 0.5 mg/dL (1.6-2.3)
[2023-10-29] MEDS ORDERED: Magnesium Replacement Protocol 1 EACH MISC MISCELLANE PRN (20:11)
[2023-10-29] MEDS ORDERED: NALOXONE 0.4 MG/ML 1 ML VIAL IV PRN (20:12)
[2023-10-29] MEDS: MAGNESIUM SULFATE-D5W PMX 1 GM in DEXTROSE/WATER 1 100ML.BAG IVPB SCH (20:37)
[2023-10-29] MEDS ORDERED: ALBUTEROL NEBULIZED 2.5 MG/3 ML INHALATION PRN (23:29)
[2023-10-29] MEDS ORDERED: IPRATROPIUM-ALBUTEROL 3 ML NEB INHALATION PRN (23:29)
[2023-10-30] MEDS: ACETAMINOPHEN TAB 325 MG TAB PO PRN (01:24)
[2023-10-30] MEDS: PANTOPRAZOLE 40 MG TABLET PO SCH (06:31)
[2023-10-30] MEDS: ALPRAZolam 0.25 MG TAB PO SCH (06:31)
--- NOTE | 2023-10-30 09:12 | P.HPIM ---
History of Present Illness H&P Date: 10/29/23 Chief Complaint: Weakness/hypomagnesemia 83-year-old female with a history of hypertension, hyperlipidemia, PE, CAD/CHF, history of stent placement,, CVA/TIA, rheumatoid arthritis, pulmonary fibrosis who presents to the emergency department with a chief complaint of hypomagn esemia. Patient states that she was informed by her primary care provider this morning to report to the emergency department due to a "dangerously low" level of magnesium, level. Currently patient states that she has been feeling weak with some paresthesias to bilateral fingertips. She denies chest pain, chest pressure, dizziness, lightheadedness. Blood work completed in ED reveals a WBC of 7.9, hemoglobin of 11.4 and platelet count of 243, sodium 140, potassium 4.9, BUNs/creatinine of 78/2.04, phosphorus of 5.1, magnesium of 0.5 Review of Systems REVIEW OF SYSTEMS: CONSTITUTIONAL: No fever, no malaise, no fatigue. HEENT: No recent visual problems or hearing problems. Denied any sore throat. CARDIOVASCULAR: No chest pain, orthopnea, PND, no palpitations, no syncope. PULMONARY: No shortness of breath, no cough, no hemoptysis. GASTROINTESTINAL: No diarrhea, no nausea, no vomiting, no abdominal pain. NEUROLOGICAL: No headaches, no weakness, no numbness. HEMATOLOGICAL: Denies any bleeding or petechiae. GENITOURINARY: Denies any burning micturition, frequency, or urgency. MUSCULOSKELETAL/RHEUMATOLOGICAL: Denies any joint pain, swelling, or any muscle pain. ENDOCRINE: Denies any polyuria or polydipsia. The rest of the 14-point review of systems is negative. Past Medical History Past Medical History: Coronary Artery Disease (CAD), Heart Failure, CVA/TIA, Eye Disorder, Fibromyalgia, Hyperlipidemia, Hypertension, Myocardial Infarction ([place]), Osteoarthritis (OA), Pulmonary Embolus (PE), Rheumatoid Arthritis (RA) Additional Past Medical History / Comment(s): macular degeneration, lupus, Raynauds, had stroke in May 2021-still has some dysphagia, SOB w/exertion, left shoulder pain Last Myocardial Infarction Date:: 08/07/2021 History of Any Multi-Drug Resistant Organisms: ESBL Date of last positivie culture/infection: 08/17/2014 MDRO Source:: Urine-E.Coli ESBL Past Surgical History: Bladder Surgery, Heart Catheterization, Heart Catheterization With Stent, Hysterectomy Additional Past Surgical History / Comment(s): RIGHT CATARACT REMOVAL Past Anesthesia/Blood Transfusion Reactions: Postoperative Nausea & Vomiting (PONV) Date of Last Stent Placement:: September 2021 Past Psychological History: Depression Smoking Status: Never smoker Past Alcohol Use History: None Reported Past Drug Use History: None Reported - Past Family History Sister(s) Additional Family Medical History / Comment(s): "HEART PROBLEMS" Medications and Allergies Home Medications Medication Instructions Recorded Confirmed Type Omeprazole 40 mg PO DAILY 05/22/18 06/29/23 History Aspirin [Adult Low Dose Aspirin EC] 81 mg PO DAILY 06/09/19 06/29/23 History Oxybutynin ER [Ditropan XL] 10 mg PO DAILY 04/12/21 06/29/23 History traZODone HCL 100 mg PO HS 04/12/21 06/29/23 History Atorvastatin [Lipitor] 40 mg PO HS 08/07/21 06/29/23 History Rivaroxaban [Xarelto] 2.5 mg PO BID 08/07/21 06/29/23 History Folic Acid 1 mg PO DAILY #30 tab 08/13/21 06/29/23 Rx Isosorbide Mononitrate ER [Imdur] 30 mg PO DAILY 09/26/21 06/29/23 History Citalopram Hydrobromide [CeleXA] 20 mg PO DAILY 11/27/22 06/29/23 History Ipratropium-Albuterol Nebulize 3 ml INHALATION RT-QID PRN #120 11/30/22 06/29/23 Rx [Duoneb 0.5 mg-3 mg/3 ml Soln] each Spironolactone [Aldactone] 25 mg PO DAILY 30 Days #30 tab 12/20/22 06/29/23 Rx ALPRAZolam [Xanax] 0.25 mg PO AC-BID 06/23/23 06/29/23 History Albuterol Inhaler [Ventolin Hfa 1 puff INHALATION RT-QID PRN 06/23/23 06/29/23 History Inhaler] Hydrocortisone Cream 1 applic TOPICAL BID 06/23/23 06/29/23 History [Hydrocortisone 2.5% Cream] Ketoconazole 2% Cream [Nizoral 2%] 1 applic TOPICAL BID 06/23/23 06/29/23 History lisinopriL [Zestril] 20 mg PO DAILY 06/23/23 06/29/23 History Azithromycin [Zithromax] 250 mg PO DIRECTED 5 Days #6 tab 06/29/23 Rx Benzonatate [Tessalon Perle] 200 mg PO TID PRN #30 capsule 06/29/23 Rx Codeine Phosphate/Guaifenesin 5 ml PO Q6H PRN #118 ml 06/29/23 Rx [Virtussin AC 10-100 mg/5 ml Lq] Furosemide [Lasix] 40 mg PO DAILY 06/29/23 06/29/23 History Nitrofurantoin Monohyd/M-Cryst 100 mg PO Q12HR 06/29/23 06/29/23 History [Macrobid] predniSONE 50 mg PO DAILY 5 Days #5 tab 06/29/23 Rx Allergies Allergy/AdvReac Type Severity Reaction Status Date / Time Sulfa (Sulfonamide Allergy Unknown Verified 10/29/23 18:54 Antibiotics) Childhood Physical Exam Vitals: Vital Signs Temp Pulse Resp BP Pulse Ox 10/29/23 19:31 77 17 125/69 99 10/29/23 18:52 98.8 F 86 24 124/57 100 Intake and Output 10/29/23 10/29/23 10/29/23 06:59 14:59 22:59 Other: Weight 62.596 kg General appearance: alert, in no apparent distress Head exam: Present: atraumatic, normocephalic Eye exam: Present: normal appearance, PERRL ENT exam: Present: normal exam Neck exam: Present: normal inspection Respiratory exam: Present: decreased breath sounds. Absent: respiratory distress Cardiovascular Exam: Present: regular rate, normal rhythm GI/Abdominal exam: Present: soft. Absent: distended, tenderness Extremities exam: Present: normal inspection, normal capillary refill. Absent: pedal edema, calf tenderness Neurological exam: Present: alert, oriented X3, CN II-XII intact. Absent: motor sensory deficit Skin exam: Present: warm, dry, intact. Absent: cyanosis, diaphoretic Results CBC & Chem 7: 10/29/23 19:31 10/29/23 19:31 Labs: Abnormal Lab Results - Last 24 Hours (Table) 10/29/23 Range/Units 19:31 Chloride 109 H (98-107) mmol/L Carbon Dioxide 20 L (22-30) mmol/L BUN 78 H (7-17) mg/dL Creatinine 2.04 H (0.52-1.04) mg/dL Calcium 8.3 L (8.4-10.2) mg/dL Phosphorus 5.1 H (2.5-4.5) mg/dL Magnesium 0.5 L* (1.6-2.3) mg/dL Assessment and Plan Assessment: 1. Weakness/critical hypomagnesemia -- Magnesium level is down to 0.5 upon arrival to ED -- Patient has been supplemented with magnesium sulfate; will continue to monitor magnesium levels closely and continue to supplement as needed 2. Acute renal injury; creatinine of 1.1 on last visit to ER; creatinine is up to 2.04 upon arrival to ED -We will start patient on IV fluid hydration with normal saline; monitor strict JOE's, daily weights, renal function electrolytes; avoid nephrotoxins and hyp otension -- We will consult nephrology 3. Hypertension; lisinopril 20 mg daily, Aldactone 25 mg daily and Lasix 40 mg daily, which will be placed on hold given elevated creatinine 4. Hyperlipidemia; Lipitor 40 mg p.o. nightly 5. Coronary artery disease/CHF; patient is status post stent placement; remains on aspirin, statins, Imdur. Lasix 40 mg daily along with Aldactone 25 mg daily which will be placed on hold 6. History of PE; patient is on Xarelto 2.5 mg twice daily 7. Chronic respiratory failure/pulmonary fibrosis; patient uses O2 at 2 L per nasal cannula, prednisone 50 mg daily, DuoNeb nebulizer treatments 4 times daily and as needed 8. Anxiety/depression; Celexa 20 mg daily; Desyrel 100 mg p.o. nightly DVT prophylaxis; SCDs/Xarelto CODE STATUS; full code
[2023-10-30 10:03] LABS: Basophils # (A) 0.05 X 10*3/uL (0.00-0.10); Basophils % (A) 0.9 %; Eosinophils # (A) 0.31 X 10*3/uL (0.04-0.35); Eosinophils % (A) 5.3 %; HCT 35.4 % (37.2-46.3); HGB 11.5 g/dL (12.0-15.0); Lymphocytes # (A) 1.94 X 10*3/uL (0.90-5.00); Lymphocytes % (A) 33.2 %; MCH 29.1 pg (27.0-32.0); MCHC 32.5 g/dL (32.0-37.0); MCV 89.6 FL (80.0-97.0); Mean Platelet Volume 9.4 FL (9.5-12.2); Monocytes # (A) 0.51 X 10*3/uL (0.20-1.00); Monocytes % (A) 8.7 %; NRBC Per 100 WBC 0 X 10*3/uL (0.00-0.01); Neutrophils # (A) 3.02 X 10*3/uL (1.80-7.70); Neutrophils % (A) 51.6 %; Platelet Count 238 X 10*3/uL (140-440); RBC 3.95 X 10*6/uL (4.10-5.20); RDW 13.2 % (11.5-14.5); WBC 5.85 X 10*3/uL (4.50-10.00)
[2023-10-30] MEDS: CITALOPRAM HYDROBROMIDE 20 MG TAB PO SCH (10:09)
[2023-10-30] MEDS: OXYBUTYNIN 10 MG TAB.ER.24 PO SCH (10:10)
[2023-10-30] MEDS: ASPIRIN 81 MG PO SCH (10:10)
[2023-10-30] MEDS: ISOSORBIDE MONONITRATE ER 30 MG TAB.ER.24H PO SCH (10:10)
[2023-10-30] MEDS: FOLIC ACID 1 MG TAB PO SCH (10:10)
[2023-10-30] MEDS: RIVAROXABAN 2.5 MG TABLET PO SCH (10:10)
[2023-10-30] MEDS: predniSONE 50 MG TAB PO SCH (10:13)
[2023-10-30] MEDS: SPIRONOLACTONE 25 MG TAB PO SCH (10:18)
[2023-10-30] MEDS: lisinopriL 20 MG TAB PO SCH (10:18)
[2023-10-30] MEDS: FUROSEMIDE 40 MG TAB PO SCH (10:18)
--- NOTE | 2023-10-30 12:12 | P.NPCON ---
History of Present Illness - Reason for Consult acute renal failure - History of Present Illness Reason for consultation: Acute kidney injury History of present illness: Patient is 83-year-old female seen in renal consultation for acute kidney injury. Patient's creatinine on admission October 29, 2023 was 2.07. Creatinine was 1.18 dated June 29, 2023. Patient denies any history of kidney disease and does not follow with a office supervisor outpatient. Patient states she was called by her primary care physician to go to the hospital due to low magnesium level. Magnesium level on admission was 0.5 and she did receive 4 g of IV magnesium sulfate yesterday. Patient states has been having diarrhea for the last 3 weeks. Patient states she has been eating eating much at all the last few days and has only been trying to drink water. She was on lisinopril, spironolactone as well as Lasix outpatient which are all currently held. She denies history of diabetes. Denies use of nonsteroidals. Denies family history of renal disease. She does have history of coronary disease with a cardiac stent. Denies fever or chills. No chest pain. She is currently on nasal cannula and has history of pulmonary fibrosis. Vital signs are stable. General: No acute distress. HEENT: Head exam is unremarkable. On nasal cannula. LUNGS: No audible rhonchi or wheezes. HEART: Rate and Rhythm are regular. ABDOMEN: Nontender. EXTREMITITES: No edema. Past Medical History Past Medical History: Coronary Artery Disease (CAD), Heart Failure, CVA/TIA, Eye Disorder, Fibromyalgia, Hyperlipidemia, Hypertension, Myocardial Infarction ([place]), Osteoarthritis (OA), Pulmonary Embolus (PE), Rheumatoid Arthritis (RA) Additional Past Medical History / Comment(s): macular degeneration, lupus, Raynauds, had stroke in May 2021-still has some dysphagia, SOB w/exertion, left shoulder pain Last Myocardial Infarction Date:: 08/07/2021 History of Any Multi-Drug Resistant Organisms: ESBL Date of last positivie culture/infection: 08/17/2014 MDRO Source:: Urine-E.Coli ESBL Past Surgical History: Bladder Surgery, Heart Catheterization, Heart Catheterization With Stent, Hysterectomy Additional Past Surgical History / Comment(s): RIGHT CATARACT REMOVAL Past Anesthesia/Blood Transfusion Reactions: Postoperative Nausea & Vomiting (PONV) Date of Last Stent Placement:: September 2021 Past Psychological History: Depression Smoking Status: Never smoker Past Alcohol Use History: None Reported Past Drug Use History: None Reported - Past Family History Sister(s) Additional Family Medical History / Comment(s): "HEART PROBLEMS" Medications and Allergies Home Medications Medication Instructions Recorded Confirmed Type Omeprazole 40 mg PO DAILY 05/22/18 06/29/23 History Aspirin [Adult Low Dose Aspirin EC] 81 mg PO DAILY 06/09/19 06/29/23 History Oxybutynin ER [Ditropan XL] 10 mg PO DAILY 04/12/21 06/29/23 History traZODone HCL 100 mg PO HS 04/12/21 06/29/23 History Atorvastatin [Lipitor] 40 mg PO HS 08/07/21 06/29/23 History Rivaroxaban [Xarelto] 2.5 mg PO BID 08/07/21 06/29/23 History Folic Acid 1 mg PO DAILY #30 tab 08/13/21 06/29/23 Rx Isosorbide Mononitrate ER [Imdur] 30 mg PO DAILY 09/26/21 06/29/23 History Citalopram Hydrobromide [CeleXA] 20 mg PO DAILY 11/27/22 06/29/23 History Ipratropium-Albuterol Nebulize 3 ml INHALATION RT-QID PRN #120 11/30/22 06/29/23 Rx [Duoneb 0.5 mg-3 mg/3 ml Soln] each Spironolactone [Aldactone] 25 mg PO DAILY 30 Days #30 tab 12/20/22 06/29/23 Rx ALPRAZolam [Xanax] 0.25 mg PO AC-BID 06/23/23 06/29/23 History Albuterol Inhaler [Ventolin Hfa 1 puff INHALATION RT-QID PRN 06/23/23 06/29/23 History Inhaler] Hydrocortisone Cream 1 applic TOPICAL BID 06/23/23 06/29/23 History [Hydrocortisone 2.5% Cream] Ketoconazole 2% Cream [Nizoral 2%] 1 applic TOPICAL BID 06/23/23 06/29/23 History lisinopriL [Zestril] 20 mg PO DAILY 06/23/23 06/29/23 History Azithromycin [Zithromax] 250 mg PO DIRECTED 5 Days #6 tab 06/29/23 Rx Benzonatate [Tessalon Perle] 200 mg PO TID PRN #30 capsule 06/29/23 Rx Codeine Phosphate/Guaifenesin 5 ml PO Q6H PRN #118 ml 06/29/23 Rx [Virtussin AC 10-100 mg/5 ml Lq] Furosemide [Lasix] 40 mg PO DAILY 06/29/23 06/29/23 History Nitrofurantoin Monohyd/M-Cryst 100 mg PO Q12HR 06/29/23 06/29/23 History [Macrobid] predniSONE 50 mg PO DAILY 5 Days #5 tab 06/29/23 Rx Allergies Allergy/AdvReac Type Severity Reaction Status Date / Time Sulfa (Sulfonamide Allergy Unknown Verified 10/29/23 18:54 Antibiotics) Childhood Physical Exam Vitals: Vital Signs Temp Pulse Pulse Resp BP BP Pulse Ox 10/30/23 09:44 99 10/30/23 08:00 66 17 10/30/23 07:26 97.6 F 66 17 91/53 98 10/30/23 01:16 97.6 F 70 18 130/75 98 10/30/23 00:24 75 17 113/64 97 10/29/23 22:00 70 17 113/64 100 10/29/23 19:31 77 17 125/69 99 10/29/23 18:52 98.8 F 86 24 124/57 100 Intake and Output 10/29/23 10/30/23 10/30/23 22:59 06:59 14:59 Other: # Voids 1 Weight 62.596 kg 62.596 kg Results - Lab Results Most recent lab results Calcium 8.3 mg/dL (8.4-10.2) L 10/29/23 19:31 Phosphorus 5.1 mg/dL (2.5-4.5) H 10/29/23 19:31 Magnesium 0.5 mg/dL (1.6-2.3) L* 10/29/23 19:31 10/30/23 06:41 10/29/23 19:31 Assessment and Plan Plan: Assessment: 1. Acute kidney injury secondary to vasomotor nephropathy secondary to hyp ovolemia from poor intake and further worsen with the use of lisinopril, Lasix and Aldactone. Creatinine 2.06 on admission. Creatinine in June 2023 was 1.18. 2. Severe hypomagnesemia from diarrhea and diuretic use. Replaced. 3. Chronic diastolic CHF and mild to moderate mitral regurgitation. 4. Metabolic acidosis secondary to acute kidney injury and GI losses. 5. History of pulmonary fibrosis. 6. Coronary disease status postcardiac stenting. Plan: Start normal saline at 75 cc an hour. Continue to hold antihypertensives and diuretics. Check UA. Check renal ultrasound. Follow-up morning labs. Replace electrolytes as needed. Discussed with RN. Thank you for the consultation. I will continue to follow the patient with you during her hospital stay.
[2023-10-30 13:21] LABS: BUN/Creat Ratio 34.83 Ratio (12.00-20.00); Blood Urea Nitrogen 62.7 mg/dL (9.0-27.0); Carbon Dioxide 19.8 mmol/L (21.6-31.8); Chloride 106 mmol/L (96-109); Glucose 98 mg/dL (70-110); Magnesium 2.2 mg/dL (1.5-2.4); Potassium 4.9 mmol/L (3.5-5.5); Sodium 142 mmol/L (135-145)
--- NOTE | 2023-10-30 13:23 | US ---
EXAMINATION TYPE: US kidneys/renal and bladder DATE OF EXAM: 10/30/2023 COMPARISON: CT: 04/12/21 CLINICAL INDICATION: Female, 83 years old with history of yaneli; yaneli EXAM MEASUREMENTS: Slightly limited due to bowel gas Right Kidney: 9.1 x 4.1 x 4.3 cm Left Kidney: 9.8 x 4.0 x 3.8 cm Right Kidney: Dilated renal pelvis Left Kidney: No hydronephrosis or masses seen Bladder: wnl Bilateral Jets seen: Unable to obtain due to bowel gas artifact There is no evidence for hydronephrosis at this point in time. No nephrolithiasis is seen. No jolanta s are identified. The urinary bladder is anechoic. Bilateral ureteral jets are seen. IMPRESSION: Dilated right renal collecting system which was seen dating back to 11/27/2022. Scattered patient's baseline pelviectasis. No left obstructive uropathy. No renal calculi.
[2023-10-30 15:15] LABS: Appearance,Urine Cloudy (Clear); Bacteria,Urine Many /hpf; Bilirubin,Urine Negative (Negative); Blood,Urine Negative (Negative); Color,Urine Colorless; Glucose,Urine (UA) Negative (Negative); Hyaline Casts,Urine 4 /lpf (0-2); Ketones,Urine Negative (Negative); Leukocyte Esterase,Urine Large (Negative); Mucus,Urine Rare /hpf; Nitrite,Urine Negative (Negative); Protein,Urine Negative (Negative); RBC,Urine 1 /hpf (0-5); Specific Gravity,Urine 1.015 (1.001-1.035); Squamous Epithelial Cell,Urine <1 /hpf (0-4); Urobilinogen,Urine <2.0 mg/dL (<2.0); WBC,Urine 71 /hpf (0-5)
[2023-10-30] MEDS: ATORVASTATIN 40 MG TAB PO SCH (22:21)
[2023-10-30] MEDS: traZODone HCL 100 MG TAB PO SCH (22:21)
[2023-10-31 09:33] LABS: Basophils # (A) 0.05 X 10*3/uL (0.00-0.10); Basophils % (A) 0.7 %; Eosinophils # (A) 0.32 X 10*3/uL (0.04-0.35); Eosinophils % (A) 4.8 %; HCT 33.2 % (37.2-46.3); HGB 10.5 g/dL (12.0-15.0); Lymphocytes # (A) 2.46 X 10*3/uL (0.90-5.00); Lymphocytes % (A) 36.9 %; MCH 28.8 pg (27.0-32.0); MCHC 31.6 g/dL (32.0-37.0); Monocytes # (A) 0.58 X 10*3/uL (0.20-1.00); Monocytes % (A) 8.7 %; NRBC Per 100 WBC 0 X 10*3/uL (0.00-0.01); Neutrophils # (A) 3.25 X 10*3/uL (1.80-7.70); Neutrophils % (A) 48.8 %; Platelet Count 238 X 10*3/uL (140-440); RBC 3.65 X 10*6/uL (4.10-5.20); RDW 13.3 % (11.5-14.5); WBC 6.67 X 10*3/uL (4.50-10.00)
[2023-10-31 09:58] LABS: BUN/Creat Ratio 33.06 Ratio (12.00-20.00); Blood Urea Nitrogen 56.2 mg/dL (9.0-27.0); Calcium 9.1 mg/dL (8.7-10.3); Carbon Dioxide 21.8 mmol/L (21.6-31.8); Chloride 109 mmol/L (96-109); Glucose 93 mg/dL (70-110); Magnesium 2.1 mg/dL (1.5-2.4); Potassium 4.5 mmol/L (3.5-5.5); Sodium 143 mmol/L (135-145)
--- NOTE | 2023-10-31 11:31 | P.PN ---
Subjective Patient is seen in follow-up for acute kidney injury. Renal function better. Oral intake better. Magnesium level improved. No further vomiting or diarrhea. Vital signs are stable. General: No acute distress. HEENT: Head exam is unremarkable. LUNGS: No audible rhonchi or wheezes. HEART: Rate and Rhythm are regular. ABDOMEN: Nontender. EXTREMITITES: No edema. Objective - Vital Signs Vital signs: Vital Signs Temp 97.8 F 10/31/23 07:47 Pulse 55 L 10/31/23 07:50 Resp 16 10/31/23 07:50 BP 99/62 10/31/23 07:47 Pulse Ox 100 10/31/23 09:57 FiO2 Intake & Output 10/30/23 10/31/23 10/31/23 18:59 06:59 18:59 Other: # Voids 1 1 - Labs CBC & Chem 7: 10/31/23 03:35 10/31/23 03:35 Labs: Abnormal Lab Results - Last 24 Hours (Table) 10/30/23 10/30/23 10/31/23 Range/Units 06:41 15:07 03:35 RBC 3.65 L (4.10-5.20) X 10*6/uL Hgb 10.5 L (12.0-15.0) g/dL Hct 33.2 L (37.2-46.3) % MCHC 31.6 L (32.0-37.0) g/dL Carbon Dioxide 19.8 L (21.6-31.8) mmol/L Anion Gap 16.20 H (4.00-12.00) mmol/L BUN 62.7 H (9.0-27.0) mg/dL Creatinine 1.8 H (0.6-1.5) mg/dL Est GFR (CKD-EPI) 28 L (>=60) BUN/Creatinine Ratio 34.83 H (12.00-20.00) Ratio Urine Appearance Cloudy H (Clear) Ur Leukocyte Esterase Large H (Negative) Urine WBC 71 H (0-5) /hpf Urine WBC Clumps Few H (None) /hpf Urine Bacteria Many H (None) /hpf Hyaline Casts 4 H (0-2) /lpf Urine Mucus Rare H (None) /hpf 10/31/23 Range/Units 03:35 RBC (4.10-5.20) X 10*6/uL Hgb (12.0-15.0) g/dL Hct (37.2-46.3) % MCHC (32.0-37.0) g/dL Carbon Dioxide (21.6-31.8) mmol/L Anion Gap 12.20 H (4.00-12.00) mmol/L BUN 56.2 H (9.0-27.0) mg/dL Creatinine 1.7 H (0.6-1.5) mg/dL Est GFR (CKD-EPI) 30 L (>=60) BUN/Creatinine Ratio 33.06 H (12.00-20.00) Ratio Urine Appearance (Clear) Ur Leukocyte Esterase (Negative) Urine WBC (0-5) /hpf Urine WBC Clumps (None) /hpf Urine Bacteria (None) /hpf Hyaline Casts (0-2) /lpf Urine Mucus (None) /hpf Assessment and Plan Plan: Assessment: 1. Acute kidney injury secondary to vasomotor nephropathy secondary to hypovole benja from poor intake and further worsen with the use of lisinopril, Lasix and Aldactone. Creatinine 2.06 on admission - 1.7 today. Creatinine in June 2023 was 1.18. No proteinuria on UA. Dilated right renal collecting system noted on ultrasound. 2. Severe hypomagnesemia from diarrhea and diuretic use. Replaced. Improved. 3. Chronic diastolic CHF and mild to moderate mitral regurgitation. 4. Metabolic acidosis secondary to acute kidney injury and GI losses. Better. 5. History of pulmonary fibrosis. 6. Coronary disease status postcardiac stenting. 7. Dilated right renal pelvis. Consider urology eval. Plan: Add gentle IV hydration. Continue to hold antihypertensives and diuretics. Repeat labs in the morning.
[2023-10-31] MEDS: SODIUM CHLORIDE 0.9% 1,000 ML IV SCH (13:19)
[2023-10-31] MEDS: ARIPiprazole 5 MG TAB PO SCH (13:19)
--- NOTE | 2023-10-31 15:51 | P.PN ---
Subjective Progress Note Date: 10/30/23 83-year-old female with a history of hypertension, hyperlipidemia, PE, CAD/CHF, history of stent placement,, CVA/TIA, rheumatoid arthritis, pulmonary fibrosis who presents to the emergency department with a chief complaint of hypomagnesemia. Patient states that she was informed by her primary care provid er this morning to report to the emergency department due to a "dangerously low" level of magnesium, level. Currently patient states that she has been feeling weak with some paresthesias to bilateral fingertips. She denies chest pain, chest pressure, dizziness, lightheadedness. Blood work completed in ED reveals a WBC of 7.9, hemoglobin of 11.4 and platelet count of 243, sodium 140, potassium 4.9, BUNs/creatinine of 78/2.04, phosphorus of 5.1, magnesium of 0.5 Objective - Vital Signs Vital signs: Vital Signs Temp 97.6 F 10/30/23 07:26 Pulse 66 10/30/23 07:26 Resp 17 10/30/23 07:26 BP 91/53 10/30/23 07:26 Pulse Ox 98 10/30/23 07:26 FiO2 Intake & Output 10/29/23 10/30/23 10/30/23 18:59 06:59 18:59 Weight 62.596 kg 62.596 kg Other: # Voids 1 - Exam General appearance: alert, in no apparent distress Head exam: Present: atraumatic, normocephalic Eye exam: Present: normal appearance, PERRL ENT exam: Present: normal exam Neck exam: Present: normal inspection Respiratory exam: Present: decreased breath sounds. Absent: respiratory dist ress Cardiovascular Exam: Present: regular rate, normal rhythm GI/Abdominal exam: Present: soft. Absent: distended, tenderness Extremities exam: Present: normal inspection, normal capillary refill. Absent: pedal edema, calf tenderness Neurological exam: Present: alert, oriented X3, CN II-XII intact. Absent: motor sensory deficit Skin exam: Present: warm, dry, intact. Absent: cyanosis, diaphoretic - Labs CBC & Chem 7: 10/31/23 03:35 10/31/23 03:35 Labs: Abnormal Lab Results - Last 24 Hours (Table) 10/29/23 Range/Units 19:31 Chloride 109 H (98-107) mmol/L Carbon Dioxide 20 L (22-30) mmol/L BUN 78 H (7-17) mg/dL Creatinine 2.04 H (0.52-1.04) mg/dL Calcium 8.3 L (8.4-10.2) mg/dL Phosphorus 5.1 H (2.5-4.5) mg/dL Magnesium 0.5 L* (1.6-2.3) mg/dL Assessment and Plan Assessment: 1. Weakness/critical hypomagnesemia -- Magnesium level is down to 0.5 upon arrival to ED -- Patient has been supplemented with magnesium sulfate; will continue to monitor magnesium levels closely and continue to supplement as needed 2. Acute renal injury; creatinine of 1.1 on last visit to ER; creatinine is up to 2.04 upon arrival to ED -We will start patient on IV fluid hydration with normal saline; monitor strict JOE's, daily weights, renal function electrolytes; avoid nephrotoxins and hypotension -- We will consult nephrology 3. Hypertension; lisinopril 20 mg daily, Aldactone 25 mg daily and Lasix 40 mg daily, which will be placed on hold given elevated creatinine 4. Hyperlipidemia; Lipitor 40 mg p.o. nightly 5. Coronary artery disease/CHF; patient is status post stent placement; remains on aspirin, statins, Imdur. Lasix 40 mg daily along with Aldactone 25 mg daily which will be placed on hold 6. History of PE; patient is on Xarelto 2.5 mg twice daily 7. Chronic respiratory failure/pulmonary fibrosis; patient uses O2 at 2 L per nasal cannula, prednisone 50 mg daily, DuoNeb nebulizer treatments 4 times daily and as needed 8. Anxiety/depression; Celexa 20 mg daily; Desyrel 100 mg p.o. nightly DVT prophylaxis; SCDs/Xarelto CODE STATUS; full code
--- NOTE | 2023-10-31 15:54 | P.PN ---
Subjective Progress Note Date: 10/31/23 83-year-old female with a history of hypertension, hyperlipidemia, PE, CAD/CHF, history of stent placement,, CVA/TIA, rheumatoid arthritis, pulmonary fibrosis who presents to the emergency department with a chief complaint of hypomagnesemia. Patient states that she was informed by her primary care provid er this morning to report to the emergency department due to a "dangerously low" level of magnesium, level. Currently patient states that she has been feeling weak with some paresthesias to bilateral fingertips. She denies chest pain, chest pressure, dizziness, lightheadedness. Blood work completed in ED reveals a WBC of 7.9, hemoglobin of 11.4 and platelet count of 243, sodium 140, potassium 4.9, BUNs/creatinine of 78/2.04, phosphorus of 5.1, magnesium of 0.5 10/31/2023 Patient is seen and evaluated in room at bedside; reports feeling somewhat better this morning Vital signs are reviewed and remained stable Lab review shows WBC of 6.6, hemoglobin of 10.5 and platelet count of 238, sodium 143, potassium 4.5, BUNs/creatinine of 56.2/1.7, magnesium up from 0.5 upon admission to 2.1 this morning --UA is positive; patient has not been placed on IV Rocephin -- Patient has been placed on IV fluids per nephrology recommendation -- Patient reports continued weakness and is requesting possible placement to subacute rehab Objective - Vital Signs Vital signs: Vital Signs Temp 97.8 F 10/31/23 07:47 Pulse 55 L 10/31/23 07:50 Resp 16 10/31/23 07:50 BP 99/62 10/31/23 07:47 Pulse Ox 100 10/31/23 09:57 FiO2 Intake & Output 10/30/23 10/31/23 10/31/23 18:59 06:59 18:59 Other: # Voids 1 1 - Exam General appearance: alert, in no apparent distress Head exam: Present: atraumatic, normocephalic Eye exam: Present: normal appearance, PERRL ENT exam: Present: normal exam Neck exam: Present: normal inspection Respiratory exam: Present: decreased breath sounds. Absent: respiratory distress Cardiovascular Exam: Present: regular rate, normal rhythm GI/Abdominal exam: Present: soft. Absent: distended, tenderness Extremities exam: Present: normal inspection, normal capillary refill. Absent: pedal edema, calf tenderness Neurological exam: Present: alert, oriented X3, CN II-XII intact. Absent: motor sensory deficit Skin exam: Present: warm, dry, intact. Absent: cyanosis, diaphoretic - Labs CBC & Chem 7: 10/31/23 03:35 10/31/23 03:35 Labs: Abnormal Lab Results - Last 24 Hours (Table) 10/30/23 10/30/23 10/31/23 Range/Units 06:41 15:07 03:35 RBC 3.65 L (4.10-5.20) X 10*6/uL Hgb 10.5 L (12.0-15.0) g/dL Hct 33.2 L (37.2-46.3) % MCHC 31.6 L (32.0-37.0) g/dL Carbon Dioxide 19.8 L (21.6-31.8) mmol/L Anion Gap 16.20 H (4.00-12.00) mmol/L BUN 62.7 H (9.0-27.0) mg/dL Creatinine 1.8 H (0.6-1.5) mg/dL Est GFR (CKD-EPI) 28 L (>=60) BUN/Creatinine Ratio 34.83 H (12.00-20.00) Ratio Urine Appearance Cloudy H (Clear) Ur Leukocyte Esterase Large H (Negative) Urine WBC 71 H (0-5) /hpf Urine WBC Clumps Few H (None) /hpf Urine Bacteria Many H (None) /hpf Hyaline Casts 4 H (0-2) /lpf Urine Mucus Rare H (None) /hpf 10/31/23 Range/Units 03:35 RBC (4.10-5.20) X 10*6/uL Hgb (12.0-15.0) g/dL Hct (37.2-46.3) % MCHC (32.0-37.0) g/dL Carbon Dioxide (21.6-31.8) mmol/L Anion Gap 12.20 H (4.00-12.00) mmol/L BUN 56.2 H (9.0-27.0) mg/dL Creatinine 1.7 H (0.6-1.5) mg/dL Est GFR (CKD-EPI) 30 L (>=60) BUN/Creatinine Ratio 33.06 H (12.00-20.00) Ratio Urine Appearance (Clear) Ur Leukocyte Esterase (Negative) Urine WBC (0-5) /hpf Urine WBC Clumps (None) /hpf Urine Bacteria (None) /hpf Hyaline Casts (0-2) /lpf Urine Mucus (None) /hpf Assessment and Plan Assessment: 1. Weakness/critical hypomagnesemia -- Magnesium level is down to 0.5 upon arrival to ED -- Patient has been supplemented with magnesium sulfate; will continue to monitor magnesium levels closely and continue to supplement as needed 2. Acute renal injury; creatinine of 1.1 on last visit to ER; creatinine is up to 2.04 upon arrival to ED -We will start patient on IV fluid hydration with normal saline; monitor strict JOE's, daily weights, renal function electrolytes; avoid nephrotoxins and hypotension -- We will consult nephrology 3. Hypertension; lisinopril 20 mg daily, Aldactone 25 mg daily and Lasix 40 mg daily, which will be placed on hold given elevated creatinine 4. Hyperlipidemia; Lipitor 40 mg p.o. nightly 5. Coronary artery disease/CHF; patient is status post stent placement; remains on aspirin, statins, Imdur. Lasix 40 mg daily along with Aldactone 25 mg daily which will be placed on hold 6. History of PE; patient is on Xarelto 2.5 mg twice daily 7. Chronic respiratory failure/pulmonary fibrosis; patient uses O2 at 2 L per nasal cannula, prednisone 50 mg daily, DuoNeb nebulizer treatments 4 times daily and as needed 8. Anxiety/depression; Celexa 20 mg daily; Desyrel 100 mg p.o. nightly DVT prophylaxis; SCDs/Xarelto CODE STATUS; full code
[2023-11-01 09:17] LABS: Blood Urea Nitrogen 48.1 mg/dL (9.0-27.0); Calcium 9.2 mg/dL (8.7-10.3); Carbon Dioxide 19.9 mmol/L (21.6-31.8); Chloride 108 mmol/L (96-109); Glucose 119 mg/dL (70-110); Magnesium 1.9 mg/dL (1.5-2.4); Potassium 4.8 mmol/L (3.5-5.5); Sodium 139 mmol/L (135-145)
[2023-11-01 09:21] VITALS: BP 115/69; PULSE 60; RESP 18; TEMP 97.7
[2023-11-01 09:45] LABS: Basophils # (A) 0.01 X 10*3/uL (0.00-0.10); Basophils % (A) 0.1 %; Eosinophils # (A) 0 X 10*3/uL (0.04-0.35); Eosinophils % (A) 0 %; HGB 10.2 g/dL (12.0-15.0); Lymphocytes # (A) 1.53 X 10*3/uL (0.90-5.00); Lymphocytes % (A) 22.3 %; MCHC 31.9 g/dL (32.0-37.0); MCV 90.9 FL (80.0-97.0); Mean Platelet Volume 9.9 FL (9.5-12.2); Monocytes # (A) 0.54 X 10*3/uL (0.20-1.00); Monocytes % (A) 7.9 %; NRBC Per 100 WBC 0 X 10*3/uL (0.00-0.01); Neutrophils # (A) 4.76 X 10*3/uL (1.80-7.70); Neutrophils % (A) 69.4 %; Platelet Count 234 X 10*3/uL (140-440); RBC 3.52 X 10*6/uL (4.10-5.20); RDW 13.1 % (11.5-14.5); WBC 6.86 X 10*3/uL (4.50-10.00)
[2023-11-01] MEDS: MAGNESIUM SULFATE-D5W PMX 1 GM in DEXTROSE/WATER 1 100ML.BAG IVPB ONE (12:54)
--- NOTE | 2023-11-01 15:19 | P.PN ---
Subjective patient is seen for follow-up for acute kidney injury. Tolerating oral intake. Serum creatinine has decreased to 1.3. Magnesium at 1.9 today. Maintained on IV fluids. Objective - Vital Signs Vital signs: Vital Signs Temp 97.7 F 11/01/23 08:14 Pulse 60 11/01/23 08:14 Resp 18 11/01/23 08:14 BP 115/69 11/01/23 08:14 Pulse Ox 100 11/01/23 08:14 FiO2 Intake & Output 10/31/23 11/01/23 11/01/23 18:59 06:59 18:59 Other: Voiding Method Toilet # Voids 1 2 - Exam patient is awake, comfortable, no acute distress. Examination of the heart S1 and S2 Examination of the lungs bilateral breath sounds are heard Abdomen is soft nontender Examination lower extremity shows no significant edema [employer] exam grossly intact - Labs CBC & Chem 7: 11/01/23 04:01 11/01/23 04:01 Labs: Abnormal Lab Results - Last 24 Hours (Table) 11/01/23 11/01/23 Range/Units 04:01 04:01 RBC 3.52 L (4.10-5.20) X 10*6/uL Hgb 10.2 L (12.0-15.0) g/dL Hct 32.0 L (37.2-46.3) % MCHC 31.9 L (32.0-37.0) g/dL Eosinophils # 0 L (0.04-0.35) X 10*3/uL Carbon Dioxide 19.9 L (21.6-31.8) mmol/L BUN 48.1 H (9.0-27.0) mg/dL Est GFR (CKD-EPI) 41 L (>=60) BUN/Creatinine Ratio 37.00 H (12.00-20.00) Ratio Glucose 119 H (70-110) mg/dL Assessment and Plan Assessment: 1. Acute kidney injury secondary to vasomotor nephropathy secondary to hypovolemia from poor intake and further worsen with the use of lisinopril, Lasix and Aldactone. Creatinine 2.06 on admission - 1.3 today. Creatinine in June 2023 was 1.18. No proteinuria on UA. Dilated right renal collecting system noted on ultrasound. 2. Severe hypomagnesemia from diarrhea and diuretic use. Replaced. Improved. 3. Chronic diastolic CHF and mild to moderate mitral regurgitation. 4. Metabolic acidosis secondary to acute kidney injury and GI losses. Better. 5. History of pulmonary fibrosis. 6. Coronary disease status postcardiac stenting. 7. Dilated right renal pelvis. Consider urology evaluation as outpatient. Plan: stable for discharge from nephrology standpoint.
== END 2023-11-01 16:15 | disposition home or self-care (01) | DRG 640 ==
LOC: EC 18:35 → 4SSUR 20:13
PROVIDERS: ADMIT Hospitalist; ATTEND Hospitalist
DX: E83.42 Hypomagnesemia (principal); N17.0 Acute kidney failure with tubular necrosis; I50.32 Chronic diastolic (congestive) heart failure; I11.0 Hypertensive heart disease with heart failure; J96.10 Chronic respiratory failure, unspecified whether with hypoxia or hypercapnia; E87.20 Acidosis, unspecified; E87.1 Hypo-osmolality and hyponatremia; E86.1 Hypovolemia; I73.00 Raynaud's syndrome without gangrene; T50.2X5A Adverse effect of carbonic-anhydrase inhibitors, benzothiadiazides and other diuretics, initial encounter; J84.10 Pulmonary fibrosis, unspecified; M79.7 Fibromyalgia; Z88.2 Allergy status to sulfonamides; X58.XXXA Exposure to other specified factors, initial encounter; F32.A Depression, unspecified; I25.10 Atherosclerotic heart disease of native coronary artery without angina pectoris; I25.2 Old myocardial infarction; F41.9 Anxiety disorder, unspecified; M06.9 Rheumatoid arthritis, unspecified; Z79.82 Long term (current) use of aspirin; Z79.01 Long term (current) use of anticoagulants; Z79.899 Other long term (current) drug therapy; Z86.73 Personal history of transient ischemic attack (TIA), and cerebral infarction without residual deficits; Z90.710 Acquired absence of both cervix and uterus; Z95.5 Presence of coronary angioplasty implant and graft; Z86.711 Personal history of pulmonary embolism
CPT/HCPCS: 36415; 76770; 80048; 80053; 81001; 83735; 84100; 85025; 93005; 94760; 96365; 96366; 99285

== ENCOUNTER 2023-11-18 22:22 | Inpatient (IN) | payer MEDICARE ==
[2023-11-19 00:43] LABS: Basophils # (A) 0.1 k/uL (0-0.2); Basophils % (A) 1 %; Eosinophils # (A) 0.3 k/uL (0-0.7); Eosinophils % (A) 5 %; HCT 33.1 % (34.0-46.0); HGB 10.4 gm/dL (11.4-16.0); Lymphocytes # (A) 1.7 k/uL (1.0-4.8); Lymphocytes % (A) 27 %; MCH 29.1 pg (25.0-35.0); MCHC 31.4 g/dL (31.0-37.0); MCV 92.4 fL (80.0-100.0); Mean Platelet Volume 7.3; Monocytes # (A) 0.4 k/uL (0-1.0); Monocytes % (A) 6 %; Neutrophils # (A) 3.7 k/uL (1.3-7.7); Neutrophils % (A) 59 %; Platelet Count 253 k/uL (150-450); RBC 3.58 m/uL (3.80-5.40); RDW 14.3 % (11.5-15.5); WBC 6.3 k/uL (3.8-10.6)
[2023-11-19 01:03] LABS: INR 1.2 (<1.2); Partial Thromboplastin Time 26.8 sec (22.0-30.0); Prothrombin Time 12.5 sec (10.0-12.5)
[2023-11-19 01:05] LABS: ALT 23 U/L (4-34); AST 24 U/L (14-36); African American GFR (CKD) 70 (>60 ml/min/1.73 sqM); Albumin 3.4 g/dL (3.5-5.0); Alkaline Phosphatase 71 U/L (38-126); Blood Urea Nitrogen 19 mg/dL (7-17); Calcium 8.3 mg/dL (8.4-10.2); Carbon Dioxide 23 mmol/L (22-30); Chloride 102 mmol/L (98-107); Glucose 98 mg/dL (74-99); Non-African American GFR(CKD) 60 (>60 ml/min/1.73 sqM); Total Bilirubin 0.4 mg/dL (0.2-1.3); Total Protein 5.5 g/dL (6.3-8.2)
[2023-11-19 01:10] LABS: NT-Pro-B-Type Natriuretic Pept 2670 pg/mL
[2023-11-19 01:31] LABS: Anion Gap 17 mmol/L; Potassium 3.5 mmol/L (3.5-5.1); Sodium 142 mmol/L (137-145)
--- NOTE | 2023-11-19 01:51 | ED ---
General Adult HPI - General Chief complaint: Recheck/Abnormal Lab/Rx Stated complaint: abnormal labs Time Seen by Provider: 11/19/23 02:19 Source: patient, RN notes reviewed, old records reviewed Mode of arrival: wheelchair Limitations: no limitations - History of Present Illness Initial comments: Patient is an 83-year-old female who was sent by primary care provider over concern for hypomagnesemia. This has been an issue in the past. Had labs drawn today which showed low magnesium. She has past medical history markable for heart failure, CAD with stenting, hypertension. Patient is on blood thinners. Presents for further evaluation at this time. She does endorse having intermittent twinges of chest pain over the last week or so that has been worse over the last couple days. Endorses some increased work of breathing and shortness of breath as well with exertion. States he has been making medication changes. Denies any significant lower extremity edema. Endorses some mild orthopnea. Presents for further evaluation at this time. - Related Data Home Medications Medication Instructions Recorded Confirmed Omeprazole 40 mg PO DAILY 05/22/18 10/30/23 Aspirin [Adult Low Dose Aspirin EC] 81 mg PO DAILY 06/09/19 10/30/23 Oxybutynin ER [Ditropan XL] 10 mg PO DAILY 04/12/21 10/30/23 traZODone HCL 100 mg PO HS 04/12/21 10/30/23 Atorvastatin [Lipitor] 40 mg PO HS 08/07/21 10/30/23 Rivaroxaban [Xarelto] 2.5 mg PO BID 08/07/21 10/30/23 Isosorbide Mononitrate ER [Imdur] 30 mg PO DAILY 09/26/21 10/30/23 Citalopram Hydrobromide [CeleXA] 20 mg PO DAILY 11/27/22 10/30/23 ALPRAZolam [Xanax] 0.25 mg PO HS@1800 06/23/23 10/30/23 Albuterol Inhaler [Ventolin Hfa 1 puff INHALATION RT-QID PRN 06/23/23 10/30/23 Inhaler] Hydrocortisone Cream 1 applic TOPICAL BID 06/23/23 10/30/23 [Hydrocortisone 2.5% Cream] Ketoconazole 2% Cream [Nizoral 2%] 1 applic TOPICAL BID 06/23/23 10/30/23 ARIPiprazole [Abilify] 5 mg PO DIRECTED 10/30/23 10/30/23 Mirabegron [Myrbetriq] 25 mg PO DIRECTED 10/30/23 10/30/23 Previous Rx's Medication Instructions Recorded Folic Acid 1 mg PO DAILY #30 tab 08/13/21 Ipratropium-Albuterol Nebulize 3 ml INHALATION RT-QID PRN #120 11/30/22 [Duoneb 0.5 mg-3 mg/3 ml Soln] each cefUROXime axetiL [Ceftin] 500 mg PO BID 3 Days #6 tab 11/01/23 predniSONE See Taper PO DIRECTED #18 tab 11/01/23 Allergies Allergy/AdvReac Type Severity Reaction Status Date / Time Sulfa (Sulfonamide Allergy Unknown Verified 11/18/23 22:46 Antibiotics) Childhood Review of Systems ROS Statement: Those systems with pertinent positive or pertinent negative responses have been documented in the HPI. Review of Systems: CONST: Denies fever EYES: Denies blurry vision ENT: Denies nasal congestion C/V: Denies current chest pain RESP: Denies current shortness of breath GI: Denies abdominal pain : Denies dysuria SKIN: Denies rash. MSK: Denies joint pain. NEURO: Denies headache ROS Other: All systems not noted in ROS Statement are negative. Past Medical History Past Medical History: Coronary Artery Disease (CAD), Heart Failure, CVA/TIA, Eye Disorder, Fibromyalgia, Hyperlipidemia, Hypertension, Myocardial Infarction ([place]), Osteoarthritis (OA), Pulmonary Embolus (PE), Rheumatoid Arthritis (RA) Additional Past Medical History / Comment(s): macular degeneration, lupus, Raynauds, had stroke in May 2021-still has some dysphagia, SOB w/exertion, left shoulder pain Last Myocardial Infarction Date:: 08/07/2021 History of Any Multi-Drug Resistant Organisms: ESBL Date of last positivie culture/infection: 08/17/2014 MDRO Source:: Urine-E.Coli ESBL Past Surgical History: Bladder Surgery, Heart Catheterization, Heart Catheterization With Stent, Hysterectomy Additional Past Surgical History / Comment(s): RIGHT CATARACT REMOVAL Past Anesthesia/Blood Transfusion Reactions: Postoperative Nausea & Vomiting (PONV) Date of Last Stent Placement:: September 2021 Past Psychological History: Depression Smoking Status: Never smoker Past Alcohol Use History: None Reported Past Drug Use History: None Reported - Past Family History Sister(s) Additional Family Medical History / Comment(s): "HEART PROBLEMS" General Exam - General Exam Comments Initial Comments: General: Appears in no acute distress. HEAD: Normal with no signs of head trauma. EYES: PERRLA, EOMI, conjunctiva normal, no discharge. ENT: Hearing grossly intact, normal oropharynx. RESPIRATORY: Clear breath sounds bilaterally. No wheezes, rales, or rhonchi. On chronic nasal cannula oxygen. C/V: Regular rate and rhythm. S1 and S2 auscultated, no edema, peripheral pulses 2+ and intact throughout ABD: Abd is soft, nontender, nondistended EXT: Normal range of motion, no obvious deformity SKIN: No rashes or lesions observed on exposed skin. NEURO: Alert and oriented x 4. Limitations: no limitations Course Vital Signs 11/18/23 22:42 Temperature 98.3 F Pulse Rate 77 Respiratory 20 Rate Blood Pressure 132/73 O2 Sat by Pulse 98 Oximetry Medical Decision Making - Medical Decision Making Was pt. sent in by a medical professional or institution (, PA, SOFTWARE TESTER, urgent care, hospital, or fdc...) When possible be specific @ -No Did you speak to anyone other than the patient for history (EMS, parent, family, police, friend...)? What history was obtained from this source @ -No Did you review nursing and triage notes (agree or disagree)? Why? @ -I reviewed and agree with nursing and triage notes Were old charts reviewed (outside hosp., previous admission, EMS record, old EKG, old radiological studies, urgent care reports/EKG's, fdc records)? Report findings @ -No old charts were reviewed Differential Diagnosis (chest pain, altered mental status, abdominal pain women, abdominal pain men, vaginal bleeding, weakness, fever, dyspnea, syncope, headache, dizziness, GI bleed, back pain, seizure, CVA, palpatations, mental health, musculoskeletal)? @ -Differential Chest Pain: Stable Angina, Unstable Angina, STEMI, NSTEMI Aortic Dissection, Pneumothorax, Musculoskeletal, Esophageal Spasm GERD, Cholecystitis, Pancreatitis, Zoster, this is not meant to be an all-inclusive list. EKG interpreted by me (3pts min.). @ -As above X-rays interpreted by me (1pt min.). @ -Chest x-ray reveals possible mild increased pulmonary vascular congestion but no obvious other acute findings. CT interpreted by me (1pt min.). @ -None done U/S interpreted by me (1pt. min.). @ -None done What testing was considered but not performed or refused? (CT, X-rays, U/S, labs)? Why? @ -None What meds were considered but not given or refused? Why? @ -None Did you discuss the management of the patient with other professionals (guille chun i.eBen Escalante, PA, SOFTWARE TESTER, lab, RT, psych nurse, social worker delinquency prevention, delivery truck driver heavy, teacher, field health officer, pillowcase cleaner)? Give summary @ -Spoke with admitting team, [facility] Dr. Rueda. Patient was accepted. Was smoking cessation discussed for >3mins.? @ -No Was critical care preformed (if so, how long)? @ -Yes, 31 minutes. Were there social determinants of health that impacted care today? How? (Homelessness, low income, unemployed, alcoholism, drug addiction, transportation, low edu. Level, literacy, decrease access to med. care, fdc, rehab)? @ -No Was there de-escalation of care discussed even if they declined (Discuss DNR or withdrawal of care, Hospice)? DNR status @ -No What co-morbidities impacted this encounter? (DM, HTN, Smoking, COPD, CAD, Cancer, CVA, ARF, Chemo, Hep., AIDS, mental health diagnosis, sleep apnea, morbid obesity)? @ -CAD, chronic hypoxic respiratory failure secondary to CHF Was patient admitted / discharged? Hospital course, mention meds given and route, prescriptions, significant lab abnormalities, going to OR and other pertinent info. @ -Patient presents emergency department hypomagnesemia as well as some intermittent chest pains that are worsened over the last few days. Also concern for CHF symptoms. Will obtain cardiac workup. Patient was in agreement this p maribel. EKG showed no signs of acute ischemia. Chest x-ray shows but if anything mild pulmonary vascular congestion that is worsening. Labs remarkable for hypomagnesemia 0.9 which is replenished. Troponin minimally elevated to 0.049 as well as elevated BNP of 2600. Urine reveals findings consistent with possible UTI. Patient was started on IV Lasix. Due to the intermittent chest pain, concern for possible ACS the elevated troponin, patient will be placed on a heparin drip. Patient given aspirin. Patient in agreement this plan. Magnesium will be continued. Patient be admitted. Cardiology consulted. Echo ordered. I spoke with the admitting physician, Dr. Rueda who accepted the admission Undiagnosed new problem with uncertain prognosis? @ -No Drug Therapy requiring intensive monitoring for toxicity (Heparin, Nitro, Insulin, Cardizem)? @ -Heparin Were any procedures done? @ -No Diagnosis/symptom? @ -CHF, hypomagnesemia, NSTEMI, UTI Acute, or Chronic, or Acute on Chronic? @ -Acute Uncomplicated (without systemic symptoms) or Complicated (systemic symptoms)? @ -Complicated Side effects of treatment? @ -No Exacerbation, Progression, or Severe Exacerbation? @ -No Poses a threat to life or bodily function? How? (Chest pain, [place], [place], pneumonia, PE, COPD, DKA, ARF, appy, cholecystitis, CVA, Diverticulitis, Homicidal, Suicidal, threat to staff... and all critical care pts) @ -Yes - Lab Data Result diagrams: 11/19/23 00:27 11/19/23 00:27 Lab Results 11/19/23 11/19/23 11/19/23 Range/Units 00:20 00:27 00:27 WBC 6.3 (3.8-10.6) k/uL RBC 3.58 L (3.80-5.40) m/uL Hgb 10.4 L (11.4-16.0) gm/dL Hct 33.1 L (34.0-46.0) % MCV 92.4 (80.0-100.0) fL MCH 29.1 (25.0-35.0) pg MCHC 31.4 (31.0-37.0) g/dL RDW 14.3 (11.5-15.5) % Plt Count 253 (150-450) k/uL MPV 7.3 Neutrophils % 59 % Lymphocytes % 27 % Monocytes % 6 % Eosinophils % 5 % Basophils % 1 % Neutrophils # 3.7 (1.3-7.7) k/uL Lymphocytes # 1.7 (1.0-4.8) k/uL Monocytes # 0.4 (0-1.0) k/uL Eosinophils # 0.3 (0-0.7) k/uL Basophils # 0.1 (0-0.2) k/uL PT 12.5 (10.0-12.5) sec INR 1.2 H (<1.2) APTT 26.8 (22.0-30.0) sec Sodium (137-145) mmol/L Potassium (3.5-5.1) mmol/L Chloride (98-107) mmol/L Carbon Dioxide (22-30) mmol/L Anion Gap mmol/L BUN (7-17) mg/dL Creatinine (0.52-1.04) mg/dL Est GFR (CKD-EPI)AfAm (>60 ml/min/1.73 sqM) Est GFR (CKD-EPI)NonAf (>60 ml/min/1.73 sqM) Glucose (74-99) mg/dL Calcium (8.4-10.2) mg/dL Magnesium (1.6-2.3) mg/dL Total Bilirubin (0.2-1.3) mg/dL AST (14-36) U/L ALT (4-34) U/L Alkaline Phosphatase (38-126) U/L Troponin I (0.000-0.034) ng/mL NT-Pro-B Natriuret Pep pg/mL Total Protein (6.3-8.2) g/dL Albumin (3.5-5.0) g/dL Urine Color Urine Appearance (Clear) Urine pH (5.0-8.0) Ur Specific [place] (1.001-1.035) Urine Protein (Negative) Urine Glucose (UA) (Negative) Urine Ketones (Negative) Urine Blood (Negative) Urine Nitrite (Negative) Urine Bilirubin (Negative) Urine Urobilinogen (<2.0) mg/dL Ur Leukocyte Esterase (Negative) Urine RBC (0-5) /hpf Urine WBC (0-5) /hpf Urine WBC Clumps (None) /hpf Ur Squamous Epith Cells (0-4) /hpf Urine Bacteria (None) /hpf Hyaline Casts (0-2) /lpf Urine Mucus (None) /hpf Influenza Type A (PCR) Not Detected (Not Detectd) Influenza Type B (PCR) Not Detected (Not Detectd) RSV (PCR) Not Detected (Not Detectd) SARS-CoV-2 (PCR) Not Detected (Not Detectd) 11/19/23 11/19/23 11/19/23 Range/Units 00:27 00:27 01:49 WBC (3.8-10.6) k/uL RBC (3.80-5.40) m/uL Hgb (11.4-16.0) gm/dL Hct (34.0-46.0) % MCV (80.0-100.0) fL MCH (25.0-35.0) pg MCHC (31.0-37.0) g/dL RDW (11.5-15.5) % Plt Count (150-450) k/uL MPV Neutrophils % % Lymphocytes % % Monocytes % % Eosinophils % % Basophils % % Neutrophils # (1.3-7.7) k/uL Lymphocytes # (1.0-4.8) k/uL Monocytes # (0-1.0) k/uL Eosinophils # (0-0.7) k/uL Basophils # (0-0.2) k/uL PT (10.0-12.5) sec INR (<1.2) APTT (22.0-30.0) sec Sodium 142 (137-145) mmol/L Potassium 3.5 (3.5-5.1) mmol/L Chloride 102 (98-107) mmol/L Carbon Dioxide 23 (22-30) mmol/L Anion Gap 17 mmol/L BUN 19 H (7-17) mg/dL Creatinine 0.90 (0.52-1.04) mg/dL Est GFR (CKD-EPI)AfAm 70 (>60 ml/min/1.73 sqM) Est GFR (CKD-EPI)NonAf 60 (>60 ml/min/1.73 sqM) Glucose 98 (74-99) mg/dL Calcium 8.3 L (8.4-10.2) mg/dL Magnesium 0.9 L* (1.6-2.3) mg/dL Total Bilirubin 0.4 (0.2-1.3) mg/dL AST 24 (14-36) U/L ALT 23 (4-34) U/L Alkaline Phosphatase 71 (38-126) U/L Troponin I 0.049 H* (0.000-0.034) ng/mL NT-Pro-B Natriuret Pep 2670 pg/mL Total Protein 5.5 L (6.3-8.2) g/dL Albumin 3.4 L (3.5-5.0) g/dL Urine Color Yellow Urine Appearance Cloudy H (Clear) Urine pH 5.5 (5.0-8.0) Ur Specific [place] 1.023 (1.001-1.035) Urine Protein Trace H (Negative) Urine Glucose (UA) Negative (Negative) Urine Ketones Negative (Negative) Urine Blood Negative (Negative) Urine Nitrite Negative (Negative) Urine Bilirubin Negative (Negative) Urine Urobilinogen <2.0 (<2.0) mg/dL Ur Leukocyte Esterase Large H (Negative) Urine RBC 1 (0-5) /hpf Urine WBC 78 H (0-5) /hpf Urine WBC Clumps Occasional H (None) /hpf Ur Squamous Epith Cells 3 (0-4) /hpf Urine Bacteria Few H (None) /hpf Hyaline Casts 27 H (0-2) /lpf Urine Mucus Rare H (None) /hpf Influenza Type A (PCR) (Not Detectd) Influenza Type B (PCR) (Not Detectd) RSV (PCR) (Not Detectd) SARS-CoV-2 (PCR) (Not Detectd) - EKG Data -: EKG Interpreted by Me EKG Comments: 12-lead Electrocardiogram Interpretation Note EKG was reviewed and interpreted by myself. 12-lead ECG performed at 0014 signed is interpreted by me as revealing sinus rhythm at a rate of 72 beats per minute. [place] is normal. MT interval is 161 ms, QRS duration is 82 ms, QTc is 454 ms.. T wave inversion seen in V3.. R wave progression across the precordium was delayed. By my interpretation this EKG is non-diagnostic for ac [place] ischemia. Critical Care Time Critical Care Time: Yes Total Critical Care Time: 31 Disposition Clinical Impression: CHF (congestive heart failure), NSTEMI (non-ST elevated myocardial infarction), Hypomagnesemia, UTI (urinary tract infection) Disposition: ADMITTED IP TO THIS HOSP Condition: Stable Time of Disposition: 02:20
[2023-11-19] MEDS: FUROSEMIDE 10 MG/ML 4 ML VIAL IV STA (01:55)
[2023-11-19] MEDS: MAGNESIUM SULFATE-D5W PMX 1 GM in DEXTROSE/WATER 1 100ML.BAG IVPB SCH (01:56)
[2023-11-19 02:12] LABS: Appearance,Urine Cloudy (Clear); Bacteria,Urine Few /hpf; Bilirubin,Urine Negative (Negative); Blood,Urine Negative (Negative); Color,Urine Yellow; Glucose,Urine (UA) Negative (Negative); Hyaline Casts,Urine 27 /lpf (0-2); Ketones,Urine Negative (Negative); Leukocyte Esterase,Urine Large (Negative); Mucus,Urine Rare /hpf; Nitrite,Urine Negative (Negative); PH, Urine 5.5 (5.0-8.0); Protein,Urine Trace (Negative); RBC,Urine 1 /hpf (0-5); Specific Gravity,Urine 1.023 (1.001-1.035); Squamous Epithelial Cell,Urine 3 /hpf (0-4); Urobilinogen,Urine <2.0 mg/dL (<2.0); WBC,Urine 78 /hpf (0-5)
[2023-11-19] MEDS ORDERED: NALOXONE 0.4 MG/ML 1 ML VIAL IV PRN (02:29)
[2023-11-19] MEDS: HEPARIN SOD,PORK IN 0.45% NACL 25,000 UNIT in 0.45% NACL 1 250ML.BAG IV SCH (02:50)
[2023-11-19] MEDS: ASPIRIN 81 MG PO STA (02:50)
[2023-11-19] MEDS: HEPARIN SODIUM 1,000 UN/ML (10ML VL) IV ONE (02:53)
--- NOTE | 2023-11-19 03:00 | XR ---
EXAM: XR Chest, 2 Views CLINICAL HISTORY: ITS.REASON XR Reason: difficulty breathing TECHNIQUE: Frontal and lateral views of the chest. COMPARISON: No relevant prior studies available. FINDINGS: Lungs: Unremarkable. No consolidation. Pleural space: Unremarkable. No pneumothorax. Heart: Mildly prominent heart size. Mediastinum: Unremarkable. Normal mediastinal contour. Bones/joints: Unremarkable. No acute fracture. IMPRESSION: No acute findings in the chest.
[2023-11-19] MEDS ORDERED: CAFFEINE CITRATE 60 MG/3 ML VIAL IV PRN (06:00)
[2023-11-19] MEDS ORDERED: REGADENOSON 0.4 MG/5 ML SYRINGE IV PRN (06:00)
[2023-11-19] MEDS ORDERED: AMINOPHYLLINE 500 MG/20 ML VIAL IV PRN (06:00)
[2023-11-19 08:09] LABS: Magnesium 0.9 mg/dL (1.6-2.3)
[2023-11-19] MEDS ORDERED: ALBUTEROL NEBULIZED 2.5 MG/3 ML INHALATION PRN (08:59)
--- NOTE | 2023-11-19 09:30 | P.HPIM ---
History of Present Illness This is a pleasant 83 years old female with past medical history of multiple medical problems as below. Presents because of shortness of breath. Initially she went to see her PCP Dr. Archer for routine follow-up. She was in the process of referring her to transportation operations manager for low kidney function (her kidney function creatinine was el evated few days ago up to 2.0, currently her kidney function 0.9 in the hospital), blood work came back low magnesium 0.[address] Archer referred her to the hospital In the hospital patient was complaining from feeling short of breath for about 1 week she was feeling tired with low appetite. Patient also complaining of from exertional dyspnea. She denies orthopnea or paroxysmal nocturnal dyspnea. Sometimes when she gets up she got dizzy for about 1.5 months Patient is walking at home without a walker She has dry cough but no chest pain. No change in urine or bowel habits or chills No headache dizziness weakness or numbness She never smoked occasional alcohol and illicit drugs Patient is on 2 L of oxygen at home for pulmonary fibrosis Also patient states that currently she undergoing eye injection for macular degeneration problem. She has history of stroke 2 years ago with no residual weakness but she has little dysphagia. Last year patient had similar presentation to the hospital on 11/27/2022 for CHF and hypomagnesemia. Patient takes Lasix at home which might contribute to her hypomagnesemia. Patient was started on antibiotic ceftriaxone in emergency room. However patient denies any dysuria or urgency. No significant suprapubic pain or flank pain. Besides patient she was just recently finished her 10-day course oral antibiotic prescribed for her UTI by Dr. Archer (as per patient) Vitals are stable Patient is afebrile Labs reviewed, CBC is unremarkable except for mild anemia 10.4 which is at baseline last month, INR 1.2, BMP is unremarkable, LFT and Patient was started on IV Lasix and heparin drip in the emergency room and admitted with cardiology consult labs and medication were reviewed.. Continue same treatment. Continue with symptomatic treatment. Resume home medication. Monitor labs and vitals. DVT and GI prophylaxis. Further recommendations as per clinical course of the patient DVT prophylaxis: Subcutaneous heparin GI Prophylaxis: Pepcid PT/OT: Pending Prognosis is guarded Review of Systems Review of systems CONSTITUTIONAL: No fever, no malaise, no fatigue. HEENT: No recent visual problems or hearing problems. Denied any sore throat. CARDIOVASCULAR: No orthopnea, PND, no palpitations, no syncope. PULMONARY: No chest wall tenderness ugh, no hemoptysis. GASTROINTESTINAL: No diarrhea, no nausea, no vomiting, no abdominal pain. Normoactive bowel sounds. NEUROLOGICAL: No headaches, no weakness, no numbness. HEMATOLOGICAL: Denies any bleeding or petechiae. GENITOURINARY: Denies any burning micturition, frequency, or urgency. MUSCULOSKELETAL/RHEUMATOLOGICAL: Denies any joint pain, swelling, or any muscle pain. ENDOCRINE: Denies any polyuria or polydipsia. Past Medical History Past Medical History: Coronary Artery Disease (CAD), Heart Failure, CVA/TIA, Eye Disorder, Fibromyalgia, Hyperlipidemia, Hypertension, Myocardial Infarction ([place]), Osteoarthritis (OA), Pulmonary Embolus ([place]), Rheumatoid Arthritis (RA) Additional Past Medical History / Comment(s): macular degeneration, lupus, Raynauds, had stroke in May 2021-still has some dysphagia, SOB w/exertion, left shoulder pain Last Myocardial Infarction Date:: 08/07/2021 History of Any Multi-Drug Resistant Organisms: ESBL Date of last positivie culture/infection: 08/17/2014 MDRO Source:: Urine-E.Coli ESBL Past Surgical History: Bladder Surgery, Heart Catheterization, Heart Catheterization With Stent, Hysterectomy Additional Past Surgical History / Comment(s): RIGHT CATARACT REMOVAL Past Anesthesia/Blood Transfusion Reactions: Postoperative Nausea & Vomiting (PONV) Date of Last Stent Placement:: September 2021 Past Psychological History: Depression Smoking Status: Never smoker Past Alcohol Use History: None Reported Past Drug Use History: None Reported - Past Family History Sister(s) Additional Family Medical History / Comment(s): "HEART PROBLEMS" Medications and Allergies Home Medications Medication Instructions Recorded Confirmed Type Omeprazole 40 mg PO DAILY 05/22/18 11/19/23 History Aspirin [Adult Low Dose Aspirin EC] 81 mg PO DAILY 06/09/19 11/19/23 History traZODone HCL 100 mg PO HS 04/12/21 11/19/23 History Atorvastatin [Lipitor] 40 mg PO HS 08/07/21 11/19/23 History Rivaroxaban [Xarelto] 2.5 mg PO BID 08/07/21 11/19/23 History Folic Acid 1 mg PO DAILY #30 tab 08/13/21 11/19/23 Rx Isosorbide Mononitrate ER [Imdur] 30 mg PO DAILY 09/26/21 11/19/23 History ALPRAZolam [Xanax] 0.25 mg PO DAILY PRN 06/23/23 11/19/23 History Albuterol Inhaler [Ventolin Hfa 1 puff INHALATION RT-QID PRN 06/23/23 11/19/23 History Inhaler] ARIPiprazole [Abilify] 5 mg PO DAILY 10/30/23 11/19/23 History Mirabegron [Myrbetriq] 25 mg PO DAILY 10/30/23 11/19/23 History Furosemide [Lasix] 40 mg PO DAILY PRN 11/19/23 11/19/23 History Allergies Allergy/AdvReac Type Severity Reaction Status Date / Time Sulfa (Sulfonamide Allergy Unknown Verified 11/19/23 06:49 Antibiotics) Childhood Physical Exam Vitals: Vital Signs Temp Pulse Resp BP Pulse Ox 11/19/23 07:49 68 16 147/67 100 11/19/23 06:42 62 18 140/72 97 11/19/23 04:46 66 18 139/80 97 11/19/23 02:46 93 18 124/59 96 11/19/23 00:46 74 18 124/53 97 11/18/23 22:42 98.3 F 77 20 132/73 98 Intake and Output 11/18/23 11/19/23 11/19/23 22:59 06:59 14:59 Output Total 1000 Balance -1000 Output: Urine 1000 Other: # Bowel Movements 0 Weight 64.864 kg GENERAL: The patient is alert and oriented x3, not in any acute distress. Well developed, well nourished. HEENT: Pupils are round and equally reacting to light. EOMI. No scleral icterus. No conjunctival pallor. Normocephalic, atraumatic. No pharyngeal erythema. No thyromegaly. CARDIOVASCULAR: S1 and S2 present. No murmurs, rubs, or gallops. -PULMONARY: Chest is clear to auscultation, no wheezing , no c bilateral basal crepitations ABDOMEN: Soft, nontender, nondistended, normoactive bowel sounds. No palpable organomegaly. MUSCULOSKELETAL: No joint swelling or deformity. EXTREMITIES: No cyanosis, clubbing, or pedal edema. NEUROLOGICAL: Gross neurological examination did not reveal any focal deficits. SKIN: No rashes. no petechiae. Results CBC & Chem 7: 11/19/23 00:27 11/19/23 00:27 Labs: Abnormal Lab Results - Last 24 Hours (Table) 11/19/23 11/19/23 11/19/23 Range/Units 00:27 00:27 00:27 RBC 3.58 L (3.80-5.40) m/uL Hgb 10.4 L (11.4-16.0) gm/dL Hct 33.1 L (34.0-46.0) % INR 1.2 H (<1.2) APTT (22.0-30.0) sec BUN 19 H (7-17) mg/dL Calcium 8.3 L (8.4-10.2) mg/dL Magnesium 0.9 L* (1.6-2.3) mg/dL Troponin I (0.000-0.034) ng/mL Total Protein 5.5 L (6.3-8.2) g/dL Albumin 3.4 L (3.5-5.0) g/dL Urine Appearance (Clear) Urine Protein (Negative) Ur Leukocyte Esterase (Negative) Urine WBC (0-5) /hpf Urine WBC Clumps (None) /hpf Urine Bacteria (None) /hpf Hyaline Casts (0-2) /lpf Urine Mucus (None) /hpf 11/19/23 11/19/23 11/19/23 Range/Units 00:27 01:49 05:42 RBC (3.80-5.40) m/uL Hgb (11.4-16.0) gm/dL Hct (34.0-46.0) % INR (<1.2) APTT 77.9 H (22.0-30.0) sec BUN (7-17) mg/dL Calcium (8.4-10.2) mg/dL Magnesium (1.6-2.3) mg/dL Troponin I 0.049 H* (0.000-0.034) ng/mL Total Protein (6.3-8.2) g/dL Albumin (3.5-5.0) g/dL Urine Appearance Cloudy H (Clear) Urine Protein Trace H (Negative) Ur Leukocyte Esterase Large H (Negative) Urine WBC 78 H (0-5) /hpf Urine WBC Clumps Occasional H (None) /hpf Urine Bacteria Few H (None) /hpf Hyaline Casts 27 H (0-2) /lpf Urine Mucus Rare H (None) /hpf Assessment and Plan Assessment: Acute diastolic CHF Possible non-STEMI Severe hypomagnesemia Pulmonary fibrosis with chronic hypoxia on 2 L oxygen per minute at home Macular degeneration of the eye Recent UTI fully treated, currently she has asymptomatic abnormal UA. History of stroke 2 years ago with residual mild dysphagia. She is on Xarelto for this reason at home 2.5 mg Patient was started on IV Lasix and heparin drip in the emergency room and admitted with cardiology consult Plan: Continue with heparin drip Continue with aspirin Continue with IV Lasix 40 mg with close monitoring of electrolytes and creatinine function Replace magnesium per protocol Labs and medication were reviewed.. Continue same treatment. Continue with symptomatic treatment. Resume home medication. Monitor labs and vitals. DVT and GI prophylaxis. Further recommendations as per clinical course of the patie nt DVT prophylaxis: heparin GI Prophylaxis: Pepcid PT/OT: Pending Prognosis is guarded
[2023-11-19] MEDS: FOLIC ACID 1 MG TAB PO SCH (09:35)
[2023-11-19] MEDS: FUROSEMIDE 10 MG/ML 4 ML VIAL IV SCH (09:35)
[2023-11-19] MEDS: ARIPiprazole 5 MG TAB PO SCH (09:35)
[2023-11-19] MEDS: ASPIRIN 81 MG PO SCH (09:35)
[2023-11-19] MEDS: ISOSORBIDE MONONITRATE ER 30 MG TAB.ER.24H PO SCH (09:35)
[2023-11-19] MEDS: Magnesium Replacement Protocol 1 EACH MISC MISCELLANE PRN (09:50)
--- NOTE | 2023-11-19 13:27 | CA ---
Lexiscan Nuclear Stress Test Report Name: Trisha Connolly Exam Date: 11/19/2023 11:42 Exam Location: [facility] Stress Ht (in): 65 Wt (lb): 143 BSA: 1.72 Ordering Phys: Reno Garcia DO Referring Phys: RENO GARCIA MD,, Technologist: Saleem Phelps Age: 83 Gender: F : 1940 Procedure CPT: Indications: Reflex order-Stress test ICD-10 Codes: Patient History: chest pain, PALPITATIONS, HTN, PRIOR CVA, HYPERCHOLESTEROLEMIA, PRIOR CATH WITH STENT Medications: Meds past 24 hrs: Pretest Chest Pain: STRESS TEST Lexiscan Protocol Exercise Duration (min:sec): 02:[address] Depressions (mm): Angina Score: Zafar Score: Resting HR (bpm): 71 Peak HR (bpm): 93 Resting BP (mmHg): 134 / 65 Peak BP (mmHg): / 71 MPHR: 139 Target HR: 118 % MPHR: 67 METS: 1.0 Total Dose: Peak Dose: Atropine: Double Product: BP Response: Stress Termination: INFUSION COMPLETE Stress Symptoms: CHEST PRESSURE,HEADACHE,NAUSEA,FATIGUE Stress Summary: ECG ANALYSIS Resting ECG: Stress ECG: CONCLUSIONS RESTING EKG: Normal sinus rhythm, normal axis, frequent PACs Patient recieved IV infusion of Lexiscan 0.4mg and at peak infusion STRESS EKG showed: [No significant ST-T wave changes diagnostic for ischemia by ST segment analysis] ARRYTHMIAS: Frequent PACs noted during the stress test with no sustained arrhythmia CONCLUSION: 1. Normal hemodynamic and clinical response to Lexiscan infusion. 2. Non-ischemic EKG response to lexiscan infusion Please refer to the nuclear imaging portion of this stress test for complete interpretation of the study. Dr Jaime Anderson (Electronically Signed) Final Date: 19 November 2023 13:26
--- NOTE | 2023-11-19 13:46 | NM ---
EXAMINATION TYPE: NM stress lexiscan cardiolite DATE OF EXAM: 11/19/2023 COMPARISON: 08/11/2021 CLINICAL INDICATION: Female, 83 years old with history of re: CP; TECHNIQUE: After the intravenous administration of 10.6 mCi Tc 99m Sestamibi - Cardiolite resting SP ECT images acquired 45 minutes post injection. The patient received 0.4mg Lexiscan, 26.3 mCi Tc 99m Sestamibi - Stress images obtained [address] injection FINDINGS: Review of stress and rest SPECT images demonstrates no distinct perfusion abnormality. Gated analysi s shows normal wall motion with an estimated left ventricular ejection fraction of 65 %. TID is calc ulated upper limits of normal at 1.0. IMPRESSION: No scintigraphic evidence for reversible ischemia.
--- NOTE | 2023-11-19 17:25 | P.CRDCN ---
History of Present Illness History of present illness: HISTORY OF PRESENTING ILLNESS This is a pleasant 83-year-old female past medical history significant for CVA 05/26/2021, peripheral vascular disease, hypertension, pulmonary embolism, rheumatoid arthritis, fibromyalgia, Sjogren's syndrome, CAD s/p PCI OM1. Patient has had a number of issues with low potassium and low magnesium. She has had outpatient lab work and was noted to have significantly low magnesium and potassium. She has had been some shortness of breath and "twinges "of chest pain. Twinges only occur fairly randomly. She denies any visual change. She does use oxygen at home for pulmonary fibrosis. Recently her Lasix and Aldactone were both stopped and also was on lisinopril and this was discontinued. She is following with nephrology for her electrolyte abnormali ties. She also admits she was started on Abilify approximately 1 week ago. She follow-up with Dr. Oconnell 9 days ago and was told to take the Lasix as needed however has not actually really taken any of the Lasix. REVIEW OF SYSTEMS At the time of my exam: CONSTITUTIONAL: Denies fever or chills. CARDIOVASCULAR: +chest pain, no edema, shortness of breath, orthopnea, PND RESPIRATORY: Denies cough. GASTROINTESTINAL: Denies abdominal pain, diarrhea, constipation, nausea or vomiting. MUSCULOSKELETAL: Denies myalgias. NEUROLOGIC: Denies numbness, tingling, headacbe or weakness. ENDOCRINE: Denies fatigue, weight change, polydipsia or polyurina. GENITOURINARY: Denies burning, hematuria or urgency with micturation. HEMATOLOGIC: Denies history of anemia or bleeding. PHYSICAL EXAMINATION Vitals reviewed CONSTITUTIONAL: No apparent distress. HEENT: Head is normocephalic. Pupils are equal, round. Sclerae anicteric. Mucous membranes of the mouth are moist. Mild JVD noted CHEST EXAMINATION: Lungs crackles in the bases to auscultation. No chest wall tenderness is noted on palpation or with deep breathing. HEART EXAMINATION: Regular rate and rhythm. S1, S2 heard. No murmurs, gallops or rub. ABDOMEN: Soft, nontender. Positive bowel sounds. EXTREMITIES: 2+ peripheral pulses, trace lower extremity edema and no calf tenderness. NEUROLOGIC EXAMINATION: Patient is awake, alert and oriented x3. ASSESSMENT atypical chest pain elevated troponin, may be related to his severe electrolyte abnormalities Severe electrolyte abnormalities with hypokalemia, hypomagnesemia chronic diastolic heart failure, currently does not appear volume overloaded Heart failure with preserved ejection fraction History of CVA 05/2021 Peripheral vascular disease Hypertension History of pulmonary fibrosis valvular heart disease PLAN patient with some atypical symptoms however mainly has been feeling short of br eath with exertion over last few weeks. This could be related to severe electrolyte abnormalities. Replace electrolytes as needed. Continue use Lasix on an as needed approach. Currently does not appear on overloaded. Her chronic dyspnea appears more related to pulmonary fibrosis. Check 2-D echo. Check Lexiscan stress test. If unrevealing likely discharge home 11/19 if her electrolytes improved. Past Medical History Past Medical History: Coronary Artery Disease (CAD), Heart Failure, CVA/TIA, Eye Disorder, Fibromyalgia, Hyperlipidemia, Hypertension, Myocardial Infarction ([place]), Osteoarthritis (OA), Pulmonary Embolus ([place]), Rheumatoid Arthritis (RA) Additional Past Medical History / Comment(s): macular degeneration, lupus, Raynauds, had stroke in May 2021-still has some dysphagia, SOB w/exertion, left shoulder pain Last Myocardial Infarction Date:: 08/07/2021 History of Any Multi-Drug Resistant Organisms: ESBL Date of last positivie culture/infection: 08/17/2014 MDRO Source:: Urine-E.Coli ESBL Past Surgical History: Bladder Surgery, Heart Catheterization, Heart Catheterization With Stent, Hysterectomy Additional Past Surgical History / Comment(s): RIGHT CATARACT REMOVAL Past Anesthesia/Blood Transfusion Reactions: Postoperative Nausea & Vomiting (PONV) Date of Last Stent Placement:: September 2021 Past Psychological History: Depression Smoking Status: Never smoker Past Alcohol Use History: None Reported Additional Past Alcohol Use History / Comment(s): drinks one drink maybe a month per pt Past Drug Use History: None Reported Additional Drug Use History / Comment(s): CBD edibles OCCASIONALLY - Past Family History Sister(s) Additional Family Medical History / Comment(s): "HEART PROBLEMS" Medications and Allergies Home Medications Medication Instructions Recorded Confirmed Type Omeprazole 40 mg PO DAILY 05/22/18 11/19/23 History Aspirin [Adult Low Dose Aspirin EC] 81 mg PO DAILY 06/09/19 11/19/23 History traZODone HCL 100 mg PO HS 04/12/21 11/19/23 History Atorvastatin [Lipitor] 40 mg PO HS 08/07/21 11/19/23 History Rivaroxaban [Xarelto] 2.5 mg PO BID 08/07/21 11/19/23 History Folic Acid 1 mg PO DAILY #30 tab 08/13/21 11/19/23 Rx Isosorbide Mononitrate ER [Imdur] 30 mg PO DAILY 09/26/21 11/19/23 History ALPRAZolam [Xanax] 0.25 mg PO DAILY PRN 06/23/23 11/19/23 History Albuterol Inhaler [Ventolin Hfa 1 puff INHALATION RT-QID PRN 06/23/23 11/19/23 History Inhaler] ARIPiprazole [Abilify] 5 mg PO DAILY 10/30/23 11/19/23 History Mirabegron [Myrbetriq] 25 mg PO DAILY 10/30/23 11/19/23 History Furosemide [Lasix] 40 mg PO DAILY PRN 11/19/23 11/19/23 History Allergies Allergy/AdvReac Type Severity Reaction Status Date / Time Sulfa (Sulfonamide Allergy Unknown Verified 11/19/23 06:49 Antibiotics) Childhood Physical Exam Vitals: Vital Signs Temp Pulse Pulse Resp BP BP Pulse Ox 11/19/23 15:37 97.3 F L 71 18 129/74 99 11/19/23 14:56 85 20 144/78 98 11/19/23 14:00 72 20 144/72 98 11/19/23 13:00 88 16 135/68 98 11/19/23 10:04 65 16 151/82 11/19/23 07:49 68 16 147/67 100 11/19/23 06:42 62 18 140/72 97 11/19/23 04:46 66 18 139/80 97 11/19/23 02:46 93 18 124/59 96 11/19/23 00:46 74 18 124/53 97 11/18/23 22:42 98.3 F 77 20 132/73 98 Intake and Output 11/19/23 11/19/23 11/19/23 06:59 14:59 22:59 Output Total 1000 3000 Balance -1000 -3000 Output: Urine 1000 3000 Other: # Bowel Movements 0 Weight 64.864 kg Results 11/19/23 00:27 06/28/24 00:27 Cardiac Enzymes 11/19/23 11/19/23 11/19/23 Range/Units 00:27 00:27 05:42 AST 24 (14-36) U/L Troponin I 0.049 H* 0.034 (0.000-0.034) ng/mL 11/19/23 Range/Units 08:05 AST (14-36) U/L Troponin I 0.030 (0.000-0.034) ng/mL Coagulation 11/19/23 11/19/23 Range/Units 00:27 05:42 PT 12.5 (10.0-12.5) sec APTT 26.8 77.9 H (22.0-30.0) sec CBC 11/19/23 Range/Units 00:27 WBC 6.3 (3.8-10.6) k/uL RBC 3.58 L (3.80-5.40) m/uL Hgb 10.4 L (11.4-16.0) gm/dL Hct 33.1 L (34.0-46.0) % Plt Count 253 (150-450) k/uL Comprehensive Metabolic Panel 11/19/23 Range/Units 00:27 Sodium 142 (137-145) mmol/L Potassium 3.5 (3.5-5.1) mmol/L Chloride 102 (98-107) mmol/L Carbon Dioxide 23 (22-30) mmol/L BUN 19 H (7-17) mg/dL Creatinine 0.90 (0.52-1.04) mg/dL Glucose 98 (74-99) mg/dL Calcium 8.3 L (8.4-10.2) mg/dL AST 24 (14-36) U/L ALT 23 (4-34) U/L Alkaline Phosphatase 71 (38-126) U/L Total Protein 5.5 L (6.3-8.2) g/dL Albumin 3.4 L (3.5-5.0) g/dL Current Medications Generic Name Dose Route Start Last Admin Trade Name Freq PRN Reason Stop Dose Admin Albuterol Sulfate 2.5 mg 11/19/23 08:59 Albuterol Nebulized 2.5 Mg/3 Ml INHALATION RT-QID PRN Shortness Of Breath Aminophylline 100 mg 11/19/23 06:00 Aminophylline 500 Mg/20 Ml Vial IV 11/19/23 23:00 ONCE PRN Patient Response Aripiprazole 5 mg 11/19/23 09:00 11/19/23 09:35 Aripiprazole 5 Mg Tab PO 5 mg DAILY FELICIA Administration Aspirin 81 mg 11/19/23 09:00 11/19/23 09:35 Aspirin 81 Mg PO 81 mg DAILY FELICIA Administration Atorvastatin Calcium 40 mg 11/19/23 21:00 Atorvastatin 40 Mg Tab PO HS FELICIA Caffeine Citrate 60 mg 11/19/23 06:00 Caffeine Citrate 60 Mg/3 Ml Vial IV 11/19/23 23:00 ONCE PRN Patient Response Famotidine 20 mg 11/19/23 21:00 Famotidine 20 Mg/2 Ml Vial IV DAILY FELICIA Folic Acid 1 mg 11/19/23 09:00 11/19/23 09:35 Folic Acid 1 Mg Tab PO 1 mg DAILY FELICIA Administration Furosemide 40 mg 11/19/23 09:00 11/19/23 09:35 Furosemide 10 Mg/Ml 4 Ml Vial IV 40 mg Q12HR FELICIA Administration Heparin Sodium (Porcine) 0 unit 11/19/23 02:29 Heparin Sodium 1,000 Un/Ml (10ml Vl) IV PER PROTOCOL PRN Low PTT Protocol Heparin Sodium/Sodium Chloride 250 mls @ 7.784 mls/hr 11/19/23 02:30 11/19/23 02:50 25,000 unit/ Sodium Chloride IV 12 units/kg/hr .Q24H FELICIA 7.784 mls/hr Administration Protocol 12 UNITS/KG/HR Isosorbide Mononitrate 30 mg 11/19/23 09:00 11/19/23 09:35 Isosorbide Mononitrate Er 30 Mg Tab.Er.24h PO 30 mg DAILY FELICIA Administration Miscellaneous Information 1 each 11/19/23 08:29 11/19/23 13:20 Magnesium Replacement Protocol 1 Each Misc MISCELLANE 1 each DAILY PRN Administration Per Protocol Protocol Naloxone HCl 0.2 mg 11/19/23 02:29 Naloxone 0.4 Mg/Ml 1 Ml Vial IV Q2M PRN Opioid Reversal Regadenoson 0.4 mg 11/19/23 06:00 Regadenoson 0.4 Mg/5 Ml Syringe IV 11/19/23 23:00 ONCE PRN Per Protocol Trazodone HCl 100 mg 11/19/23 21:00 Trazodone Hcl 100 Mg Tab PO HS FELICIA Intake and Output 11/19/23 11/19/23 11/19/23 06:59 14:59 22:59 Output Total 1000 3000 Balance -1000 -3000 Output: Urine 1000 3000 Other: # Bowel Movements 0 Weight 64.864 kg Patient Weight 11/20/23 06:59 Weight 64.864 kg 11/19/23 00:27 11/19/23 00:27
--- NOTE | 2023-11-19 17:33 | CA ---
Transthoracic Echo Report Name: Trisha Connolly Age: 83 Gender: F : 1940 Exam Date: 11/19/2023 12:03 Exam Location: [facility] Ht (in): 64 Wt (lb): 143 Ordering Physician: Tomy Damon MD Attending/Referring Phys: Personal Security Specialist Emy Taveras RDCS Procedure CPT: Indications: nstemi, chf Cardiac Hx: Technical Quality: Good Contrast 1: Total Dose (mL): Contrast 2: Total Dose (mL): MEASUREMENTS (Male / Female) Normal Values 2D ECHO LV Diastolic Diameter PLAX 3.3 cm 4.2 - 5.9 / 3.9 - 5.3 cm LV Systolic Diameter PLAX 1.8 cm IVS Diastolic Thickness 1.1 cm 0.6 - 1.0 / 0.6 - 0.9 cm LVPW Diastolic Thickness 1.0 cm 0.6 - 1.0 / 0.6 - 0.9 cm LV Relative Wall Thickness 0.6 LVOT Diameter 2.0 cm Ascending Aorta Diameter 2.6 cm M-MODE Aortic Root Diameter MM 3.1 cm LA Systolic Diameter MM 3.2 cm LA Ao Ratio MM 1.0 AV Cusp Separation MM 2.0 cm DOPPLER AV Peak Velocity 108.0 cm/s AV Peak Gradient 4.7 mmHg AV Mean Velocity 71.1 cm/s AV Mean Gradient 3.0 mmHg AV Velocity Time Integral 22.6 cm AI Peak Velocity 274.0 cm/s AI Peak Gradient 30.0 mmHg AI Pressure Half Time 946.0 ms LVOT Peak Velocity 75.0 cm/s LVOT Peak Gradient 2.2 mmHg LVOT Velocity Time Integral 16.9 cm LVOT Stroke Volume 53.3 cm??? LVOT Stroke Volume Index 31.4 ml/m??? LVOT Cardiac Index 2505.5 cm???/min???m??? AV Area Cont Eq vti 2.4 cm??? AV Area Cont Eq pk 2.2 cm??? Mitral E Point Velocity 56.0 cm/s Mitral A Point Velocity 75.1 cm/s Mitral E to A Ratio 0.7 MV Deceleration Time 215.0 ms LV E' Lateral Velocity 9.1 cm/s Mitral E to LV E' Lateral Ratio 6.2 LV E' Septal Velocity 5.5 cm/s Mitral E to LV E' Septal Ratio 10.2 TR Peak Velocity 345.0 cm/s TR Peak Gradient 47.6 mmHg FINDINGS Left Ventricle Left ventricular ejection fraction is estimated at 55-60 %. Mildly increased septal wall thickness. Mildly increased posterior wall thickness. No obvious regional wall motion abnormalities. Left ventricular cavity size normal. Left ventricular cavity size normal. Indeterminate diastolic function. Right Ventricle Normal RV size and systolic function. Moderate pulmonary hypertension. Right Atrium Moderate right atrial dilatation. Left Atrium Moderate left atrial dilatation. Mitral Valve Structurally normal mitral valve. Mild mitral regurgitation. No mitral stenosis. Aortic Valve Trileaflet aortic valve. Trace aortic regurgitation. No aortic stenosis. Tricuspid Valve Structurally normal tricuspid valve. Kceg-[id number] tricuspid regurgitation. Pulmonic Valve Structurally normal pulmonic valve. Trace pulmonic regurgitation. No pulmonic stenosis. Pericardium No pericardial or pleural effusion. Aorta Normal size aortic root and proximal ascending aorta. CONCLUSIONS LVEF 55 to 60% Mild concentric LVH. Normal LV cavity size No obvious regional wall motion abnormality Normal RV size systolic function. Elevated RVSP estimated at 50 mmHg Mild aortic stenosis, moderate tricuspid regurg, mild MR Previewed by: Dr Jaime Anderson (Electronically Signed) Final Date: 19 November 2023 17:32
[2023-11-19] MEDS: traZODone HCL 100 MG TAB PO SCH (20:23)
[2023-11-19] MEDS: ATORVASTATIN 40 MG TAB PO SCH (20:23)
[2023-11-19] MEDS: FAMOTIDINE 20 MG/2 ML VIAL IV SCH (20:23)
[2023-11-20 05:36] LABS: Basophils # (A) 0.1 k/uL (0-0.2); Basophils % (A) 1 %; Eosinophils # (A) 0.3 k/uL (0-0.7); Eosinophils % (A) 5 %; HCT 34.8 % (34.0-46.0); HGB 11.2 gm/dL (11.4-16.0); Lymphocytes # (A) 1.2 k/uL (1.0-4.8); Lymphocytes % (A) 19 %; MCH 29.6 pg (25.0-35.0); MCHC 32.1 g/dL (31.0-37.0); MCV 92.3 fL (80.0-100.0); Mean Platelet Volume 7.2; Monocytes # (A) 0.5 k/uL (0-1.0); Monocytes % (A) 7 %; Neutrophils # (A) 4.4 k/uL (1.3-7.7); Neutrophils % (A) 67 %; Platelet Count 241 k/uL (150-450); RBC 3.77 m/uL (3.80-5.40); RDW 14.1 % (11.5-15.5); WBC 6.6 k/uL (3.8-10.6)
[2023-11-20 05:46] LABS: Prothrombin Time 10.9 sec (10.0-12.5)
[2023-11-20 05:49] LABS: ALT 23 U/L (4-34); AST 26 U/L (14-36); African American GFR (CKD) 78 (>60 ml/min/1.73 sqM); Albumin 3.6 g/dL (3.5-5.0); Alkaline Phosphatase 56 U/L (38-126); Anion Gap 7 mmol/L; Blood Urea Nitrogen 17 mg/dL (7-17); Calcium 8.3 mg/dL (8.4-10.2); Carbon Dioxide 24 mmol/L (22-30); Chloride 107 mmol/L (98-107); Glucose 109 mg/dL (74-99); Magnesium 2.2 mg/dL (1.6-2.3); Non-African American GFR(CKD) 67 (>60 ml/min/1.73 sqM); Potassium 3.6 mmol/L (3.5-5.1); Sodium 138 mmol/L (137-145); Total Bilirubin 0.8 mg/dL (0.2-1.3); Total Protein 5.9 g/dL (6.3-8.2)
[2023-11-20] MEDS: HEPARIN SODIUM 1,000 UN/ML (10ML VL) IV PRN (09:51)
[2023-11-20 11:00] VITALS: RESP 16; TEMP 97.9
[2023-11-20 11:33] VITALS: BP 99/50; PULSE 75
--- NOTE | 2023-11-20 12:22 | P.PN ---
Subjective Progress Note Date: 11/20/23 HISTORY OF PRESENTING ILLNESS This is a pleasant 83-year-old female past medical history significant for CVA 05/26/2021, peripheral vascular disease, hypertension, pulmonary embolism, rheumatoid arthritis, fibromyalgia, Sjogren's syndrome, CAD s/p PCI OM1. Patient has had a number of issues with low potassium and low magnesium. She has had outpatient lab work and was noted to have significantly low magnesium and potassium. She has had been some shortness of breath and "twinges "of chest pain. Twinges only occur fairly randomly. She denies any visual change. She does use oxygen at home for pulmonary fibrosis. Recently her Lasix and Aldactone were both stopped and also was on lisinopril and this was discontinued. She is following with nephrology for her electrolyte abnormalities. She also admits she was started on Abilify approximately 1 week ago. She follow-up with Dr. Oconnell 9 days ago and was told to take the Lasix as needed however has not actually really taken any of the Lasix. 11/19 Patient is seen and examined. She denies having any chest pain or shortness of breath. Lexiscan revealed no evidence of reversible ischemia. Echocardiogram revealed EF of 55 to 60%, RVSP 50. Mild AAS, moderate TR, mild MR. She has been maintained on IV Lasix 40 mg every 12 hours. She is currently on a heparin drip which will be discontinued. Reviewed results of the testing with the patient. PHYSICAL EXAMINATION Vitals reviewed CONSTITUTIONAL: No apparent distress. HEENT: Head is normocephalic. Pupils are equal, round. Sclerae anicteric. Mucous membranes of the mouth are moist. Mild JVD noted CHEST EXAMINATION: Lungs crackles in the bases to auscultation. No chest wall tenderness is noted on palpation or with deep breathing. HEART EXAMINATION: Regular rate and rhythm. S1, S2 heard. No murmurs, gallops or rub. ABDOMEN: Soft, nontender. Positive bowel sounds. EXTREMITIES: 2+ peripheral pulses, trace lower extremity edema and no calf tenderness. NEUROLOGIC EXAMINATION: Patient is awake, alert and oriented x3. ASSESSMENT atypical chest pain elevated troponin, may be related to his severe electrolyte abnormalities, no sign of ischemia or injury Severe electrolyte abnormalities with hypokalemia, hypomagnesemia chronic diastolic heart failure, currently does not appear volume overloaded Heart failure with preserved ejection fraction History of CVA 05/2021 Peripheral vascular disease Hypertension History of pulmonary fibrosis valvular heart disease PLAN Discontinue heparin drip IV Lasix will be transition to Lasix 40 mg daily at home Patient is cleared for discharge from cardiology May follow-up with Dr. Oconnell in 1 week Nurse practitioner note has been reviewed, I agree with documented findings and plan of care. Patient was seen and examined. Objective - Vital Signs Vital signs: Vital Signs Temp 97.9 F 11/20/23 08:24 Pulse 75 11/20/23 11:20 Resp 16 11/20/23 11:20 BP 99/50 11/20/23 11:20 Pulse Ox 99 11/20/23 11:20 FiO2 Intake & Output 11/19/23 11/20/23 11/20/23 18:59 06:59 18:59 Intake Total 192.784 288.65 Output Total 3000 1125 Balance -3000 192.784 -836.35 Weight 64.864 kg 35.5 kg Intake: Intake, IV Titration 192.784 48.65 Amount Heparin Sod,Pork in 0.45% 192.784 48.65 NaCl 25,000 unit In 0.45 % NaCl 1 250ml.bag @ 12 UNITS/KG/HR 7.784 mls/hr IV .Q24H FELICIA Rx#: [id number] Oral 0 240 Output: Urine 3000 1125 Other: Voiding Method Toilet Toilet # Voids 0 # Bowel Movements 0 - Labs CBC & Chem 7: 11/20/23 05:20 11/20/23 05:20 Labs: Abnormal Lab Results - Last 24 Hours (Table) 11/20/23 11/20/23 11/20/23 Range/Units 05:20 05:20 08:57 RBC 3.77 L (3.80-5.40) m/uL Hgb 11.2 L (11.4-16.0) gm/dL APTT 35.0 H (22.0-30.0) sec Glucose 109 H (74-99) mg/dL Calcium 8.3 L (8.4-10.2) mg/dL Total Protein 5.9 L (6.3-8.2) g/dL
--- NOTE | 2023-11-20 23:29 | P.DS ---
Providers Date of admission: 11/19/23 02:29 Attending physician: Sj Low Consults: 11/19/23 02:29 Consult Physician Routine Consulting Provider: [facility] Consult Reason/Comments: nstemi, chf Do you want consulting provider notified?: Yes Primary care physician: Rosalio Archer Hospital Course: Diagnoses: Acute diastolic CHF Elevated troponin thought secondary to electrolyte abnormalities by commercial kitchen service technician Severe hypomagnesemia Pulmonary fibrosis with chronic hypoxia on 2 L oxygen per minute at home Macular degeneration of the eye Recent UTI fully treated, currently she has asymptomatic abnormal UA. History of stroke 2 years ago with residual mild dysphagia. She is on Xarelto for this reason at home 2.5 mg Patient was started on IV Lasix and heparin drip in the emergency room and admitted with cardiology consult Hospital course: This is a pleasant 83 years old female with past medical history of multiple medical problems as below. Presents because of shortness of breath. Initially she went to see her PCP Dr. Archer for routine follow-up. She was in the process of referring her to corporate travel coordinator for low kidney function (her kidney function creatinine was elevated few days ago up to 2.0, currently her kidney function 0.9 in the hospital), blood work came back low magnesium 0.[address] Archer referred her to the hospital In the hospital patient was complaining from feeling short of breath for about 1 week she was feeling tired with low appetite. Patient was treated with IV Lasix. Reassured interval improvement. Patient heparin drip was stopped and switch back to her home dose of Xarelto. Patient confirms to me she has Xarelto and aspirin at home and the rest of her medication On the day of discharge patient feels fine with no chest pain dyspnea or other new symptom Patient was cleared for discharge by commercial kitchen service technician Problems and management plan were discussed with the patient and he verbalized understanding and acceptance Patient was found stable and can be discharged home in guarded prognosis however he needs follow-up as an outpatient. Patient was instructed to follow up with PCP Dr. Archer within one week and patient agrees Patient was instructed to follow-up with commercial kitchen service technician Dr. Mancuso in 1 week after discharge and she agrees Physical exam Gen: patient is a AAOx3, no distress CVS: S1-S2, RRR, no murmur Lungs: B/L CTA, no wheezing Abdomen: soft, no distention, no tenderness, positive bowel sounds Extremity: no leg edema or induration Time spent more than 35 minutes Patient Condition at Discharge: Stable Plan - Discharge Summary Discharge Rx Participant: No New Discharge Prescriptions: Continue Aspirin [Adult Low Dose Aspirin EC] 81 mg PO DAILY traZODone HCL 100 mg PO HS Atorvastatin [Lipitor] 40 mg PO HS Folic Acid 1 mg PO DAILY #30 tab Albuterol Inhaler [Ventolin Hfa Inhaler] 1 puff INHALATION RT-QID PRN PRN Reason: Shortness Of Breath ALPRAZolam [Xanax] 0.25 mg PO DAILY PRN PRN Reason: Anxiety Mirabegron [Myrbetriq] 25 mg PO DAILY ARIPiprazole [Abilify] 5 mg PO DAILY Rivaroxaban [Xarelto] 2.5 mg PO BID Isosorbide Mononitrate ER [Imdur] 30 mg PO DAILY Changed Furosemide [Lasix] 40 mg PO DAILY #30 tab Discontinued Omeprazole 40 mg PO DAILY Discharge Medication List Aspirin [Adult Low Dose Aspirin EC] 81 mg PO DAILY 06/09/19 [History] traZODone HCL 100 mg PO HS 04/12/21 [History] Atorvastatin [Lipitor] 40 mg PO HS 08/07/21 [History] Rivaroxaban [Xarelto] 2.5 mg PO BID 08/07/21 [History] Folic Acid 1 mg PO DAILY #30 tab 08/13/21 [Rx] Isosorbide Mononitrate ER [Imdur] 30 mg PO DAILY 09/26/21 [History] ALPRAZolam [Xanax] 0.25 mg PO DAILY PRN 06/23/23 [History] Albuterol Inhaler [Ventolin Hfa Inhaler] 1 puff INHALATION RT-QID PRN 06/23/23 [History] ARIPiprazole [Abilify] 5 mg PO DAILY 10/30/23 [History] Mirabegron [Myrbetriq] 25 mg PO DAILY 10/30/23 [History] Furosemide [Lasix] 40 mg PO DAILY #30 tab 11/20/23 [Rx] Follow up Appointment(s)/Referral(s): Andrew Oconnell MD [STAFF PHYSICIAN] - 1 Week (Office closed at this time; please call [facility] on Wednesday to schedule follow up appointment.) Rosalio Archer MD [Primary Care Provider] - 1-2 days (Office closed at this time; please call [facility] on Wednesday to schedule follow up appointment.) [facility], [NON-STAFF] - 1-2 Days Patient Instructions/Handouts: Heart Failure (DC), Hypomagnesemia (DC) Activity/Diet/Wound Care/Special Instructions: heart healthy diet activity is restricted till you see your doctor Discharge Disposition: HOME WITH HOME HEALTH SERVICES
== END 2023-11-20 14:00 | disposition home health service (06) | DRG 291 ==
LOC: EC 22:22 → 3SCARD 11-19 02:29
PROVIDERS: ADMIT Hospitalist; ATTEND Hospitalist
DX: I11.0 Hypertensive heart disease with heart failure (principal); I50.33 Acute on chronic diastolic (congestive) heart failure; J84.10 Pulmonary fibrosis, unspecified; E78.5 Hyperlipidemia, unspecified; M35.00 Sjogren syndrome, unspecified; M06.9 Rheumatoid arthritis, unspecified; F32.A Depression, unspecified; I69.391 Dysphagia following cerebral infarction; Z66 Do not resuscitate; E83.42 Hypomagnesemia; M79.7 Fibromyalgia; R13.10 Dysphagia, unspecified; I25.10 Atherosclerotic heart disease of native coronary artery without angina pectoris; I73.00 Raynaud's syndrome without gangrene; H35.30 Unspecified macular degeneration; I25.2 Old myocardial infarction; M25.512 Pain in left shoulder; M19.90 Unspecified osteoarthritis, unspecified site; R09.02 Hypoxemia; R79.89 Other specified abnormal findings of blood chemistry; R82.90 Unspecified abnormal findings in urine; Z79.01 Long term (current) use of anticoagulants; Z99.81 Dependence on supplemental oxygen; Z79.82 Long term (current) use of aspirin; Z79.899 Other long term (current) drug therapy; Z95.5 Presence of coronary angioplasty implant and graft; Z86.711 Personal history of pulmonary embolism; Z86.19 Personal history of other infectious and parasitic diseases; Z88.2 Allergy status to sulfonamides
CPT/HCPCS: 36415; 71046; 78452; 80053; 81001; 83735; 83880; 84484; 85025; 85610; 85730; 87077; 87086; 87186; 87636; 93005; 93017; 93306; 94760; 96365; 96366; 96368; 96375; 96376; 99291

== ENCOUNTER → 2023-11-18 | Outpatient (CLI) | payer MEDICARE ==
[2023-11-18 18:17] LABS: Basophils # (A) 0.05 X 10*3/uL (0.00-0.10); Basophils % (A) 0.6 %; Eosinophils # (A) 0.26 X 10*3/uL (0.04-0.35); Eosinophils % (A) 3.3 %; HCT 33.5 % (37.2-46.3); HGB 10.4 g/dL (12.0-15.0); Lymphocytes # (A) 1.92 X 10*3/uL (0.90-5.00); Lymphocytes % (A) 24.3 %; MCH 28.7 pg (27.0-32.0); MCV 92.5 FL (80.0-97.0); Mean Platelet Volume 9.7 FL (9.5-12.2); Monocytes # (A) 0.63 X 10*3/uL (0.20-1.00); NRBC Per 100 WBC 0 X 10*3/uL (0.00-0.01); Neutrophils # (A) 4.99 X 10*3/uL (1.80-7.70); Platelet Count 275 X 10*3/uL (140-440); RBC 3.62 X 10*6/uL (4.10-5.20); RDW 14.4 % (11.5-14.5); WBC 7.91 X 10*3/uL (4.50-10.00)
[2023-11-18 19:30] LABS: ALT 29 U/L (8-44); AST 24 U/L (13-35); Albumin 4.1 g/dL (3.8-4.9); Albumin/Globulin Ratio 2.05 Ratio (1.60-3.17); Alkaline Phosphatase 56 U/L (41-126); Blood Urea Nitrogen 15.9 mg/dL (9.0-27.0); Calcium 8.5 mg/dL (8.7-10.3); Carbon Dioxide 22.2 mmol/L (21.6-31.8); Chloride 108 mmol/L (96-109); Glucose 100 mg/dL (70-110); Potassium 4.2 mmol/L (3.5-5.5); Sodium 143 mmol/L (135-145); Total Bilirubin 0.5 mg/dL (0.3-1.2); Total Protein 6.1 g/dL (6.2-8.2)
[2023-11-18 20:16] LABS: Magnesium 0.9 mg/dL (1.5-2.4)
[2023-11-19 04:26] LABS: Appearance,Urine Clear (Clear); Bilirubin,Urine Negative (Negative); Blood,Urine Negative (Negative); Color,Urine Dark Yellow (Yellow); Ketones,Urine Trace (Negative); Nitrite,Urine Negative (Negative); Specific Gravity,Urine 1.023 (1.001-1.030)
[2023-11-19 04:34] LABS: Bacteria,Urine None Seen (None Seen)
--- NOTE | 2023-11-19 08:39 | US ---
EXAMINATION TYPE: US kidneys/renal and bladder DATE OF EXAM: 11/18/2023 COMPARISON: 10/30/23 CLINICAL INDICATION: Female, 83 years old with history of N18.30 CKD STAGE 3; CKD EXAM MEASUREMENTS: Right Kidney: 10.3 x 4.8 x 3.9 cm Left Kidney: 10.8 x 4.0 x 4.3 cm Right Kidney: No hydronephrosis or masses seen Left Kidney: No hydronephrosis or masses seen Bladder: wnl Bilateral Jets seen: No due to bowel gas There is no evidence for hydronephrosis at this point in time. No nephrolithiasis is seen. No jolanta s are identified. The urinary bladder is anechoic. IMPRESSION: 1. No solid renal mass, renal calcification or hydronephrosis. 2. The dilated right renal collecting system seen on the prior study is not evident on the current st udy.
== END | disposition home or self-care (01) ==
LOC: RADUSWWP 14:36
PROVIDERS: ATTEND Family Medicine
DX: N18.30 Chronic kidney disease, stage 3 unspecified (principal); N28.89 Other specified disorders of kidney and ureter
CPT/HCPCS: 76770; 80053; 81001; 83735; 85025

== ENCOUNTER → 2024-01-28 | Outpatient (CLI) | payer MEDICARE ==
--- NOTE | 2024-01-28 12:50 | CT ---
EXAMINATION TYPE: CT chest wo con DATE OF EXAM: 01/28/2024 COMPARISON: 02/19/2023 HISTORY: Chronic SOB, hx of COPD and pulmonary fibrosis CT DLP: 645 mGycm. Automated Exposure Control for Dose Reduction was Utilized. TECHNIQUE: CT scan of the thorax is performed without IV contrast. Exam was performed according to [facility] high-resolution CT protocol FINDINGS: There has been no significant interval change compared to previous. There is bronchiectasis and lower lobe interstitial changes with mild subpleural honeycombing. There is a definite apical basilar grad ient. The findings are most consistent with UIP. There is no groundglass opacity or dense airspace co nsolidation There is no pleural effusion or pneumothorax. The great vessels chest are normal. There is no definite mediastinal, hilar or axillary adenopathy. Limited scanning through the upper abdomen reveals a calcified gallbladder wall which is stable. No focal osseous lesions are seen. IMPRESSION: 1. Stable chronic lung changes most consistent with UIP. 2. Stable gallbladder wall. 3. No acute cardiopulmonary disease.
== END | disposition home or self-care (01) ==
LOC: RADCTMAIN 11:20
PROVIDERS: ATTEND Internal Medicine Critical Care Medicine
DX: J84.112 Idiopathic pulmonary fibrosis
CPT/HCPCS: 71250

== ENCOUNTER 2024-11-07 05:35 | Observation (INO) | payer MEDICARE ==
[2024-11-07 06:07] LABS: Basophils # (A) 0.04 10*3/uL (0.00-0.10); Basophils % (A) 0.5 %; Eosinophils # (A) 0.45 10*3/uL (0.04-0.35); Eosinophils % (A) 5.7 %; HCT 38.4 % (37.2-46.3); HGB 12.5 g/dL (12.0-15.0); Lymphocytes # (A) 2.15 10*3/uL (0.90-5.00); Lymphocytes % (A) 27.4 %; MCH 28.7 pg (27.0-32.0); MCHC 32.6 g/dL (32.0-37.0); MCV 88.1 fL (80.0-97.0); Mean Platelet Volume 9.3 fL (9.5-12.2); Monocytes # (A) 0.74 10*3/uL (0.20-1.00); Monocytes % (A) 9.4 %; Neutrophils # (A) 4.45 10*3/uL (1.80-7.70); Neutrophils % (A) 56.7 %; Platelet Count 240 10*3/uL (140-440); RBC 4.36 10*6/uL (4.10-5.20); RDW 13.3 % (11.5-14.5); WBC 7.85 10*3/uL (4.50-10.00)
--- NOTE | 2024-11-07 06:20 | ED ---
Chest Pain HPI - General Chief Complaint: Chest Pain Stated Complaint: chest pain Time Seen by Provider: 11/07/24 05:51 Source: patient, EMS Mode of arrival: EMS Limitations: no limitations - History of Present Illness Initial Comments: This patient is an 84-year-old woman who presents for evaluation of chest pain has been going on across the upper chest. She states has been intermittent starting approximately 5 days ago. She has not noted worsening or relieving factors other than she sometimes has worse pain when she takes a deep breath. The patient has not noted associated symptoms no dyspnea, diaphoresis, nausea vomiting, palpitations or syncope. MD Complaint: chest pain -: days(s) Onset: during rest Pain Location: left chest, right chest Pain Radiation: none Severity: moderate Quality: aching, sharp Consistency: constant Improves With: nothing Worsens With: inspiration Treatments Prior to Arrival: none - Related Data Home Medications Medication Instructions Recorded Confirmed Aspirin [Adult Low Dose Aspirin EC] 81 mg PO DAILY 06/09/19 11/19/23 traZODone HCL 100 mg PO HS 04/12/21 11/19/23 Atorvastatin [Lipitor] 40 mg PO HS 08/07/21 11/19/23 Rivaroxaban [Xarelto] 2.5 mg PO BID 08/07/21 11/19/23 Isosorbide Mononitrate ER [Imdur] 30 mg PO DAILY 09/26/21 11/19/23 ALPRAZolam [Xanax] 0.25 mg PO DAILY PRN 06/23/23 11/19/23 Albuterol Inhaler [Ventolin Hfa 1 puff INHALATION RT-QID PRN 06/23/23 11/19/23 Inhaler] ARIPiprazole [Abilify] 5 mg PO DAILY 10/30/23 11/19/23 Mirabegron [Myrbetriq] 25 mg PO DAILY 10/30/23 11/19/23 Previous Rx's Medication Instructions Recorded Folic Acid 1 mg PO DAILY #30 tab 08/13/21 Furosemide [Lasix] 40 mg PO DAILY #30 tab 11/20/23 Allergies Allergy/AdvReac Type Severity Reaction Status Date / Time Sulfa (Sulfonamide Allergy Unknown Verified 11/07/24 05:43 Antibiotics) Childhood Review of Systems ROS Statement: Those systems with pertinent positive or pertinent negative responses have been documented in the HPI. ROS Other: All systems not noted in ROS Statement are negative. Constitutional: Denies: fever, chills, weakness Respiratory: Denies: cough, dyspnea Cardiovascular: Reports: chest pain. Denies: palpitations, edema, syncope Gastrointestinal: Denies: abdominal pain, nausea, vomiting Genitourinary: Denies: dysuria, hematuria Musculoskeletal: Denies: back pain Skin: Denies: rash Neurological: Denies: headache, weakness Psychiatric: Denies: anxiety EKG Findings - EKG Results: EKG: interpreted by MIESHA, sinus rhythm (With frequent premature supraventricular complexes.) - Blocks, [place], Hypertrophy, ST Abn: QRS axis and voltage: pulmonary disease - NC, Pacemaker, Normal: Myocardial infarction: inferior NC (old age indeterminate) Past Medical History Past Medical History: Coronary Artery Disease (CAD), Heart Failure, CVA/TIA, Eye Disorder, Fibromyalgia, Hyperlipidemia, Hypertension, Myocardial Infarction (NC), Osteoarthritis (OA), Pulmonary Embolus (PE), Rheumatoid Arthritis (RA) Additional Past Medical History / Comment(s): macular degeneration, lupus, Raynauds, had stroke in May 2021-still has some dysphagia, SOB w/exertion, left shoulder pain Last Myocardial Infarction Date:: 08/07/2021 History of Any Multi-Drug Resistant Organisms: ESBL Date of last positivie culture/infection: 08/17/2014 MDRO Source:: Urine-E.Coli ESBL Past Surgical History: Bladder Surgery, Heart Catheterization, Heart Catheterization With Stent, Hysterectomy Additional Past Surgical History / Comment(s): RIGHT CATARACT REMOVAL Past Anesthesia/Blood Transfusion Reactions: Postoperative Nausea & Vomiting (PONV) Date of Last Stent Placement:: September 2021 Past Psychological History: Depression Smoking Status: Never smoker Past Alcohol Use History: None Reported Past Drug Use History: None Reported - Past Family History Sister(s) Additional Family Medical History / Comment(s): "HEART PROBLEMS" General Exam Limitations: no limitations General appearance: alert, in no apparent distress Head exam: Present: atraumatic, normocephalic Eye exam: Present: normal appearance. Absent: scleral icterus, conjunctival injection Neck exam: Present: normal inspection Respiratory exam: Present: normal lung sounds bilaterally. Absent: respiratory distress, wheezes, rales, rhonchi, stridor, accessory muscle use Cardiovascular Exam: Present: regular rate, normal rhythm, normal heart sounds. Absent: systolic murmur, diastolic murmur, rubs, gallop GI/Abdominal exam: Present: soft. Absent: distended, tenderness, guarding, rebound, rigid, mass Extremities exam: Present: normal inspection, normal capillary refill. Absent: pedal edema, calf tenderness Back exam: Present: normal inspection. Absent: CVA tenderness (R), CVA tenderness (L) Neurological exam: Present: alert Skin exam: Present: warm, dry, intact, normal color. Absent: rash Course Vital Signs 11/07/24 11/07/24 11/07/24 05:37 06:07 07:23 Temperature 97.8 F 98.1 F Pulse Rate 66 64 75 Respiratory 18 18 18 Rate Blood Pressure 140/71 138/74 133/68 O2 Sat by Pulse 94 L 100 96 Oximetry Chest Pain MDM - MDM The patient had chest x-ray that I interpreted as negative for acute infiltrate, pneumothorax, congestive heart failure. Disposition Clinical Impression: Chest pain Disposition: ADMITTED IP TO THIS HOSP Condition: Fair Instructions (If sedation given, give patient instructions): Chest Pain (ED) Is patient prescribed a controlled substance at d/c from ED?: No Referrals: Rosalio Archer MD [Primary Care Provider] - 1-2 days
[2024-11-07 06:24] LABS: ALT 13 U/L (4-34); AST 23 U/L (14-36); African American GFR (CKD) 70 (>60 ml/min/1.73 sqM); Albumin 3.9 g/dL (3.5-5.0); Alkaline Phosphatase 72 U/L (38-126); Anion Gap 10 mmol/L; Blood Urea Nitrogen 18 mg/dL (7-17); Calcium 9.3 mg/dL (8.4-10.2); Carbon Dioxide 29 mmol/L (22-30); Chloride 102 mmol/L (98-107); Glucose 101 mg/dL (74-99); Magnesium 1.8 mg/dL (1.6-2.3); Non-African American GFR(CKD) 61 (>60 ml/min/1.73 sqM); Potassium 3.1 mmol/L (3.5-5.1); Sodium 141 mmol/L (137-145); Total Bilirubin 0.6 mg/dL (0.2-1.3); Total Protein 6.5 g/dL (6.3-8.2)
[2024-11-07] MEDS: MORPHINE SULFATE 4 MG/ML SYRINGE IV STA (06:30)
[2024-11-07 06:37] LABS: INR 1.1 (<1.2); Prothrombin Time 11.6 sec (10.0-12.5)
[2024-11-07 06:38] LABS: Partial Thromboplastin Time 24.2 sec (22.0-30.0)
[2024-11-07 06:52] LABS: Influenza A Not Detected (Not Detectd); Influenza B Not Detected (Not Detectd); RSV Not Detected (Not Detectd)
--- NOTE | 2024-11-07 07:25 | XR ---
EXAMINATION TYPE: XR chest 2V DATE OF EXAM: 11/07/2024 6:06 AM COMPARISON: 11/19/2023 CLINICAL INDICATION: Female, 84 years old with history of Chest Pain, TECHNIQUE: XR chest 2V view(s) obtained. FINDINGS: The heart size is normal. The pulmonary vasculature is normal. The lungs are clear. IMPRESSION: 1. No acute pulmonary process. [facility], , 11/07/2024 7:23 AM
[2024-11-07] MEDS ORDERED: NITROGLYCERIN SL TABS 0.4 MG TAB SUBLINGUAL PRN (07:49)
[2024-11-07] MEDS: POTASSIUM CHLORIDE ER 20 MEQ TAB.ER PO STA ×2 (07:53→09:48)
[2024-11-07] MEDS ORDERED: ALPRAZolam 0.25 MG TAB PO PRN (11:11)
[2024-11-07] MEDS ORDERED: ACETAMINOPHEN TAB 325 MG TAB PO PRN ×2 (11:11→11:12)
[2024-11-07] MEDS: FUROSEMIDE 40 MG TAB PO SCH (11:51)
[2024-11-07] MEDS: FOLIC ACID 1 MG TAB PO SCH (11:52)
[2024-11-07] MEDS: ISOSORBIDE MONONITRATE ER 30 MG TAB.ER.24H PO SCH (11:52)
[2024-11-07] MEDS: ASPIRIN 81 MG PO SCH (11:52)
[2024-11-07] MEDS: KETOROLAC 15 MG/ML 1 ML VIAL IVP PRN (11:54)
[2024-11-07] MEDS ORDERED: FAMOTIDINE 20 MG TAB PO SCH (12:30)
--- NOTE | 2024-11-07 12:40 | P.HPIM ---
History of Present Illness H&P Date: 11/07/24 Patient is a pleasant 84 year old female with medical history of diastolic CHF, coronary artery disease with stenting about 3 years ago, PE, stroke, hypertension, hyperlipidemia, pulmonary fibrosis, chronically on oxygen at 2L, CKD III, Rheumatoid arthritis, reynauds. Patient reports with a 3 day history of left chest wall pressure. Denies a burning sensation. Denies any associated symptoms of nausea, vomiting or diarrhea. No diaphoresis. Denies any extraneous activity that led to this and denies any recent falls or injury. No fever or chills. Patient has no worsening shortness of breath. Denies any dizziness or lightedness. Has chronic dysphagia from her old stroke. Troponin level negative x 3. Chest xray showing no acute changes. Patients chest pain is reproducible to the chest wall and noted to have a lump near 8 o'clock on the left breast which was minimally tender as well as an area of focal tenderness just above the left breast which is the area of reproducible pain. CBC essentially unremarkable, potassium 3.1. Patient admitted to the hospital in observation with cardiology consultation. Potassium was supplemented. REVIEW OF SYSTEMS: CONSTITUTIONAL: No fever, no malaise, no fatigue. HEENT: No recent visual problems or hearing problems. Denied any sore throat. CARDIOVASCULAR: No chest pain, orthopnea, PND, no palpitations, no syncope. PULMONARY: No shortness of breath, no cough, no hemoptysis. GASTROINTESTINAL: No diarrhea, no nausea, no vomiting, no abdominal pain. NEUROLOGICAL: No headaches, no weakness, no numbness. HEMATOLOGICAL: Denies any bleeding or petechiae. GENITOURINARY: Denies any burning micturition, frequency, or urgency. MUSCULOSKELETAL/RHEUMATOLOGICAL: Denies any joint pain, swelling, or any muscle pain. ENDOCRINE: Denies any polyuria or polydipsia. The rest of the 14-point review of systems is negative. PHYSICAL EXAMINATION: GENERAL: The patient is alert and oriented x3, not in any acute distress. Well developed, well nourished. HEENT: Pupils are round and equally reacting to light. EOMI. No scleral icterus. No conjunctival pallor. Normocephalic, atraumatic. No pharyngeal erythema. No thyromegaly. CARDIOVASCULAR: S1 and S2 present. No murmurs, rubs, or gallops. PULMONARY: Chest is clear to auscultation, no wheezing or crackles. ABDOMEN: Soft, nontender, nondistended, normoactive bowel sounds. No palpable organomegaly. MUSCULOSKELETAL: No joint swelling or deformity. EXTREMITIES: No cyanosis, clubbing, or pedal edema. NEUROLOGICAL: Gross neurological examination did not reveal any focal deficits. SKIN: No rashes. Assessment Chest pain, atypical, likely musculoskeletal CP is reproducible and there was a noted lump on the breast History of pulmonary fibrosis and chronic hypoxemic respiratory failure Hypokalemia Chronic diastolic CHF Coronary artery disease with prior cardiac stenting History of stroke with chronic dysphagia Hypertension Hyperlipidemia History of PE CKD stage III Rheumatoid arthritis Reynauds GI prophylaxis DVT prophylaxis Plan Cardiology consultation Ultrasound of the left breast and chest wall Resume home medications Potassium was supplemented with 40 meq Pain management with oral tylenol and iV toradol PT/OT Repeat BMP Patient can be discharged home once cleared by cardiology The impression and plan of care has been dictated by Josie Forrest Nurse Practitioner as directed. Dr. Shabbir MD I have performed a history and physical examination and medical decision making of this patient, discussed the same with the dictator, and agree with the dictators assessment and plan as written, documented as a scribe. Based on total visit time, I have performed more than 50% of this visit. Past Medical History Past Medical History: Coronary Artery Disease (CAD), Heart Failure, CVA/TIA, Eye Disorder, Fibromyalgia, Hyperlipidemia, Hypertension, Myocardial Infarction ([place]), Osteoarthritis (OA), Pulmonary Embolus (PE), Rheumatoid Arthritis (RA) Additional Past Medical History / Comment(s): macular degeneration, lupus, Raynauds, had stroke in May 2021-still has some dysphagia, SOB w/exertion, left shoulder pain Last Myocardial Infarction Date:: 08/07/2021 History of Any Multi-Drug Resistant Organisms: ESBL Date of last positivie culture/infection: 08/17/2014 MDRO Source:: Urine-E.Coli ESBL Past Surgical History: Bladder Surgery, Heart Catheterization, Heart Catheteri zation With Stent, Hysterectomy Additional Past Surgical History / Comment(s): RIGHT CATARACT REMOVAL Past Anesthesia/Blood Transfusion Reactions: Postoperative Nausea & Vomiting (PONV) Date of Last Stent Placement:: September 2021 Past Psychological History: Depression Smoking Status: Never smoker Past Alcohol Use History: None Reported Additional Past Alcohol Use History / Comment(s): drinks one drink maybe a month per pt Past Drug Use History: None Reported Additional Drug Use History / Comment(s): CBD edibles OCCASIONALLY - Past Family History Sister(s) Additional Family Medical History / Comment(s): "HEART PROBLEMS" Medications and Allergies Home Medications Medication Instructions Recorded Confirmed Type Aspirin [Adult Low Dose Aspirin EC] 81 mg PO DAILY 06/09/19 11/07/24 History traZODone HCL 100 mg PO HS 04/12/21 11/07/24 History Atorvastatin [Lipitor] 40 mg PO HS 08/07/21 11/07/24 History Rivaroxaban [Xarelto] 2.5 mg PO AC-BID 08/07/21 11/07/24 History Folic Acid 1 mg PO DAILY #30 tab 08/13/21 11/07/24 Rx Isosorbide Mononitrate ER [Imdur] 30 mg PO DAILY 09/26/21 11/07/24 History ALPRAZolam [Xanax] 0.25 mg PO DAILY PRN 06/23/23 11/07/24 History ARIPiprazole [Abilify] 2.5 mg PO DAILY 10/30/23 11/07/24 History Mirabegron [Myrbetriq] 25 mg PO DAILY 10/30/23 11/07/24 History Furosemide [Lasix] 40 mg PO DAILY #30 tab 11/20/23 11/07/24 Rx Acetaminophen [Tylenol 8 Hour] 650 mg PO BID PRN 11/07/24 11/07/24 History Famotidine [Pepcid] 20 mg PO AC-TID 11/07/24 11/07/24 History Sertraline [Zoloft] 25 mg PO HS 11/07/24 11/07/24 History Allergies Allergy/AdvReac Type Severity Reaction Status Date / Time Sulfa (Sulfonamide Allergy Unknown Verified 11/07/24 09:17 Antibiotics) Childhood Physical Exam Vitals: Vital Signs Temp Pulse Resp BP Pulse Ox 11/07/24 09:51 94 L 11/07/24 08:49 98 F 75 18 139/6 95 11/07/24 08:00 77 18 140/74 99 11/07/24 07:23 98.1 F 75 18 133/68 96 11/07/24 06:07 64 18 138/74 100 11/07/24 05:37 97.8 F 66 18 140/71 94 L Intake and Output 11/06/24 11/07/24 11/07/24 22:59 06:59 14:59 Other: Weight 58.06 kg 58.06 kg Results CBC & Chem 7: 11/07/24 05:48 11/07/24 05:48 Labs: Abnormal Lab Results - Last 24 Hours (Table) 11/07/24 11/07/24 Range/Units 05:48 05:48 MPV 9.3 L (9.5-12.2) fL Eosinophils # 0.45 H (0.04-0.35) 10*3/uL Potassium 3.1 L (3.5-5.1) mmol/L BUN 18 H (7-17) mg/dL Glucose 101 H (74-99) mg/dL Assessment and Plan Time with Patient: Less than 30
[2024-11-07] MEDS: NON FORMULARY DRUG (Mirabegron [Myrbetriq] 25 MG Tab.Er.24h) PO SCH (12:42)
--- NOTE | 2024-11-07 12:49 | P.CRDCN ---
History of Present Illness History of present illness: HISTORY OF PRESENT ILLNESS: This is a 84-year-old female with a past medical history significant for hypertension, hyperlipidemia, peripheral vascular disease, CVA, chronic hypoxic respiratory failure, atrial tachycardia, carotid stenosis, heart failure, pulmonary fibrosis and CAD. Patient follows in the office with Dr. Oconnell. We have been asked to see the patient in consultation for chest pain. Patient examined at the bedside. Patient states she was having chest pain for the past few days. She thought she was due to a pulled muscle. Last night, it woke her up out of a sleep. She denied any worsening shortness of breath. She was cold and clammy. She states the pain was worse with movement or position changes. She reports she had a head cold that started on Wednesday. Denies any changes to her medications. DIAGNOSTICS: - EKG reveals sinus mechanism with PVCs - Chest xray negative for acute process. - Laboratory data: WBC 7.85. Hemoglobin 12.5. Platelet count 240. D-dimer 0 .37. Sodium 141. Potassium 3.1. BUN 18. Creatinine 0.89. Troponin negative x 3. - Current home cardiac medications include Xarelto 2.5 mg twice a day, aspirin 81 mg daily, Lipitor 40 mg at night, Imdur 30 mg daily, Lasix 40 mg daily. - Most recent echocardiogram obtained in October 2023 revealed ejection fraction 55 to 60%, no obvious regional wall motion abnormalities, mild aortic stenosis, mod erate tricuspid regurgitation, mild MR - Lexiscan performed in October 2023 negative for ischemia - Cardiac catheterization history: 04/2022 revealing patent stent in the OM1, intermediate lesion involving OM1 distal to the stented segment. Intermediate disease involving OM 2. IFR was performed and came in to be nonischemic. Normal left-sided filling pressures. REVIEW OF SYSTEMS: At the time of my exam: CONSTITUTIONAL: Denies fever or chills. HEENT: Denies blurred vision, vision changes, or eye pain. Denies hemoptysis CARDIOVASCULAR: Denies chest pain. Denies orthopnea. Denies PND. Denies p alpitations RESPIRATORY: Denies shortness of breath. GASTROINTESTINAL: Denies abdominal pain. Denies nausea or vomiting. HEMATOLOGIC: Denies bleeding disorders. GENITOURINARY: Denies any blood in urine. SKIN: Denies pruitis. Denies rash. PHYSICAL EXAM: VITAL SIGNS: Reviewed. GENERAL: Well-developed in no acute distress. HEENT: Head is normocephalic. Pupils are equal, round. Sclerae anicteric. Mucous membranes of the mouth are moist. Neck supple. No JVD or thyromegaly LUNGS: Respirations even and unlabored. Lungs essentially clear to auscultation bilaterally. HEART: Regular rate and rhythm. S1 and S2 heard. ABDOMEN: Soft. Nondistended. Nontender. EXTREMITIES: Normal range of motion. No clubbing or cyanosis. Peripheral pulses intact. No lower extremity edema NEUROLOGIC: Awake and alert. Oriented x 3. ASSESSMENT: Chest pain, appears musculoskeletal, troponin negative x 3, ACS ruled out Hypertension Hyperlipidemia Peripheral vascular disease Chronic hypoxic respiratory failure on home oxygen History of atrial tachycardia Coronary artery disease Carotid stenosis Chronic heart failure with perserved EF, not in acute CHF History of pulmonary fibrosis History of CVA PLAN: An acute coronary event has been ruled out No need to obtain echocardiogram Resume home cardiac medications Patient stable for discharge home today from a cardiac standpoint We will sign off. Please reconsult if needed. Nurse practitioner note has been reviewed by physician. Signing provider agrees with the documented findings, assessment, and plan of care documented by SCIENTIST/ENGINEER as a scribe. Past Medical History Past Medical History: Coronary Artery Disease (CAD), Heart Failure, CVA/TIA, Eye Disorder, Fibromyalgia, Hyperlipidemia, Hypertension, Myocardial Infarction ([place]), Osteoarthritis (OA), Pulmonary Embolus (PE), Rheumatoid Arthritis (RA) Additional Past Medical History / Comment(s): macular degeneration, lupus, Raynauds, had stroke in May 2021-still has some dysphagia, SOB w/exertion, left shoulder pain Last Myocardial Infarction Date:: 08/07/2021 History of Any Multi-Drug Resistant Organisms: ESBL Date of last positivie culture/infection: 08/17/2014 MDRO Source:: Urine-E.Coli ESBL Past Surgical History: Bladder Surgery, Heart Catheterization, Heart Catheterization With Stent, Hysterectomy Additional Past Surgical History / Comment(s): RIGHT CATARACT REMOVAL Past Anesthesia/Blood Transfusion Reactions: Postoperative Nausea & Vomiting (PO NV) Date of Last Stent Placement:: September 2021 Past Psychological History: Depression Smoking Status: Never smoker Past Alcohol Use History: None Reported Additional Past Alcohol Use History / Comment(s): drinks one drink maybe a month per pt Past Drug Use History: None Reported Additional Drug Use History / Comment(s): CBD edibles OCCASIONALLY - Past Family History Sister(s) Additional Family Medical History / Comment(s): "HEART PROBLEMS" Medications and Allergies Home Medications Medication Instructions Recorded Confirmed Type Aspirin [Adult Low Dose Aspirin EC] 81 mg PO DAILY 06/09/19 11/07/24 History traZODone HCL 100 mg PO HS 04/12/21 11/07/24 History Atorvastatin [Lipitor] 40 mg PO HS 08/07/21 11/07/24 History Rivaroxaban [Xarelto] 2.5 mg PO AC-BID 08/07/21 11/07/24 History Folic Acid 1 mg PO DAILY #30 tab 08/13/21 11/07/24 Rx Isosorbide Mononitrate ER [Imdur] 30 mg PO DAILY 09/26/21 11/07/24 History ALPRAZolam [Xanax] 0.25 mg PO DAILY PRN 06/23/23 11/07/24 History ARIPiprazole [Abilify] 2.5 mg PO DAILY 10/30/23 11/07/24 History Mirabegron [Myrbetriq] 25 mg PO DAILY 10/30/23 11/07/24 History Furosemide [Lasix] 40 mg PO DAILY #30 tab 11/20/23 11/07/24 Rx Acetaminophen [Tylenol 8 Hour] 650 mg PO BID PRN 11/07/24 11/07/24 History Famotidine [Pepcid] 20 mg PO AC-TID 11/07/24 11/07/24 History Sertraline [Zoloft] 25 mg PO HS 11/07/24 11/07/24 History Allergies Allergy/AdvReac Type Severity Reaction Status Date / Time Sulfa (Sulfonamide Allergy Unknown Verified 11/07/24 09:17 Antibiotics) Childhood Physical Exam Vitals: Vital Signs Temp Pulse Resp BP Pulse Ox 11/07/24 09:51 94 L 11/07/24 08:49 98 F 75 18 139/6 95 11/07/24 08:00 77 18 140/74 99 11/07/24 07:23 98.1 F 75 18 133/68 96 11/07/24 06:07 64 18 138/74 100 11/07/24 05:37 97.8 F 66 18 140/71 94 L Intake and Output 11/06/24 11/07/24 11/07/24 22:59 06:59 14:59 Other: Weight 58.06 kg 58.06 kg Results 11/07/24 05:48 11/07/24 05:48 Cardiac Enzymes 11/07/24 11/07/24 11/07/24 Range/Units 05:48 05:48 08:21 AST 23 (14-36) U/L Troponin I <0.012 <0.012 (0.000-0.034) ng/mL Coagulation 11/07/24 Range/Units 05:48 PT 11.6 (10.0-12.5) sec APTT 24.2 (22.0-30.0) sec CBC 11/07/24 Range/Units 05:48 WBC 7.85 (4.50-10.00) 10*3/uL RBC 4.36 (4.10-5.20) 10*6/uL Hgb 12.5 (12.0-15.0) g/dL Hct 38.4 (37.2-46.3) % Plt Count 240 (140-440) 10*3/uL Comprehensive Metabolic Panel 11/07/24 Range/Units 05:48 Sodium 141 (137-145) mmol/L Potassium 3.1 L (3.5-5.1) mmol/L Chloride 102 (98-107) mmol/L Carbon Dioxide 29 (22-30) mmol/L BUN 18 H (7-17) mg/dL Creatinine 0.89 (0.52-1.04) mg/dL Glucose 101 H (74-99) mg/dL Calcium 9.3 (8.4-10.2) mg/dL AST 23 (14-36) U/L ALT 13 (4-34) U/L Alkaline Phosphatase 72 (38-126) U/L Total Protein 6.5 (6.3-8.2) g/dL Albumin 3.9 (3.5-5.0) g/dL Current Medications Generic Name Dose Route Start Last Admin Trade Name Freq PRN Reason Stop Dose Admin Aspirin 325 mg 11/08/24 09:00 Aspirin 325 Mg Tab PO DAILY FELICIA Nitroglycerin 0.4 mg 11/07/24 07:49 Nitroglycerin Sl Tabs 0.4 Mg Tab SUBLINGUAL Q5M PRN Chest Pain Intake and Output 11/06/24 11/07/24 11/07/24 22:59 06:59 14:59 Other: Weight 58.06 kg 58.06 kg Patient Weight 11/08/24 06:59 Weight 58.06 kg 11/07/24 05:48 11/07/24 05:48
--- NOTE | 2024-11-07 13:45 | USB ---
Reason for Exam: Clinical finding. Patient History: Menarche at age 13. First Full-Term at age 20. Hysterectomy at age 32. Postmenopausal. Excisional Biopsy on the Left side. 09/21/2005, Benign Core Biopsy on the right side. Father had breast cancer, age 60. Risk Values: [place] 5 year model risk: 1.9%. NCI Lifetime model risk: 2.5%. Technique: Method: Targeted. Prior Study Comparison: 04/07/2016 Bilateral Screening Mammogram, [facility]. 08/24/2017 Bilateral Screening Mammogram, [facility]. 01/26/2019 Bilateral Screening Mammogram, [facility]. Findings: The upper section of the breast of the left breast, the axilla of the left breast and the retroareolar of the left breast were scanned. Targeted ultrasound upper inner left breast along the area of patient's pain. Scanning from 9:00 to 11:00 including the subareolar region and axilla. There is no solid or cystic lesion or axillary adenopathy. No discrete abnormality to account for the patient's pain. Overall Assessment: Incomplete: need additional imaging evaluation, BI-RAD 0 Management: Diagnostic Mammogram of both breasts. As an outpatient when patient able. No abnormality on targeted ultrasound. A clinical breast exam by your physician is recommended on an annual basis and results should be correlated with mammographic findings. This exam should not preclude additional follow-up of suspicious palpable abnormalities. Results were given to the patient verbally at the time of exam. [facility], , 11/07/2024 1:42 PM. Electronically signed and approved by: Baltazar Fuentes M.D. Radiologist
[2024-11-07] MEDS: ARIPiprazole 5 MG TAB PO SCH (14:35)
[2024-11-07] MEDS: RIVAROXABAN 2.5 MG TABLET PO SCH (14:36)
[2024-11-07] MEDS: FAMOTIDINE 20 MG TAB PO SCH (14:37)
[2024-11-07] MEDS: traZODone HCL 100 MG TAB PO SCH (20:33)
[2024-11-07] MEDS: ATORVASTATIN 40 MG TAB PO SCH (20:33)
[2024-11-07] MEDS: SERTRALINE 25 MG TAB PO SCH (20:33)
[2024-11-08 02:50] VITALS: PULSE 65
[2024-11-08 06:38] LABS: African American GFR (CKD) 64 (>60 ml/min/1.73 sqM); Anion Gap 8 mmol/L; Blood Urea Nitrogen 19 mg/dL (7-17); Calcium 9.5 mg/dL (8.4-10.2); Carbon Dioxide 30 mmol/L (22-30); Chloride 104 mmol/L (98-107); Glucose 94 mg/dL (74-99); Non-African American GFR(CKD) 55 (>60 ml/min/1.73 sqM); Potassium 4.4 mmol/L (3.5-5.1); Sodium 142 mmol/L (137-145)
[2024-11-08 07:39] VITALS: BP 138/56; RESP 17; TEMP 97.4
[2024-11-08] MEDS ORDERED: ASPIRIN 325 MG TAB PO SCH (09:00)
[2024-11-08 10:41] LABS: Chol/HDL Ratio 2.54 Ratio; LDL Cholesterol,Calculated 30.4 mg/dL (0.0-131.0)
--- NOTE | 2024-11-08 15:03 | P.DS ---
Providers Date of admission: 11/07/24 07:49 Expected date of discharge: 11/08/24 Attending physician: Sj Low Primary care physician: Rosalio Archer Hospital Course: Discharge diagnosis Chest pain, atypical, likely musculoskeletal CP is reproducible and there was a noted lump on the breast. ACS ruled out. Left breast ultrasound showed no suspicious solid or cystic mass/nodule noted History of pulmonary fibrosis and chronic hypoxemic respiratory failure on oxygen at 2 L via nasal cannula Hypokalemia Chronic diastolic CHF Coronary artery disease with prior cardiac stenting History of stroke with chronic dysphagia Hypertension Hyperlipidemia History of PE CKD stage III Rheumatoid arthritis Reynauds GI prophylaxis DVT prophylaxis Hospital course Patient is a pleasant 84 year old female with medical history of diastolic CHF, coronary artery disease with stenting about 3 years ago, PE, stroke, hypertension, hyperlipidemia, pulmonary fibrosis, chronically on oxygen at 2L, CKD III, Rheumatoid arthritis, reynauds. Patient reports with a 3 day history of left chest wall pressure. Denies a burning sensation. Denies any associated symptoms of nausea, vomiting or diarrhea. No diaphoresis. Denies any extraneous activity that led to this and denies any recent falls or injury. No fever or chills. Patient has no worsening shortness of breath. Denies any dizziness or lightedness. Has chronic dysphagia from her old stroke. Troponin level negative x 3. Chest xray showing no acute changes. Patients chest pain is reproducible to the chest wall and noted to have a lump near 8 o'clock on the left breast which was minimally tender as well as an area of focal tenderness just above the left breast which is the area of reproducible pain. CBC essentially unremarkable, potassium 3.1. Patient admitted to the hospital in observation with cardiology consultation. Potassium was supplemented. 11/08/2024 Patient is resting in the bed. Awake alert and oriented. On oxygen 2 L via nasal cannula at baseline. Chest pain is resolved now. No cough or sputum production. No headache or dizziness. No other acute overnight issues. Cardiology recommends to follow-up as an outpatient. Left breast ultrasound showed no suspicious cystic or solid mass or larger. Patient did improve symptomatically and is being discharged home today. Cleared from cardiology standpoint. Laboratory work showed sodium 142 potassium 4.4 chloride 104 bicarb is 30 BUN 99 creatinine 0.96 and blood sugar 94 and calcium 9.5. Troponin x 3 negative. D- dimer is not elevated. PHYSICAL EXAMINATION: GENERAL: The patient is alert and oriented x3, not in any acute distress. Well developed, well nourished. HEENT: Pupils are round and equally reacting to light. EOMI. No scleral icterus. No conjunctival pallor. Normocephalic, atraumatic. No pharyngeal erythema. No thyromegaly. CARDIOVASCULAR: S1 and S2 present. No murmurs, rubs, or gallops. No chest wall tenderness. PULMONARY: Chest is clear to auscultation, no wheezing or crackles. ABDOMEN: Soft, nontender, nondistended, normoactive bowel sounds. No palpable organomegaly. MUSCULOSKELETAL: No joint swelling or deformity. EXTREMITIES: No cyanosis, clubbing, or pedal edema. NEUROLOGICAL: Gross neurological examination did not reveal any focal deficits. SKIN: No rashes. Vital Signs - 24 hr 11/07/24 11/08/24 11/08/24 20:09 02:48 07:00 Temperature 98.1 F 98 F 97.4 F L Pulse Rate 67 65 Pulse Rate [ 65 Left] Respiratory 19 19 17 Rate Blood Pressure 108/69 114/54 Blood Pressure 138/56 [Left Arm] O2 Sat by Pulse 96 97 98 Oximetry Patient Condition at Discharge: Fair Plan - Discharge Summary Discharge Rx Participant: No New Discharge Prescriptions: New Fluticasone Nasal [place] [Flonase Nasal [place]] 1 spray EA NOSTRIL DAILY #16 gm Continue Aspirin [Adult Low Dose Aspirin EC] 81 mg PO DAILY traZODone HCL 100 mg PO HS Atorvastatin [Lipitor] 40 mg PO HS Folic Acid 1 mg PO DAILY #30 tab ALPRAZolam [Xanax] 0.25 mg PO DAILY PRN PRN Reason: Anxiety Mirabegron [Myrbetriq] 25 mg PO DAILY ARIPiprazole [Abilify] 2.5 mg PO DAILY Furosemide [Lasix] 40 mg PO DAILY #30 tab Famotidine [Pepcid] 20 mg PO AC-TID Rivaroxaban [Xarelto] 2.5 mg PO AC-BID Isosorbide Mononitrate ER [Imdur] 30 mg PO DAILY Acetaminophen [Tylenol 8 Hour] 650 mg PO BID PRN PRN Reason: Fever And/ Or Pain Sertraline [Zoloft] 25 mg PO HS Discharge Medication List Aspirin [Adult Low Dose Aspirin EC] 81 mg PO DAILY 06/09/19 [History] traZODone HCL 100 mg PO HS 04/12/21 [History] Atorvastatin [Lipitor] 40 mg PO HS 08/07/21 [History] Rivaroxaban [Xarelto] 2.5 mg PO AC-BID 08/07/21 [History] Folic Acid 1 mg PO DAILY #30 tab 08/13/21 [Rx] Isosorbide Mononitrate ER [Imdur] 30 mg PO DAILY 09/26/21 [History] ALPRAZolam [Xanax] 0.25 mg PO DAILY PRN 06/23/23 [History] ARIPiprazole [Abilify] 2.5 mg PO DAILY 10/30/23 [History] Mirabegron [Myrbetriq] 25 mg PO DAILY 10/30/23 [History] Furosemide [Lasix] 40 mg PO DAILY #30 tab 11/20/23 [Rx] Acetaminophen [Tylenol 8 Hour] 650 mg PO BID PRN 11/07/24 [History] Famotidine [Pepcid] 20 mg PO AC-TID 11/07/24 [History] Sertraline [Zoloft] 25 mg PO HS 11/07/24 [History] Fluticasone Nasal [place] [Flonase Nasal [place]] 1 spray EA NOSTRIL DAILY #16 gm 11/08/24 [Rx] Follow up Appointment(s)/Referral(s): Rosalio Archer MD [Primary Care Provider] - 1-2 days Patient Instructions/Handouts: Chest Pain (ED) Discharge Disposition: HOME SELF-CARE
== END 2024-11-08 15:50 | disposition home or self-care (01) ==
LOC: EC 05:35 → 1SOBS 07:49
PROVIDERS: ADMIT Hospitalist; ATTEND Hospitalist
DX: R07.89 Other chest pain (principal); E87.6 Hypokalemia; I25.10 Atherosclerotic heart disease of native coronary artery without angina pectoris; I13.0 Hypertensive heart and chronic kidney disease with heart failure and stage 1 through stage 4 chronic kidney disease, or unspecified chronic kidney disease; I50.32 Chronic diastolic (congestive) heart failure; N18.30 Chronic kidney disease, stage 3 unspecified; I73.00 Raynaud's syndrome without gangrene; I65.29 Occlusion and stenosis of unspecified carotid artery; J84.10 Pulmonary fibrosis, unspecified; E78.5 Hyperlipidemia, unspecified; F32.A Depression, unspecified; J96.11 Chronic respiratory failure with hypoxia; M06.9 Rheumatoid arthritis, unspecified; I25.2 Old myocardial infarction; I69.391 Dysphagia following cerebral infarction; Z11.52 Encounter for screening for COVID-19; Z86.711 Personal history of pulmonary embolism; Z95.5 Presence of coronary angioplasty implant and graft; Z99.81 Dependence on supplemental oxygen; Z79.82 Long term (current) use of aspirin; Z79.899 Other long term (current) drug therapy; Z79.01 Long term (current) use of anticoagulants; Z88.2 Allergy status to sulfonamides
CPT/HCPCS: 96375; 96376 ×2; 96374; 99285; 36415; 93005 ×2; 97161; 97166; 85379; 80061; 80053; 80048; 83735; 84484; 85025; 85610; 85730; 87636; 71046; 76642; G0378 ×2; J2270; J1885 ×2